=== PATIENT | female | born 1990 | race Caucasian/White ===

== ENCOUNTER 2020-07-17 09:42 | Emergency (ER) | payer OTHER, SELFPAY ==
[2020-07-17 09:54] VITALS: BP 124/71; PULSE 130; RESP 28; TEMP 37.8; O2SAT 97; BMI 30.7
--- NOTE | 2020-07-17 09:54 | ECG_ITS ---
Test Reason : FLU LIKE SYMPTOMS Blood Pressure : / mmHG Vent. Rate : 117 BPM Atrial Rate : 117 BPM P-R Int : 154 ms QRS Dur : 072 ms QT Int : 334 ms P-R-T Axes : 040 040 000 degrees QTc Int : 465 ms Sinus tachycardia Nonspecific T wave abnormality Abnormal ECG No previous ECGs available Referred By: Tiffany Akers Electronically Signed By:ALMAZ COFFEY MD
--- NOTE | 2020-07-17 09:54 | US_ITS ---
EXAMINATION: US VENOUS ULTRASOUND WITH DOPPLER LOWER EXTREMITY, BILATERAL CLINICAL INFORMATION: Pain and cramping. Covid positive. COMPARISON: None TECHNIQUE: Ultrasound of the deep veins is performed from the hip to the calf with compression sonography and color and pulse Doppler assessment. Spectral analysis with color-flow imaging is performed. FINDINGS: RIGHT: There is normal venous compression and respiratory variation and augmented flow. The visualized common femoral vein, superficial femoral vein, profunda femoral vein, popliteal vein, and the trifurcation region shows no evidence of deep venous thrombosis. There is no significant popliteal fossa cyst. No popliteal artery aneurysm. LEFT: There is normal venous compression and respiratory variation and augmented flow. The visualized common femoral vein, superficial femoral vein, profunda femoral vein, popliteal vein, and the trifurcation region shows no evidence of deep venous thrombosis. There is no significant popliteal fossa cyst. No popliteal artery aneurysm. If the patient's symptoms persist, followup ultrasound in 5 days 7 days might be of value to exclude proximal propagation from a non-visualized calf vein. US/US venous duplex LE BI IMPRESSION: No acute DVT demonstrated in the bilateral lower extremity.
--- NOTE | 2020-07-17 09:55 | XR_ITS ---
EXAMINATION: XR CHEST CLINICAL INFORMATION: Dyspnea. COMPARISON: Portable chest 03/29/2014 TECHNIQUE: Portable upright AP view of the chest was obtained. FINDINGS: There are low lung volumes. Subtle groundglass opacities present left suprahilar region which may represent early pneumonia or viral process. There is no effusion or pleural reaction. The heart is normal in size. The hilar and mediastinal contours and bony structures are unremarkable. XR/XR chest 1V IMPRESSION: Groundglass opacities left suprahilar region which may represent early pneumonia or viral process. No effusion.
--- NOTE | 2020-07-17 10:04 | ED_ITS ---
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 no OB complaints followed at [facility] [place] MD complaint: fevers, does not feel well, fatigue, shortness of breath Onset (ago): week(s) (2) Severity: moderate Quality: aching Pain Consistency: constant Relieving factors: none Exacerbating factors: none Associated symptoms: cough, fever/chills, headaches, loss of appetite, malaise and weakness Treatments prior to arrival: other (took tylenol overnight) Related Data Allergies Allergy/AdvReac Type Severity Reaction Status Date / Time No Known Allergies Allergy Unverified 05/01/20 16:42 Review of Systems Review of Systems: Constitutional : positive Fever, positive Chills, positive fatigue, positive Malaise ENT/Mouth : no sore throat, positive runny nose Eyes: No Discharge Cardiovascular : No Chest Pain, pos SOB Respiratory : No Cough, No Sputum Gastrointestinal : No Nausea, No Vomiting, No Diarrhea Genitourinary : No Dysuria, No Urinary Frequency Musculoskeletal : positive Myalgia Skin : No rash Neuro : No Headache All other systems reviewed and are negative [facility] Past Medical History Attestation statement: The following information was validated with the patient. Medical History No known health problems Social History Social History (Updated 07/17/20 @ 10:25 by Tiffany Akers DO) Alcohol intake: never Smoking Status: Never smoker Use of substances other than those prescribed or required for medical reasons: No Advance Directives: No Advance Directives Information Provided: No Physical Exam Vital Signs: Vital Signs: Last Vital Signs Temp 98.3 F 07/17/20 12:19 Pulse 105 H 07/17/20 12:19 Resp 28 H 07/17/20 09:54 BP 102/54 L 07/17/20 12:19 Pulse Ox 98 07/17/20 12:19 Body Mass Index 30.7 Appearance: Alert. Oriented X3. No acute distress. Anxious Eyes: Pupils equal, round and reactive to light. ENT: Pharynx normal. Neck: Normal inspection. Neck supple. CVS: tachycardic heart rate and rhythm. Pulses normal. Respiratory: No respiratory distress. Breath sounds slightly diminished Abdomen: Soft and non-tender. Gravid uterus Skin: Skin warm and dry. Normal skin color. Normal skin turgor. Extremities: No lower extremity edema. No calf ttp no swelling Neuro: Oriented X 3. No motor deficit. No sensory deficit. Course Course Course Narrative: FHT 165 call to her OB at [facility] [place] 1135am, 92% on RA placed on supplemental O2 discussed with Dr. Sebastian at OBGYN will accept patient , patient is on 1.5L NC 97% Dr. Sebastian and M attending - call transfer line and patient will be admitted Dr. 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 breath and fatigue and fevers at this time will need labs, venous duplex, CXR, tylenol, COVID labs - will need call to her OB as well, she is not hypoxic and has no chest pain at this time, heart tones ordered, dispo per results and findings Lab Data Result diagrams: 07/17/20 10:11 07/17/20 10:11 Labs: Lab Results 07/17/20 07/17/20 07/17/20 Range/Units 10:11 10:11 10:11 WBC 5.6 (4.8-10.8) X10*3/uL RBC 4.56 (4.20-5.50) X10*6/uL Hgb 11.2 L (12.0-16.0) g/dl Hct 34.9 L (37-47) % MCV 76.5 L (80-98) fL MCH 24.6 L (27.0-33.0) pg MCHC 32.1 (31.0-35.0) g/dl RDW 14.9 (11.0-16.0) % Plt Count 271 (160-400) X10*3/uL MPV 10.9 (9.4-12.3) fL Immature Gran % (Auto) 0.9 H (0.0-0.4) % Neut % (Auto) 81.3 H (45-73) % Lymph % (Auto) 12.3 L (20-40) % [place] % (Auto) 4.6 (2-11) % Eos % (Auto) 0.9 (0-4) % Baso % (Auto) 0.0 (0-2) % Lymph # (Auto) 0.7 L (1.2-4.9) X10*3/uL [place] # (Auto) 0.3 (0.1-1.2) X10*3/uL Eos # (Auto) 0.1 (0.0-0.4) X10*3/uL Baso # (Auto) 0.0 (0.0-0.2) X10*3/uL Abs Immat Gran (auto) 0.05 H (0.00-0.03) X10*3/uL Absolute Neuts (auto) 4.6 (2.0-8.3) X10*3/uL Absolute Nucleated RBC 0.000 (0.0-0.012) X10*3/uL Nucleated RBC % (auto) 0.0 (0.0-0.2) /100WBC Smear Tech's Comments VERIFIED PT 12.2 (10.8-13.0) SEC INR 1.0 (0.9-1.1) APTT 29.2 (24.1-38.0) SEC D-Dimer NG/ML Sodium 136 (135-145) mmol/L Potassium 3.6 (3.3-5.1) mmol/l Chloride 108 (96-108) mmol/L Carbon Dioxide 19 L (22-29) mmol/L Anion Gap 13 (12-20) BUN 5 L (9-16) mg/dL Creatinine 0.60 (0.5-1.4) mg/dL Estim Creat Clear Calc 128.0 Estimated GFR > 60 Random Glucose 88 (60-115) mg/dL Lactic Acid (0.5-2.0) mmol/L Calcium 8.3 L (8.4-10.2) mg/dL Magnesium 1.4 L* (1.6-2.6) mg/dL Ferritin 52 (10-122) ng/mL Total Bilirubin 0.4 (0.0-1.0) mg/dL Direct Bilirubin 0.2 (0.0-0.5) mg/dL AST 82 H (5-31) U/L ALT 51 H (0-31) U/L Alkaline Phosphatase 116 (39-117) U/L Lactate Dehydrogenase 233 H (122-220) U/L Troponin I High Sens (<3.5-17.0) ng/L B-Natriuretic Peptide (<100) pg/mL Total Protein 6.3 L (6.5-8.0) g/dL Albumin 3.4 L (3.5-5.0) g/dL Lipase 10 (8-78) U/L Procalcitonin ng/mL Coronavirus (PCR) (Negative) Influenza Type A (PCR) (Negative) Influenza Type B (PCR) (Negative) RSV RNA Qual (PCR) (Negative) 07/17/20 07/17/20 07/17/20 Range/Units 10:11 10:11 10:11 WBC (4.8-10.8) X10*3/uL RBC (4.20-5.50) X10*6/uL Hgb (12.0-16.0) g/dl Hct (37-47) % MCV (80-98) fL MCH (27.0-33.0) pg MCHC (31.0-35.0) g/dl RDW (11.0-16.0) % Plt Count (160-400) X10*3/uL MPV (9.4-12.3) fL Immature Gran % (Auto) (0.0-0.4) % Neut % (Auto) (45-73) % Lymph % (Auto) (20-40) % [place] % (Auto) (2-11) % Eos % (Auto) (0-4) % Baso % (Auto) (0-2) % Lymph # (Auto) (1.2-4.9) X10*3/uL [place] # (Auto) (0.1-1.2) X10*3/uL Eos # (Auto) (0.0-0.4) X10*3/uL Baso # (Auto) (0.0-0.2) X10*3/uL Abs Immat Gran (auto) (0.00-0.03) X10*3/uL Absolute Neuts (auto) (2.0-8.3) X10*3/uL Absolute Nucleated RBC (0.0-0.012) X10*3/uL Nucleated RBC % (auto) (0.0-0.2) /100WBC Smear Tech's Comments PT (10.8-13.0) SEC INR (0.9-1.1) APTT (24.1-38.0) SEC D-Dimer 387 NG/ML Sodium (135-145) mmol/L Potassium (3.3-5.1) mmol/l Chloride (96-108) mmol/L Carbon Dioxide (22-29) mmol/L Anion Gap (12-20) BUN (9-16) mg/dL Creatinine (0.5-1.4) mg/dL Estim Creat Clear Calc Estimated GFR Random Glucose (60-115) mg/dL Lactic Acid 1.0 (0.5-2.0) mmol/L Calcium (8.4-10.2) mg/dL Magnesium (1.6-2.6) mg/dL Ferritin (10-122) ng/mL Total Bilirubin (0.0-1.0) mg/dL Direct Bilirubin (0.0-0.5) mg/dL AST (5-31) U/L ALT (0-31) U/L Alkaline Phosphatase (39-117) U/L Lactate Dehydrogenase (122-220) U/L Troponin I High Sens (<3.5-17.0) ng/L B-Natriuretic Peptide < 10 (<100) pg/mL Total Protein (6.5-8.0) g/dL Albumin (3.5-5.0) g/dL Lipase (8-78) U/L Procalcitonin ng/mL Coronavirus (PCR) (Negative) Influenza Type A (PCR) (Negative) Influenza Type B (PCR) (Negative) RSV RNA Qual (PCR) (Negative) 07/17/20 07/17/20 07/17/20 Range/Units 10:11 10:11 10:21 WBC (4.8-10.8) X10*3/uL RBC (4.20-5.50) X10*6/uL Hgb (12.0-16.0) g/dl Hct (37-47) % MCV (80-98) fL MCH (27.0-33.0) pg MCHC (31.0-35.0) g/dl RDW (11.0-16.0) % Plt Count (160-400) X10*3/uL MPV (9.4-12.3) fL Immature Gran % (Auto) (0.0-0.4) % Neut % (Auto) (45-73) % Lymph % (Auto) (20-40) % [place] % (Auto) (2-11) % Eos % (Auto) (0-4) % Baso % (Auto) (0-2) % Lymph # (Auto) (1.2-4.9) X10*3/uL [place] # (Auto) (0.1-1.2) X10*3/uL Eos # (Auto) (0.0-0.4) X10*3/uL Baso # (Auto) (0.0-0.2) X10*3/uL Abs Immat Gran (auto) (0.00-0.03) X10*3/uL Absolute Neuts (auto) (2.0-8.3) X10*3/uL Absolute Nucleated RBC (0.0-0.012) X10*3/uL Nucleated RBC % (auto) (0.0-0.2) /100WBC Smear Tech's Comments PT (10.8-13.0) SEC INR (0.9-1.1) APTT (24.1-38.0) SEC D-Dimer NG/ML Sodium (135-145) mmol/L Potassium (3.3-5.1) mmol/l Chloride (96-108) mmol/L Carbon Dioxide (22-29) mmol/L Anion Gap (12-20) BUN (9-16) mg/dL Creatinine (0.5-1.4) mg/dL Estim Creat Clear Calc Estimated GFR Random Glucose (60-115) mg/dL Lactic Acid (0.5-2.0) mmol/L Calcium (8.4-10.2) mg/dL Magnesium (1.6-2.6) mg/dL Ferritin (10-122) ng/mL Total Bilirubin (0.0-1.0) mg/dL Direct Bilirubin (0.0-0.5) mg/dL AST (5-31) U/L ALT (0-31) U/L Alkaline Phosphatase (39-117) U/L Lactate Dehydrogenase (122-220) U/L Troponin I High Sens < 3.5 (<3.5-17.0) ng/L B-Natriuretic Peptide (<100) pg/mL Total Protein (6.5-8.0) g/dL Albumin (3.5-5.0) g/dL Lipase (8-78) U/L Procalcitonin 0.27 ng/mL Coronavirus (PCR) POSITIVE A (Negative) Influenza Type A (PCR) NEGATIVE (Negative) Influenza Type B (PCR) NEGATIVE (Negative) RSV RNA Qual (PCR) NEGATIVE (Negative) ECG Data Attestation: I personally reviewed and interpreted this ECG as follows: Interpretation: Rate: 117 Rhythm: sinus tachycardia [place]: normal Normal P waves. Normal JOSE MARIA. Normal QRS complex. ST T wave : no TIANNA, nonspecific qTC: normal prior studies: no acute ischemia The study has been interpreted contemporaneously by me. . Critical Care Time Critical Care Time Critical Care Time: Yes Total Critical Care Time: 35 Attestation: O2, medical consult, transfer to tertiary center I attest to this time spent taking care of the patient Discharge Plan Discharge Clinical Impression: COVID-19, Hypomagnesemia Patient Disposition: [facility]
[2020-07-17] MEDS: Acetaminophen 325 MG TABLET 650 MG PO (10:19)
[2020-07-17 10:20] LABS: Eosinophils Absolute Auto 0.1 X10*3/uL (0.0-0.4); Eosinophils Percent Auto 0.9 % (0-4); Hematocrit 34.9 % (37-47); Hemoglobin 11.2 g/dl (12.0-16.0); Imm Gran Abs Auto 0.05 X10*3/uL (0.00-0.03); Imm Gran Pct Auto 0.9 % (0.0-0.4); Lymphocytes Absolute Auto 0.7 X10*3/uL (1.2-4.9); Lymphocytes Percent Auto 12.3 % (20-40); MANUAL DIFF FLAG SCAN; Mean Corpuscular HGB Conc 32.1 g/dl (31.0-35.0); Mean Corpuscular Hemoglobin 24.6 pg (27.0-33.0); Mean Corpuscular Volume 76.5 fL (80-98); Mean Platelet Volume 10.9 fL (9.4-12.3); Monocytes Absolute Auto 0.3 X10*3/uL (0.1-1.2); Monocytes Percent Auto 4.6 % (2-11); Neutrophils Absolute Auto 4.6 X10*3/uL (2.0-8.3); Neutrophils Percent Auto 81.3 % (45-73); Platelet Count 271 X10*3/uL (160-400); Red Blood Count 4.56 X10*6/uL (4.20-5.50); Red Cell Distribution Width 14.9 % (11.0-16.0); SCAN SMEAR FLAG 1; White Blood Count 5.6 X10*3/uL (4.8-10.8)
[2020-07-17 10:29] LABS: Prothrombin Time 12.2 SEC (10.8-13.0)
[2020-07-17 10:32] LABS: Partial Thromboplastin Time 29.2 SEC (24.1-38.0)
[2020-07-17 10:33] LABS: D Dimer 387 NG/ML
[2020-07-17 10:44] LABS: SLIDE REVIEW VERIFIED
[2020-07-17] MEDS: ondansetron HCL 4 MG/2 ML VIAL IVPUSH (10:58)
[2020-07-17 11:04] LABS: Alanine Aminotransferase 51 U/L (0-31); Albumin Level 3.4 g/dL (3.5-5.0); Alkaline Phosphatase 116 U/L (39-117); Anion Gap 13 (12-20); Aspartate Amino Transferase 82 U/L (5-31); B Type Natriuretic Peptide < 10 pg/mL (<100); Bilirubin Direct 0.2 mg/dL (0.0-0.5); Bilirubin Total 0.4 mg/dL (0.0-1.0); Blood Urea Nitrogen 5 mg/dL (9-16); Calcium 8.3 mg/dL (8.4-10.2); Carbon Dioxide 19 mmol/L (22-29); Chloride 108 mmol/L (96-108); Estimated Glomerular Filt Rate > 60; Glucose Random 88 mg/dL (60-115); Lactate Dehydrogenase 233 U/L (122-220); Lipase 10 U/L (8-78); Magnesium 1.4 mg/dL (1.6-2.6); Potassium 3.6 mmol/l (3.3-5.1); Sodium 136 mmol/L (135-145); Total Protein 6.3 g/dL (6.5-8.0); Troponin-I High Sensitivity < 3.5 ng/L (<3.5-17.0)
[2020-07-17 11:13] LABS: Influenza A PCR NEGATIVE (Negative); Influenza B PCR NEGATIVE (Negative); Resp Syncy Virus RNA Qual PCR NEGATIVE (Negative); SARS COV2 PCR INHOUSE POSITIVE (Negative)
[2020-07-17 11:17] LABS: Ferritin 52 ng/mL (10-122)
[2020-07-17] MEDS: Magnesium Sulfate/H2O 2 GM/50 ML PIGGYBACK IV (11:17)
[2020-07-17 11:19] LABS: Procalcitonin 0.27 ng/mL
[2020-07-17 12:19] VITALS: BP 102/54; PULSE 105; TEMP 36.8; O2SAT 98
--- NOTE | 2020-07-17 15:27 | PC.NURSE ---
pt to be transferred to [facility] for ob care, pt updated on plan of care by provider.
[2020-07-17 16:03] VITALS: BP 126/78; PULSE 78; TEMP 37.2; O2SAT 98
== END 2020-07-17 16:45 | disposition short-term general hospital (02) ==
PROVIDERS: Emergency Provider Emergency Medicine
DX: O98.512 Other viral diseases complicating pregnancy, second trimester (principal); U07.1 COVID-19; O99.412 Diseases of the circulatory system complicating pregnancy, second trimester; R00.0 Tachycardia, unspecified; O26.892 Other specified pregnancy related conditions, second trimester; E83.42 Hypomagnesemia; Z3A.27 27 weeks gestation of pregnancy
CPT/HCPCS: 0241U; 36415; 71045; 80048; 80076; 82728; 83605; 83615; 83690; 83735; 83880; 84145; 84484; 85025; 85379; 85610; 85730; 87040; 93005; 93970; 96365; 96375; 99285; 99291; J2405; J3475

== ENCOUNTER 2021-01-26 15:58 | Inpatient (IN) | payer OTHER, SELFPAY ==
--- NOTE | ~2021-01-26 | CT_ITS ---
EXAMINATION: CT ABDOMEN AND PELVIS WITHOUT CONTRAST CLINICAL INFORMATION: Kidney stones. COMPARISON: None TECHNIQUE: Multidetector volumetric imaging was performed from the superior aspect of the liver through the pubic symphysis. Sagittal and coronal reformatted images were obtained on the technologist's workstation. This CT examination was performed using dose optimization techniques as appropriate, variously including the following: *Automated exposure control *Adjustment of mA and/or kV according to patient size (this includes techniques or standardized protocols for targeted exams where dose is matched to indication/reason for exam; i.e. extremities or head) *Use of iterative reconstruction technique DLP: 681 mGy-cm FINDINGS: LUNG BASES: There is minimal bibasilar atelectasis. The heart size is normal. LIVER, GALLBLADDER, AND BILIARY TREE: The liver is normal in size, shape, and attenuation. No focal hepatic lesion or biliary ductal dilatation is present. The gallbladder is unremarkable with no evidence of radiopaque gallstones, gallbladder wall thickening, or obvious pericholecystic inflammatory changes. PANCREAS: Unremarkable. SPLEEN: Unremarkable. ADRENAL GLANDS: Unremarkable. KIDNEYS AND URETERS: The kidneys are normal in size, shape, and attenuation. There are numerous small radiopaque calculi in upper, mid and lower pole left kidney without caliectasis or hydronephrosis. A 1.2 cm radiopaque calculi visualized in the right proximal ureter with moderate hydroureteronephrosis. There is no left hydronephrosis seen. BLADDER: Unremarkable. GASTROINTESTINAL TRACT: Scattered stool and gas seen throughout the colon without significant distention. The small bowel loops are normal caliber. Appendix is normal caliber. ABDOMINAL WALL: A small umbilical hernia containing fat is noted. LYMPH NODES: Normal. VASCULAR: Unremarkable. PELVIC VISCERA: Unremarkable. OSSEOUS STRUCTURES: Unremarkable. CT/CT abdomen pelvis wo con IMPRESSION: 1.2 cm obstructive radiopaque calculi right proximal ureter with mild hydronephrosis. There are small left renal calculi without caliectasis or hydronephrosis. Mild constipation.
--- NOTE | ~2021-01-26 | FL_ITS ---
EXAMINATION: FL XR WITH IMAGES CLINICAL INFORMATION: Obstructing calculus right proximal ureter. COMPARISON: CT scan 01/26/2021. TECHNIQUE: Fluoroscopy performed by Dr. Billy Navarro. Fluoroscopy Time: 14.37 seconds. Dose: 4.22 mGy. Images: 2. FINDINGS: 2 images demonstrate an internally dwelling double-J stent, presumably on the right although the film is not labeled. FL/FL guidance in OR IMPRESSION: Fluoroscopy and spot films provided during retrograde pyelography.
[2021-01-26 16:36] VITALS: BP 117/71; PULSE 122; RESP 18; O2SAT 96; BMI 32.1
[2021-01-26 17:32] LABS: Glucose Urine UA NEG (NEG); Leukocyte Esterase Urine 2+ (NEG); Nitrite Urine POS (NEG); Specific Gravity - Urine 1.025 (1.005-1.025); UACC Culture Trigger YES; UPreg QC Valid YES; Urine Blood 3+ (NEG); Urine Ketones 5 MG/DL (NEG); Urine Pregnancy NEGATIVE (NEGATIVE); Urine Protein 1+ MG/DL (NEG-TRACE)
[2021-01-26 18:04] LABS: Appearance Urine HAZY; Color Urine AMBER
[2021-01-26 18:06] LABS: Bacteria Urine 1+ /LPF; Mucus Urine 1+ /LPF; Squamous Epithelial Cell Urine 2+ /LPF
[2021-01-26 18:33] LABS: COVID-19 Test Negative (Negative)
[2021-01-26 18:46] LABS: Anion Gap 13 (12-20); Blood Urea Nitrogen 9 mg/dL (9-16); Calcium 9.1 mg/dL (8.4-10.2); Carbon Dioxide 23 mmol/L (22-29); Chloride 108 mmol/L (96-108); Creatinine Clr Calc Pharmacy 106.3; Estimated Glomerular Filt Rate > 60; Glucose Random 74 mg/dL (60-115); Potassium 3.8 mmol/L (3.3-5.1); Sodium 140 mmol/L (135-145)
--- NOTE | 2021-01-26 19:46 | ED_ITS ---
HPI - Abdominal Pain General Chief Complaint: Abdominal Pain Stated Complaint: upper abd pain Time Seen by Provider: 01/26/21 20:36 Source: patient Mode of arrival: ambulatory Limitations: no limitations History of Present Illness HPI narrative: Patient presents to ED for upper abdominal pain past 3 days with nausea and emesis. Patient states no flank pain. Patient states subjective fever and chills. Patient states mild dysuria MD elicited complaint: abdominal pain Related Data Allergies Allergy/AdvReac Type Severity Reaction Status Date / Time No Known Allergies Allergy Unverified 05/01/20 16:42 Review of Systems Review of Systems Yes all other systems are reviewed and are negative Constitutional: Reports as per HPI and Reports no additional constitutional co mplaints Eyes: Reports as per HPI and Reports no additional eye complaints Reports system reviewed and no additional complaints, except as documented and Reports as per HPI Cardiovascular: Reports as per HPI and Reports no additional cardiovascular complaints Respiratory: Reports as per HPI and Reports no additional respiratory complaints Gastrointestinal: Reports as per HPI, Reports no additional gastrointestinal complaints and Reports abdominal pain (Upper abdominal pain) Genitourinary: Reports no additional female genitourinary complaints and Reports as per HPI Musculoskeletal: Reports no additional musculoskeletal complaints and Reports as per HPI Reports system reviewed and no additional complaints, except as documented and Reports as per HPI Physical Exam Vital Signs: Vital Signs: Last Vital Signs Temp 100.4 F 01/26/21 21:42 Pulse 116 H 01/26/21 21:42 Resp 16 01/26/21 21:42 BP 126/72 01/26/21 21:42 Pulse Ox 97 01/26/21 21:42 Body Mass Index 32.1 Const: General: cooperative, healthy appearing, comfortable, no acute distress, well developed, alert and awake Orientation/consciousness: patient oriented x3 HENMT: Head: Yes normal to inspection, Yes No palpable skull fracture present, Yes normocephalic and Yes atraumatic Eyes: General: appearance normal, both eyes and all related structures Neck: Neck: Yes normal visual inspection, Yes full ROM, Yes no lymphadenopathy , Yes no meningeal signs, Yes trachea midline, Yes supple and No tender Chest: Chest palpation & inspection: normal inspection of the chest and normal palpation of entire chest wall Resp: Effort & Inspection: normal respiratory effort and able to speak in complete sentences Auscultation: clear to auscultation bilaterally Cardio: Jugular venous distension: no JVD Heart sounds: S1 normal heart sound present and S2 normal heart sound present GI: Inspection: Yes normal to inspection and No abdominal wall ecchymosis Palpation (GI): Tenderness to palpation present (GI) in the epigastrum, in the RLQ and in the RUQ, no guarding and not rigid : General: No CVA tenderness and Yes no CVA tenderness Back/Spine/Pelvis: Back: no CVA tenderness, No CVA tenderness and No back tenderness Skin: General skin exam: no rashes or lesions noted and elasticity normal Neuro: General: oriented to time, patient oriented x3, no meningeal signs and CN's II-XI intact bilaterally Extrem: General: Yes normal to inspection and Yes full ROM Psych: Appearance: grossly normal, well kempt and not disheveled Course Course Course Narrative: Patient rather medical screening which shows UTI. Patient has upper abdominal tenderness will do liver enzyme LFTs. Also added white blood cell count even fluid, Zofran, nausea medication. Reevaluation(s) Reevaluation #1: Patient has mild elevated white blood cell count. Abdomen re- evaluated after receiving Toradol is totally benign. Patient is now febrile tachycardic. Patient informed me then that she had 2nd dose of Phizer yesterday which could be contributing to fever, body aches, and tachycardia. But due to patient having UTI with lots of blood. Was sent for CT scan to check for any obstructive stone. Patient denies any plane in flanks. Patient not having any flank pain. Time: 21:18 Reevaluation #2: CT scan shows 1.2 cm ureteral stone obstructed. Patient has fever and infected UTI. Spoke with Dr. Navarro of Urology who recommend patient be admitted to hospitalist for IV antibiotics and he will see patient in the morning. Time: 00:19 MDM - Abdominal Pain MDM Narrative Medical decision making narrative: Ureteral stone Lab Data Result diagrams: 01/26/21 20:41 01/26/21 18:10 Labs: Lab Results 01/26/21 01/26/21 01/26/21 Range/Units 17:11 17:11 18:10 WBC (4.8-10.8) X10*3/uL RBC (4.20-5.50) X10*6/uL Hgb (12.0-16.0) g/dl Hct (37-47) % MCV (80-98) fL MCH (27.0-33.0) pg MCHC (31.0-35.0) g/dl RDW (11.0-16.0) % Plt Count (160-400) X10*3/uL MPV (9.4-12.3) fL Immature Gran % (Auto) (0.0-0.4) % Neut % (Auto) (45-73) % Lymph % (Auto) (20-40) % [place] % (Auto) (2-11) % Eos % (Auto) (0-4) % Baso % (Auto) (0-2) % Lymph # (Auto) (1.2-4.9) X10*3/uL [place] # (Auto) (0.1-1.2) X10*3/uL Eos # (Auto) (0.0-0.4) X10*3/uL Baso # (Auto) (0.0-0.2) X10*3/uL Abs Immat Gran (auto) (0.00-0.03) X10*3/uL Absolute Neuts (auto) (2.0-8.3) X10*3/uL Absolute Nucleated RBC (0.0-0.012) X10*3/uL Nucleated RBC % (auto) (0.0-0.2) /100WBC Sodium 140 (135-145) mmol/L Potassium 3.8 (3.3-5.1) mmol/L Chloride 108 (96-108) mmol/L Carbon Dioxide 23 (22-29) mmol/L Anion Gap 13 (12-20) BUN 9 D (9-16) mg/dL Creatinine 0.74 (0.5-1.4) mg/dL Estim Creat Clear Calc 106.3 Estimated GFR > 60 Random Glucose 74 (60-115) mg/dL Lactic Acid (0.5-2.0) mmol/L Calcium 9.1 D (8.4-10.2) mg/dL Total Bilirubin 0.4 (0.0-1.0) mg/dL Direct Bilirubin 0.2 (0.0-0.5) mg/dL AST 15 D (5-31) U/L ALT 14 (0-31) U/L Alkaline Phosphatase 123 H (39-117) U/L Total Protein 7.6 D (6.5-8.0) g/dL Albumin 4.2 D (3.5-5.0) g/dL Lipase 10 (8-78) U/L Urine Color CONNIE Urine Appearance HAZY Urine pH 6.0 (5.0-8.0) Ur Specific [place] 1.025 (1.005-1.025) Urine Protein 1+ H (NEG-TRACE) MG/DL Urine Glucose (UA) NEG (NEG) MG/DL Urine Ketones 5 (NEG) MG/DL Urine Blood 3+ H (NEG) Urine Nitrite POS H (NEG) Ur Leukocyte Esterase 2+ H (NEG) Urine RBC 76-150 H (0) /HPF Urine WBC 15-29 H (0-4) /HPF Ur Squamous Epith Cells 2+ /LPF Urine Bacteria 1+ /LPF Urine Mucus 1+ /LPF Urine Test NEGATIVE (NEGATIVE) COVID-19 (DARA) (Negative) COVID-19 Clin Com 01/26/21 01/26/21 01/26/21 Range/Units 18:10 20:41 21:38 WBC 11.3 H (4.8-10.8) X10*3/uL RBC 4.80 (4.20-5.50) X10*6/uL Hgb 10.4 L (12.0-16.0) g/dl Hct 34.1 L (37-47) % MCV 71.0 L (80-98) fL MCH 21.7 L (27.0-33.0) pg MCHC 30.5 L (31.0-35.0) g/dl RDW 17.3 H (11.0-16.0) % Plt Count 454 H D (160-400) X10*3/uL MPV 10.9 (9.4-12.3) fL Immature Gran % (Auto) 0.3 (0.0-0.4) % Neut % (Auto) 81.0 H (45-73) % Lymph % (Auto) 11.3 L (20-40) % [place] % (Auto) 6.8 (2-11) % Eos % (Auto) 0.3 (0-4) % Baso % (Auto) 0.3 (0-2) % Lymph # (Auto) 1.3 (1.2-4.9) X10*3/uL [place] # (Auto) 0.8 (0.1-1.2) X10*3/uL Eos # (Auto) 0.0 (0.0-0.4) X10*3/uL Baso # (Auto) 0.0 (0.0-0.2) X10*3/uL Abs Immat Gran (auto) 0.03 (0.00-0.03) X10*3/uL Absolute Neuts (auto) 9.2 H (2.0-8.3) X10*3/uL Absolute Nucleated RBC 0.000 (0.0-0.012) X10*3/uL Nucleated RBC % (auto) 0.0 (0.0-0.2) /100WBC Sodium (135-145) mmol/L Potassium (3.3-5.1) mmol/L Chloride (96-108) mmol/L Carbon Dioxide (22-29) mmol/L Anion Gap (12-20) BUN (9-16) mg/dL Creatinine (0.5-1.4) mg/dL Estim Creat Clear Calc Estimated GFR Random Glucose (60-115) mg/dL Lactic Acid 1.1 (0.5-2.0) mmol/L Calcium (8.4-10.2) mg/dL Total Bilirubin (0.0-1.0) mg/dL Direct Bilirubin (0.0-0.5) mg/dL AST (5-31) U/L ALT (0-31) U/L Alkaline Phosphatase (39-117) U/L Total Protein (6.5-8.0) g/dL Albumin (3.5-5.0) g/dL Lipase (8-78) U/L Urine Color Urine Appearance Urine pH (5.0-8.0) Ur Specific [place] (1.005-1.025) Urine Protein (NEG-TRACE) MG/DL Urine Glucose (UA) (NEG) MG/DL Urine Ketones (NEG) MG/DL Urine Blood (NEG) Urine Nitrite (NEG) Ur Leukocyte Esterase (NEG) Urine RBC (0) /HPF Urine WBC (0-4) /HPF Ur Squamous Epith Cells /LPF Urine Bacteria /LPF Urine Mucus /LPF Urine Test (NEGATIVE) COVID-19 (DARA) Negative (Negative) COVID-19 Clin Com See Note Discharge Plan Discharge Clinical Impression: Calculus, ureteral, Hydronephrosis with renal and ureteral calculous obstruction Patient Disposition: Admitted As Inpatient [facility] Past Medical History Medical History No known health problems Social History Social History (Updated 07/17/20 @ 10:25 by Tiffany Akers DO) Alcohol intake: never Advance Directives: No Advance Directives Information Provided: No Patient : No
[2021-01-26 20:05] LABS: Alanine Aminotransferase 14 U/L (0-31); Albumin Level 4.2 g/dL (3.5-5.0); Alkaline Phosphatase 123 U/L (39-117); Aspartate Amino Transferase 15 U/L (5-31); Bilirubin Direct 0.2 mg/dL (0.0-0.5); Bilirubin Total 0.4 mg/dL (0.0-1.0); Lipase 10 U/L (8-78); Total Protein 7.6 g/dL (6.5-8.0)
[2021-01-26 20:41] VITALS: BP 128/83; PULSE 115; RESP 16; TEMP 39.6; O2SAT 100
--- NOTE | 2021-01-26 20:42 | PC.NURSE ---
EPIFANIO TAI AWARE OF PATIENT TEMP OF 103.2 AND HEART RATE OF 115
[2021-01-26 20:46] LABS: MANUAL DIFF FLAG NO
[2021-01-26] MEDS: 0.9 % Sodium Chloride 1,000 ML 999 ML IV ×2 (20:49→21:44)
[2021-01-26] MEDS: ondansetron HCL 4 MG/2 ML VIAL IVPUSH (20:49)
[2021-01-26] MEDS: Ketorolac Tromethamine 30 MG/ML VIAL IVPUSH (20:49)
[2021-01-26 20:54] LABS: Basophils Percent Auto 0.3 % (0-2); Eosinophils Percent Auto 0.3 % (0-4); Hematocrit 34.1 % (37-47); Hemoglobin 10.4 g/dl (12.0-16.0); Imm Gran Abs Auto 0.03 X10*3/uL (0.00-0.03); Imm Gran Pct Auto 0.3 % (0.0-0.4); Lymphocytes Absolute Auto 1.3 X10*3/uL (1.2-4.9); Lymphocytes Percent Auto 11.3 % (20-40); Mean Corpuscular HGB Conc 30.5 g/dl (31.0-35.0); Mean Corpuscular Hemoglobin 21.7 pg (27.0-33.0); Mean Platelet Volume 10.9 fL (9.4-12.3); Monocytes Absolute Auto 0.8 X10*3/uL (0.1-1.2); Monocytes Percent Auto 6.8 % (2-11); Neutrophils Absolute Auto 9.2 X10*3/uL (2.0-8.3); Platelet Count 454 X10*3/uL (160-400); Red Cell Distribution Width 17.3 % (11.0-16.0); White Blood Count 11.3 X10*3/uL (4.8-10.8)
[2021-01-26] MEDS: Acetaminophen 325 MG TABLET 650 MG PO (21:26)
[2021-01-26 21:42] VITALS: BP 126/72; PULSE 116; RESP 16; TEMP 38; O2SAT 97
[2021-01-26] MEDS: cefTRIAXone sodium 2 GM in 0.9 % Sodium Chloride 50 ML IV (21:44)
[2021-01-26 22:05] LABS: Lactic Acid 1.1 mmol/L (0.5-2.0)
[2021-01-26 23:00] VITALS: BP 123/72
[2021-01-26 23:15] VITALS: BP 126/76
[2021-01-27] VITALS (14 sets, daily range): BP systolic 106–127; BP diastolic 57–84; PULSE 84–103; RESP 16–20; TEMP 36.1–37.1; O2SAT 92–100; BMI 32.1
[2021-01-27] MEDS: Enoxaparin Sodium 40 MG/0.4 ML SYRINGE SUBCUT (02:44)
[2021-01-27] MEDS: 0.9 % Sodium Chloride 1,000 ML 100 ML IVCONT ×2 (02:45→14:19)
[2021-01-27] MEDS: Acetaminophen 325 MG TABLET 650 MG PO (02:49)
[2021-01-27] MEDS: ondansetron HCL 4 MG/2 ML VIAL IVPUSH ×3 (02:49→21:39)
[2021-01-27] MEDS: oxyCODONE HCl Immed Release 5 MG TABLET PO ×2 (03:28→23:38)
--- NOTE | 2021-01-27 06:28 | P.HPHOSP_ITS ---
History of Present Illness Date of Service: 01/27/21 Chief Complaint: Abdominal pain This is a 30-year-old female with no significant past medical history who presents to the hospital with right upper abdominal pain described as 10/10, radiating to the lower right abdomen, associated with nausea with no vomiting, fevers, pain described as cramping, shooting. She is also having dysuria on urination, all started about 2 days ago, denies any chest pain, no headache or change in vision, no shortness of breath, no lower extremity edema, no numbness tingling. On arrival vital significant for temp of 103.2?, heart rate of 115, respiratory rate of 16, blood pressure 128/83, satting 100% on room air Lab significant for WBC count of 11.3, hemoglobin of 10.4, UA that is positive for nitrites, leukocyte Estrace and WBC. Abdominal CT shows 1.2 cm obstructive radiopaque calculi in the right proximal ureter with mild hydronephrosis with small left renal calculi without caliectasis or hydronephrosis Urology was consulted and patient will be admitted under medical service for further management Review of Systems Review of Systems: Yes all other systems are reviewed and are negative PMFSH Medical History No known health problems Social History Household Members: Family Housing: Apartment Do you presently have visiting nurse or other home services: No Alcohol intake: never Patient Tobacco Use Status: Never used Tobacco Smoked in Last 30 Days: No e-Cigarette/Vaping Use: Never Used Patient Interested in Nicotine Replacement: No Patient Given Instructions on How to Stop Smoking: No Second Hand Smoke Exposure: No Use of substances other than those prescribed or required for medical reasons: No Currently Displaying Signs/Symptoms of Drug Intoxication Withdrawal: No Any prior treatment program specific to substance use: No Have you been hit, kicked, punched, or otherwise hurt by someone within the past year? If so, by whom?: No Do you feel safe in your current relationship?: Yes Is there a partner from a previous relationship who is making you feel unsafe now?: No Advance Directives: No Advance Directives Information Provided: No Advance Directives on File: No Do you have thoughts of harming others: None Do you have a plan to hurt others: No Plan Recently lost weight without trying: No Eating poorly because of decreased appetite: No Nutrition Risks: No Nutritional Risk Patient : No : No Poor oral hygiene: No Meds Allergies Allergy/AdvReac Type Severity Reaction Status Date / Time No Known Allergies Allergy Unverified 05/01/20 16:42 Active Medications: Current Medications Generic Name Dose Route Start Last Admin Trade Name Freq PRN Reason Stop Dose Admin Acetaminophen 650 mg 01/27/21 01:05 01/27/21 02:49 Acetaminophen 325 Mg Tablet PO 650 mg Q6H PRN Administration Pain, Mild (Pain Scale 1-3) Docusate Sodium 100 mg 01/27/21 01:05 Docusate Sodium 100 Mg Capsule PO DAILY PRN Constipation Enoxaparin Sodium 40 mg 01/27/21 02:00 01/27/21 02:44 Enoxaparin Sodium 40 Mg/0.4 Ml Syringe SUBCUT 40 mg Q24H YUE Administration Ceftriaxone Sodium 1 gm/ 50 mls @ 100 mls/hr 01/27/21 21:00 Sodium Chloride IV Q24H YUE Sodium Chloride 1,000 mls @ 100 mls/hr 01/27/21 01:05 01/27/21 02:45 Ns IVCONT 100 mls/hr .Q10H YUE Administration Morphine Sulfate 4 mg 01/27/21 01:05 Morphine Sulfate 4 Mg/Ml Cartridge IVPUSH Q4H PRN Pain, Severe (Pain Scale 7-10) Ondansetron HCl 4 mg 01/27/21 01:05 01/27/21 02:49 Ondansetron Hcl 4 Mg/2 Ml Vial IVPUSH 4 mg Q8H PRN Administration Nausea and Vomiting Oxycodone HCl 5 mg 01/27/21 03:14 01/27/21 03:28 Oxycodone Hcl Immed Release 5 Mg Tablet PO 5 mg Q6H PRN Administration Pain, Severe (Pain Scale 7-10) Sodium Chloride 3 ml 01/27/21 08:00 0.9 % Sodium Chloride Flush 3 Ml Syringe IVFLUSH QSHIFT YUE Physical Exam Vital Signs and Narrative: Vital Signs: Last Vital Signs Temp 98.6 F 01/27/21 03:12 Pulse 98 01/27/21 03:12 Resp 20 01/27/21 03:12 BP 120/69 06/15/21 03:12 Pulse Ox 97 01/27/21 03:12 Body Mass Index 32.1 Const: Other: Appears to be in significant pain General: cooperative and no acute distress Orientation/consciousness: patient oriented x3 Eyes: General: appearance normal, both eyes and all related structures Resp: Effort & Inspection: normal respiratory effort and able to speak in complete sentences Cardio: Rate: regular rate Rhythm: regular rhythm GI: Other: Right abdominal quadrants abdominal tenderness Palpation (GI): Soft to palpation Auscultation: normal bowel sounds : Other: right cva tenderness Skin: General skin exam: no rashes or lesions noted Neuro: General: patient oriented x3 Cognition (Neuro): normal cognition Extrem: General: Yes normal to inspection and Yes no pedal edema Results Labs CBC and Chem 7: 01/26/21 20:41 01/26/21 18:10 Labs: Laboratory Results - last 24 hr 01/26/21 01/26/21 01/26/21 17:11 17:11 18:10 MCV MCH MCHC RDW Plt Count MPV Immature Gran % (Auto) Neut % (Auto) Lymph % (Auto) [place] % (Auto) Eos % (Auto) Baso % (Auto) Lymph # (Auto) [place] # (Auto) Eos # (Auto) Baso # (Auto) Abs Immat Gran (auto) Absolute Neuts (auto) Absolute Nucleated RBC Nucleated RBC % (auto) Anion Gap 13 Estim Creat Clear Calc 106.3 Estimated GFR > 60 Random Glucose 74 Lactic Acid Calcium 9.1 D Total Bilirubin 0.4 Direct Bilirubin 0.2 AST 15 D ALT 14 Alkaline Phosphatase 123 H Total Protein 7.6 D Albumin 4.2 D Lipase 10 Urine Color CONNIE Urine Appearance HAZY Urine pH 6.0 Ur Specific [place] 1.025 Urine Protein 1+ H Urine Glucose (UA) NEG Urine Ketones 5 Urine Blood 3+ H Urine Nitrite POS H Ur Leukocyte Esterase 2+ H Urine RBC 76-150 H Urine WBC 15-29 H Ur Squamous Epith Cells 2+ Urine Bacteria 1+ Urine Mucus 1+ Urine Test NEGATIVE COVID-19 (DARA) COVID-19 Clin Com 01/26/21 01/26/21 01/26/21 18:10 20:41 21:38 MCV 71.0 L MCH 21.7 L MCHC 30.5 L RDW 17.3 H Plt Count 454 H D MPV 10.9 Immature Gran % (Auto) 0.3 Neut % (Auto) 81.0 H Lymph % (Auto) 11.3 L [place] % (Auto) 6.8 Eos % (Auto) 0.3 Baso % (Auto) 0.3 Lymph # (Auto) 1.3 [place] # (Auto) 0.8 Eos # (Auto) 0.0 Baso # (Auto) 0.0 Abs Immat Gran (auto) 0.03 Absolute Neuts (auto) 9.2 H Absolute Nucleated RBC 0.000 Nucleated RBC % (auto) 0.0 Anion Gap Estim Creat Clear Calc Estimated GFR Random Glucose Lactic Acid 1.1 Calcium Total Bilirubin Direct Bilirubin AST ALT Alkaline Phosphatase Total Protein Albumin Lipase Urine Color Urine Appearance Urine pH Ur Specific [place] Urine Protein Urine Glucose (UA) Urine Ketones Urine Blood Urine Nitrite Ur Leukocyte Esterase Urine RBC Urine WBC Ur Squamous Epith Cells Urine Bacteria Urine Mucus Urine Test COVID-19 (DARA) Negative COVID-19 Clin Com See Note Imaging Radiologist's Impressions: Impressions Abdomen/Pelvis CT 01/26/21 21:16 IMPRESSION: 1.2 cm obstructive radiopaque calculi right proximal ureter with mild hydronephrosis. There are small left renal calculi without caliectasis or hydronephrosis. Mild constipation. Assessment and Plan (1) Calculus, ureteral: Status: Acute (2) Hydronephrosis with renal and ureteral calculous obstruction: Status: Acute (3) Pyelonephritis: Status: Acute (4) Hydronephrosis with obstructing calculus: Status: Acute (5) Sepsis: Status: Acute This is a 30-year-old female with no significant past medical history who presents to the hospital with abdominal pain found to have pyelonephritis as well as an obstructing calculi # sepsis - secondary to pyelonephritis - has fever, tachycardia, leukocytosis - will start on IV antibiotics - follow cultures - IV fluids # obstructing calculus - with mild hydronephrosis - right ureter - urology consulted, will see patient in a.m. for possible intervention # pyelonephritis - patient is CVA tenderness, obstructing calculi, UTI and sepsis - started on IV ceftriaxone - IV fluids - follow cultures DVT prophylaxis: Mechanical SCDs at this time given possible urological intervention
--- NOTE | 2021-01-27 07:30 | PHA.MEDREC ---
Pharmacy Consult ? Medication Reconciliation Pharmacy has completed the medication reconciliation.
[2021-01-27] MEDS: 0.9 % Sodium Chloride Flush 3 ML SYRINGE IVFLUSH (07:41)
[2021-01-27] MEDS: Prochlorperazine Edisylate 10 MG/2 ML VIAL 5 MG IVPUSH (07:49)
--- NOTE | 2021-01-27 08:50 | MHC.CM.PN ---
CM spoke with Patient over the phone at [phone]. Patient lives on the 3RD floor of a 3 family house with her and 5 children ranging in age from 3 months to 12 years of age. Patient is functionally independent and working and her goal is to return home/no services. CM has initiated and will follow for dc planning. PCP is from [facility].
--- NOTE | 2021-01-27 10:53 | HO.PM.IMPN ---
Subjective Subjective Date of Service: 01/27/21 Interval History: follow-up pyelonephritis and hydronephrosis still having severe pain, diarrhea, dry heaves Physical Exam Vital Signs: Vital Signs: Last Vital Signs Temp 97.8 F 01/27/21 07:24 Pulse 84 01/27/21 07:24 Resp 18 01/27/21 07:24 BP 122/73 01/27/21 07:24 Pulse Ox 96 01/27/21 07:24 Body Mass Index 32.1 Appearing in no acute distress lung sounds are clear to auscultation heart regular rate rhythm, clear S1, S2 positive bowel sounds, abdomen tender neuro patient is alert x3, no focal deficits Objective Data Current Medications Generic Name Dose Route Start Last Admin Trade Name Freq PRN Reason Stop Dose Admin Acetaminophen 650 mg 01/27/21 01:05 01/27/21 02:49 Acetaminophen 325 Mg Tablet PO 650 mg Q6H PRN Administration Pain, Mild (Pain Scale 1-3) Docusate Sodium 100 mg 01/27/21 01:05 Docusate Sodium 100 Mg Capsule PO DAILY PRN Constipation Ceftriaxone Sodium 1 gm/ 50 mls @ 100 mls/hr 01/27/21 21:00 Sodium Chloride IV Q24H YUE Sodium Chloride 1,000 mls @ 100 mls/hr 01/27/21 01:05 01/27/21 02:45 Ns IVCONT 100 mls/hr .Q10H YUE Administration Lorazepam 0.25 mg 01/27/21 10:52 Lorazepam 2 Mg/Ml Vial IVPUSH 01/27/21 10:53 ONCE ONE Morphine Sulfate 2 mg 01/27/21 10:52 Morphine Sulfate 4 Mg/Ml Cartridge IVPUSH Q4H PRN Pain, Severe (Pain Scale 7-10) Ondansetron HCl 4 mg 01/27/21 01:05 01/27/21 10:28 Ondansetron Hcl 4 Mg/2 Ml Vial IVPUSH 4 mg Q8H PRN Administration Nausea and Vomiting Oxycodone HCl 5 mg 01/27/21 03:14 01/27/21 03:28 Oxycodone Hcl Immed Release 5 Mg Tablet PO 5 mg Q6H PRN Administration Pain, Severe (Pain Scale 7-10) Sodium Chloride 3 ml 01/27/21 08:00 01/27/21 07:41 0.9 % Sodium Chloride Flush 3 Ml Syringe IVFLUSH 3 ml QSHIFT YUE Administration Labs CBC & Chem 7: 01/26/21 20:41 01/26/21 18:10 Labs: Laboratory Results - last 24 hr 01/26/21 01/26/21 01/26/21 17:11 17:11 18:10 WBC RBC Hgb Hct MCV MCH MCHC RDW Plt Count MPV Immature Gran % (Auto) Neut % (Auto) Lymph % (Auto) [place] % (Auto) Eos % (Auto) Baso % (Auto) Lymph # (Auto) [place] # (Auto) Eos # (Auto) Baso # (Auto) Abs Immat Gran (auto) Absolute Neuts (auto) Absolute Nucleated RBC Nucleated RBC % (auto) Sodium 140 Potassium 3.8 Chloride 108 Carbon Dioxide 23 Anion Gap 13 BUN 9 D Creatinine 0.74 Estim Creat Clear Calc 106.3 Estimated GFR > 60 Random Glucose 74 Lactic Acid Calcium 9.1 D Total Bilirubin 0.4 Direct Bilirubin 0.2 AST 15 D ALT 14 Alkaline Phosphatase 123 H Total Protein 7.6 D Albumin 4.2 D Lipase 10 Urine Color CONNIE Urine Appearance HAZY Urine pH 6.0 Ur Specific [place] 1.025 Urine Protein 1+ H Urine Glucose (UA) NEG Urine Ketones 5 Urine Blood 3+ H Urine Nitrite POS H Ur Leukocyte Esterase 2+ H Urine RBC 76-150 H Urine WBC 15-29 H Ur Squamous Epith Cells 2+ Urine Bacteria 1+ Urine Mucus 1+ Urine Test NEGATIVE COVID-19 (DARA) COVID-19 Clin [facility] 01/26/21 01/26/21 01/26/21 18:10 20:41 21:38 WBC 11.3 H RBC 4.80 Hgb 10.4 L Hct 34.1 L MCV 71.0 L MCH 21.7 L MCHC 30.5 L RDW 17.3 H Plt Count 454 H D MPV 10.9 Immature Gran % (Auto) 0.3 Neut % (Auto) 81.0 H Lymph % (Auto) 11.3 L [place] % (Auto) 6.8 Eos % (Auto) 0.3 Baso % (Auto) 0.3 Lymph # (Auto) 1.3 [place] # (Auto) 0.8 Eos # (Auto) 0.0 Baso # (Auto) 0.0 Abs Immat Gran (auto) 0.03 Absolute Neuts (auto) 9.2 H Absolute Nucleated RBC 0.000 Nucleated RBC % (auto) 0.0 Sodium Potassium Chloride Carbon Dioxide Anion Gap BUN Creatinine Estim Creat Clear Calc Estimated GFR Random Glucose Lactic Acid 1.1 Calcium Total Bilirubin Direct Bilirubin AST ALT Alkaline Phosphatase Total Protein Albumin Lipase Urine Color Urine Appearance Urine pH Ur Specific [place] Urine Protein Urine Glucose (UA) Urine Ketones Urine Blood Urine Nitrite Ur Leukocyte Esterase Urine RBC Urine WBC Ur Squamous Epith Cells Urine Bacteria Urine Mucus Urine Test COVID-19 (DARA) Negative COVID-19 Clin Com See Note Microbiology Microbiology Results: Microbiology 01/26/21 17:11 Urine Culture - Preliminary Urine clean catch - Clean Catch Midstream No growth to date. Assessment and Plan (1) Sepsis: Status: Acute Assessment and Plan: This is a 30-year-old female with no significant past medical history who presents to the hospital with abdominal pain found to have pyelonephritis as well as an obstructing calculi sepsis - secondary to pyelonephritis - has fever, tachycardia, leukocytosis - Rocephin - follow cultures - IV fluids obstructing calculus - with mild hydronephrosis - right ureter - urology intervention this afternoon - severe pain, morphine, oxycodone 1 dose of Ativan for anxiety - NPO pyelonephritis - patient is CVA tenderness, obstructing calculi, UTI and sepsis - started on IV ceftriaxone - IV fluids - follow cultures microcytic anemia. no signs of bleeding - follow CBC DVT prophylaxis: Mechanical SCDs at this time given possible urological intervention attending: Dr. Dumont full code
[2021-01-27] MEDS: Morphine Sulfate 4 MG/ML CARTRIDGE 2 MG IVPUSH ×2 (11:02→20:51)
[2021-01-27] MEDS: LORazepam 2 MG/ML VIAL 0.25 MG IVPUSH (11:03)
--- NOTE | 2021-01-27 12:21 | P.CNUR_ITS ---
History of Present Illness Consult details Consult date: 01/27/21 Narrative: [age] female Admitted through the emergency room with right-sided flank pain CT scanA 1.2 cm radiopaque calculi visualized in the right proximal ureter with moderate hydroureteronephrosis Pain started on Tuesday Associated nausea and vomiting Elevated white count Has been admitted and given antibiotics Given the size of stone location recommendation for ureteroscopy and laser lithotripsy PMFSH Past Medical History Medical History No known health problems Social History Social History Household Members: Family Housing: Apartment Do you presently have visiting nurse or other home services: No Alcohol intake: never Patient Tobacco Use Status: Never used Tobacco Smoked in Last 30 Days: No e-Cigarette/Vaping Use: Never Used Patient Interested in Nicotine Replacement: No Patient Given Instructions on How to Stop Smoking: No Second Hand Smoke Exposure: No Use of substances other than those prescribed or required for medical reasons: No Currently Displaying Signs/Symptoms of Drug Intoxication Withdrawal: No Any prior treatment program specific to substance use: No Have you been hit, kicked, punched, or otherwise hurt by someone within the past year? If so, by whom?: No Do you feel safe in your current relationship?: Yes Is there a partner from a previous relationship who is making you feel unsafe now?: No Advance Directives: No Advance Directives Information Provided: No Advance Directives on File: No Do you have thoughts of harming others: None Do you have a plan to hurt others: No Plan Recently lost weight without trying: No Eating poorly because of decreased appetite: No Nutrition Risks: No Nutritional Risk Patient : No : No Poor oral hygiene: No service: No Current occupational status: employed Meds Allergies Allergy/AdvReac Type Severity Reaction Status Date / Time No Known Allergies Allergy Unverified 05/01/20 16:42 Active Medications: Current Medications Generic Name Dose Route Start Last Admin Trade Name Freq PRN Reason Stop Dose Admin Acetaminophen 650 mg 01/27/21 01:05 01/27/21 02:49 Acetaminophen 325 Mg Tablet PO 650 mg Q6H PRN Administration Pain, Mild (Pain Scale 1-3) Docusate Sodium 100 mg 01/27/21 01:05 Docusate Sodium 100 Mg Capsule PO DAILY PRN Constipation Ceftriaxone Sodium 1 gm/ 50 mls @ 100 mls/hr 01/27/21 21:00 Sodium Chloride IV Q24H YUE Sodium Chloride 1,000 mls @ 100 mls/hr 01/27/21 01:05 01/27/21 02:45 Ns IVCONT 100 mls/hr .Q10H YUE Administration Morphine Sulfate 2 mg 01/27/21 10:52 01/27/21 11:02 Morphine Sulfate 4 Mg/Ml Cartridge IVPUSH 2 mg Q4H PRN Administration Pain, Severe (Pain Scale 7-10) Ondansetron HCl 4 mg 01/27/21 01:05 01/27/21 10:28 Ondansetron Hcl 4 Mg/2 Ml Vial IVPUSH 4 mg Q8H PRN Administration Nausea and Vomiting Oxycodone HCl 5 mg 01/27/21 03:14 01/27/21 03:28 Oxycodone Hcl Immed Release 5 Mg Tablet PO 5 mg Q6H PRN Administration Pain, Severe (Pain Scale 7-10) Sodium Chloride 3 ml 01/27/21 08:00 01/27/21 07:41 0.9 % Sodium Chloride Flush 3 Ml Syringe IVFLUSH 3 ml QSHIFT [facility] Administration Home Medications Medication Instructions Recorded Confirmed Last Taken Type albuterol sulfate 2 puff INHALATION Q4H PRN 01/27/21 01/27/21 Unknown History etonogestrel-ethinyl estradiol 1 vag ring VAGINAL Q4W 01/27/21 01/27/21 12/30/20 History norethindrone (contraceptive) 1 tab PO DAILY 01/27/21 01/27/21 Unknown History Physical Exam Vital Signs: Vital Signs: Last Vital Signs Temp 97.0 F 01/27/21 12:00 Pulse 88 01/27/21 12:00 Resp 18 01/27/21 12:00 BP 106/65 01/27/21 12:00 Pulse Ox 97 01/27/21 12:00 Body Mass Index 32.1 Const: General: cooperative, healthy appearing, comfortable and no acute distress Nutritional Appearance: average body habitus Orientation/consciousness: oriented to person, oriented to place and oriented to time Eyes: General: appearance normal, both eyes and all related structures Chest: Chest palpation & inspection: normal inspection of the chest Resp: Effort & Inspection: normal respiratory effort Cardio: Rate: regular rate GI: Inspection: Yes normal to inspection Skin: Hair: normal Neuro: General: oriented to person, oriented to place and oriented to time Extrem: General: Yes normal to inspection Results Labs Result diagrams: 01/26/21 20:41 01/26/21 18:10 Labs: Abnormal lab results 01/26/21 01/26/21 01/26/21 Range/Units 17:11 18:10 20:41 WBC 11.3 H (4.8-10.8) X10*3/uL Hgb 10.4 L (12.0-16.0) g/dl Hct 34.1 L (37-47) % MCV 71.0 L (80-98) fL MCH 21.7 L (27.0-33.0) pg MCHC 30.5 L (31.0-35.0) g/dl RDW 17.3 H (11.0-16.0) % Plt Count 454 H D (160-400) X10*3/uL Neut % (Auto) 81.0 H (45-73) % Lymph % (Auto) 11.3 L (20-40) % Absolute Neuts (auto) 9.2 H (2.0-8.3) X10*3/uL Alkaline Phosphatase 123 H (39-117) U/L Urine Protein 1+ H (NEG-TRACE) MG/DL Urine Blood 3+ H (NEG) Urine Nitrite POS H (NEG) Ur Leukocyte Esterase 2+ H (NEG) Urine RBC 76-150 H (0) /HPF Urine WBC 15-29 H (0-4) /HPF Short CBC 01/26/21 Range/Units 20:41 WBC 11.3 H (4.8-10.8) X10*3/uL Hgb 10.4 L (12.0-16.0) g/dl Hct 34.1 L (37-47) % Plt Count 454 H D (160-400) X10*3/uL BMP 01/26/21 18:10 Sodium 140 Potassium 3.8 Chloride 108 Carbon Dioxide 23 BUN 9 D Creatinine 0.74 Calcium 9.1 D Liver Function 01/26/21 Range/Units 18:10 Total Bilirubin 0.4 (0.0-1.0) mg/dL Direct Bilirubin 0.2 (0.0-0.5) mg/dL AST 15 D (5-31) U/L ALT 14 (0-31) U/L Alkaline Phosphatase 123 H (39-117) U/L Albumin 4.2 D (3.5-5.0) g/dL Urine 01/26/21 01/26/21 Range/Units 17:11 17:11 Urine Color CONNIE Urine Appearance HAZY Urine pH 6.0 (5.0-8.0) Ur Specific [place] 1.025 (1.005-1.025) Urine Protein 1+ H (NEG-TRACE) MG/DL Urine Glucose (UA) NEG (NEG) MG/DL Urine Test NEGATIVE (NEGATIVE) All other labs normal. Assessment and Plan (1) Hydronephrosis with obstructing calculus: Status: Acute (2) Pyelonephritis: Status: Acute Ureteroscopy We discussed the nature of the decision and reasonable alternatives for performing the above surgery. Interventions include chemical dissolution, ESWL, ureteroscopy with laser lithotripsy and stent placement, PCNL. Options such as medical therapy were discussed. The relative uncertainties and benefits related to each alternate procedure were adequately discussed. General surgical risks including, but not limited to, pain, bleeding, infection, myocardial infarction, pulmonary embolus, deep vein thrombosis and cerebrovascular accident which may result in further hospitalization were discussed. Full disclosure of the procedure as well as all major risks, benefits and complications were discussed including but not limited to damage to the urethra, bladder and kidney infection, damage to the ureter, stent migration or mal position, scarring to the renal pelvis, remnant stone fragments, subsequent stone passage with need for secondary procedures. The overall secondary procedure rate is approximately 10-15%. The success rate of the procedure was discussed. Success of the procedure in the short-term does not necessarily guarantee that long-term success will be maintained. Suitable follow up will need to be maintained. The patient showed understanding of discussion and wishes to proceed with - cystoscopy, retrograde, ureteroscopy, possible lithotripsy/stone basketing and stent on the right side Procedures Date of Service Date of Service: 01/27/21
--- NOTE | 2021-01-27 16:51 | HO.ANESPROP2 ---
[facility] Active Problems Active Problems: All Active Problems (Updated 01/27/21 @ 12:23 by Billy Navarro MD) Sepsis (Acute) Hydronephrosis with obstructing calculus (Acute) Pyelonephritis (Acute) COVID-19 (Acute) Calculus, ureteral (Acute) Hydronephrosis with renal and ureteral calculous obstruction (Acute) Past Medical History Medical History No known health problems Social History Social History Household Members: Family Housing: Apartment Do you presently have visiting nurse or other home services: No Alcohol intake: never Patient Tobacco Use Status: Never used Tobacco Smoked in Last 30 Days: No e-Cigarette/Vaping Use: Never Used Patient Interested in Nicotine Replacement: No Patient Given Instructions on How to Stop Smoking: No Second Hand Smoke Exposure: No Use of substances other than those prescribed or required for medical reasons: No Currently Displaying Signs/Symptoms of Drug Intoxication Withdrawal: No Any prior treatment program specific to substance use: No Have you been hit, kicked, punched, or otherwise hurt by someone within the past year? If so, by whom?: No Do you feel safe in your current relationship?: Yes Is there a partner from a previous relationship who is making you feel unsafe now?: No Are you DNR?: No Advance Directives: No Advance Directives Information Provided: No Advance Directives on File: No Do you have thoughts of harming others: None Do you have a plan to hurt others: No Plan Recently lost weight without trying: No Eating poorly because of decreased appetite: No Nutrition Risks: No Nutritional Risk Patient : No FDLMP: 01/25/2021 : No Poor oral hygiene: No service: No Current occupational status: employed Meds Allergies Allergy/AdvReac Type Severity Reaction Status Date / Time No Known Allergies Allergy Unverified 05/01/20 16:42 Active Medications: Current Medications Generic Name Dose Route Start Last Admin Trade Name Freq PRN Reason Stop Dose Admin Acetaminophen 650 mg 01/27/21 01:05 01/27/21 02:49 Acetaminophen 325 Mg Tablet PO 650 mg Q6H PRN Administration Pain, Mild (Pain Scale 1-3) Docusate Sodium 100 mg 01/27/21 01:05 Docusate Sodium 100 Mg Capsule PO DAILY PRN Constipation Ceftriaxone Sodium 1 gm/ 50 mls @ 100 mls/hr 01/27/21 21:00 Sodium Chloride IV Q24H YUE Sodium Chloride 1,000 mls @ 100 mls/hr 01/27/21 01:05 01/27/21 14:19 Ns IVCONT 100 mls/hr .Q10H YUE Administration Morphine Sulfate 2 mg 01/27/21 10:52 01/27/21 11:02 Morphine Sulfate 4 Mg/Ml Cartridge IVPUSH 2 mg Q4H PRN Administration Pain, Severe (Pain Scale 7-10) Ondansetron HCl 4 mg 01/27/21 01:05 01/27/21 10:28 Ondansetron Hcl 4 Mg/2 Ml Vial IVPUSH 4 mg Q8H PRN Administration Nausea and Vomiting Oxycodone HCl 5 mg 01/27/21 03:14 01/27/21 03:28 Oxycodone Hcl Immed Release 5 Mg Tablet PO 5 mg Q6H PRN Administration Pain, Severe (Pain Scale 7-10) Sodium Chloride 3 ml 01/27/21 08:00 01/27/21 16:00 0.9 % Sodium Chloride Flush 3 Ml Syringe IVFLUSH Not Given QSHIFT [facility] Home Medications Medication Instructions Recorded Confirmed Last Taken Type albuterol sulfate 2 puff INHALATION Q4H PRN 01/27/21 01/27/21 Unknown History etonogestrel-ethinyl estradiol 1 vag ring VAGINAL Q4W 01/27/21 01/27/21 12/30/20 History norethindrone (contraceptive) 1 tab PO DAILY 01/27/21 01/27/21 Unknown History Exam Exam Date and Time: January 27, 2021 165 Height,Weight and Vital Signs: Height 5 ft 1 in Weight 77 kg Last Vital Signs Temp 97.6 F 01/27/21 16:17 Pulse 98 01/27/21 16:17 Resp 18 01/27/21 16:17 BP 124/84 01/27/21 16:17 Pulse Ox 100 01/27/21 16:17 Pertinent Lab Results Pertinent Lab Results: Laboratory Tests 01/26/21 01/26/21 01/26/21 17:11 17:11 18:10 WBC RBC Hgb Hct MCV MCH MCHC RDW Plt Count MPV Immature Gran % (Auto) Neut % (Auto) Lymph % (Auto) [place] % (Auto) Eos % (Auto) Baso % (Auto) Lymph # (Auto) [place] # (Auto) Eos # (Auto) Baso # (Auto) Abs Immat Gran (auto) Absolute Neuts (auto) Absolute Nucleated RBC Nucleated RBC % (auto) Sodium 140 Potassium 3.8 Chloride 108 Carbon Dioxide 23 Anion Gap 13 BUN 9 D Creatinine 0.74 Estim Creat Clear Calc 106.3 Estimated GFR > 60 Random Glucose 74 Lactic Acid Calcium 9.1 D Total Bilirubin 0.4 Direct Bilirubin 0.2 AST 15 D ALT 14 Alkaline Phosphatase 123 H Total Protein 7.6 D Albumin 4.2 D Lipase 10 Urine Color CONNIE Urine Appearance HAZY Urine pH 6.0 Ur Specific [place] 1.025 Urine Protein 1+ H Urine Glucose (UA) NEG Urine Ketones 5 Urine Blood 3+ H Urine Nitrite POS H Ur Leukocyte Esterase 2+ H Urine RBC 76-150 H Urine WBC 15-29 H Ur Squamous Epith Cells 2+ Urine Bacteria 1+ Urine Mucus 1+ Urine Test NEGATIVE COVID-19 (DARA) COVID-19 Clin Com 01/26/21 01/26/21 01/26/21 18:10 20:41 21:38 WBC 11.3 H RBC 4.80 Hgb 10.4 L Hct 34.1 L MCV 71.0 L MCH 21.7 L MCHC 30.5 L RDW 17.3 H Plt Count 454 H D MPV 10.9 Immature Gran % (Auto) 0.3 Neut % (Auto) 81.0 H Lymph % (Auto) 11.3 L [place] % (Auto) 6.8 Eos % (Auto) 0.3 Baso % (Auto) 0.3 Lymph # (Auto) 1.3 [place] # (Auto) 0.8 Eos # (Auto) 0.0 Baso # (Auto) 0.0 Abs Immat Gran (auto) 0.03 Absolute Neuts (auto) 9.2 H Absolute Nucleated RBC 0.000 Nucleated RBC % (auto) 0.0 Sodium Potassium Chloride Carbon Dioxide Anion Gap BUN Creatinine Estim Creat Clear Calc Estimated GFR Random Glucose Lactic Acid 1.1 Calcium Total Bilirubin Direct Bilirubin AST ALT Alkaline Phosphatase Total Protein Albumin Lipase Urine Color Urine Appearance Urine pH Ur Specific [place] Urine Protein Urine Glucose (UA) Urine Ketones Urine Blood Urine Nitrite Ur Leukocyte Esterase Urine RBC Urine WBC Ur Squamous Epith Cells Urine Bacteria Urine Mucus Urine Test COVID-19 (DARA) Negative COVID-19 Clin Com See Note Airway Mallampati Class: II TM Dist: >3cm Neck ROM: Full Assessment and Plan Assessment Anesthesia Assessment: Anesthesia Plan Discussed and Chart Reviewed Final Anesthetic Review NPO: Yes ASA Class: II Final Preanesthetic Review: No Changes in Pt Med Stat, Meds/Allgs Chart Reviewed, Consent Obtained/Reviewed and Anes Risks/Benef Reviewed Patient Risk: Low Procedure Risk: Low Assessment/Block/Sedation in SS: Assess/Block/Sedation-SS Anesthetic Plan Anesthetic Plan: GA Disposition: Standard PACU
--- NOTE | 2021-01-27 17:49 | P.CONAN_ITS ---
[facility] Active Problems Active Problems: All Active Problems (Updated 01/27/21 @ 12:23 by Billy mcclelland MD) Sepsis (Acute) Hydronephrosis with obstructing calculus (Acute) Pyelonephritis (Acute) COVID-19 (Acute) Calculus, ureteral (Acute) Hydronephrosis with renal and ureteral calculous obstruction (Acute) Past Medical History Medical History No known health problems Social History Social History Household Members: Family Housing: Apartment Do you presently have visiting nurse or other home services: No Alcohol intake: never Patient Tobacco Use Status: Never used Tobacco Smoked in Last 30 Days: No e-Cigarette/Vaping Use: Never Used Patient Interested in Nicotine Replacement: No Patient Given Instructions on How to Stop Smoking: No Second Hand Smoke Exposure: No Use of substances other than those prescribed or required for medical reasons: No Currently Displaying Signs/Symptoms of Drug Intoxication Withdrawal: No Any prior treatment program specific to substance use: No Have you been hit, kicked, punched, or otherwise hurt by someone within the past year? If so, by whom?: No Do you feel safe in your current relationship?: Yes Is there a partner from a previous relationship who is making you feel unsafe now?: No Are you DNR?: No Advance Directives: No Advance Directives Information Provided: No Advance Directives on File: No Do you have thoughts of harming others: None Do you have a plan to hurt others: No Plan Recently lost weight without trying: No Eating poorly because of decreased appetite: No Nutrition Risks: No Nutritional Risk Patient : No FDLMP: 01/25/2021 : No Poor oral hygiene: No service: No Current occupational status: employed Meds Allergies Allergy/AdvReac Type Severity Reaction Status Date / Time No Known Allergies Allergy Unverified 05/01/20 16:42 Active Medications: Current Medications Generic Name Dose Route Start Last Admin Trade Name Freq PRN Reason Stop Dose Admin Acetaminophen 650 mg 01/27/21 01:05 01/27/21 02:49 Acetaminophen 325 Mg Tablet PO 650 mg Q6H PRN Administration Pain, Mild (Pain Scale 1-3) Acetaminophen 650 mg 01/27/21 17:00 Acetaminophen 325 Mg Tablet PO ONCE PRN Pain, Mild (Pain Scale 1-3) Docusate Sodium 100 mg 01/27/21 01:05 Docusate Sodium 100 Mg Capsule PO DAILY PRN Constipation Fentanyl 50 mcg 01/27/21 17:00 Fentanyl Citrate/Pf 100 Mcg/2 Ml Vial IVPUSH Q5M PRN Pain, Severe (Pain Scale 7-10) Ceftriaxone Sodium 1 gm/ 50 mls @ 100 mls/hr 01/27/21 21:00 Sodium Chloride IV Q24H YUE Sodium Chloride 1,000 mls @ 100 mls/hr 01/27/21 01:05 01/27/21 14:19 Ns IVCONT 100 mls/hr .Q10H YUE Administration Morphine Sulfate 2 mg 01/27/21 10:52 01/27/21 11:02 Morphine Sulfate 4 Mg/Ml Cartridge IVPUSH 2 mg Q4H PRN Administration Pain, Severe (Pain Scale 7-10) Ondansetron HCl 4 mg 01/27/21 01:05 01/27/21 10:28 Ondansetron Hcl 4 Mg/2 Ml Vial IVPUSH 4 mg Q8H PRN Administration Nausea and Vomiting Ondansetron HCl 4 mg 01/27/21 17:00 Ondansetron Hcl 4 Mg/2 Ml Vial IVPUSH ONCE PRN Nausea and Vomiting Oxycodone HCl 5 mg 01/27/21 03:14 01/27/21 03:28 Oxycodone Hcl Immed Release 5 Mg Tablet PO 5 mg Q6H PRN Administration Pain, Severe (Pain Scale 7-10) Oxycodone HCl 5 mg 01/27/21 17:00 Oxycodone Hcl Immed Release 5 Mg Tablet PO ONCE PRN Pain, Severe (Pain Scale 7-10) Sodium Chloride 3 ml 01/27/21 08:00 01/27/21 16:00 0.9 % Sodium Chloride Flush 3 Ml Syringe IVFLUSH Not Given QSHIFT [facility] Home Medications Medication Instructions Recorded Confirmed Last Taken Type albuterol sulfate 2 puff INHALATION Q4H PRN 01/27/21 01/27/21 Unknown History etonogestrel-ethinyl estradiol 1 vag ring VAGINAL Q4W 01/27/21 01/27/21 12/30/20 History norethindrone (contraceptive) 1 tab PO DAILY 01/27/21 01/27/21 Unknown History Exam Exam Date and Time: January 27, 2021 1749 Height,Weight and Vital Signs: Height 5 ft 1 in Weight 77 kg Last Vital Signs Temp 97.6 F 01/27/21 16:17 Pulse 98 01/27/21 16:17 Resp 18 01/27/21 16:17 BP 124/84 01/27/21 16:17 Pulse Ox 100 01/27/21 16:17 Pertinent Lab Results Pertinent Lab Results: Laboratory Tests 01/26/21 01/26/21 01/26/21 17:11 17:11 18:10 WBC RBC Hgb Hct MCV MCH MCHC RDW Plt Count MPV Immature Gran % (Auto) Neut % (Auto) Lymph % (Auto) [place] % (Auto) Eos % (Auto) Baso % (Auto) Lymph # (Auto) [place] # (Auto) Eos # (Auto) Baso # (Auto) Abs Immat Gran (auto) Absolute Neuts (auto) Absolute Nucleated RBC Nucleated RBC % (auto) Sodium 140 Potassium 3.8 Chloride 108 Carbon Dioxide 23 Anion Gap 13 BUN 9 D Creatinine 0.74 Estim Creat Clear Calc 106.3 Estimated GFR > 60 Random Glucose 74 Lactic Acid Calcium 9.1 D Total Bilirubin 0.4 Direct Bilirubin 0.2 AST 15 D ALT 14 Alkaline Phosphatase 123 H Total Protein 7.6 D Albumin 4.2 D Lipase 10 Urine Color CONNIE Urine Appearance HAZY Urine pH 6.0 Ur Specific [place] 1.025 Urine Protein 1+ H Urine Glucose (UA) NEG Urine Ketones 5 Urine Blood 3+ H Urine Nitrite POS H Ur Leukocyte Esterase 2+ H Urine RBC 76-150 H Urine WBC 15-29 H Ur Squamous Epith Cells 2+ Urine Bacteria 1+ Urine Mucus 1+ Urine Test NEGATIVE COVID-19 (DARA) COVID-19 Clin Com 01/26/21 01/26/21 01/26/21 18:10 20:41 21:38 WBC 11.3 H RBC 4.80 Hgb 10.4 L Hct 34.1 L MCV 71.0 L MCH 21.7 L MCHC 30.5 L RDW 17.3 H Plt Count 454 H D MPV 10.9 Immature Gran % (Auto) 0.3 Neut % (Auto) 81.0 H Lymph % (Auto) 11.3 L [place] % (Auto) 6.8 Eos % (Auto) 0.3 Baso % (Auto) 0.3 Lymph # (Auto) 1.3 [place] # (Auto) 0.8 Eos # (Auto) 0.0 Baso # (Auto) 0.0 Abs Immat Gran (auto) 0.03 Absolute Neuts (auto) 9.2 H Absolute Nucleated RBC 0.000 Nucleated RBC % (auto) 0.0 Sodium Potassium Chloride Carbon Dioxide Anion Gap BUN Creatinine Estim Creat Clear Calc Estimated GFR Random Glucose Lactic Acid 1.1 Calcium Total Bilirubin Direct Bilirubin AST ALT Alkaline Phosphatase Total Protein Albumin Lipase Urine Color Urine Appearance Urine pH Ur Specific [place] Urine Protein Urine Glucose (UA) Urine Ketones Urine Blood Urine Nitrite Ur Leukocyte Esterase Urine RBC Urine WBC Ur Squamous Epith Cells Urine Bacteria Urine Mucus Urine Test COVID-19 (DARA) Negative COVID-19 Clin Com See Note
--- NOTE | 2021-01-27 18:06 | W.PM.OPN ---
Operative Note Operative Note Date of Service: 01/27/21 Narrative: PreOperative Diagnosis: Mid right ureteric stone with hydronephrosis Post Operative Diagnosis: Same Procedure: - right cystoscopy, retrograde - dilatation of ureteric orifice under fluoroscopy - right ureteroscopy, laser lithotripsy, stone basketing - right stent placement Surgeon: Dr Billy Navarro Anesthesia: General Indications for procedure: 12 mm stone in right mid ureter with associated stranding. Admitted last night through emergency room. Antibiotics have been given. Count is falling. Suggest definitive management with ureteroscopy, laser lithotripsy and stent placement Procedure: After informed consent was verified patient was brought to the operating placed in supine position. Anesthesia was administered per protocol. Patient was placed in modified dorsal lithotomy position and prepped and draped in a sterile fashion. Safety pause time-out and side of surgery confirmed. Antibiotics confirmed. Twenty-two [place] cystoscope was introduced per urethra. No abnormality noted the bladder. Right ureteric orifice was seen in normal position. This was cannulated and a retrograde examination performed. Filling defects seen the junction between the mid and proximal right ureter. Hydronephrosis proximal to the stone. Sensor guidewire placed without difficulty [place] dilator used to dilate ureteric orifice under fluoroscopy. Rigid ureteroscopy performed alongside the wire. The stone was encountered. A holmium laser fiber was used to break the stone into small pieces. Flat wire basket was used for retrieval of stone specimen. Most of the stone had broken into small pieces. This stone was not particularly hard. Once the stone fragments have been cleared the rigid ureteral scope was removed. A 6 [place] by 24 cm stent was back loaded over the wire and placed into the renal pelvis in the bladder under fluoroscopy. Good coil was seen. The bladder was emptied. She tolerated the procedure well was extubated in the operating room transferred in stable condition to the recovery area. Pathology: Right mid ureteric stone Drains: 6 [place] by 24 cm stent
[2021-01-27] MEDS: Phenazopyridine HCL 100 MG TABLET PO (18:30)
[2021-01-27] MEDS: traMADoL HCL 50 MG TABLET PO (18:31)
[2021-01-27] MEDS: cefTRIAXone sodium 1 GM in 0.9 % Sodium Chloride 50 ML IV (20:44)
[2021-01-28] VITALS: BP 121/71; PULSE 102; RESP 18; TEMP 36.8; O2SAT 97
[2021-01-28] MEDS: Prochlorperazine Edisylate 10 MG/2 ML VIAL 5 MG IVPUSH (01:28)
[2021-01-28 05:47] VITALS: BP 134/66; PULSE 101; RESP 20; TEMP 37; O2SAT 98
[2021-01-28] MEDS: 0.9 % Sodium Chloride 1,000 ML 100 ML IVCONT (05:56)
[2021-01-28] MEDS: ondansetron HCL 4 MG/2 ML VIAL IVPUSH ×2 (06:00→12:53)
[2021-01-28 07:03] LABS: MANUAL DIFF FLAG NO
[2021-01-28 07:08] LABS: Basophils Percent Auto 0.3 % (0-2); Eosinophils Absolute Auto 0.1 X10*3/uL (0.0-0.4); Eosinophils Percent Auto 0.7 % (0-4); Hematocrit 30.2 % (37-47); Hemoglobin 9.1 g/dl (12.0-16.0); Imm Gran Abs Auto 0.03 X10*3/uL (0.00-0.03); Imm Gran Pct Auto 0.4 % (0.0-0.4); Lymphocytes Absolute Auto 2.4 X10*3/uL (1.2-4.9); Lymphocytes Percent Auto 31.8 % (20-40); Mean Corpuscular HGB Conc 30.1 g/dl (31.0-35.0); Mean Corpuscular Hemoglobin 21.5 pg (27.0-33.0); Mean Corpuscular Volume 71.2 fL (80-98); Mean Platelet Volume 10.7 fL (9.4-12.3); Monocytes Absolute Auto 0.7 X10*3/uL (0.1-1.2); Monocytes Percent Auto 8.9 % (2-11); Neutrophils Absolute Auto 4.3 X10*3/uL (2.0-8.3); Neutrophils Percent Auto 57.9 % (45-73); Platelet Count 455 X10*3/uL (160-400); Red Blood Count 4.24 X10*6/uL (4.20-5.50); Red Cell Distribution Width 17.4 % (11.0-16.0); White Blood Count 7.4 X10*3/uL (4.8-10.8)
[2021-01-28] MEDS: 0.9 % Sodium Chloride Flush 3 ML SYRINGE IVFLUSH (07:41)
[2021-01-28 07:42] LABS: Anion Gap 10 (12-20); Blood Urea Nitrogen 6 mg/dL (9-16); Carbon Dioxide 23 mmol/L (22-29); Chloride 111 mmol/L (96-108); Estimated Glomerular Filt Rate > 60; Glucose Random 108 mg/dL (60-115); Potassium 3.6 mmol/L (3.3-5.1); Sodium 140 mmol/L (135-145)
[2021-01-28 08:00] VITALS: BP 117/60; PULSE 90; RESP 18; TEMP 36.6; O2SAT 93
[2021-01-28 08:03] LABS: Calcium 8.1 mg/dL (8.4-10.2)
[2021-01-28] MEDS: Acetaminophen 325 MG TABLET 650 MG PO (09:15)
[2021-01-28] MEDS: oxyCODONE HCl Immed Release 5 MG TABLET PO (10:37)
--- NOTE | 2021-01-28 11:17 | HO.POSTANES ---
Post Anesthesia Evaluation Post Anesthesia Evaluation Vital Signs: Vital Signs Temp Pulse Resp BP Pulse Ox 01/28/21 08:00 97.9 F 90 18 117/60 93 01/28/21 05:47 98.6 F 101 H 20 134/66 98 01/28/21 00:00 98.2 F 102 H 18 121/71 97 Anesthesia: General Mental Status: Awake Pain Control: Satisfactory Nausea/Vomiting: None Hydration: Adequate Anesthesia-Related Issues: No Anes. Related Issues
[2021-01-28 11:41] VITALS: BP 118/62; PULSE 82; RESP 18; TEMP 36.6; O2SAT 95
--- NOTE | 2021-01-28 11:53 | MHC.CM.PN ---
Patient has been medically cleared for dc to home today, no services.
--- NOTE | 2021-01-28 14:45 | P.DS_ITS ---
DS: Providers Provider Date of Service: 01/28/21 Date of admission: 01/27/21 00:15 Primary care physician: Michael Denise MD Consults: 01/27/21 01:05 Consult to Urology Routine Consulting Provider: Billy Navarro Reason for consultation: renal calculus Has provider been notified: Yes DS: Diagnosis Discharge Diagnosis (1) Hydronephrosis with obstructing calculus: Status: Acute Problem details: Right mid ureteric (2) Pyelonephritis: Status: Acute (3) Sepsis: Status: Acute DS: Medications Discharge Medications Home Medications: Home Medications Medication Instructions Recorded Confirmed albuterol sulfate 2 puff INHALATION Q4H PRN 01/27/21 01/27/21 etonogestrel-ethinyl estradiol 1 vag ring VAGINAL Q4W 01/27/21 01/27/21 norethindrone (contraceptive) 1 tab PO DAILY 01/27/21 01/27/21 Previous Rx's Medication Instructions Recorded cefuroxime axetil 500 mg PO BID #20 tab 01/28/21 DS: Summary Hospital Course Hospital Course: Admission note HPI This is a 30-year-old female with no significant past medical history who presents to the hospital with right upper abdominal pain described as 10/10, radiating to the lower right abdomen, associated with nausea with no vomiting, fevers, pain described as cramping, shooting. She is also having dysuria on urination, all started about 2 days ago, denies any chest pain, no headache or change in vision, no shortness of breath, no lower extremity edema, no numbness tingling. On arrival vital significant for temp of 103.2?, heart rate of 115, respiratory rate of 16, blood pressure 128/83, satting 100% on room air Lab significant for WBC count of 11.3, hemoglobin of 10.4, UA that is positive for nitrites, leukocyte Estrace and WBC. Abdominal CT shows 1.2 cm obstructive radiopaque calculi in the right proximal ureter with mild hydronephrosis with small left renal calculi without caliectasis or hydronephrosis Urology was consulted and patient will be admitted under medical service for further management Hospital course The patient was admitted to the hospital with complaint of abdominal pain. Images of the abdomen including a CT scan was consistent with diagnosis of pyelonephritis and obstructive stone on the right ureter. The patient was treated with IV fluids, and started on IV meds antibiotics with good response over the course of hospital stay. Evaluated by Dr. Navarro from Urology who did a cystoscopy removing the obstructing stone. The patient fevers broke down and she felt much better after that. Antibiotic resumed in the patient was able to tolerate diet well. Blood cultures remain negative at the time of discharge. To continue total of 2 weeks of antibiotics Ceftin. Time Spent with Patient Time attestation: Total time spent providing and/or coordinating discharge services: Discharge coordination time: Greater than 30 minutes Quality: Stroke Does the patient have a stroke diagnosis?: No Physical Exam Vital Signs: Vital Signs: Last Vital Signs Temp 97.8 F 01/28/21 11:41 Pulse 82 01/28/21 11:41 Resp 18 01/28/21 11:41 BP 118/62 01/28/21 11:41 Pulse Ox 95 01/28/21 11:41 Body Mass Index 32.1 Const: Other: Constitutional : Alert, oriented, not in distress Neck : Normal inspection, Supple Cardiovascular : RRR, S1 S2, no lower extremity edema Respiratory : Good bilateral air entry, no crackles, wheezes or rhonchi Gastrointestinal: soft, lax, Normal bowel sounds, Non tender Skin : Warm/Dry, No rash Neurological : Alert & oriented x3, No focal deficit DS: Data Data Completed and Pending Pending studies at discharge: Pending at discharge 01/27/21 18:22 Surgical [PTH] Routine Labs on day of discharge: Laboratory Results - last 24 hr 01/28/21 01/28/21 06:18 06:18 WBC 7.4 RBC 4.24 Hgb 9.1 L Hct 30.2 L MCV 71.2 L MCH 21.5 L MCHC 30.1 L RDW 17.4 H Plt Count 455 H MPV 10.7 Immature Gran % (Auto) 0.4 Neut % (Auto) 57.9 Lymph % (Auto) 31.8 [place] % (Auto) 8.9 Eos % (Auto) 0.7 Baso % (Auto) 0.3 Lymph # (Auto) 2.4 [place] # (Auto) 0.7 Eos # (Auto) 0.1 Baso # (Auto) 0.0 Abs Immat Gran (auto) 0.03 Absolute Neuts (auto) 4.3 Absolute Nucleated RBC 0.000 Nucleated RBC % (auto) 0.0 Sodium 140 Potassium 3.6 Chloride 111 H Carbon Dioxide 23 Anion Gap 10 L BUN 6 L Creatinine 0.65 Estim Creat Clear Calc 121.0 Estimated GFR > 60 Random Glucose 108 D Calcium 8.1 L D Preliminary micro results at discharge 01/26/21 21:38 Blood Culture - Preliminary Blood - Venous No growth after 24 hours. 01/26/21 21:38 Blood Culture - Preliminary Blood - Venous No growth after 24 hours. Discharge Plan Discharge Patient Disposition: Home, Self-Care Discharge Diagnosis: Obstructive ureteral stone Pyelonephritis Referrals: Michael Denise MD [Primary Care Provider] - 1 Week Discharge Medications: New cefuroxime axetil 500 mg tablet 500 mg PO BID Qty: 20 RF: 0 Continued albuterol sulfate 90 mcg/actuation HFA aerosol inhaler 2 puff inhalation Q4H PRN (Reason: wheezing) RF: 0 norethindrone (contraceptive) 0.35 mg tablet 1 tab PO DAILY RF: 0 etonogestrel-ethinyl estradiol 0.12-0.015 mg/24 hr ring 1 vag ring vaginal Q4W RF: 0 Discharge Orders: Discharge Order (Routine); Ordered 01/28/21 Ordered By: Crystal Dorantes Diet: advance to usual diet Activity on Discharge: As tolerated Stand Alone Forms: Patient Portal Discharge page, Work/School Release Print Language: Indonesian Care Plan Goals: Read below Health Concerns: Read below Plan of Treatment: were admitted to the hospital for evaluation of abdominal pain. Found to be in sepsis as a result of an obstructing stone and infected kidney. You were treated with IV antibiotics and evaluated by urologist Dr. Navarro who removed the stone. Your symptoms improved significantly during the hospital stay. Assessment: Continue Ceftin for 10 more days To follow-up with Dr. Navarro as outpatient Discharge Date/Time: 01/28/21 13:34
[2021-02-02 03:27] LABS: Stone Source RIGHT KIDNEY STONE
== END 2021-01-28 13:34 | disposition home or self-care (01) | DRG 710 ==
LOC: HO.ED 01-27 00:21 → HO.EDOVER 01-27 00:36 → HO.IMC 01-27 00:52
PROVIDERS: Physician Assistant; Urology; Admitting Provider Internal Medicine; Emergency Provider Emergency Medicine Emergency Medical Services; PCP Family Medicine; Visit Provider Student in an Organized Health Care Education/Training Program
PROC: 0TC68ZZ Extirpation of Matter from Right Ureter, Via Natural or Artificial Opening Endoscopic (ICD-10-PCS; principal; 2021-01-27 16:30)
DX: A41.9 Sepsis, unspecified organism (principal); N13.6 Pyonephrosis; D50.9 Iron deficiency anemia, unspecified; Z79.3 Long term (current) use of hormonal contraceptives; Z79.899 Other long term (current) drug therapy
CPT/HCPCS: 36415; 74176; 80048; 80076; 81001; 81003; 81025; 82365; 83605; 83690; 85025; 87040; 87086; 87635; 88300; 99285; C1758; C1769; C2617; J0696; J1650; J1885; J2060; J2250; J2270; J2405; J3010; Q9967

== ENCOUNTER → 2021-02-12 13:06 | Outpatient (BNVA) | payer OTHER, SELFPAY | PROVIDERS: PCP Family Medicine; Visit Provider Urology | DX: N20.0 Calculus of kidney (principal) | CPT/HCPCS: 52310; 99212 ==

== ENCOUNTER 2021-02-20 12:24 | Outpatient (REF) | payer OTHER, SELFPAY ==
[2021-02-20 12:58] LABS: Imm Gran Abs Auto 0.01 X10*3/uL (0.00-0.03); Imm Gran Pct Auto 0.2 % (0.0-0.4); MANUAL DIFF FLAG SCAN; Mean Corpuscular Hemoglobin 21.7 pg (27.0-33.0); SCAN SMEAR FLAG 1
[2021-02-20 13:00] LABS: Basophils Absolute Auto 0.1 X10*3/uL (0.0-0.2); Basophils Percent Auto 0.9 % (0-2); Eosinophils Absolute Auto 0.2 X10*3/uL (0.0-0.4); Hematocrit 36.6 % (37-47); Hemoglobin 11.2 g/dl (12.0-16.0); Lymphocytes Absolute Auto 2.1 X10*3/uL (1.2-4.9); Lymphocytes Percent Auto 37.3 % (20-40); Mean Corpuscular HGB Conc 30.6 g/dl (31.0-35.0); Mean Corpuscular Volume 70.9 fL (80-98); Mean Platelet Volume 10.7 fL (9.4-12.3); Monocytes Absolute Auto 0.4 X10*3/uL (0.1-1.2); Monocytes Percent Auto 7.4 % (2-11); Neutrophils Absolute Auto 2.9 X10*3/uL (2.0-8.3); Neutrophils Percent Auto 50.2 % (45-73); Platelet Count 348 X10*3/uL (160-400); Red Blood Count 5.16 X10*6/uL (4.20-5.50); Red Cell Distribution Width 20.2 % (11.0-16.0); White Blood Count 5.7 X10*3/uL (4.8-10.8)
[2021-02-20 13:06] LABS: Estimated Average Glucose 105 mg/dL; Hemoglobin A1c % 5.3 %
[2021-02-20 13:07] LABS: PLT ABN DIST 1
[2021-02-20 13:23] LABS: Alanine Aminotransferase 17 U/L (0-31); Albumin Level 4.1 g/dL (3.5-5.0); Alkaline Phosphatase 93 U/L (39-117); Anion Gap 12 (12-20); Aspartate Amino Transferase 14 U/L (5-31); Bilirubin Total 0.5 mg/dL (0.0-1.0); Blood Urea Nitrogen 11 mg/dL (9-16); Calcium 9.6 mg/dL (8.4-10.2); Carbon Dioxide 23 mmol/L (22-29); Chloride 107 mmol/L (96-108); Estimated Glomerular Filt Rate > 60; Glucose Fasting 93 mg/dL (60-99); Potassium 4.2 mmol/L (3.3-5.1); Sodium 138 mmol/L (135-145); Total Protein 7.7 g/dL (6.5-8.0)
[2021-02-20 13:39] LABS: SLIDE REVIEW VERIFIED
[2021-02-20 13:44] LABS: TSH reflex Free T4 0.53 uIU/mL (0.32-4.0)
[2021-02-20 14:54] LABS: Glucose Urine UA NEG (NEG); Leukocyte Esterase Urine 1+ (NEG); Nitrite Urine NEG (NEG); Urine Blood NEG (NEG); Urine Ketones NEG (NEG); Urine Protein TRACE MG/DL (NEG-TRACE)
[2021-02-20 14:56] LABS: Appearance Urine CLOUDY; Color Urine YELLOW
[2021-02-20 15:06] LABS: Bacteria Urine 1+ /LPF; Mucus Urine TRACE /LPF; RBC Urine 0 /HPF (0); Squamous Epithelial Cell Urine 2+ /LPF
== END 2021-02-20 12:25 | disposition home or self-care (01) ==
LOC: HO.LAB 12:24
PROVIDERS: PCP Family Medicine; Visit Provider Family Medicine
DX: Z00.00 Encounter for general adult medical examination without abnormal findings (principal); R73.09 Other abnormal glucose; N12 Tubulo-interstitial nephritis, not specified as acute or chronic
CPT/HCPCS: 36415; 80053; 81001; 83036; 84443; 85025

== ENCOUNTER 2021-03-19 12:33 | Outpatient (REF) | payer OTHER, SELFPAY ==
--- NOTE | ~2021-03-19 | US_ITS ---
EXAMINATION: US RETROPERITONEAL LIMITED (RENAL ONLY) CLINICAL INFORMATION: Calculus of kidney. COMPARISON: CT abdomen and pelvis without contrast dated 01/26/2021. KUBs dated 10/11/2019 and 10/03/2019. TECHNIQUE: Real-time imaging of the kidneys. FINDINGS: RIGHT KIDNEY: 9.5 x 4.7 x 4.7 cm (SAG x AP x TRV). The kidney is normal in size, contour, and echogenicity. Renal cortical thickness is normal. No calculi or focal parenchymal lesions. No hydronephrosis. LEFT KIDNEY: 9.7 x 4.9 x 5.0 cm (SAG x AP x TRV). The kidney is normal in size, contour, and echogenicity. Renal cortical thickness is normal. No focal parenchymal lesions or hydronephrosis. There are nonobstructing echogenic stones in the lower pole measuring 0.44 x 0.35, 0.5 x 0.54 and 0.38 x 0.35 cm. US/US renal BI IMPRESSION: Nonobstructive echogenic stones in the lower pole left kidney.
== END 2021-03-19 12:34 | disposition home or self-care (01) ==
LOC: HO.US 12:33
PROVIDERS: Visit Provider Urology
DX: N20.0 Calculus of kidney (principal)
CPT/HCPCS: 76775

== ENCOUNTER → 2021-03-26 14:16 | Outpatient (BNVA) | payer OTHER, SELFPAY | PROVIDERS: PCP Family Medicine; Visit Provider Urology | DX: N20.0 Calculus of kidney (principal) | CPT/HCPCS: 99212 ==

== ENCOUNTER 2021-05-20 06:14 | Day surgery (SDC) | payer OTHER, SELFPAY ==
[2021-05-14 11:53] VITALS: BMI 31.9
--- NOTE | 2021-05-19 10:49 | HO.ANESPROP2 ---
Documented by User: Nini Calderon NP 05/19/21 10:50 HPI - Anesthesia Eval Consult details Narrative: 31yo F for Left ESWL s/p cysto etc with GA-LMA 4 PMFSH Active Problems Active Problems: All Active Problems (Updated 05/14/21 @ 11:46 by Shana Stein RN) COVID-19 (Acute) Vaginal candidiasis (Acute) Elevated hemoglobin A1c (Acute) Nephrolithiasis (Acute) Adult general medical exam (Acute) Screening for cervical cancer (Acute) Past Medical History Medical History History of COVID-19 Renal calculi Surgical History Surgical History Hx of cystoscopy Hx of lithotripsy Social History Social History Household Members: Family Housing: Apartment Are you a primary home health care social worker to a significant other at home: No Do you presently have visiting nurse or other home services: No Alcohol intake: never Patient Tobacco Use Status: Never used Tobacco e-Cigarette/Vaping Use: Never Used Second Hand Smoke Exposure: No Use of substances other than those prescribed or required for medical reasons: No Are you DNR?: No Advance Directives: No Advance Directives Information Provided: Yes (informational brochure mailed w/pre-op instructions) Advance Directives on File: No Recently lost weight without trying: No Eating poorly because of decreased appetite: No Nutrition Risks: No Nutritional Risk Patient : No FDLMP: 04/12/21 : No Poor oral hygiene: No service: No Current occupational status: employed Meds Allergies Allergy/AdvReac Type Severity Reaction Status Date / Time No Known Allergies Allergy Verified 05/19/21 16:35 Home Medications Medication Instructions Recorded Confirmed Last Taken Type albuterol sulfate 90 mcg/actuation 2 puff INHALATION Q4H PRN 01/27/21 05/14/21 Unknown History aerosol inhaler etonogestrel 0.12 mg-ethinyl 1 vag ring VAGINAL Q4W 01/27/21 05/14/21 12/30/20 History estradiol 0.015 mg/24 hr vaginal ring Exam Exam Date and Time: May 19, 2021 1049 Height,Weight and Vital Signs: Height 5 ft 1 in Weight 76.657 kg Pertinent Lab Results Pertinent Lab Results: Laboratory Tests 02/20/21 02/20/21 12:35 12:35 WBC 5.7 Hgb 11.2 L D Hct 36.6 L D Plt Count 348 Sodium 138 Potassium 4.2 Chloride 107 Carbon Dioxide 23 BUN 11 D Creatinine 0.76 Assessment and Plan Assessment Anesthesia Assessment: Chart Reviewed Documented by User: Laura Jean MD 05/20/21 07:51 PMFSH Past Medical History Medical History History of COVID-19 Renal calculi Family History Family history of problems with anesthesia: No Surgical History Surgical History Hx of cystoscopy Hx of lithotripsy History of Problems with Anesthesia: No Social History Social History Household Members: Family Housing: Apartment Are you a primary home health care social worker to a significant other at home: No Do you presently have visiting nurse or other home services: No Alcohol intake: never Patient Tobacco Use Status: Never used Tobacco e-Cigarette/Vaping Use: Never Used Second Hand Smoke Exposure: No Use of substances other than those prescribed or required for medical reasons: No Are you DNR?: No Advance Directives: No Advance Directives Information Provided: Yes (informational brochure mailed w/pre-op instructions) Advance Directives on File: No Recently lost weight without trying: No Eating poorly because of decreased appetite: No Nutrition Risks: No Nutritional Risk Patient : No FDLMP: 04/12/21 : No Poor oral hygiene: No service: No Current occupational status: employed Meds Allergies Allergy/AdvReac Type Severity Reaction Status Date / Time No Known Allergies Allergy Verified 05/19/21 16:35 Home Medications Medication Instructions Recorded Confirmed Last Taken Type albuterol sulfate 90 mcg/actuation 2 puff INHALATION Q4H PRN 01/27/21 05/14/21 Unknown History aerosol inhaler etonogestrel 0.12 mg-ethinyl 1 vag ring VAGINAL Q4W 01/27/21 05/14/21 12/30/20 History estradiol 0.015 mg/24 hr vaginal ring Exam Airway Mallampati Class: II TM Dist: >3cm Neck ROM: Full Assessment and Plan Assessment Anesthesia Assessment: Anesthesia Plan Discussed Final Anesthetic Review Family History of Problems with Anesthesia: No History of Problems with Anesthesia: No NPO: Yes ASA Class: II Final Preanesthetic Review: No Changes in Pt Med Stat, Meds/Allgs Chart Reviewed, Consent Obtained/Reviewed and Anes Risks/Benef Reviewed Patient Risk: Low Procedure Risk: Low Assessment/Block/Sedation in SS: Assess/Block/Sedation-SS Anesthetic Plan Anesthetic Plan: MAC:
[2021-05-20] VITALS (9 sets, daily range): BP systolic 103–130; BP diastolic 64–82; PULSE 70–98; RESP 16–18; TEMP 36.4; O2SAT 93–98
--- NOTE | ~2021-05-20 | XR_ITS ---
EXAMINATION: XR ABDOMEN KUB CLINICAL INDICATION: Follow-up renal calculi. COMPARISON: Abdominal ultrasound dated 03/19/2021; CT abdomen and pelvis dated 01/26/2021. TECHNIQUE: 2 frontal views of the abdomen and pelvis are submitted. FINDINGS: The bowel gas pattern is normal, with no evidence of ileus or obstruction. A previously noted proximal right ureteric calculus is redemonstrated, measuring 12 mm and projecting over the L2 left transverse process. There are 2 tiny 2 mm calculi seen at the interpolar aspect and lower pole of the right kidney. No further urinary calculus is seen. There are small pelvic phleboliths. The bones are unremarkable. XR/XR KUB IMPRESSION: A proximal right ureteric calculus and 2 tiny left renal calculi are noted, as above.
[2021-05-20 06:40] LABS: UPreg QC Valid YES; Urine Pregnancy NEGATIVE (NEGATIVE)
[2021-05-20] MEDS: Lactated Ringers 1,000 ML 100 ML IVCONT (06:48)
--- NOTE | 2021-05-20 07:36 | P.HPSUR_ITS ---
Pre-Procedural Eval Section A Date of Service: 05/20/21 Section B Chief Complaint: Calculus of Kidney Details of Present Illness: left renal stones Relevant Social History: None Present Medications: see Short Stay Collaborative assessment Medical History: No relevant PMH History of Previous Operations: Relevant previous surgery/procedure and date(s) Allergies: Allergies Allergy/AdvReac Type Severity Reaction Status Date / Time No Known Allergies Allergy Verified 05/19/21 16:35 Review of Systems Sugical H&P ROS: Negative: Constitution, Cardiovascular, Respiratory, Neurological, Psychiatric, Hem-Onc, Allergic/Immunologic, Gastrointestinal, Genitourinary, Musculoskeletal, Integumentary, Endocrine and Eyes/Ears/Nose/Throat Exam Surgical H&P Exam: Normal: HEENT, Normal: Heart, Normal: Lungs, Normal: Extre mities, Normal: Abdomen, Normal: Skin and Normal: Neurological Plan Diagnosis/Plan: Unchanged (left ESWL) I have reviewed the history and physical and performed a pertinent physical examination on my patient. No changes have occurred unless specified.
--- NOTE | 2021-05-20 07:43 | W.PM.OPN ---
Operative Note Operative Note Date of Service: 05/20/21 Narrative: PreOperative Diagnosis: Left Renal stones Post Operative Diagnosis: Left stones Procedure: left ESWL Surgeon: Dr Billy Navarro Anesthesia: mac/sedation Indications for procedure: The patient understands ESWL may be a staged procedure and subsequent intervention may be required based on imaging after ESWL. They also understand there is a risk of bleeding to the kidney, infection, damage to adjacent organs, and stone migration following the procedure. Procedure: After informed consent was verified the patient was brought to the operating room and placed in a supine position. Anesthesia was performed per protocol. Safety pause time-out was performed. Imaging was displayed in the room and laterality confirmed. ESWL was performed. The 1st 500 shocks were performed at 60 hertz. These were performed with increasing power. Once maximum power was reached the rate was increased to 180 hertz. A total of 2500 shocks were given. Targetted imaging with ultrasound/fluoroscopy showed stone smudging suggestive of disintegration. The patient tolerated the procedure well and was transferred to the recovery area upon completion. Post procedure imaging will be organized. There was no evidence for flank discoloration.
[2021-05-20] MEDS: Phenazopyridine HCL 100 MG TABLET PO (08:21)
[2021-05-20] MEDS: Acetaminophen 325 MG TABLET 650 MG PO (08:22)
[2021-05-20] MEDS: oxyCODONE HCl Immed Release 5 MG TABLET PO (08:22)
[2021-05-20] MEDS: fentaNYL citrate/PF 100 MCG/2 ML VIAL 50 MCG IVPUSH ×2 (08:25→08:30)
== END 2021-05-20 11:10 | disposition home or self-care (01) ==
PROVIDERS: Nurse Practitioner; PCP Family Medicine; Visit Provider Urology
PROC: (CPT 50590; principal; 2021-05-20 07:30)
DX: N20.0 Calculus of kidney (principal); Z87.442 Personal history of urinary calculi; Z86.16 Personal history of COVID-19
CPT/HCPCS: 50590; 74018; 81025; J1885; J2250; J2405; J3010

== ENCOUNTER 2021-05-27 11:22 | Emergency (ER) | payer OTHER, SELFPAY ==
--- NOTE | ~2021-05-27 | CT_ITS ---
EXAMINATION: CT ABDOMEN AND PELVIS WITHOUT CONTRAST CLINICAL INFORMATION: Right flank pain COMPARISON: Previous CT January 2021, renal ultrasound March 2021 and KUB May 2021 TECHNIQUE: Multidetector volumetric imaging was performed from the superior aspect of the liver through the pubic symphysis. Sagittal and coronal reformatted images were obtained on the technologist's workstation. This CT examination was performed using dose optimization techniques as appropriate, variously including the following: *Automated exposure control *Adjustment of mA and/or kV according to patient size (this includes techniques or standardized protocols for targeted exams where dose is matched to indication/reason for exam; i.e. extremities or head) *Use of iterative reconstruction technique DLP: 601 mGy-cm FINDINGS: LUNG BASES: The visualized lung bases are unremarkable. LIVER, GALLBLADDER, AND BILIARY TREE: The liver is normal in size, shape, and attenuation. No focal hepatic lesion or biliary ductal dilatation is present. The gallbladder is unremarkable with no evidence of radiopaque gallstones, gallbladder wall thickening, or obvious pericholecystic inflammatory changes. PANCREAS: Unremarkable. SPLEEN: Unremarkable. ADRENAL GLANDS: Unremarkable. KIDNEYS AND URETERS: There is moderate right hydronephrosis. There is a large 1 x 1.7 cm stone in the right UPJ region. The right ureter does not appear dilated. No right ureteral stone is seen. There is stranding of the right perinephric fat. There are smaller stones seen in the right renal pelvis measuring 1 to 3 mm. There are several tiny 1 to 2 mm stone in the upper and lower pole of the left kidney. BLADDER: Not optimally distended. GASTROINTESTINAL TRACT: The small and large bowel are unremarkable. The appendix is unremarkable. ABDOMINAL WALL: There is a small umbilical hernia containing fat. LYMPH NODES: Normal. VASCULAR: Unremarkable. PELVIC VISCERA: Unremarkable. OSSEOUS STRUCTURES: Unremarkable. CT/CT abdomen pelvis wo con IMPRESSION: Moderate right hydronephrosis from a 1 x 1.7 cm right UPJ stone. Stranding of the right perinephric fat. This may be related to backflow of urine secondary to obstruction. Differential would include infection. Small bilateral renal stones.
[2021-05-27 12:09] VITALS: BP 132/79; PULSE 95; RESP 18; TEMP 35.7; O2SAT 100; BMI 32.1
[2021-05-27] MEDS: Ondansetron ODT 4 MG TAB.RAPDIS TRANSLINGU (12:19)
[2021-05-27 13:24] LABS: MANUAL DIFF FLAG NO
[2021-05-27 13:25] LABS: Basophils Percent Auto 0.3 % (0-2); Eosinophils Percent Auto 0.2 % (0-4); Hematocrit 39.8 % (37-47); Hemoglobin 12.4 g/dl (12.0-16.0); Imm Gran Abs Auto 0.04 X10*3/uL (0.00-0.03); Imm Gran Pct Auto 0.3 % (0.0-0.4); Lymphocytes Absolute Auto 1.4 X10*3/uL (1.2-4.9); Lymphocytes Percent Auto 10.5 % (20-40); Mean Corpuscular HGB Conc 31.2 g/dl (31.0-35.0); Mean Corpuscular Hemoglobin 22.5 pg (27.0-33.0); Mean Corpuscular Volume 72.1 fL (80-98); Mean Platelet Volume 10.4 fL (9.4-12.3); Monocytes Absolute Auto 0.7 X10*3/uL (0.1-1.2); Monocytes Percent Auto 5.5 % (2-11); Neutrophils Absolute Auto 10.7 X10*3/uL (2.0-8.3); Neutrophils Percent Auto 83.2 % (45-73); Platelet Count 411 X10*3/uL (160-400); Red Blood Count 5.52 X10*6/uL (4.20-5.50); Red Cell Distribution Width 15.2 % (11.0-16.0); White Blood Count 12.8 X10*3/uL (4.8-10.8)
[2021-05-27 13:51] LABS: Alanine Aminotransferase 18 U/L (0-31); Albumin Level 4.3 g/dL (3.5-5.0); Alkaline Phosphatase 121 U/L (39-117); Anion Gap 13 (12-20); Aspartate Amino Transferase 16 U/L (5-31); Bilirubin Total 0.3 mg/dL (0.0-1.0); Blood Urea Nitrogen 10 mg/dL (9-16); Calcium 9.8 mg/dL (8.4-10.2); Carbon Dioxide 22 mmol/L (22-29); Chloride 109 mmol/L (96-108); Creatinine Clr Calc Pharmacy 93.9; Estimated Glomerular Filt Rate > 60; Glucose Random 91 mg/dL (60-115); Potassium 4.2 mmol/L (3.3-5.1); Sodium 140 mmol/L (135-145)
[2021-05-27 14:03] VITALS: BP 136/84; PULSE 78; RESP 14; TEMP 36.6; O2SAT 98
[2021-05-27 14:09] LABS: Appearance Urine HAZY; Color Urine YELLOW; Glucose Urine UA NEG (NEG); Leukocyte Esterase Urine 3+ (NEG); Nitrite Urine POS (NEG); UACC Culture Trigger YES; Urine Blood 2+ (NEG); Urine Ketones NEG (NEG); Urine Protein TRACE MG/DL (NEG-TRACE)
--- NOTE | 2021-05-27 14:15 | ED.GENADULT ---
HPI - General Adult General Chief complaint: General Medical Stated complaint: abd pain/vomiting Time Seen by Provider: 05/27/21 14:00 Source: patient Mode of arrival: ambulatory Limitations: no limitations History of Present Illness HPI narrative: 31-year-old female who with a history of renal colic here with complaints of right-sided abdominal and back pain since 04:00 with nausea and vomiting. No fevers, chills, urinary symptoms, diarrhea. Note patient had a L kidney stone w/ ESWL on 05/20/[address] Navarro. Related Data Home Medications Medication Instructions Recorded Confirmed albuterol sulfate 90 mcg/actuation 2 puff INHALATION Q4H PRN 01/27/21 05/14/21 aerosol inhaler etonogestrel 0.12 mg-ethinyl 1 vag ring VAGINAL Q4W 01/27/21 05/14/21 estradiol 0.015 mg/24 hr vaginal ring Previous Rx's Medication Instructions Recorded cefuroxime axetil 500 mg tablet 500 mg PO BID #20 tab 01/28/21 allopurinol 100 mg tablet 100 mg PO DAILY 90 Days #90 tab 02/12/21 pyridoxine (vitamin B6) 100 mg 100 mg PO DAILY 90 Days #90 tab 02/12/21 tablet levonorgestrel 1.5 mg tablet (Plan 1.5 mg PO ONCE 1 Days #1 tab 02/20/21 B One-Step) tramadol 50 mg tablet 50 mg PO Q6H PRN #14 tab 05/20/21 ciprofloxacin HCl 500 mg tablet 500 mg PO BID #14 tab 05/27/21 (Cipro) hydrocodone 5 mg-acetaminophen 300 1 tab PO QID PRN #8 tab 05/27/21 mg tablet ondansetron 4 mg disintegrating 4 mg PO Q6H PRN #10 tab 05/27/21 tablet prednisone 20 mg tablet 20 mg PO DAILY 5 Days #5 tab 05/27/21 tamsulosin 0.4 mg capsule 0.4 mg PO BEDTIME 14 Days #14 cap 05/27/21 Allergies Allergy/AdvReac Type Severity Reaction Status Date / Time No Known Allergies Allergy Verified 05/27/21 12:09 Review of Systems Review of Systems: Yes all other systems are reviewed and are negative Constitutional: Constitutional: Reports no additional constitutional complaints, Denies body ache(s), Denies chills, Denies fever(s), Denies headache(s) and Denies weakness Eyes: Eyes: Reports no additional eye complaints and Denies change in vision ENT: Reports system reviewed and no additional complaints, except as documented, Denies dizziness, Denies headache(s), Denies nasal congestion, Denies nasal discharge and Denies neck pain Cardiovascular: Cardiovascular: Reports no additional cardiovascular complaints, Denies chest pain, Denies leg edema and Denies dyspnea Respiratory: Respiratory: Reports no additional respiratory complaints, Denies cough and Denies dyspnea Gastrointestinal: Gastrointestinal: Reports no additional gastrointestinal complaints, Reports abdominal pain, Denies diarrhea, Reports nausea and Reports vomiting Genitourinary: Genitourinary: Reports no additional female genitourinary complaints and Denies urinary incontinence Musculoskeletal: Musculoskeletal: Reports no additional musculoskeletal complaints, Reports back pain, Denies arthralgias, Denies joint swelling, Denies neck pain, Denies numbness and Denies tingling Integumentary/Breasts: Skin/Breast: Reports system reviewed and no additional complaints, except as docu and Denies rash Neurologic: Reports system reviewed and no additional complaints, except as documented, Denies Abnormal speech present, Denies dizziness, Denies headache(s), Denies numbness, Denies tingling and Denies weakness PMFSH Past Medical History Attestation statement: The following information was validated with the patient. Source: old records reviewed and nursing notes reviewed Medical History History of COVID-19 Renal calculi Surgical History Hx of cystoscopy Hx of lithotripsy Social History Social History Household Members: Family Housing: Apartment Are you a primary grounds caretaker to a significant other at home: No Do you presently have visiting nurse or other home services: No Alcohol intake: never Patient Tobacco Use Status: Never used Tobacco e-Cigarette/Vaping Use: Never Used Second Hand Smoke Exposure: No Advance Directives: No Advance Directives Information Provided: Yes Patient : No service: No Current occupational status: employed Physical Exam Vital Signs: Vital Signs: Last Vital Signs Temp 97.8 F 05/27/21 14:03 Pulse 78 05/27/21 14:03 Resp 14 05/27/21 14:03 BP 136/84 05/27/21 14:03 Pulse Ox 98 05/27/21 14:03 Body Mass Index 32.1 Const: General: cooperative, healthy appearing, comfortable and no acute distress Orientation/consciousness: patient oriented x3 Limitations: no limitations HENMT: Head: Yes normal to inspection Ears: hearing grossly normal bilaterally General nose exam: Normal external nose present Face and sinus: Yes normal facial exam Mouth: Normal oral and palatal mucosa present Throat: Yes posterior oropharynx normal Eyes: General: appearance normal, both eyes and all related structures Pupils: Equal, round and reactive pupils present Neck: Neck: Yes normal visual inspection Chest: Chest palpation & inspection: normal inspection of the chest Resp: Effort & Inspection: normal respiratory effort Auscultation: clear to auscultation bilaterally Cardio: Rate: regular rate Rhythm: regular rhythm Peripheral pulses: Peripheral pulses 2+ throughout GI: Inspection: Yes normal to inspection Palpation (GI): Soft to palpation and nontender Auscultation: normal bowel sounds : General: Yes no CVA tenderness Back/Spine/Pelvis: Other: Right sided abdominal pain. No rebound or guarding Back: no CVA tenderness Thoracic/Lumbar Spine: thoracic and lumbar spine normal to inspection Skin: General skin exam: no rashes or lesions noted Neuro: General: patient oriented x3, no focal motor deficits and normal sensation to monofilament Cranial nerves: Yes Equal, round and reactive pupils present Cognition (Neuro): normal cognition Speech: No Abnormal speech present Gait exam (Neuro): Normal gait present Motor exam (neuro): 5/5 motor strength present throughout Extrem: General: Yes normal to inspection Course Course Course Narrative: 31-year-old female here with right-sided abdominal pain with nausea and vomiting since 04:00. Will check labs, UA, CT 1530-Moderate right hydronephrosis from a 1 x 1.7 cm right UPJ stone. Stranding of the right perinephric fat. This may be related to backflow of urine secondary to obstruction. Differential would include infection.? Small bilateral renal stones. UA is consistent with UTI. Patient has a leukocytosis. With need admission for pyelonephritis and large renal colic including IV antibiotics and urology consult.. 1550-I spoke to the patient. She does not want to stay in the hospital. I told her that this kidney stone will not pass on its own. She also likely has pyelonephritis on the same side. I think that she should be admitted for IV antibiotics and I am worried that if she goes home she may become much sicker and experience worsened pain. She may also end up with sepsis. Patient will sign out against medical advice. She is welcome to return at any time. Medical Decision Making MDM Narrative Medical decision making narrative: Pyelonephritis, renal colic Medical Records Medical records reviewed: Yes I reviewed the patient's medical records. Lab Data Lab results reviewed: Yes I reviewed the patient's lab results. Result diagrams: 05/27/21 13:05/27/21 13:21 Labs: Lab Results 05/27/21 05/27/21 05/27/21 Range/Units 13: 13:21 13:59 WBC 12.8 H (4.8-10.8) X10*3/uL RBC 5.52 H (4.20-5.50) X10*6/uL Hgb 12.4 (12.0-16.0) g/dl Hct 39.8 (37-47) % MCV 72.1 L (80-98) fL MCH 22.5 L (27.0-33.0) pg MCHC 31.2 (31.0-35.0) g/dl RDW 15.2 (11.0-16.0) % Plt Count 411 H (160-400) X10*3/uL MPV 10.4 (9.4-12.3) fL Immature Gran % (Auto) 0.3 (0.0-0.4) % Neut % (Auto) 83.2 H (45-73) % Lymph % (Auto) 10.5 L (20-40) % [place] % (Auto) 5.5 (2-11) % Eos % (Auto) 0.2 (0-4) % Baso % (Auto) 0.3 (0-2) % Lymph # (Auto) 1.4 (1.2-4.9) X10*3/uL [place] # (Auto) 0.7 (0.1-1.2) X10*3/uL Eos # (Auto) 0.0 (0.0-0.4) X10*3/uL Baso # (Auto) 0.0 (0.0-0.2) X10*3/uL Abs Immat Gran (auto) 0.04 H (0.00-0.03) X10*3/uL Absolute Neuts (auto) 10.7 H (2.0-8.3) X10*3/uL Absolute Nucleated RBC 0.000 (0.0-0.012) X10*3/uL Nucleated RBC % (auto) 0.0 (0.0-0.2) /100WBC Sodium 140 (135-145) mmol/L Potassium 4.2 (3.3-5.1) mmol/L Chloride 109 H (96-108) mmol/L Carbon Dioxide 22 (22-29) mmol/L Anion Gap 13 (12-20) BUN 10 (9-16) mg/dL Creatinine 0.83 (0.5-1.4) mg/dL Estim Creat Clear Calc 93.9 Estimated GFR > 60 Random Glucose 91 (60-115) mg/dL Calcium 9.8 (8.4-10.2) mg/dL Total Bilirubin 0.3 (0.0-1.0) mg/dL AST 16 (5-31) U/L ALT 18 (0-31) U/L Alkaline Phosphatase 121 H D (39-117) U/L Total Protein 8.0 (6.5-8.0) g/dL Albumin 4.3 (3.5-5.0) g/dL Urine Color YELLOW Urine Appearance HAZY Urine pH 6.0 (5.0-8.0) Ur Specific [place] 1.020 (1.005-1.025) Urine Protein TRACE (NEG-TRACE) MG/DL Urine Glucose (UA) NEG (NEG) MG/DL Urine Ketones NEG (NEG) MG/DL Urine Blood 2+ H (NEG) Urine Nitrite POS H (NEG) Ur Leukocyte Esterase 3+ H (NEG) Urine RBC 1-4 (0) /HPF Urine WBC 50-75 H (0-4) /HPF Ur Squamous Epith Cells 2+ /LPF Urine Bacteria 2+ /LPF Urine Mucus TRACE /LPF Urine Test (NEGATIVE) 05/27/21 Range/Units 13:59 WBC (4.8-10.8) X10*3/uL RBC (4.20-5.50) X10*6/uL Hgb (12.0-16.0) g/dl Hct (37-47) % MCV (80-98) fL MCH (27.0-33.0) pg MCHC (31.0-35.0) g/dl RDW (11.0-16.0) % Plt Count (160-400) X10*3/uL MPV (9.4-12.3) fL Immature Gran % (Auto) (0.0-0.4) % Neut % (Auto) (45-73) % Lymph % (Auto) (20-40) % [place] % (Auto) (2-11) % Eos % (Auto) (0-4) % Baso % (Auto) (0-2) % Lymph # (Auto) (1.2-4.9) X10*3/uL [place] # (Auto) (0.1-1.2) X10*3/uL Eos # (Auto) (0.0-0.4) X10*3/uL Baso # (Auto) (0.0-0.2) X10*3/uL Abs Immat Gran (auto) (0.00-0.03) X10*3/uL Absolute Neuts (auto) (2.0-8.3) X10*3/uL Absolute Nucleated RBC (0.0-0.012) X10*3/uL Nucleated RBC % (auto) (0.0-0.2) /100WBC Sodium (135-145) mmol/L Potassium (3.3-5.1) mmol/L Chloride (96-108) mmol/L Carbon Dioxide (22-29) mmol/L Anion Gap (12-20) BUN (9-16) mg/dL Creatinine (0.5-1.4) mg/dL Estim Creat Clear Calc Estimated GFR Random Glucose (60-115) mg/dL Calcium (8.4-10.2) mg/dL Total Bilirubin (0.0-1.0) mg/dL AST (5-31) U/L ALT (0-31) U/L Alkaline Phosphatase (39-117) U/L Total Protein (6.5-8.0) g/dL Albumin (3.5-5.0) g/dL Urine Color Urine Appearance Urine pH (5.0-8.0) Ur Specific [place] (1.005-1.025) Urine Protein (NEG-TRACE) MG/DL Urine Glucose (UA) (NEG) MG/DL Urine Ketones (NEG) MG/DL Urine Blood (NEG) Urine Nitrite (NEG) Ur Leukocyte Esterase (NEG) Urine RBC (0) /HPF Urine WBC (0-4) /HPF Ur Squamous Epith Cells /LPF Urine Bacteria /LPF Urine Mucus /LPF Urine Test NEGATIVE (NEGATIVE) Imaging Data CT scan - abdomen: Attestation: I personally reviewed and interpreted this imaging study as follows: Radiologist's impression: [address] [address] [address] Scan Report Signed Patient: Irais Velasco MR#: [id number] : 1990 Acct:[id number] Age/Sex: 31 / F ADM Date: 05/27/21 Loc: HO.ED Attending Dr: Ordering Physician: Lizz Lau NP Date of Service: 05/27/21 Procedure(s): CT abdomen pelvis wo con Accession Number(s): [id number] cc: Lizz Lau NP~ EXAMINATION: CT ABDOMEN AND PELVIS WITHOUT CONTRAST? CLINICAL INFORMATION: Right flank pain? COMPARISON: Previous CT January 2021, renal ultrasound March 2021 and KUB May 2021? TECHNIQUE: Multidetector volumetric imaging was performed from the superior aspect of the liver through the pubic symphysis. Sagittal and coronal reformatted images were obtained on the technologist's workstation.? This CT examination was performed using dose optimization techniques as appropriate, variously including the following: *Automated exposure control *Adjustment of mA and/or kV according to patient size (this includes techniques or standardized protocols for targeted exams where dose is matched to indication/reason for exam; i.e. extremities or head) *Use of iterative reconstruction technique DLP: 601 mGy-cm FINDINGS: LUNG BASES: The visualized lung bases are unremarkable.? LIVER, GALLBLADDER, AND BILIARY TREE: The liver is normal in size, shape, and attenuation. No focal hepatic lesion or biliary ductal dilatation is present. The gallbladder is unremarkable with no evidence of radiopaque gallstones, gallbladder wall thickening, or obvious pericholecystic inflammatory changes.? PANCREAS: Unremarkable.? SPLEEN: Unremarkable.? ADRENAL GLANDS: Unremarkable.? KIDNEYS AND URETERS: There is moderate right hydronephrosis. There is a large 1 x 1.7 cm stone in the right UPJ region. The right ureter does not appear dilated. No right ureteral stone is seen. There is stranding of the right perinephric fat. There are smaller stones seen in the right renal pelvis measuring 1 to 3 mm. There are several tiny 1 to 2 mm stone in the upper and lower pole of the left kidney. BLADDER: Not optimally distended.? GASTROINTESTINAL TRACT: The small and large bowel are unremarkable. The appendix is unremarkable.? ABDOMINAL WALL: There is a small umbilical hernia containing fat.? LYMPH NODES: Normal. VASCULAR: Unremarkable. PELVIC VISCERA: Unremarkable.? OSSEOUS STRUCTURES: Unremarkable.? CT/CT abdomen pelvis wo con IMPRESSION: Moderate right hydronephrosis from a 1 x 1.7 cm right UPJ stone. Stranding of the right perinephric fat. This may be related to backflow of urine secondary to obstruction. Differential would include infection.? Small bilateral renal stones. Discharge Plan Discharge Clinical Impression: Nephrolithiasis, Pyelonephritis Patient Disposition: Left Against Medical Advice Instructions: Kidney Stones (ED), Kidney Infection (ED), Hydronephrosis (ED), Against Medical Advice (ED) Additional Instructions: You have a 1.7 centimetres stone on the right side. This will not pass on its own. You also have a kidney infection on the right side. It was recommended to stay in the hospital but you decided to go home Call urology for follow-up. Increase fluids, rest Prescriptions: New ciprofloxacin HCl [Cipro] 500 mg tablet 500 mg PO BID Qty: 14 RF: 0 hydrocodone-acetaminophen 5-300 mg tablet 1 tab PO QID PRN (Reason: pain) Qty: 8 RF: 0 ondansetron 4 mg tablet,disintegrating 4 mg PO Q6H PRN (Reason: nausea and vomiting) Qty: 10 RF: 0 No Action levonorgestrel [Plan B One-Step] 1.5 mg tablet 1.5 mg PO ONCE 1 Days Qty: 1 RF: 0 tamsulosin 0.4 mg capsule 0.4 mg PO BEDTIME 14 Days Qty: 14 RF: 0 prednisone 20 mg tablet 20 mg PO DAILY 5 Days Qty: 5 RF: 0 albuterol sulfate 90 mcg/actuation HFA aerosol inhaler 2 puff inhalation Q4H PRN (Reason: wheezing) RF: 0 etonogestrel-ethinyl estradiol 0.12-0.015 mg/24 hr ring 1 vag ring vaginal Q4W RF: 0 cefuroxime axetil 500 mg tablet 500 mg PO BID Qty: 20 RF: 0 tramadol 50 mg tablet 50 mg PO Q6H PRN (Reason: pain (scale score 4-6)) Qty: 14 RF: 0 allopurinol 100 mg tablet 100 mg PO DAILY 90 Days Qty: 90 RF: 1 pyridoxine (vitamin B6) 100 mg tablet 100 mg PO DAILY 90 Days Qty: 90 RF: 1 Referrals: Billy Navarro MD [Physician] - 2 days Stand Alone Forms: Against Medical Advice Interventions: ED Discharge Assessment Last Done: 05/27/21 15:54 Discharge Date/Time: 05/27/21 15:55
[2021-05-27] MEDS: Ketorolac Tromethamine 15 MG/ML VIAL 30 MG IVPUSH (14:17)
[2021-05-27] MEDS: ondansetron HCL 4 MG/2 ML VIAL IVPUSH (14:17)
[2021-05-27 14:24] LABS: Bacteria Urine 2+ /LPF; Mucus Urine TRACE /LPF; Squamous Epithelial Cell Urine 2+ /LPF; WBC Urine 50-75 /HPF (0-4)
[2021-05-27 14:26] LABS: UPreg QC Valid YES; Urine Pregnancy NEGATIVE (NEGATIVE)
== END 2021-05-27 15:55 | disposition left against medical advice (07) ==
PROVIDERS: Nurse Practitioner Family; Emergency Provider Emergency Medicine
DX: N13.6 Pyonephrosis (principal); Z87.442 Personal history of urinary calculi; Z98.890 Other specified postprocedural states
CPT/HCPCS: 36415; 74176; 80053; 81001; 81025; 85025; 87086; 96374; 96375; 99284; J1885; J2405

== ENCOUNTER 2021-05-28 02:48 | Inpatient (IN) | payer OTHER, SELFPAY ==
[2021-05-28] VITALS (20 sets, daily range): BP systolic 100–127; BP diastolic 50–84; PULSE 98–129; RESP 14–20; TEMP 36.4–39.6; O2SAT 94–99; BMI 26.6
--- NOTE | ~2021-05-28 | FL_ITS ---
EXAMINATION: XR FLUOROSCOPY WITH IMAGES CLINICAL INFORMATION: Right ureteral stone COMPARISON: CT abdomen pelvis May 27, 2021 TECHNIQUE: Fluoroscopy performed by Dr. Navarro. Fluoroscopy time: 1.3 minutes DAP: 7.63 mGycm2 Images: 1 FINDINGS: Single spot view image over the right kidney. Stent over the right renal region. FL/FL guidance in OR IMPRESSION: Placement of right ureteral stent. See intraoperative report for further detail.
--- NOTE | ~2021-05-28 | CT_ITS ---
EXAMINATION: CT ABDOMEN AND PELVIS WITHOUT CONTRAST CLINICAL INFORMATION: Flank pain. COMPARISON: CT of the abdomen and pelvis done on 05/27/2021. TECHNIQUE: Multidetector volumetric imaging was performed from the superior aspect of the liver through the pubic symphysis. Sagittal and coronal reformatted images were obtained on the technologist's workstation. This CT examination was performed using dose optimization techniques as appropriate, variously including the following: *Automated exposure control *Adjustment of mA and/or kV according to patient size (this includes techniques or standardized protocols for targeted exams where dose is matched to indication/reason for exam; i.e. extremities or head) *Use of iterative reconstruction technique DLP: 731 mGy-cm FINDINGS: LUNG BASES: Interval development of airspace opacity is noted within the right lung base, most consistent with right lower lobar atelectasis, consolidation or combination thereof. Trace amount of bilateral pleural effusions is also noted, new since prior study. LIVER, GALLBLADDER, AND BILIARY TREE: The liver is normal in size, shape, and attenuation. No focal hepatic lesion or biliary ductal dilatation is present. The gallbladder is unremarkable with no evidence of radiopaque gallstones, gallbladder wall thickening, or obvious pericholecystic inflammatory changes. PANCREAS: Unremarkable. SPLEEN: Unremarkable. ADRENAL GLANDS: Unremarkable. KIDNEYS AND URETERS: The left kidney is normal in size, shape, and attenuation. No hydronephrosis, or hydroureter seen. No perinephric stranding. 2 punctate 1 to 2 mm nonobstructing left renal calculi are noted one in the superior the second at the inferior calyx. Previously documented large radiopaque calculus seen within the right renal pelvis is no longer visualized. There is a 4 mm radiopaque calculus identified within the right mid to inferior calyx (301: 3). Previously documented right-sided hydronephrosis shows improvement without resolution. Interval development of curvilinear subcapsular fluid collection is noted along the anterior superior to mid part of the right kidney with Hounsfield value of 0.5, may represent resolving hematoma. Currently there is no hyperdense fluid present to suspect acute hematoma. The right ureter appears mildly dilated with a linear radiopaque density measuring approximately 0.6 cm (54:5), likely represent fragmented residual right ureteric calculi. Specific note is made of significant periureteric stranding along the course of the intra-abdominal without any definite fluid collection. Possibility of ureter injury is not excluded. There is no stent present. BLADDER: Unremarkable. GASTROINTESTINAL TRACT: The small and large bowel are unremarkable. The appendix is unremarkable. ABDOMINAL WALL: No significant hernia is appreciated. LYMPH NODES: Normal. , Unchanged. VASCULAR: Unremarkable. PELVIC VISCERA: Small volume simple appearing free fluid is noted within the dependent part of the pelvis. Postsurgical changes are noted around the cervix OSSEOUS STRUCTURES: Unremarkable. CT/CT abdomen pelvis wo con IMPRESSION: 1. Interval development of right lower lobar airspace disease is present, may represent hypoventilatory, atelectatic changes with without infiltrate. Trace amount of bilateral pleural effusions are also noted since the prior study dated 05/27/2021. 2. Previously documented large obstructing radiopaque calculus seen within the right adrenal pelvis is no longer visualized. The degree of dilatation of the right renal collecting system has decreased since the prior study. Note is made of presence of 4 mm radiopaque calculus within the right mid to inferior calyx, new since prior study. In addition, there is a linear 0.6 cm radiopaque calculus identified within the distal part of the right ureter with mild dilatation of the right ureter, new since prior study, likely represent residual fragmented calculus. 3. Specific note is made of a new subcapsular fluid collection along the anterior superior, mid part of the right kidney, may represent resolving/involuting subcapsular hematoma. No evidence of any hyperdense fluid collection at this time. Note is also made of significant periureteric stranding without any fluid collection around the upper ureter. Possibility of ureteric injury is not excluded 4. Small volume simple appearing free fluid within the dependent part of the pelvis, new since prior study.
--- NOTE | ~2021-05-28 | XR_ITS ---
EXAMINATION: XR CHEST CLINICAL INFORMATION: Hypoxia COMPARISON: Chest x-ray on 07/17/2020 TECHNIQUE: Frontal view of the chest was obtained. FINDINGS: Low lung volumes are diminished. No areas of consolidation. No pleural effusions. The cardiomediastinal silhouette is stable. XR/XR chest 1V IMPRESSION: Diminished lung volumes.
--- NOTE | ~2021-05-28 | FL_ITS ---
EXAMINATION: XR FLUOROSCOPY WITH IMAGES CLINICAL INFORMATION: Right ureteral calculus, right ureteral stent placement. COMPARISON: CT scan of the abdomen and pelvis dated 03/31/2021. TECHNIQUE: Fluoroscopy performed by Dr. Navarro. Fluoroscopy time: 38.5 seconds DAP: 15.28 mGy Images: 3 FL/FL guidance in OR FINDINGS/IMPRESSION: A right ureteral stent was placed under fluoroscopic guidance. Please refer to the procedure report for more detailed findings.
--- NOTE | ~2021-05-28 | XR_ITS ---
EXAMINATION: XR CHEST CLINICAL INFORMATION: Hypoxia COMPARISON: Chest radiograph 4:00 PM today TECHNIQUE: Frontal view of the chest was obtained. FINDINGS: Since the prior study, the ET tube has been repositioned and withdrawn from its original position in the proximal right mainstem bronchus. It is now 3.5 cm above the fely in good position. There is significant improvement in the left lower lobe atelectasis with some mild abnormality remaining. The lungs remain hypoinflated. XR/XR chest 1V IMPRESSION: Removal of ET tube from right mainstem bronchus with its tip now in good position 3.5 cm above the fely.
--- NOTE | ~2021-05-28 | XR_ITS ---
EXAMINATION: XR CHEST CLINICAL INFORMATION: Low O2. COMPARISON: 05/30/2021 chest radiograph. TECHNIQUE: Frontal view of the chest was obtained. FINDINGS: Support devices: Endotracheal tube is seen extending into the right mainstem bronchus approximately 1 cm distal to the fely. A linear radiopaque density overlies the right lateral chest soft tissues. Low lung volumes limit evaluation. There is mild prominence of the pulmonary vasculature and cardiac silhouette. Mild air bronchograms are seen at the left lung base in the retrocardiac region. The mediastinal structures are unremarkable. XR/XR chest 1V IMPRESSION: 1. Endotracheal tube tip extends into the proximal right mainstem bronchus approximately 1 cm distal to the fely and needs to be repositioned. 2. Mild prominence of the pulmonary vasculature is likely secondary to vascular crowding from low lung volumes. Air bronchograms at the left lung base in the retrocardiac region could represent atelectasis or an infiltrate. This critical result was discussed with Dr. Navarro at 5:00 PM on 06/01/2021 and it was ascertained that the content and urgency of the report was understood at the time of direct communication.
[2021-05-28] MEDS: 0.9 % Sodium Chloride 2,000 ML 999 ML IV (03:50)
[2021-05-28 03:53] LABS: Basophils Percent Auto 0.3 % (0-2); Eosinophils Percent Auto 0.1 % (0-4); Hematocrit 38.1 % (37-47); Imm Gran Abs Auto 0.05 X10*3/uL (0.00-0.03); Imm Gran Pct Auto 0.4 % (0.0-0.4); Lymphocytes Absolute Auto 0.8 X10*3/uL (1.2-4.9); Lymphocytes Percent Auto 5.9 % (20-40); MANUAL DIFF FLAG NO; Mean Corpuscular HGB Conc 31.5 g/dl (31.0-35.0); Mean Corpuscular Hemoglobin 22.4 pg (27.0-33.0); Mean Corpuscular Volume 71.2 fL (80-98); Mean Platelet Volume 11.1 fL (9.4-12.3); Monocytes Absolute Auto 0.9 X10*3/uL (0.1-1.2); Neutrophils Absolute Auto 12.4 X10*3/uL (2.0-8.3); Neutrophils Percent Auto 87.3 % (45-73); Platelet Count 396 X10*3/uL (160-400); Red Blood Count 5.35 X10*6/uL (4.20-5.50); Red Cell Distribution Width 15.2 % (11.0-16.0); White Blood Count 14.2 X10*3/uL (4.8-10.8)
--- NOTE | 2021-05-28 03:53 | PC.NURSE ---
at bed side for primary eval. IV established in right AC. Fluids running. Labs, urine, and cultures collected.
[2021-05-28 03:55] LABS: Appearance Urine HAZY; Color Urine YELLOW; Glucose Urine UA NEG (NEG); Leukocyte Esterase Urine 2+ (NEG); Nitrite Urine NEG (NEG); Specific Gravity - Urine 1.015 (1.005-1.025); UACC Culture Trigger YES; Urine Blood 1+ (NEG); Urine Ketones 5 MG/DL (NEG); Urine Protein TRACE MG/DL (NEG-TRACE)
[2021-05-28 03:56] LABS: UPreg QC Valid YES; Urine Pregnancy NEGATIVE (NEGATIVE)
[2021-05-28 04:01] LABS: Bacteria Urine TRACE /LPF; Mucus Urine 2+ /LPF; RBC Urine 0-2 /HPF (0); WBC Urine 50-75 /HPF (0-4)
[2021-05-28 04:04] LABS: Lactic Acid 1.4 mmol/L (0.5-2.0)
[2021-05-28 04:08] LABS: Alanine Aminotransferase 18 U/L (0-31); Albumin Level 4.2 g/dL (3.5-5.0); Alkaline Phosphatase 117 U/L (39-117); Anion Gap 15 (12-20); Aspartate Amino Transferase 16 U/L (5-31); Bilirubin Direct 0.3 mg/dL (0.0-0.5); Bilirubin Total 0.5 mg/dL (0.0-1.0); Blood Urea Nitrogen 13 mg/dL (9-16); Calcium 9.2 mg/dL (8.4-10.2); Carbon Dioxide 19 mmol/L (22-29); Chloride 108 mmol/L (96-108); Creatinine Clr Calc Pharmacy 75.2; Estimated Glomerular Filt Rate 54; Glucose Random 143 mg/dL (60-115); Lipase 14 U/L (8-78); Potassium 3.6 mmol/L (3.3-5.1); Sodium 138 mmol/L (135-145); Total Protein 7.9 g/dL (6.5-8.0)
--- NOTE | 2021-05-28 04:23 | ED.ABDPAIN ---
HPI - Abdominal Pain General Chief Complaint: Abdominal Pain Stated Complaint: kidney pain Time Seen by Provider: 05/28/21 03:35 Source: patient Mode of arrival: ambulatory History of Present Illness HPI narrative: 31-year-old female who was seen on 05/27 and diagnosed with kidney stone infection but states that she left AMA and now presents with worsening pain/weakness with nausea and vomiting and subjective fevers at home. Patient states that she feels ?far worse? with chills and body aches. Related Data Home Medications Medication Instructions Recorded Confirmed No Known Home Meds 05/28/21 05/28/21 Allergies Allergy/AdvReac Type Severity Reaction Status Date / Time No Known Allergies Allergy Verified 05/28/21 03:26 Review of Systems Review of Systems Pertinent positives and negatives as stated in HPI 10 point review of systems is otherwise negative. Physical Exam Vital Signs: Vital Signs: Last Vital Signs Temp 99.2 F 05/28/21 03:23 Pulse 125 H 05/28/21 03:23 Resp 20 05/28/21 03:23 BP 127/75 05/28/21 03:23 Pulse Ox 97 05/28/21 03:23 Body Mass Index 26.6 VITAL SIGNS: Reviewed. GENERAL: Well developed, well nourished, in no acute distress. HEAD: Normocephalic/atraumatic EYES: PERRLA, EOMI OROPHARYNX: no oral lesions noted, posterior pharynx clear, dry mucosa NECK: Supple, no adenopathy LUNGS: Normal breath sounds. No adventitious sounds or accessory muscle use. SpO2<97> CARDIOVASCULAR: Regular rate and rhythm without noted murmurs ABDOMEN: Soft, right-sided tenderness without rebound, non-distended with bowel sounds, CVA tenderness present SKIN: Inspection of the skin reveals no rashes NEUROLOGIC: Alert and oriented x 4. Strength and sensation to light touch were grossly intact x 4. Course Course Course Narrative: 31-year-old female with history and clinical presentation consistent with significant renal obstruction as well as infection. Patient has not taken antibiotics since she signed out AMA. Gave abx, IVF, and pain medication. All investigations reviewed and worsening leukocytosis as well as increasing Cr levels but otherwise evidence to for support pyelonephritis and ureterolithiasis. Patient will not undergo CT scan again, and on re-evaluation patient's pain has somewhat improved and I discussed the case with Dr. Navarro who recommends admission and antibiotics. I discussed the case with inpatient hospitalist who accepts admission. MDM - Abdominal Pain Lab Data Result diagrams: 05/28/21 03:45 05/28/21 03:45 Labs: Lab Results 05/28/21 05/28/21 05/28/21 Range/Units 03:45 03:45 03:45 WBC 14.2 H (4.8-10.8) X10*3/uL RBC 5.35 (4.20-5.50) X10*6/uL Hgb 12.0 (12.0-16.0) g/dl Hct 38.1 (37-47) % MCV 71.2 L (80-98) fL MCH 22.4 L (27.0-33.0) pg MCHC 31.5 (31.0-35.0) g/dl RDW 15.2 (11.0-16.0) % Plt Count 396 (160-400) X10*3/uL MPV 11.1 (9.4-12.3) fL Immature Gran % (Auto) 0.4 (0.0-0.4) % Neut % (Auto) 87.3 H (45-73) % Lymph % (Auto) 5.9 L (20-40) % [place] % (Auto) 6.0 (2-11) % Eos % (Auto) 0.1 (0-4) % Baso % (Auto) 0.3 (0-2) % Lymph # (Auto) 0.8 L (1.2-4.9) X10*3/uL [place] # (Auto) 0.9 (0.1-1.2) X10*3/uL Eos # (Auto) 0.0 (0.0-0.4) X10*3/uL Baso # (Auto) 0.0 (0.0-0.2) X10*3/uL Abs Immat Gran (auto) 0.05 H (0.00-0.03) X10*3/uL Absolute Neuts (auto) 12.4 H (2.0-8.3) X10*3/uL Absolute Nucleated RBC 0.000 (0.0-0.012) X10*3/uL Nucleated RBC % (auto) 0.0 (0.0-0.2) /100WBC Sodium 138 (135-145) mmol/L Potassium 3.6 (3.3-5.1) mmol/L Chloride 108 (96-108) mmol/L Carbon Dioxide 19 L (22-29) mmol/L Anion Gap 15 (12-20) BUN 13 (9-16) mg/dL Creatinine 1.18 (0.5-1.4) mg/dL Estim Creat Clear Calc 75.2 Estimated GFR 54 Random Glucose 143 H (60-115) mg/dL Lactic Acid 1.4 (0.5-2.0) mmol/L Calcium 9.2 D (8.4-10.2) mg/dL Total Bilirubin 0.5 (0.0-1.0) mg/dL Direct Bilirubin 0.3 (0.0-0.5) mg/dL AST 16 (5-31) U/L ALT 18 (0-31) U/L Alkaline Phosphatase 117 (39-117) U/L Total Protein 7.9 (6.5-8.0) g/dL Albumin 4.2 (3.5-5.0) g/dL Lipase 14 (8-78) U/L Urine Color Urine Appearance Urine pH (5.0-8.0) Ur Specific [place] (1.005-1.025) Urine Protein (NEG-TRACE) MG/DL Urine Glucose (UA) (NEG) MG/DL Urine Ketones (NEG) MG/DL Urine Blood (NEG) Urine Nitrite (NEG) Ur Leukocyte Esterase (NEG) Urine RBC (0) /HPF Urine WBC (0-4) /HPF Ur Squamous Epith Cells /LPF Urine Bacteria /LPF Urine Mucus /LPF Urine Test (NEGATIVE) 05/28/21 05/28/21 Range/Units 03:47 03:47 WBC (4.8-10.8) X10*3/uL RBC (4.20-5.50) X10*6/uL Hgb (12.0-16.0) g/dl Hct (37-47) % MCV (80-98) fL MCH (27.0-33.0) pg MCHC (31.0-35.0) g/dl RDW (11.0-16.0) % Plt Count (160-400) X10*3/uL MPV (9.4-12.3) fL Immature Gran % (Auto) (0.0-0.4) % Neut % (Auto) (45-73) % Lymph % (Auto) (20-40) % [place] % (Auto) (2-11) % Eos % (Auto) (0-4) % Baso % (Auto) (0-2) % Lymph # (Auto) (1.2-4.9) X10*3/uL [place] # (Auto) (0.1-1.2) X10*3/uL Eos # (Auto) (0.0-0.4) X10*3/uL Baso # (Auto) (0.0-0.2) X10*3/uL Abs Immat Gran (auto) (0.00-0.03) X10*3/uL Absolute Neuts (auto) (2.0-8.3) X10*3/uL Absolute Nucleated RBC (0.0-0.012) X10*3/uL Nucleated RBC % (auto) (0.0-0.2) /100WBC Sodium (135-145) mmol/L Potassium (3.3-5.1) mmol/L Chloride (96-108) mmol/L Carbon Dioxide (22-29) mmol/L Anion Gap (12-20) BUN (9-16) mg/dL Creatinine (0.5-1.4) mg/dL Estim Creat Clear Calc Estimated GFR Random Glucose (60-115) mg/dL Lactic Acid (0.5-2.0) mmol/L Calcium (8.4-10.2) mg/dL Total Bilirubin (0.0-1.0) mg/dL Direct Bilirubin (0.0-0.5) mg/dL AST (5-31) U/L ALT (0-31) U/L Alkaline Phosphatase (39-117) U/L Total Protein (6.5-8.0) g/dL Albumin (3.5-5.0) g/dL Lipase (8-78) U/L Urine Color YELLOW Urine Appearance HAZY Urine pH 6.0 (5.0-8.0) Ur Specific [employer] 1.015 (1.005-1.025) Urine Protein TRACE (NEG-TRACE) MG/DL Urine Glucose (UA) NEG (NEG) MG/DL Urine Ketones 5 (NEG) MG/DL Urine Blood 1+ H (NEG) Urine Nitrite NEG (NEG) Ur Leukocyte Esterase 2+ H (NEG) Urine RBC 0-2 (0) /HPF Urine WBC 50-75 H (0-4) /HPF Ur Squamous Epith Cells NONE /LPF Urine Bacteria TRACE /LPF Urine Mucus 2+ /LPF Urine Test NEGATIVE (NEGATIVE) Discharge Plan Discharge Clinical Impression: Pyelonephritis, Sepsis, Renal colic, Ureterolithiasis Patient Disposition: Admitted As Inpatient Prescriptions: No Action levonorgestrel [Plan B One-Step] 1.5 mg tablet 1.5 mg PO ONCE 1 Days Qty: 1 RF: 0 tamsulosin 0.4 mg capsule 0.4 mg PO BEDTIME 14 Days Qty: 14 RF: 0 prednisone 20 mg tablet 20 mg PO DAILY 5 Days Qty: 5 RF: 0 albuterol sulfate 90 mcg/actuation HFA aerosol inhaler 2 puff inhalation Q4H PRN (Reason: wheezing) RF: 0 etonogestrel-ethinyl estradiol 0.12-0.015 mg/24 hr ring 1 vag ring vaginal Q4W RF: 0 cefuroxime axetil 500 mg tablet 500 mg PO BID Qty: 20 RF: 0 tramadol 50 mg tablet 50 mg PO Q6H PRN (Reason: pain (scale score 4-6)) Qty: 14 RF: 0 ciprofloxacin HCl [Cipro] 500 mg tablet 500 mg PO BID Qty: 14 RF: 0 hydrocodone-acetaminophen 5-300 mg tablet 1 tab PO QID PRN (Reason: pain) Qty: 8 RF: 0 ondansetron 4 mg tablet,disintegrating 4 mg PO Q6H PRN (Reason: nausea and vomiting) Qty: 10 RF: 0 allopurinol 100 mg tablet 100 mg PO DAILY 90 Days Qty: 90 RF: 1 pyridoxine (vitamin B6) 100 mg tablet 100 mg PO DAILY 90 Days Qty: 90 RF: 1 PMFSH Past Medical History Source: nursing notes reviewed Medical History History of COVID-19 Renal calculi Surgical History Hx of cystoscopy Hx of lithotripsy Social History Social History Household Members: Family Housing: Apartment Are you a primary day care worker to a significant other at home: No Do you presently have visiting nurse or other home services: No Alcohol intake: never Patient Tobacco Use Status: Never used Tobacco e-Cigarette/Vaping Use: Never Used Second Hand Smoke Exposure: No Advance Directives: No Advance Directives Information Provided: Yes Patient : No service: No Current occupational status: employed
[2021-05-28] MEDS: cefTRIAXone sodium 1 GM in 0.9 % Sodium Chloride 50 ML IV (04:40)
[2021-05-28] MEDS: Ketorolac Tromethamine 15 MG/ML VIAL IVPUSH ×2 (04:40→07:30)
[2021-05-28 05:13] LABS: COVID-19 Test Negative (Negative)
[2021-05-28] MEDS: ondansetron HCL 4 MG/2 ML VIAL IVPUSH ×2 (07:30→15:25)
--- NOTE | 2021-05-28 07:38 | PC.NURSE ---
Pt reporting persistent right side pain and nausea, skin pale. Medicated as charted. Pt vomited small amount while in room but sx improving shortly after med administration. Assisted to bathroom to void. Reports chills but afebrile oral temp 99.2
[2021-05-28] MEDS: Prochlorperazine Edisylate 10 MG/2 ML VIAL IVPUSH (08:33)
--- NOTE | 2021-05-28 08:34 | P.CNUR_ITS ---
History of Present Illness Consult details Consult date: 05/28/21 Narrative: Jane is a pleasant female. Comes to the emergency room with right-sided flank pain. Prior admission a day ago with similar pain CT scan shows new formed stone right UPJ approximately 10 mm She underwent left ESWL few weeks ago and is no stones on the left side Prior procedure on the right side with ureteroscopy Prior stone mixed calcium oxalate Current laboratory so WBC 14.2, creatinine 1.2, calcium 9.2 CT scan with 1.4 cm stone in right UPJ Discussed plan for operative intervention Keep NPO this will happen this afternoon Review of Systems Constitutional: Constitutional: Denies chills and Denies fever(s) Cardiovascular: Cardiovascular: Reports no additional cardiovascular complaints and Denies syncope Respiratory: Respiratory: Denies cough Gastrointestinal: Gastrointestinal: Denies abdominal pain and Denies heartburn Genitourinary: Genitourinary: Reports as per HPI and Denies change in libido Neurologic: Denies syncope Psychiatric: Psychiatric: Denies change in libido Endocrine: Endocrine: Denies change in libido [facility] Past Medical History Medical History History of COVID-19 Renal calculi Surgical History Surgical History Hx of cystoscopy Hx of lithotripsy Social History Social History Household Members: Family Housing: Apartment Are you a primary director medicare sales to a significant other at home: No Do you presently have visiting nurse or other home services: No Alcohol intake: never Patient Tobacco Use Status: Never used Tobacco e-Cigarette/Vaping Use: Never Used Second Hand Smoke Exposure: No Use of substances other than those prescribed or required for medical reasons: No Advance Directives: No Advance Directives Information Provided: Yes Patient : No service: No Current occupational status: employed Meds Allergies Allergy/AdvReac Type Severity Reaction Status Date / Time No Known Allergies Allergy Verified 05/28/21 03:26 Home Medications Medication Instructions Recorded Confirmed Last Taken Type No Known Home Meds 05/28/21 05/28/21 Unknown History Physical Exam Vital Signs: Vital Signs: Last Vital Signs Temp 99.2 F 05/28/21 07:36 Pulse 120 H 05/28/21 07:36 Resp 20 05/28/21 07:36 BP 114/84 05/28/21 07:36 Pulse Ox 99 05/28/21 07:36 Body Mass Index 26.6 Const: General: cooperative, healthy appearing, comfortable and no acute distress Orientation/consciousness: patient oriented x3 HENMT: Face and sinus: Yes normal facial exam Mouth: moist mucous membranes Neck: Neck: Yes normal visual inspection, Yes full ROM and Yes trachea midline Chest: Chest palpation & inspection: normal inspection of the chest Resp: Effort & Inspection: normal respiratory effort, able to speak in complete sentences and no respiratory distress GI: Inspection: Yes normal to inspection Back/Spine/Pelvis: Cervical Spine: normal cervical lordosis Thoracic/Lumbar Spine: thoracic and lumbar spine normal to inspection Skin: General skin exam: no rashes or lesions noted Neuro: General: patient oriented x3, gait normal, tone normal and moves all extremities Extrem: General: Yes normal to inspection and Yes capillary refill normal Results Labs Result diagrams: 05/28/21 03:45 05/28/21 03:45 Labs: Abnormal lab results 05/28/21 05/28/21 05/28/21 Range/Units 03:45 03:45 03:47 WBC 14.2 H (4.8-10.8) X10*3/uL MCV 71.2 L (80-98) fL MCH 22.4 L (27.0-33.0) pg Neut % (Auto) 87.3 H (45-73) % Lymph % (Auto) 5.9 L (20-40) % Lymph # (Auto) 0.8 L (1.2-4.9) X10*3/uL Abs Immat Gran (auto) 0.05 H (0.00-0.03) X10*3/uL Absolute Neuts (auto) 12.4 H (2.0-8.3) X10*3/uL Carbon Dioxide 19 L (22-29) mmol/L Random Glucose 143 H (60-115) mg/dL Urine Blood 1+ H (NEG) Ur Leukocyte Esterase 2+ H (NEG) Urine WBC 50-75 H (0-4) /HPF Short CBC 05/28/21 Range/Units 03:45 WBC 14.2 H (4.8-10.8) X10*3/uL Hgb 12.0 (12.0-16.0) g/dl Hct 38.1 (37-47) % Plt Count 396 (160-400) X10*3/uL BMP 05/28/21 03:45 Sodium 138 Potassium 3.6 Chloride 108 Carbon Dioxide 19 L BUN 13 Creatinine 1.18 Calcium 9.2 D Liver Function 05/28/21 Range/Units 03:45 Total Bilirubin 0.5 (0.0-1.0) mg/dL Direct Bilirubin 0.3 (0.0-0.5) mg/dL AST 16 (5-31) U/L ALT 18 (0-31) U/L Alkaline Phosphatase 117 (39-117) U/L Albumin 4.2 (3.5-5.0) g/dL Urine 05/28/21 05/28/21 Range/Units 03:47 03:47 Urine Color YELLOW Urine Appearance HAZY Urine pH 6.0 (5.0-8.0) Ur Specific [place] 1.015 (1.005-1.025) Urine Protein TRACE (NEG-TRACE) MG/DL Urine Glucose (UA) NEG (NEG) MG/DL Urine Test NEGATIVE (NEGATIVE) All other labs normal. Assessment and Plan (1) Renal colic: Status: Acute (2) Ureterolithiasis: Status: Acute Ureteroscopy We discussed the nature of the decision and reasonable alternatives for performing the above surgery. Interventions include chemical dissolution, ESWL, ureteroscopy with laser lithotripsy and stent placement, PCNL. Options such as medical therapy were discussed. The relative uncertainties and benefits related to each alternate procedure were adequately discussed. General surgical risks including, but not limited to, pain, bleeding, infection, myocardial infarction, pulmonary embolus, deep vein thrombosis and cerebrovascular accident which may result in further h ospitalization were discussed. Full disclosure of the procedure as well as all major risks, benefits and complications were discussed including but not limited to damage to the urethra, bladder and kidney infection, damage to the ureter, stent migration or malposition, scarring to the renal pelvis, remnant stone fragments, subsequent stone passage with need for secondary procedures. The overall secondary procedure rate is approximately 10-15%. The success rate of the procedure was discussed. Success of the procedure in the short-term does not necessarily guarantee that long-term success will be maintained. Suitable follow up will need to be maintained. The patient showed understanding of discussion and wishes to proceed with - cystoscopy, retrograde, ureteroscopy, possible lithotripsy/stone basketing and stent on the right side Procedures Date of Service Date of Service: 05/28/21
--- NOTE | 2021-05-28 08:38 | PC.NURSE ---
The pt c/o persistent nausea at this time, requesting additional anti-emetic. MD aware, Compazine ordered and administered. Pt given mouth swabs to moisten mouth.
[2021-05-28] MEDS: Acetaminophen 325 MG TABLET 975 MG PO (10:33)
--- NOTE | 2021-05-28 11:20 | P.HPHOSP_ITS ---
History of Present Illness Date of Service: 05/28/21 Chief Complaint: R flank pain This is a 31-year-old female with a past medical history of recurrent nephrolithiasis who presents to the hospital with complaints of right flank pain of sudden onset on the day prior to admission. Patient reports that she went to bed in her normal state of health but woke up suddenly around 04:00 with severe flank plain and associated fevers and chills. To the hospital on 05/27/2021 and was diagnosed with a 1 point 7 cm stone at the right UPJ causing moderate right hydronephrosis. She was recommended for admission but unfortunately signed out against medical advice. She returned back on 05/28/2021 with the same complain ts. In regards to her history of kidney stones, she has undergone a left ESWL on 05/20/2021. In the emergency room, patient was given IV a analgesics and IV ceftriaxone. She has been evaluated by Urology will be taken to the OR this afternoon for intervetion. SHe will be admitted under the hospitalist service. Review of Systems Review of Systems: General - +fevers and chills HEENT -denies blurred vision, denies headache, denies sore throat Cardiovascular - denies chest pain or palpitations, denies edema Respiratory - denies shortness of breath, coughing, wheezing Gastrointestinal - denies abdominal pain, +nausea, no vomiting - R flank pain Musculoskeletal - denies back pain, denies hip pain, denies knee pain, denies shoulder pain Neurological - denies any focal weakness or numbness Skin, denies any bruising or redness Psychiatric - denies any suicidal ideation, hallucinations, homicidal ideation Endocrinology - denies intolerance to hot / cold temperatures [facility] Medical History History of COVID-19 Renal calculi Pertinent family history: nephrolithiasis in mother Surgical History Hx of cystoscopy Hx of lithotripsy Social History Household Members: Family Housing: Apartment Are you a primary hearing care practitioner to a significant other at home: No Do you presently have visiting nurse or other home services: No Alcohol intake: never Patient Tobacco Use Status: Never used Tobacco e-Cigarette/Vaping Use: Never Used Second Hand Smoke Exposure: No Use of substances other than those prescribed or required for medical reasons: No Advance Directives: No Advance Directives Information Provided: Yes Patient : No service: No Current occupational status: employed Meds Allergies Allergy/AdvReac Type Severity Reaction Status Date / Time No Known Allergies Allergy Verified 05/28/21 03:26 Active Medications: Current Medications Acetaminophen (Acetaminophen 325 Mg Tablet) 650 mg PO Q6H PRN PRN Reason: Pain, Mild (Pain Scale 1-3) Ceftriaxone Sodium 1 gm/ (Sodium Chloride) 50 mls @ 100 mls/hr IV Q24H YUE Morphine Sulfate (Morphine Sulfate 4 Mg/Ml Cartridge) 4 mg IVPUSH Q4H PRN; Protocol PRN Reason: Pain, Severe (Pain Scale 7-10) Ondansetron HCl (Ondansetron Hcl 4 Mg/2 Ml Vial) 4 mg IVPUSH Q8H PRN PRN Reason: Nausea and Vomiting Sodium Chloride (0.9 % Sodium Chloride Flush 3 Ml Syringe) 3 ml IVFLUSH QSHIFT [facility] Home Medications Medication Instructions Recorded Confirmed Last Taken Type No Known Home Meds 05/28/21 05/28/21 Unknown History Physical Exam Vital Signs and Narrative: Vital Signs: Last Vital Signs Temp 103.2 F H 05/28/21 10:05 Pulse 123 H 05/28/21 10:05 Resp 14 05/28/21 10:05 BP 115/64 05/28/21 10:05 Pulse Ox 96 05/28/21 10:05 Body Mass Index 26.6 Const: Other: Constitutional - Awake and Alert, ill appearing Eyes - PERRLA, EOMI Cardiovascular - S1S2, RRR, No edema Respiratory - Normal lung expansion, Normal respiratory effort, No respiratory distress, CTA bilaterally Gastrointestinal - NT / ND; +BS; No rebound or guarding - R CVA tenderness Extremities - no calf tenderness bilaterally, no swelling Musculoskeletal - Normal inspection, normal ROM Skin - Warm/Dry Neurological - Alert & oriented x3, No focal deficit Psychological - Appropriate affect Results Labs CBC and Chem 7: 05/28/21 03:45 05/28/21 03:45 Labs: Laboratory Results - last 24 hr 05/28/21 05/28/21 05/28/21 03:45 03:45 03:45 MCV 71.2 L MCH 22.4 L MCHC 31.5 RDW 15.2 Plt Count 396 MPV 11.1 Immature Gran % (Auto) 0.4 Neut % (Auto) 87.3 H Lymph % (Auto) 5.9 L [place] % (Auto) 6.0 Eos % (Auto) 0.1 Baso % (Auto) 0.3 Lymph # (Auto) 0.8 L [place] # (Auto) 0.9 Eos # (Auto) 0.0 Baso # (Auto) 0.0 Abs Immat Gran (auto) 0.05 H Absolute Neuts (auto) 12.4 H Absolute Nucleated RBC 0.000 Nucleated RBC % (auto) 0.0 Anion Gap 15 Estim Creat Clear Calc 75.2 Estimated GFR 54 Random Glucose 143 H Lactic Acid 1.4 Calcium 9.2 D Total Bilirubin 0.5 Direct Bilirubin 0.3 AST 16 ALT 18 Alkaline Phosphatase 117 Total Protein 7.9 Albumin 4.2 Lipase 14 Urine Color Urine Appearance Urine pH Ur Specific [place] Urine Protein Urine Glucose (UA) Urine Ketones Urine Blood Urine Nitrite Ur Leukocyte Esterase Urine RBC Urine WBC Ur Squamous Epith Cells Urine Bacteria Urine Mucus Urine Test COVID-19 (DARA) COVID-[place] 05/28/21 05/28/21 05/28/21 03:47 03:47 04:55 MCV MCH MCHC RDW Plt Count MPV Immature Gran % (Auto) Neut % (Auto) Lymph % (Auto) [place] % (Auto) Eos % (Auto) Baso % (Auto) Lymph # (Auto) [place] # (Auto) Eos # (Auto) Baso # (Auto) Abs Immat Gran (auto) Absolute Neuts (auto) Absolute Nucleated RBC Nucleated RBC % (auto) Anion Gap Estim Creat Clear Calc Estimated GFR Random Glucose Lactic Acid Calcium Total Bilirubin Direct Bilirubin AST ALT Alkaline Phosphatase Total Protein Albumin Lipase Urine Color YELLOW Urine Appearance HAZY Urine pH 6.0 Ur Specific [place] 1.015 Urine Protein TRACE Urine Glucose (UA) NEG Urine Ketones 5 Urine Blood 1+ H Urine Nitrite NEG Ur Leukocyte Esterase 2+ H Urine RBC 0-2 Urine WBC 50-75 H Ur Squamous Epith Cells NONE Urine Bacteria TRACE Urine Mucus 2+ Urine Test NEGATIVE COVID-19 (DARA) Negative COVID-19 [employer] See Note Assessment and Plan (1) Ureterolithiasis: Status: Acute (2) Sepsis: Status: Acute This is a 31 yo F with a PMH of recurrent nephrolithiasis who presents to the hospital 24 hours after leaving AMA from the ED. She now presents to the hospital with complaints of R flank pain. Her work up in the ED shows a 1.7cm stone at the R UPJ. She will be admitted with plans for operative intervention by urology. 1. Sepsis due to obstructing stone and pyelonephritis Meets sepsis criteria with Tachycardia, fevers and leukocytosis continue rocephin f/u cultures-- urine and blood 2. KENDRICK due to obstructing stone baseline SCr is around 0.6 range; SCr now bumped to 1.18. Trend 3. 1.7 R UPJ stone plan for operative intervention by urology today Full Code DVT pptx -- low risk, early ambulation Quality Stroke Does the patient have a stroke diagnosis?: No VTE Prior VTE?: No VTE Risk Level:: Medical - low VTE Device Contraindication: Treatment Not Indicated VTE Drug Contraindication: Treatment Not Indicated
[2021-05-28] MEDS: LORazepam 0.5 MG TABLET PO (11:54)
[2021-05-28] MEDS: Lactated Ringers 1,000 ML 100 ML IVCONT ×2 (12:08→22:28)
--- NOTE | 2021-05-28 13:34 | PC.NURSE ---
Pt asleep at this time
[2021-05-28] MEDS: Morphine Sulfate 4 MG/ML CARTRIDGE IVPUSH ×2 (15:25→22:16)
--- NOTE | 2021-05-28 15:30 | PC.NURSE ---
Pt c/o 6-7/10 R flank pain. Morphine 4mg IVP and Zofran 4mgIVP given at this ethel. IVLR continues to infuse at 100ml/hr. Will continue to monitor/await cystoscopy
--- NOTE | 2021-05-28 16:12 | PC.NURSE ---
Pt states that her pain improved after receiving IVP Morphine. however, she continues to rate her pain at 7/10. She appears less uncomfortable, resting, as cimpared to prior to morphine administration.
[2021-05-28] MEDS: 0.9 % Sodium Chloride Flush 3 ML SYRINGE IVFLUSH ×2 (16:15→22:41)
--- NOTE | 2021-05-28 17:24 | HO.ANESPROP2 ---
FORMERLY [facility], [facility] Active Problems Active Problems: All Active Problems (Updated 05/28/21 @ 05:49 by Rachelle Vallejo MD) Pyelonephritis (Acute) Sepsis (Acute) Renal colic (Acute) Ureterolithiasis (Acute) Skin tag (Acute) COVID-19 (Acute) Vaginal candidiasis (Acute) Elevated hemoglobin A1c (Acute) Nephrolithiasis (Acute) Adult general medical exam (Acute) Screening for cervical cancer (Acute) Past Medical History Medical History History of COVID-19 Renal calculi Family History Family history of problems with anesthesia: No Surgical History Surgical History Hx of cystoscopy Hx of lithotripsy History of Problems with Anesthesia: No Social History Social History Household Members: Family Housing: Apartment Are you a primary career placement specialist to a significant other at home: No Do you presently have visiting nurse or other home services: No Alcohol intake: never Patient Tobacco Use Status: Never used Tobacco e-Cigarette/Vaping Use: Never Used Second Hand Smoke Exposure: No Use of substances other than those prescribed or required for medical reasons: No Advance Directives: No Advance Directives Information Provided: Yes Patient : No service: No Current occupational status: employed Meds Allergies Allergy/AdvReac Type Severity Reaction Status Date / Time No Known Allergies Allergy Verified 05/28/21 03:26 Active Medications: Current Medications Acetaminophen (Acetaminophen 325 Mg Tablet) 650 mg PO Q6H PRN PRN Reason: Pain, Mild (Pain Scale 1-3) Ceftriaxone Sodium 1 gm/ (Sodium Chloride) 50 mls @ 100 mls/hr IV Q24H [facility] Lactated Ringer's (Lr) 1,000 mls @ 100 mls/hr IVCONT .Q10H [facility] Last Admin: 05/28/21 12:08 Dose: 100 mls/hr Documented by: Morphine Sulfate (Morphine Sulfate 4 Mg/Ml Cartridge) 4 mg IVPUSH Q4H PRN; Protocol PRN Reason: Pain, Severe (Pain Scale 7-10) Last Admin: 05/28/21 15:25 Dose: 4 mg Documented by: Ondansetron HCl (Ondansetron Hcl 4 Mg/2 Ml Vial) 4 mg IVPUSH Q8H PRN PRN Reason: Nausea and Vomiting Last Admin: 05/28/21 15:25 Dose: 4 mg Documented by: Sodium Chloride (0.9 % Sodium Chloride Flush 3 Ml Syringe) 3 ml IVFLUSH QSHIFT [facility] Last Admin: 05/28/21 16:15 Dose: 3 ml Documented by: Home Medications Medication Instructions Recorded Confirmed Last Taken Type No Known Home Meds 05/28/21 05/28/21 Unknown History Exam Exam Date and Time: May 28, 2021 172 Height,Weight and Vital Signs: Height 5 ft 7 in Weight 77.111 kg Last Vital Signs Temp 99.0 F 05/28/21 15:31 Pulse 117 H 05/28/21 12:08 Resp 16 05/28/21 12:08 BP 100/58 L 05/28/21 12:08 Pulse Ox 95 05/28/21 12:08 Pertinent Lab Results Pertinent Lab Results: Laboratory Tests 05/28/21 05/28/21 05/28/21 03:45 03:45 03:45 WBC 14.2 H RBC 5.35 Hgb 12.0 Hct 38.1 MCV 71.2 L MCH 22.4 L MCHC 31.5 RDW 15.2 Plt Count 396 MPV 11.1 Immature Gran % (Auto) 0.4 Neut % (Auto) 87.3 H Lymph % (Auto) 5.9 L [place] % (Auto) 6.0 Eos % (Auto) 0.1 Baso % (Auto) 0.3 Lymph # (Auto) 0.8 L [place] # (Auto) 0.9 Eos # (Auto) 0.0 Baso # (Auto) 0.0 Abs Immat Gran (auto) 0.05 H Absolute Neuts (auto) 12.4 H Absolute Nucleated RBC 0.000 Nucleated RBC % (auto) 0.0 Sodium 138 Potassium 3.6 Chloride 108 Carbon Dioxide 19 L Anion Gap 15 BUN 13 Creatinine 1.18 Estim Creat Clear Calc 75.2 Estimated GFR 54 Random Glucose 143 H Lactic Acid 1.4 Calcium 9.2 D Total Bilirubin 0.5 Direct Bilirubin 0.3 AST 16 ALT 18 Alkaline Phosphatase 117 Total Protein 7.9 Albumin 4.2 Lipase 14 Urine Color Urine Appearance Urine pH Ur Specific [place] Urine Protein Urine Glucose (UA) Urine Ketones Urine Blood Urine Nitrite Ur Leukocyte Esterase Urine RBC Urine WBC Ur Squamous Epith Cells Urine Bacteria Urine Mucus Urine Test COVID-19 (DARA) COVID-19 [employer] Com 05/28/21 05/28/21 05/28/21 03:47 03:47 04:55 WBC RBC Hgb Hct MCV MCH MCHC RDW Plt Count MPV Immature Gran % (Auto) Neut % (Auto) Lymph % (Auto) [place] % (Auto) Eos % (Auto) Baso % (Auto) Lymph # (Auto) [place] # (Auto) Eos # (Auto) Baso # (Auto) Abs Immat Gran (auto) Absolute Neuts (auto) Absolute Nucleated RBC Nucleated RBC % (auto) Sodium Potassium Chloride Carbon Dioxide Anion Gap BUN Creatinine Estim Creat Clear Calc Estimated GFR Random Glucose Lactic Acid Calcium Total Bilirubin Direct Bilirubin AST ALT Alkaline Phosphatase Total Protein Albumin Lipase Urine Color YELLOW Urine Appearance HAZY Urine pH 6.0 Ur Specific [place] 1.015 Urine Protein TRACE Urine Glucose (UA) NEG Urine Ketones 5 Urine Blood 1+ H Urine Nitrite NEG Ur Leukocyte Esterase 2+ H Urine RBC 0-2 Urine WBC 50-75 H Ur Squamous Epith Cells NONE Urine Bacteria TRACE Urine Mucus 2+ Urine Test NEGATIVE COVID-19 (DARA) Negative COVID-19 Clin Com See Note Airway Mallampati Class: II TM Dist: >3cm Neck ROM: Full Assessment and Plan Final Anesthetic Review Family History of Problems with Anesthesia: No History of Problems with Anesthesia: No
--- NOTE | 2021-05-28 17:49 | MHC.SHP ---
Pre-Procedural Eval Section A Date of Service: 05/28/21 The patient is an INPATIENT: No Changes since office visit: Yes Cold of Flu in the past 2 weeks The History & Physical has been completed within 30 days and I have reviewed it.: Yes Section B Chief Complaint: flank pain Allergies: Allergies Allergy/AdvReac Type Severity Reaction Status Date / Time No Known Allergies Allergy Verified 05/28/21 03:26 Plan Diagnosis/Plan: Unchanged (Cystoscopy, retrograde, ureteroscopy with laser lithotripsy right side) I have reviewed the history and physical and performed a pertinent physical examination on my patient. No changes have occurred unless specified.
--- NOTE | 2021-05-28 18:29 | PC.NURSE ---
To cystoscopy/OR via stretcher with 2 RN's
--- NOTE | 2021-05-28 18:57 | P.OP_ITS ---
Operative Note Operative Note Date of Service: 05/28/21 Narrative: PreOperative Diagnosis: Right renal stone Post Operative Diagnosis: Right fungal renal stone Procedure: - cystoscopy, rightretrograde - rightdilatation of ureteric orifice under fluoroscopy - right ureteroscopy, laser lithotripsy, stone basketing Surgeon: Dr Billy Navarro Anesthesia: General Indications for procedure: 31-year-old female. Prior stone former. Presents with elevated white count 14.2 to emergency room. Appears to formed a stone rapidly on the right side. R ick ureteroscopy laser lithotripsy stent placement. Procedure: After informed consent was verified patient was brought to the operating placed in supine position. Anesthesia was administered per protocol. Patient was placed in modified dorsal lithotomy position and prepped and draped in a sterile fashion. Safety pause time-out and side of surgery confirmed. Antibiotics confirmed. Twenty-two Nigerian cystoscope inserted per urethra. Bladder emptied. Retrograde examination performed. Filling defects seen within the renal pelvis. Sensor guidewire placed. Ureteric access sheath placed after dilatation of ureteric orifice under fluoroscopy. Flexible ureteroscopy performed for approximately 25 minutes. Laser settings on dusting. The stone was a amorphous mass similar to mashed potato in consistency. Attempts were made for basketing in many fragments were removed as well as washings to remove much of the debris. This appearance was consistent with a fungal type infection. During the procedure RR increased significantly from anesthetic point review in a temperature of 102.5 degrees. This may be consistent with a fungal type infection and there is a high risk of fungemia following this procedure. Decision made not to leave this stent For bladder was emptied on the operating table. She tolerated procedure well was extubated in operating room transferred in stable condition to the recovery area. Pathology: Stone debris Drains: None left
[2021-05-28] MEDS: 0.9 % Sodium Chloride 1,000 ML 999 ML IVCONT ×2 (19:21→20:36)
[2021-05-28] MEDS: Fluconazole in NaCl,Iso-Osm 400 MG/200 ML PIGGYBACK 100 MG IV ×2 (19:35→22:18)
[2021-05-28 19:36] LABS: Lactate Dehydrogenase 154 U/L (122-220)
[2021-05-28] MEDS: fentaNYL citrate/PF 100 MCG/2 ML VIAL 50 MCG IVPUSH (20:05)
[2021-05-28] MEDS: oxyCODONE HCl Immed Release 5 MG TABLET PO (20:05)
[2021-05-29] VITALS (7 sets, daily range): BP systolic 106–119; BP diastolic 57–70; PULSE 78–119; RESP 18; TEMP 36.4–38.8; O2SAT 94–98
[2021-05-29] MEDS: Ketorolac Tromethamine 15 MG/ML VIAL IVPUSH ×2 (00:39→10:33)
[2021-05-29] MEDS: cefTRIAXone sodium 1 GM in 0.9 % Sodium Chloride 50 ML IV (05:14)
[2021-05-29 07:53] LABS: Anion Gap 12 (12-20); Blood Urea Nitrogen 10 mg/dL (9-16); Calcium 8.4 mg/dL (8.4-10.2); Carbon Dioxide 19 mmol/L (22-29); Chloride 113 mmol/L (96-108); Creatinine Clr Calc Pharmacy 74.6; Estimated Glomerular Filt Rate 54; Glucose Random 177 mg/dL (60-115); Potassium 3.9 mmol/L (3.3-5.1); Sodium 140 mmol/L (135-145)
[2021-05-29 08:03] LABS: Hematocrit 32.9 % (37-47); Hemoglobin 10.3 g/dl (12.0-16.0); Mean Corpuscular HGB Conc 31.3 g/dl (31.0-35.0); Mean Corpuscular Hemoglobin 22.4 pg (27.0-33.0); Mean Corpuscular Volume 71.5 fL (80-98); Mean Platelet Volume 12.3 fL (9.4-12.3); Platelet Count 335 X10*3/uL (160-400); Red Cell Distribution Width 15.8 % (11.0-16.0); White Blood Count 20.6 X10*3/uL (4.8-10.8)
[2021-05-29 08:41] LABS: Band Neutrophils Percent 5 % (3-5); Large Platelet PRESENT; Lymphocytes Percent Manual 5 % (20-40); Monocytes Absolute Manual 0.4 X10*3/uL (0.0-1.2); Monocytes Percent Manual 2 % (2-11); Neutrophils Absolute Manual 19.2 X10*3/uL (2.2-7.9); Neutrophils Percent Manual 88 % (45-73); Platelet Estimate NORMAL (NORMAL)
[2021-05-29 08:42] LABS: Hypochromasia 1+ (5-14) /OIF; Microcytosis 1+ (5-14) /OIF
[2021-05-29 08:43] LABS: Platelet Morphology Comment NOTE
[2021-05-29] MEDS: Lactated Ringers 1,000 ML 100 ML IVCONT ×2 (09:14→17:28)
--- NOTE | 2021-05-29 09:15 | MHC.CM.PN ---
CM met with Patient at bedside. Patient lives on the 3rd floor of a 3 family house, with her and 4 children (ages 12,8,5 years of age and 7 months) and she is functionally independent and working. Home/no services is the goal for dc and CM has initiated and will follow for dc planning.PCP is Dr. Michael Denise.
[2021-05-29 14:01] LABS: RBC Morphology NOTED
[2021-05-29] MEDS: Acetaminophen 325 MG TABLET 650 MG PO (14:51)
--- NOTE | 2021-05-29 14:52 | HO.PM.IMPN ---
Subjective Subjective Date of Service: 05/29/21 Interval History: seen and examined follow up for hydronephrosis/UPJ stone/pyelo s/p cystoscopy ureteroscopy, laser lithotripsy, stone basketing. No stent placed no fever this morning, mild right-sided abdominal pain No nausea, no vomiting. Review of Systems Review of Systems: Yes all other systems are reviewed and are negative Constitutional Constitutional: Denies chills and Denies fever(s) Cardiovascular Cardiovascular: Denies chest pain Respiratory Respiratory: Denies cough Physical Exam Vital Signs: Vital Signs: Last Vital Signs Temp 97.7 F 05/29/21 11:32 Pulse 110 H 05/29/21 11:32 Resp 18 05/29/21 11:32 BP 111/70 05/29/21 11:32 Pulse Ox 98 05/29/21 11:32 Body Mass Index 26.6 Const: Nutritional Appearance: well nourished Orientation/consciousness: patient oriented x3 HENMT: Head: Yes normocephalic and Yes atraumatic Eyes: Sclerae: sclerae normal Chest: Chest palpation & inspection: normal inspection of the chest Resp: Effort & Inspection: normal respiratory effort and no respiratory distress Auscultation: clear to auscultation bilaterally Cardio: Rate: regular rate Rhythm: regular rhythm GI: Palpation (GI): Soft to palpation and nontender Neuro: General: patient oriented x3 Cranial nerves: Yes CN's II-XII intact bilaterally and Yes Bilaterally intact EOM present Objective Data Active Medications Acetaminophen (Acetaminophen 325 Mg Tablet) 650 mg PO Q6H PRN PRN Reason: Pain, Mild (Pain Scale 1-3) Ceftriaxone Sodium 1 gm/ (Sodium Chloride) 50 mls @ 100 mls/hr IV Q24H [facility] Last Infusion: 05/29/21 05:51 Dose: 0 mls/hr Documented by: JACOBO Lactated Ringer's (Lr) 1,000 mls @ 100 mls/hr IVCONT .Q10H [facility] Last Admin: 05/29/21 09:14 Dose: 100 mls/hr Documented by: CARLOS Morphine Sulfate (Morphine Sulfate 4 Mg/Ml Cartridge) 4 mg IVPUSH Q4H PRN; Protocol PRN Reason: Pain, Severe (Pain Scale 7-10) Last Admin: 05/28/21 22:16 Dose: 4 mg Documented by: JACOBO Ondansetron HCl (Ondansetron Hcl 4 Mg/2 Ml Vial) 4 mg IVPUSH Q8H PRN PRN Reason: Nausea and Vomiting Last Admin: 05/28/21 15:25 Dose: 4 mg Documented by: ZULMA Oxycodone HCl (Oxycodone Hcl Immed Release 5 Mg Tablet) 5 mg PO Q6H PRN PRN Reason: Pain, Moderate (Pain Scale 4-6 Sodium Chloride (0.9 % Sodium Chloride Flush 3 Ml Syringe) 3 ml IVFLUSH QSHIFT [facility] Last Admin: 05/29/21 09:15 Dose: Not Given Documented by: CARLOS Non-Admin Reason: running iv Labs CBC & Chem 7: 05/29/21 06:47 05/29/21 06:47 Labs: Laboratory Results - last 24 hr 05/28/21 05/29/21 05/29/21 19:11 06:47 06:47 MCV 71.5 L MCH 22.4 L MCHC 31.3 RDW 15.8 Plt Count 335 MPV 12.3 Immature Gran % (Auto) Cancelled Neut % (Auto) Cancelled Lymph % (Auto) Cancelled [place] % (Auto) Cancelled Eos % (Auto) Cancelled Baso % (Auto) Cancelled Lymph # (Auto) Cancelled [place] # (Auto) Cancelled Eos # (Auto) Cancelled Baso # (Auto) Cancelled Abs Immat Gran (auto) Cancelled Absolute Neuts (auto) Cancelled Absolute Nucleated RBC 0.000 Nucleated RBC % (auto) 0.0 Neutrophils % (Manual) 88 H Band Neutrophils % 5 Lymphocytes % (Manual) 5 L Monocytes % (Manual) 2 Abs Neuts (Manual) 19.2 H Lymphocytes # (Manual) 1.0 Monocytes # (Manual) 0.4 Platelet Estimate NORMAL Large Platelets PRESENT Plt Morphology Comment NOTE RBC Morphology NOTED Hypochromasia 1+ (5-14) Microcytosis 1+ (5-14) Anion Gap 12 Estim Creat Clear Calc 74.6 Estimated GFR 54 Random Glucose 177 H Calcium 8.4 D Lactate Dehydrogenase 154 Microbiology Microbiology Results: Microbiology 05/28/21 03:47 Urine Culture - Final Urine clean catch - Urine alva top 05/28/21 03:58 Blood Culture - Preliminary Blood - Venous No growth after 24 hours. 05/28/21 03:45 Blood Culture - Preliminary Blood - Venous No growth after 24 hours. Assessment and Plan (1) Pyelonephritis: Status: Acute (2) Renal colic: Status: Acute (3) Ureterolithiasis: Status: Acute Assessment and Plan: This is a 31 yo F with a PMH of recurrent nephrolithiasis who presents to the hospital 24 hours after leaving AMA from the ED. She now presents to the hospital with complaints of R flank pain. Her work up in the ED shows a 1.7cm stone at the R UPJ. She will be admitted with plans for operative intervention by urology. Sepsis due to obstructing stone and pyelonephritis Met sepsis criteria with Tachycardia, fever and leukocytosis continue IV rocephin Urine culture >100,000cfu mixed lars BCx no growth x 24 hours KENDRICK due to obstructing stone baseline SCr is around 0.6 range; SCr now bumped to 1.19 Continue IVF Follow BMP 1.7 R UPJ stone s/p cystoscopy ureteroscopy, laser lithotripsy, stone basketing 05/28. No stent placed specimen path pending urology following Full Code DVT pptx -- low risk, early ambulation Attending: Dr. reilly Quality Stroke Does the patient have a stroke diagnosis?: No VTE Prior VTE?: No VTE Risk Level:: Medical - low VTE Device Contraindication: Treatment Not Indicated VTE Drug Contraindication: Treatment Not Indicated
--- NOTE | 2021-05-29 16:55 | HO.POSTANES ---
Post Anesthesia Evaluation Post Anesthesia Evaluation Vital Signs: Vital Signs Temp Pulse Resp BP Pulse Ox 05/29/21 15:51 98.6 F 119 H 18 116/62 96 05/29/21 11:32 97.7 F 110 H 18 111/70 98 05/29/21 07:45 98.2 F 80 18 113/57 L 98 Anesthesia: General Mental Status: Awake Pain Control: Satisfactory Nausea/Vomiting: None Hydration: Adequate Anesthesia-Related Issues: No Anes. Related Issues
[2021-05-29] MEDS: oxyCODONE HCl Immed Release 5 MG TABLET PO (16:57)
[2021-05-29] MEDS: Morphine Sulfate 4 MG/ML CARTRIDGE IVPUSH (21:59)
[2021-05-29] MEDS: 0.9 % Sodium Chloride Flush 3 ML SYRINGE IVFLUSH (21:59)
[2021-05-30] VITALS (9 sets, daily range): BP systolic 119–133; BP diastolic 67–85; PULSE 104–145; RESP 16–20; TEMP 36.7–39.5; O2SAT 88–100
[2021-05-30] MEDS: Acetaminophen 325 MG TABLET 650 MG PO ×3 (00:15→21:50)
[2021-05-30] MEDS: diphenhydrAMINE HCL 25 MG TABLET PO ×2 (00:48→22:57)
[2021-05-30] MEDS: Lactated Ringers 1,000 ML 100 ML IVCONT ×2 (03:59→21:48)
[2021-05-30] MEDS: cefTRIAXone sodium 1 GM in 0.9 % Sodium Chloride 50 ML IV (04:25)
[2021-05-30] MEDS: Morphine Sulfate 4 MG/ML CARTRIDGE IVPUSH ×3 (05:05→21:13)
[2021-05-30 05:49] LABS: Hematocrit 28.7 % (37-47); Hemoglobin 9.2 g/dl (12.0-16.0); Mean Corpuscular HGB Conc 32.1 g/dl (31.0-35.0); Mean Corpuscular Hemoglobin 22.2 pg (27.0-33.0); Mean Corpuscular Volume 69.3 fL (80-98); Mean Platelet Volume 11.2 fL (9.4-12.3); Platelet Count 308 X10*3/uL (160-400); Red Blood Count 4.14 X10*6/uL (4.20-5.50); Red Cell Distribution Width 15.8 % (11.0-16.0); White Blood Count 18.9 X10*3/uL (4.8-10.8)
[2021-05-30 06:25] LABS: Anion Gap 12 (12-20); Blood Urea Nitrogen 12 mg/dL (9-16); Calcium 8.1 mg/dL (8.4-10.2); Carbon Dioxide 20 mmol/L (22-29); Chloride 109 mmol/L (96-108); Creatinine Clr Calc Pharmacy 64.3; Estimated Glomerular Filt Rate 45; Glucose Random 116 mg/dL (60-115); Potassium 3.4 mmol/L (3.3-5.1); Sodium 138 mmol/L (135-145)
[2021-05-30] MEDS: LORazepam 0.5 MG TABLET 0.25 MG PO (12:19)
[2021-05-30] MEDS: ondansetron HCL 4 MG/2 ML VIAL IVPUSH ×2 (12:20→21:13)
[2021-05-30] MEDS: Piperacillin Sodium/Tazobactam 3.375 GM in 0.9 % Sodium Chloride 50 ML IV ×2 (14:01→21:13)
--- NOTE | 2021-05-30 14:11 | PM.IMPN ---
Progress Note: A&P (1) Sepsis: Status: Acute (2) KENDRICK (acute kidney injury): Status: Acute (3) Hypoxia: Status: Acute (4) Nephrolithiasis: Status: Acute Assessment and Plan: This is a 31 yo F with a PMH of recurrent nephrolithiasis who presents to the hospital 24 hours after leaving AMA from the ED. She now presents to the hospital with complaints of R flank pain. Her work up in the ED shows a 1.7cm stone at the R UPJ. She will be admitted with plans for operative intervention by urology. Sepsis due to obstructing stone and pyelonephritis Met sepsis criteria with Tachycardia, fever and leukocytosis s/p ? cystoscopy, rightretrograde, rightdilatation of ureteric orifice under fluoroscopy, right ureteroscopy, laser lithotripsy, stone basketing Running fevers over 103, change rocephin to zosyn, blood cx pending Urine culture? >100,000cfu mixed lars Hypoxia. ? asthma Add albuterol nebs Cxr to r/o consolidation KENDRICK due to obstructing stone. improving baseline SCr is around 0.6 range; SCr now bumped to 1.19 Continue IVF Follow BMP Full Code DVT pptx -- low risk, early ambulation Attending: Dr. reilly Subjective Subjective Date of Service: 05/30/21 Review of Systems follow-up lithotripsy Still having flank pain Having fevers, very anxious today Physical Exam Vital Signs: Vital Signs: Last Vital Signs Temp 103.1 F H 05/30/21 12:00 Pulse 112 H 05/30/21 08:00 Resp 18 05/30/21 12:00 BP 133/85 05/30/21 12:00 Pulse Ox 88 L 05/30/21 12:00 Body Mass Index 26.6 Appearing in no acute distress lung sounds are clear to auscultation heart regular rate rhythm, clear S1, S2 positive bowel sounds, abdomen is soft, nontender neuro patient is alert x3, no focal deficits Objective Data Current Medications Acetaminophen (Acetaminophen 325 Mg Tablet) 650 mg PO Q6H PRN PRN Reason: Pain, Mild (Pain Scale 1-3) Last Admin: 05/30/21 00:15 Dose: 650 mg Documented by: Albuterol Sulfate (Albuterol Sulfate (0.083%) 2.5 Mg/3 Ml Vial.Neb) 2.5 mg INHALE RQ4H WHILE AWAKE YUE Lactated Ringer's (Lr) 1,000 mls @ 100 mls/hr IVCONT .Q10H YUE Last Admin: 05/30/21 03:59 Dose: 100 mls/hr Documented by: Piperacillin Sod/Tazobactam (Sod 3.375 gm/ Sodium Chloride) 50 mls @ 100 mls/hr IV Q6H YUE Morphine Sulfate (Morphine Sulfate 4 Mg/Ml Cartridge) 4 mg IVPUSH Q4H PRN; Protocol PRN Reason: Pain, Severe (Pain Scale 7-10) Last Admin: 05/30/21 09:15 Dose: 4 mg Documented by: Ondansetron HCl (Ondansetron Hcl 4 Mg/2 Ml Vial) 4 mg IVPUSH Q8H PRN PRN Reason: Nausea and Vomiting Last Admin: 05/30/21 12:20 Dose: 4 mg Documented by: Oxycodone HCl (Oxycodone Hcl Immed Release 5 Mg Tablet) 5 mg PO Q6H PRN PRN Reason: Pain, Moderate (Pain Scale 4-6 Last Admin: 05/29/21 16:57 Dose: 5 mg Documented by: Sodium Chloride (0.9 % Sodium Chloride Flush 3 Ml Syringe) 3 ml IVFLUSH QSHIFT [facility] Last Admin: 05/30/21 07:32 Dose: Not Given Documented by: Labs CBC & Chem 7: 05/30/21 05:24 05/30/21 05:24 Labs: Laboratory Results - last 24 hr 05/30/21 05/30/21 05:24 05:24 MCV 69.3 L MCH 22.2 L MCHC 32.1 RDW 15.8 Plt Count 308 MPV 11.2 Absolute Nucleated RBC 0.000 Nucleated RBC % (auto) 0.0 Anion Gap 12 Estim Creat Clear Calc 64.3 Estimated GFR 45 Random Glucose 116 H Calcium 8.1 L Microbiology Microbiology Results: Microbiology 05/28/21 03:58 Blood - Venous Blood Culture - Preliminary No growth after 48 hours. 05/28/21 03:45 Blood - Venous Blood Culture - Preliminary No growth after 48 hours. 05/28/21 19:11 Blood - Venous Blood Culture - Preliminary No growth after 24 hours. 05/28/21 19:11 Blood - Venous Blood Culture - Preliminary No growth after 24 hours. 05/28/21 03:47 Urine clean catch - Urine alva top Urine Culture - Final Quality Stroke Does the patient have a stroke diagnosis?: No VTE Prior VTE?: No VTE Risk Level:: Medical - low VTE Device Contraindication: Treatment Not Indicated VTE Drug Contraindication: Treatment Not Indicated
[2021-05-30] MEDS: Albuterol Sulfate (0.083%) 2.5 MG/3 ML VIAL.NEB INHALE ×2 (15:33→19:18)
[2021-05-30] MEDS: Fluconazole in NaCl,Iso-Osm 200 MG/100 ML PIGGYBACK 100 MG IV (18:22)
[2021-05-30] MEDS: 0.9 % Sodium Chloride Flush 3 ML SYRINGE IVFLUSH (21:14)
[2021-05-31] VITALS (8 sets, daily range): BP systolic 118–146; BP diastolic 74–85; PULSE 120–145; RESP 16–20; TEMP 36.6–38.9; O2SAT 92–100
[2021-05-31] MEDS: Piperacillin Sodium/Tazobactam 3.375 GM in 0.9 % Sodium Chloride 50 ML IV ×4 (01:09→18:23)
[2021-05-31] MEDS: LORazepam 0.5 MG TABLET 0.25 MG PO ×4 (03:40→23:56)
[2021-05-31] MEDS: ondansetron HCL 4 MG/2 ML VIAL IVPUSH ×2 (05:54→16:40)
[2021-05-31] MEDS: Lactated Ringers 1,000 ML 100 ML IVCONT ×3 (06:32→18:23)
[2021-05-31 07:21] LABS: Hematocrit 28.5 % (37-47); Hemoglobin 9.5 g/dl (12.0-16.0); Mean Corpuscular HGB Conc 33.3 g/dl (31.0-35.0); Mean Corpuscular Hemoglobin 22.8 pg (27.0-33.0); Mean Corpuscular Volume 68.5 fL (80-98); Mean Platelet Volume 11.5 fL (9.4-12.3); Platelet Count 379 X10*3/uL (160-400); Red Blood Count 4.16 X10*6/uL (4.20-5.50); Red Cell Distribution Width 15.7 % (11.0-16.0); White Blood Count 16.5 X10*3/uL (4.8-10.8)
[2021-05-31 07:46] LABS: Anion Gap 14 (12-20); Blood Urea Nitrogen 10 mg/dL (9-16); Calcium 8.2 mg/dL (8.4-10.2); Carbon Dioxide 21 mmol/L (22-29); Chloride 108 mmol/L (96-108); Creatinine Clr Calc Pharmacy 72.2; Estimated Glomerular Filt Rate 52; Glucose Random 128 mg/dL (60-115); Potassium 3.3 mmol/L (3.3-5.1); Sodium 140 mmol/L (135-145)
[2021-05-31] MEDS: 0.9 % Sodium Chloride 1,000 ML 999 ML IVCONT (07:50)
[2021-05-31] MEDS: Morphine Sulfate 4 MG/ML CARTRIDGE IVPUSH ×3 (07:57→23:53)
[2021-05-31] MEDS: Albuterol Sulfate (0.083%) 2.5 MG/3 ML VIAL.NEB INHALE ×2 (08:40→15:30)
--- NOTE | 2021-05-31 08:49 | PM.IMPN ---
Progress Note: A&P (1) KENDRICK (acute kidney injury): Status: Resolved <Chiquis Kennedy NP - Last Filed: 05/31/21 11:56> (2) Pyelonephritis: Status: Resolved <Chiquis Kennedy NP - Last Filed: 05/31/21 11:56> (3) Sepsis: Status: Resolved <Chiquis Kennedy NP - Last Filed: 05/31/21 11:56> Assessment and Plan: This is a 31 yo F with a PMH of recurrent nephrolithiasis who presents to the hospital 24 hours after leaving AMA from the ED. She now presents to the hospital with complaints of R flank pain. Her work up in the ED shows a 1.7cm stone at the R UPJ. She will be admitted with plans for operative intervention by urology. Sepsis due to obstructing stone and pyelonephritis Met sepsis criteria with Tachycardia, fever and leukocytosis s/p cystoscopy, rightretrograde, right dilatation of ureteric orifice under fluoroscopy, right ureteroscopy, laser lithotripsy, stone basketing Running fevers over 103, change rocephin to zosyn, blood cx pending added Fluconazole for possible fungal stone 1 liter fluid bolus for tachycardia GPC 1/2 pos (05/28/21) follow Hypoxia. ? asthma. Resolved Add albuterol nebs Cxr to r/o consolidation-negative KENDRICK due to obstructing stone. Trending down baseline SCr is around 0.6 Continue IVF Follow BMP Full Code DVT pptx heparin sc Attending: Dr. Espinoza <Chiquis Kennedy NP - Last Filed: 05/31/21 11:56> This is a 31 yo F with a PMH of recurrent nephrolithiasis who presents to the hospital 24 hours after leaving AMA from the ED. She now presents to the hospital with complaints of R flank pain. Her work up in the ED shows a 1.7cm stone at the R UPJ. She will be admitted with plans for operative intervention by urology. Sepsis due to obstructing stone and pyelonephritis Met sepsis criteria with Tachycardia, fever and leukocytosis s/p cystoscopy, rightretrograde, right dilatation of ureteric orifice under fluoroscopy, right ureteroscopy, laser lithotripsy, stone basketing Running fevers over 103, change rocephin to zosyn, blood cx pending added Fluconazole for possible fungal stone 1 liter fluid bolus for tachycardia GPC 1/2 pos (05/28/21) follow Hypoxia. ? asthma. Resolved Add albuterol nebs Cxr to r/o consolidation-negative KENDRICK due to obstructing stone. Trending down baseline SCr is around 0.6 Continue IVF Follow BMP Full Code DVT pptx heparin sc Attending: Dr. Espinoza I saw and examine patient and discussed physical finding, labs, medication and studies with MERCHANDISE MANAGER and I agree with plan and disposition as above. --Pk Espinoza MD <Joshua Espinoza MD - Last Filed: 06/08/21 16:21> Subjective Subjective Date of Service: 05/31/21 <Chiquis Kennedy NP - Last Filed: 05/31/21 11:56> 06/08/21 <Joshua Espinoza MD - Last Filed: 06/08/21 16:21> Review of Systems follow-up lithotripsy Still having flank pain Having fevers, very anxious <Chiquis Kennedy NP - Last Filed: 05/31/21 11:56> Physical Exam Vital Signs: Vital Signs: Last Vital Signs Temp 98.8 F 05/31/21 07:41 Pulse 124 H 05/31/21 08:43 Resp 16 05/31/21 07:57 BP 123/80 05/31/21 07:41 Pulse Ox 95 05/31/21 07:41 Body Mass Index 26.6 <Chiquis Kennedy NP - Last Filed: 05/31/21 11:56> Appearing in no acute distress head is normocephalic atraumatic eyes pupils are PERRLA sclera is anicteric mouth throat mucous membranes are intact and moist neck is supple no lymphadenopathy, no JVD noted lung sounds are clear to auscultation heart regular rate rhythm, clear S1, S2 positive bowel sounds, abdomen is soft, nontender neuro patient is alert x3, no focal deficits <Chiquis Kennedy NP - Last Filed: 05/31/21 11:56> Objective Data Current Medications Acetaminophen (Acetaminophen 325 Mg Tablet) 650 mg PO Q6H PRN PRN Reason: Pain, Mild (Pain Scale 1-3) Last Admin: 05/30/21 21:50 Dose: 650 mg Documented by: Albuterol Sulfate (Albuterol Sulfate (0.083%) 2.5 Mg/3 Ml Vial.Neb) 2.5 mg INHALE RQ4H WHILE AWAKE [facility] Last Admin: 05/31/21 08:40 Dose: 2.5 mg Documented by: Lactated Ringer's (Lr) 1,000 mls @ 100 mls/hr IVCONT .Q10H [facility] Last Admin: 05/31/21 06:32 Dose: 100 mls/hr Documented by: Piperacillin Sod/Tazobactam (Sod 3.375 gm/ Sodium Chloride) 50 mls @ 100 mls/hr IV Q6H [facility] Last Infusion: 05/31/21 06:34 Dose: Infused Documented by: Fluconazole 100 mg/ IV (Miscellaneous Supplies) 50 mls @ 50 mls/hr IV Q24H YUE Lorazepam (Lorazepam 0.5 Mg Tablet) 0.25 mg PO Q6H PRN PRN Reason: anxiety Last Admin: 05/31/21 03:40 Dose: 0.25 mg Documented by: Morphine Sulfate (Morphine Sulfate 4 Mg/Ml Cartridge) 4 mg IVPUSH Q4H PRN; Protocol PRN Reason: Pain, Severe (Pain Scale 7-10) Last Admin: 05/31/21 07:57 Dose: 4 mg Documented by: Ondansetron HCl (Ondansetron Hcl 4 Mg/2 Ml Vial) 4 mg IVPUSH Q8H PRN PRN Reason: Nausea and Vomiting Last Admin: 05/31/21 05:54 Dose: 4 mg Documented by: Oxycodone HCl (Oxycodone Hcl Immed Release 5 Mg Tablet) 5 mg PO Q6H PRN PRN Reason: Pain, Moderate (Pain Scale 4-6 Last Admin: 05/29/21 16:57 Dose: 5 mg Documented by: Sodium Chloride (0.9 % Sodium Chloride Flush 3 Ml Syringe) 3 ml IVFLUSH QSHIFT [facility] Last Admin: 05/31/21 07:50 Dose: Not Given Documented by: <Chiquis Kennedy NP - Last Filed: 05/31/21 11:56> Labs CBC & Chem 7: : 06/03/21 05:52 06/03/21 05:52 <Chiquis Kennedy NP - Last Filed: 05/31/21 11:56> Labs: Laboratory Results - last 24 hr 05/31/21 05/31/21 06:27 06:27 MCV 68.5 L MCH 22.8 L MCHC 33.3 RDW 15.7 Plt Count 379 MPV 11.5 Absolute Nucleated RBC 0.000 Nucleated RBC % (auto) 0.0 Anion Gap 14 Estim Creat Clear Calc 72.2 Estimated GFR 52 Random Glucose 128 H Calcium 8.2 L <Chiquis Kennedy NP - Last Filed: 05/31/21 11:56> Microbiology Microbiology Results: Microbiology 05/30/21 00:43 Blood - Venous Blood Culture - Preliminary No growth after 24 hours. 05/30/21 00:38 Blood - Venous Blood Culture - Preliminary No growth after 24 hours. 05/28/21 19:11 Blood - Venous Blood Culture - Preliminary 05/28/21 19:11 Blood - Venous Blood Culture - Preliminary Prelim: GPC Gram Stain only 05/28/21 03:58 Blood - Venous Blood Culture - Preliminary No growth after 48 hours. 05/28/21 03:45 Blood - Venous Blood Culture - Preliminary No growth after 48 hours. 05/28/21 03:47 Urine clean catch - Urine alva top Urine Culture - Final <Chiquis Kennedy NP - Last Filed: 05/31/21 11:56> Quality Stroke Does the patient have a stroke diagnosis?: No <Chiquis Kennedy NP - Last Filed: 05/31/21 11:56> VTE Prior VTE?: No <Chiquis Kennedy NP - Last Filed: 05/31/21 11:56> VTE Risk Level:: Medical - low <Chiquis Kennedy NP - Last Filed: 05/31/21 11:56> VTE Device Contraindication: Treatment Not Indicated <Chiquis Kennedy NP - Last Filed: 05/31/21 11:56> VTE Drug Contraindication: Treatment Not Indicated <Chiquis Kennedy NP - Last Filed: 05/31/21 11:56>
[2021-05-31] MEDS: Heparin Sodium,Porcine 5,000 UNIT/ML VIAL 5000 UNIT SUBCUT ×2 (09:39→20:36)
[2021-05-31] MEDS: Acetaminophen 325 MG TABLET 650 MG PO ×2 (11:54→20:35)
--- NOTE | 2021-05-31 12:09 | PHA.PROG ---
Admission Date/Time: May 28, 2021 11:14 Indication: Bactermia Weight in k.111 kg Adjusted body weight in K.8 kg [place] body weight in K.6 kg Obesity Dosing Indication % IBW: N/A Serum Creatinine - Last 168 Hours 05/28/21 05/29/21 05/30/21 03:45 06:47 05:24 Creatinine 1.18 1.19 1.38 05/31/21 06:27 Creatinine 1.23 Estimated CrCl and GFR - Last 168 Hours 05/28/21 05/29/21 05/30/21 03:45 06:47 05:24 Estim Creat Clear Calc 75.2 74.6 64.3 Estimated GFR 54 54 45 05/31/21 06:27 Estim Creat Clear Calc 72.2 Estimated GFR 52 Vancomycin Loading Dose: 1500 mg Current Vancomycin Dosing Regimen: 750 mg Q12H Date and Time for next Vancomycin Level to be drawn: 06/01 @ 2200 Pharmacist Comments on Vancomycin Plan: Give LD of 1500 mg now then start 750 mg Q12H at 2300. Expected AUC to b3 443 with a trough on 14.5 Trough to be drawn prior to 4th dose Patient SCr varies daily. Pharmacy to monitor renal function daily, and adjust when necessary Brea Dalal PharmD Vancomycin dosing will take advantage of [employer] as a clinical decision support tool that uses Bayesian modeling to calculate individual patient's pharmacokinetic parameters and forecast the patient's drug concentration time course with the target goal AUC 24 range of 400 - 600 mg/L/hr.
[2021-05-31] MEDS: vancomycin HCL 1,500 MG in 0.9 % Sodium Chloride 500 ML 333.33 MG IV (13:14)
[2021-05-31] MEDS: Fluconazole in NaCl,Iso-Osm 100 MG in Container,Empty 0 ML 50 MG IV (16:41)
[2021-05-31] MEDS: 0.9 % Sodium Chloride Flush 3 ML SYRINGE IVFLUSH ×2 (16:48→20:36)
[2021-05-31] MEDS: vancomycin HCL 750 MG in 0.9 % Sodium Chloride 250 ML 265 MG IV (23:54)
[2021-06-01] VITALS (9 sets, daily range): BP systolic 110–141; BP diastolic 73–88; PULSE 78–130; RESP 17–20; TEMP 36.3–38.4; O2SAT 77–99
[2021-06-01] MEDS: Piperacillin Sodium/Tazobactam 3.375 GM in 0.9 % Sodium Chloride 50 ML IV ×3 (01:36→18:40)
[2021-06-01] MEDS: Lactated Ringers 1,000 ML 100 ML IVCONT (03:28)
[2021-06-01] MEDS: Morphine Sulfate 4 MG/ML CARTRIDGE IVPUSH ×4 (03:31→21:07)
[2021-06-01 07:17] LABS: Creatinine Clr Calc Pharmacy 116.9; Estimated Glomerular Filt Rate > 60
[2021-06-01] MEDS: Heparin Sodium,Porcine 5,000 UNIT/ML VIAL 5000 UNIT SUBCUT ×2 (08:08→20:31)
[2021-06-01] MEDS: Acetaminophen 325 MG TABLET 650 MG PO (08:08)
[2021-06-01] MEDS: LORazepam 0.5 MG TABLET 0.25 MG PO ×2 (08:08→20:30)
[2021-06-01] MEDS: Albuterol Sulfate (0.083%) 2.5 MG/3 ML VIAL.NEB INHALE (08:45)
--- NOTE | 2021-06-01 11:41 | PM.UROPN ---
Subjective Subjective Date of Service: 06/01/21 Interval history: Persistent right-sided flank pain with fever Imaging shows stone fragment in distal right ureter and hydrate nephrosis Recommendation is removal of distal stone with stent placement She will remain NPO Physical Exam Vital Signs: Vital Signs: Last Vital Signs Temp 99.1 F 06/01/21 11:10 Pulse 110 H 06/01/21 11:10 Resp 18 06/01/21 11:10 BP 135/73 06/01/21 11:10 Pulse Ox 94 06/01/21 11:10 Body Mass Index 26.6 Const: General: cooperative, healthy appearing, comfortable and no acute distress Orientation/consciousness: patient oriented x3 HENMT: Face and sinus: Yes normal facial exam Mouth: moist mucous membranes Neck: Neck: Yes normal visual inspection, Yes full ROM and Yes trachea midline Chest: Chest palpation & inspection: normal inspection of the chest Resp: Effort & Inspection: normal respiratory effort, able to speak in complete sentences and no respiratory distress GI: Inspection: Yes normal to inspection Back/Spine/Pelvis: Cervical Spine: normal cervical lordosis Thoracic/Lumbar Spine: thoracic and lumbar spine normal to inspection Skin: General skin exam: no rashes or lesions noted Neuro: General: patient oriented x3, gait normal, tone normal and moves all extremities Extrem: General: Yes normal to inspection and Yes capillary refill normal Urology Results Labs CBC & Chem 7: 05/31/21 06:27 06/01/21 06:41 Labs: Laboratory Results - last 24 hr 06/01/21 06:41 Creatinine 0.76 Estim Creat Clear Calc 116.9 Estimated GFR > 60 Progress Note: A&P Assessment and plan (1) Ureterolithiasis: Status: Acute Assessment and Plan: Ureteroscopy, laser lithotripsy, stone basketing, stent placement right side Fall Risk Details Current Medications: Current Medications Acetaminophen (Acetaminophen 325 Mg Tablet) 650 mg PO Q6H PRN PRN Reason: Pain, Mild (Pain Scale 1-3) Last Admin: 06/01/21 08:08 Dose: 650 mg Documented by: Albuterol Sulfate (Albuterol Sulfate (0.083%) 2.5 Mg/3 Ml Vial.Neb) 2.5 mg INHALE RQ4H WHILE AWAKE YUE Last Admin: 06/01/21 11:07 Dose: Not Given Documented by: Heparin Sodium (Porcine) (Heparin Sodium,Porcine 5,000 Unit/Ml Vial) 5,000 unit SUBCUT Q12H [facility] Last Admin: 06/01/21 08:08 Dose: 5,000 unit Documented by: Piperacillin Sod/Tazobactam (Sod 3.375 gm/ Sodium Chloride) 50 mls @ 100 mls/hr IV Q6H [facility] Last Infusion: 06/01/21 07:10 Dose: Infused Documented by: Fluconazole 100 mg/ IV (Miscellaneous Supplies) 50 mls @ 50 mls/hr IV Q24H [facility] Last Infusion: 05/31/21 17:52 Dose: Infused Documented by: Lactated Ringer's (Lr) 1,000 mls @ 100 mls/hr IVCONT .Q10H [facility] Last Admin: 06/01/21 03:28 Dose: 100 mls/hr Documented by: Vancomycin HCl 1,000 mg/ (Sodium Chloride) 270 mls @ 270 mls/hr IV Q12H [facility] Lorazepam (Lorazepam 0.5 Mg Tablet) 0.25 mg PO Q6H PRN PRN Reason: anxiety Last Admin: 06/01/21 08:08 Dose: 0.25 mg Documented by: Morphine Sulfate (Morphine Sulfate 4 Mg/Ml Cartridge) 4 mg IVPUSH Q4H PRN; Protocol PRN Reason: Pain, Severe (Pain Scale 7-10) Last Admin: 06/01/21 08:06 Dose: 4 mg Documented by: Ondansetron HCl (Ondansetron Hcl 4 Mg/2 Ml Vial) 4 mg IVPUSH Q8H PRN PRN Reason: Nausea and Vomiting Last Admin: 05/31/21 16:40 Dose: 4 mg Documented by: Oxycodone HCl (Oxycodone Hcl Immed Release 5 Mg Tablet) 5 mg PO Q6H PRN PRN Reason: Pain, Moderate (Pain Scale 4-6 Last Admin: 05/29/21 16:57 Dose: 5 mg Documented by: Pharmacy Consult (Consult Rx Vancomycin Dosing) 1 each MISCELLANE DAILY PRN PRN Reason: Consult order Sodium Chloride (0.9 % Sodium Chloride Flush 3 Ml Syringe) 3 ml IVFLUSH QSHIFT [facility] Last Admin: 06/01/21 08:17 Dose: Not Given Documented by: Time Spent With Patient Time: Total time spent is greater than 50% in coordination of care (as documented) at patient's floor/unit and/or counseling patient: Time with patient: less than 15 minutes Progress Note: Quality Stroke Does the patient have a stroke diagnosis?: No
--- NOTE | 2021-06-01 11:53 | PM.IMPN ---
Progress Note: A&P (1) Sepsis: Status: Acute (2) Pyelonephritis: Status: Acute (3) Nephrolithiasis: Status: Acute (4) KENDRICK (acute kidney injury): Status: Acute Assessment and Plan: This is a 31 yo F with a PMH of recurrent nephrolithiasis who presents to the hospital 24 hours after leaving AMA from the ED. She now presents to the hospital with complaints of R flank pain. Her work up in the ED shows a 1.7cm stone at the R UPJ. She will be admitted with plans for operative intervention by urology. Sepsis due to obstructing stone and pyelonephritis Met sepsis criteria with Tachycardia, fever and leukocytosis s/p cystoscopy, rightretrograde, right dilatation of ureteric orifice under fluoroscopy, right ureteroscopy, laser lithotripsy, stone basketing Blood cx gram positive cocci in clusters 2/2 Still with fevers and right flank pain continue Vancomycin as well as fluconazole for concern of fungal infection/stone Likely related to stone fragment and hydronephrosis Has been NPO, likely to OR today Hypoxia. ? asthma. Resolved Add albuterol nebs Cxr to r/o consolidation-negative KENDRICK due to obstructing stone. Trending down baseline SCr is around 0.6 Continue IVF Follow BMP Full Code DVT pptx heparin sc Attending: Dr. Dumont Subjective Subjective Date of Service: 06/01/21 Review of Systems Follow-up lithotripsy Still having flank pain Having fevers and some wheezing from asthma Physical Exam Vital Signs: Vital Signs: Last Vital Signs Temp 99.1 F 06/01/21 11:10 Pulse 110 H 06/01/21 11:10 Resp 18 06/01/21 11:10 BP 135/73 06/01/21 11:10 Pulse Ox 94 06/01/21 11:10 Body Mass Index 26.6 Appearing in no acute distress lung sounds are clear to auscultation heart regular rate rhythm, clear S1, S2 positive bowel sounds, abdomen is soft, tender to right upper quad neuro patient is alert x3, no focal deficits Objective Data Current Medications Acetaminophen (Acetaminophen 325 Mg Tablet) 650 mg PO Q6H PRN PRN Reason: Pain, Mild (Pain Scale 1-3) Last Admin: 06/01/21 08:08 Dose: 650 mg Documented by: Albuterol Sulfate (Albuterol Sulfate (0.083%) 2.5 Mg/3 Ml Vial.Neb) 2.5 mg INHALE RQ4H WHILE AWAKE [facility] Last Admin: 06/01/21 11:07 Dose: Not Given Documented by: Heparin Sodium (Porcine) (Heparin Sodium,Porcine 5,000 Unit/Ml Vial) 5,000 unit SUBCUT Q12H [facility] Last Admin: 06/01/21 08:08 Dose: 5,000 unit Documented by: Piperacillin Sod/Tazobactam (Sod 3.375 gm/ Sodium Chloride) 50 mls @ 100 mls/hr IV Q6H [facility] Last Infusion: 06/01/21 07:10 Dose: Infused Documented by: Fluconazole 100 mg/ IV (Miscellaneous Supplies) 50 mls @ 50 mls/hr IV Q24H [facility] [place] Last Infusion: 05/31/21 17:52 Dose: Infused Documented by: Lactated Ringer's (Lr) 1,000 mls @ 100 mls/hr IVCONT .Q10H [facility] Last Admin: 06/01/21 03:28 Dose: 100 mls/hr Documented by: Vancomycin HCl 1,000 mg/ (Sodium Chloride) 270 mls @ 270 mls/hr IV Q12H [facility] Lorazepam (Lorazepam 0.5 Mg Tablet) 0.25 mg PO Q6H PRN PRN Reason: anxiety Last Admin: 06/01/21 08:08 Dose: 0.25 mg Documented by: Morphine Sulfate (Morphine Sulfate 4 Mg/Ml Cartridge) 4 mg IVPUSH Q4H PRN; Protocol PRN Reason: Pain, Severe (Pain Scale 7-10) Last Admin: 06/01/21 08:06 Dose: 4 mg Documented by: Ondansetron HCl (Ondansetron Hcl 4 Mg/2 Ml Vial) 4 mg IVPUSH Q8H PRN PRN Reason: Nausea and Vomiting Last Admin: 05/31/21 16:40 Dose: 4 mg Documented by: Oxycodone HCl (Oxycodone Hcl Immed Release 5 Mg Tablet) 5 mg PO Q6H PRN PRN Reason: Pain, Moderate (Pain Scale 4-6 Last Admin: 05/29/21 16:57 Dose: 5 mg Documented by: Pharmacy Consult (Consult Rx Vancomycin Dosing) 1 each MISCELLANE DAILY PRN PRN Reason: Consult order Sodium Chloride (0.9 % Sodium Chloride Flush 3 Ml Syringe) 3 ml IVFLUSH QSHIFT [facility] Last Admin: 06/01/21 08:17 Dose: Not Given Documented by: Labs CBC & Chem 7: 05/31/21 06:27 06/01/21 06:41 Labs: Laboratory Results - last 24 hr 06/01/21 06:41 Estim Creat Clear Calc 116.9 Estimated GFR > 60 Microbiology Microbiology Results: Microbiology 05/28/21 19:11 Blood - Venous Blood Culture - Preliminary Gram positive cocci 05/28/21 19:11 Blood - Venous Blood Culture - Preliminary Gram positive cocci 05/30/21 00:43 Blood - Venous Blood Culture - Preliminary No growth after 48 hours. 05/30/21 00:38 Blood - Venous Blood Culture - Preliminary No growth after 48 hours. 05/28/21 03:58 Blood - Venous Blood Culture - Preliminary No growth after 48 hours. 05/28/21 03:45 Blood - Venous Blood Culture - Preliminary No growth after 48 hours. 05/28/21 03:47 Urine clean catch - Urine alva top Urine Culture - Final Quality Stroke Does the patient have a stroke diagnosis?: No VTE Prior VTE?: No VTE Risk Level:: Medical - low VTE Device Contraindication: Treatment Not Indicated VTE Drug Contraindication: Treatment Not Indicated
[2021-06-01] MEDS: vancomycin HCL 1,000 MG in 0.9 % Sodium Chloride 250 ML 270 MG IV (12:36)
--- NOTE | 2021-06-01 13:15 | MHC.CM.PN ---
Per ROUNDS discussion, Patient is having a stone surgically removed today and she is not yet medically cleared for dc. Home is the goal for dc and CM will follow for possible need to adjust the dc plan.
--- NOTE | 2021-06-01 14:34 | P.CONAN_ITS ---
HPI - Anesthesia Eval Consult details Narrative: 31yo female patient for cysto, retro,ureteroscopy, stent Right u reter. Seen in ED 05/27/21 with diagnosis of Right pyelonephritis and admission recommended but patient signed out ama. Returned 05/28/21 with worsening symptoms. 05/29/21- Cysto, retro, laser lithotripsy, stone basketing. [place] LMA#4. [facility] Active Problems Active Problems: All Active Problems (Updated 05/30/21 @ 14:16 by Chiquis Kennedy NP) Hypoxia (Acute) KENDRICK (acute kidney injury) (Acute) Pyelonephritis (Acute) Sepsis (Acute)05/28/21 Renal colic (Acute) Ureterolithiasis (Acute) Skin tag (Acute) COVID-19 (Acute) 07/2020 Vaginal candidiasis (Acute) Elevated hemoglobin A1c (Acute) Nephrolithiasis (Acute) Adult general medical exam (Acute) Screening for cervical cancer (Acute) Past Medical History Medical History (Updated 06/01/21 @ 18:01 by Carmen Eddy MD) History of COVID-19 Renal calculi Family History Family history of problems with anesthesia: No Surgical History Surgical History (Updated 06/01/21 @ 18:01 by Carmen Eddy MD) Hx of cystoscopy Hx of lithotripsy History of Problems with Anesthesia: No Social History Social History Household Members: Spouse and Children Housing: House Are you a primary care professional to a significant other at home: No Do you presently have visiting nurse or other home services: No Alcohol intake: never Patient Tobacco Use Status: Never used Tobacco e-Cigarette/Vaping Use: Never Used Second Hand Smoke Exposure: No service: No Current occupational status: employed Meds Allergies Allergy/AdvReac Type Severity Reaction Status Date / Time No Known Allergies Allergy Verified 06/01/21 14:26 Active Medications: Current Medications Acetaminophen (Acetaminophen 325 Mg Tablet) 650 mg PO Q6H PRN PRN Reason: Pain, Mild (Pain Scale 1-3) Last Admin: 06/01/21 08:08 Dose: 650 mg Documented by: Albuterol Sulfate (Albuterol Sulfate (0.083%) 2.5 Mg/3 Ml Vial.Neb) 2.5 mg INHALE RQ4H WHILE AWAKE YUE Last Admin: 06/01/21 11:07 Dose: Not Given Documented by: Heparin Sodium (Porcine) (Heparin Sodium,Porcine 5,000 Unit/Ml Vial) 5,000 unit SUBCUT Q12H [facility] Last Admin: 06/01/21 08:08 Dose: 5,000 unit Documented by: Piperacillin Sod/Tazobactam (Sod 3.375 gm/ Sodium Chloride) 50 mls @ 100 mls/hr IV Q6H [facility] Last Infusion: 06/01/21 07:10 Dose: Infused Documented by: Fluconazole 100 mg/ IV (Miscellaneous Supplies) 50 mls @ 50 mls/hr IV Q24H [facility] Last Infusion: 05/31/21 17:52 Dose: Infused Documented by: Lactated Ringer's (Lr) 1,000 mls @ 100 mls/hr IVCONT .Q10H [facility] Last Infusion: 06/01/21 13:24 Dose: Infused Documented by: Vancomycin HCl 1,000 mg/ (Sodium Chloride) 270 mls @ 270 mls/hr IV Q12H [facility] Last Admin: 06/01/21 12:36 Dose: 270 mls/hr Documented by: Lorazepam (Lorazepam 0.5 Mg Tablet) 0.25 mg PO Q6H PRN PRN Reason: anxiety Last Admin: 06/01/21 08:08 Dose: 0.25 mg Documented by: Morphine Sulfate (Morphine Sulfate 4 Mg/Ml Cartridge) 4 mg IVPUSH Q4H PRN; Protocol PRN Reason: Pain, Severe (Pain Scale 7-10) Last Admin: 06/01/21 13:22 Dose: 4 mg Documented by: Ondansetron HCl (Ondansetron Hcl 4 Mg/2 Ml Vial) 4 mg IVPUSH Q8H PRN PRN Reason: Nausea and Vomiting Last Admin: 05/31/21 16:40 Dose: 4 mg Documented by: Oxycodone HCl (Oxycodone Hcl Immed Release 5 Mg Tablet) 5 mg PO Q6H PRN PRN Reason: Pain, Moderate (Pain Scale 4-6 Last Admin: 05/29/21 16:57 Dose: 5 mg Documented by: Pharmacy Consult (Consult Rx Vancomycin Dosing) 1 each MISCELLANE DAILY PRN PRN Reason: Consult order Sodium Chloride (0.9 % Sodium Chloride Flush 3 Ml Syringe) 3 ml IVFLUSH QSHIFT [facility] Last Admin: 06/01/21 08:17 Dose: Not Given Documented by: Home Medications Medication Instructions Recorded Confirmed Last Taken Type No Known Home Meds 05/28/21 05/28/21 Unknown History Exam Exam Date and Time: June 01, 2021 1434 Height,Weight and Vital Signs: Height 5 ft 1 in Weight 77.111 kg Last Vital Signs Temp 99.1 F 06/01/21 11:10 Pulse 110 H 06/01/21 11:10 Resp 18 06/01/21 11:10 BP 135/73 06/01/21 11:10 Pulse Ox 94 06/01/21 11:10 Vital Signs Temp Pulse Resp BP Pulse Ox 06/01/21 14:37 98.4 F 114 H 20 133/88 95 06/01/21 11:10 99.1 F 110 H 18 135/73 94 06/01/21 08:45 120 H 06/01/21 07:19 101.1 F H 130 H 19 141/85 H 95 06/01/21 04:30 17 06/01/21 04:00 78 77 L 06/01/21 00:00 98.3 F 122 H 18 110/75 95 05/31/21 20:00 98.5 F 145 H 18 146/85 H 96 Pertinent Lab Results Pertinent Lab Results: Laboratory Tests 05/28/21 05/28/21 05/28/21 03:45 03:45 03:45 WBC 14.2 H RBC 5.35 Hgb 12.0 Hct 38.1 MCV 71.2 L MCH 22.4 L MCHC 31.5 RDW 15.2 Plt Count 396 MPV 11.1 Immature Gran % (Auto) 0.4 Neut % (Auto) 87.3 H Lymph % (Auto) 5.9 L [place] % (Auto) 6.0 Eos % (Auto) 0.1 Baso % (Auto) 0.3 Lymph # (Auto) 0.8 L [place] # (Auto) 0.9 Eos # (Auto) 0.0 Baso # (Auto) 0.0 Abs Immat Gran (auto) 0.05 H Absolute Neuts (auto) 12.4 H Absolute Nucleated RBC 0.000 Nucleated RBC % (auto) 0.0 Neutrophils % (Manual) Band Neutrophils % Lymphocytes % (Manual) Monocytes % (Manual) Abs Neuts (Manual) Lymphocytes # (Manual) Monocytes # (Manual) Platelet Estimate Large Platelets Plt Morphology Comment RBC Morphology Hypochromasia Microcytosis Sodium 138 Potassium 3.6 Chloride 108 Carbon Dioxide 19 L Anion Gap 15 BUN 13 Creatinine 1.18 Estim Creat Clear Calc 75.2 Estimated GFR 54 Random Glucose 143 H Lactic Acid 1.4 Calcium 9.2 D Total Bilirubin 0.5 Direct Bilirubin 0.3 AST 16 ALT 18 Alkaline Phosphatase 117 Lactate Dehydrogenase Total Protein 7.9 Albumin 4.2 Lipase 14 Urine Color Urine Appearance Urine pH Ur Specific [place] Urine Protein Urine Glucose (UA) Urine Ketones Urine Blood Urine Nitrite Ur Leukocyte Esterase Urine RBC Urine WBC Ur Squamous Epith Cells Urine Bacteria Urine Mucus Urine Test COVID-19 (DARA) COVID-19 [employer] 05/28/21 05/28/21 05/28/21 03:47 03:47 04:55 WBC RBC Hgb Hct MCV MCH MCHC RDW Plt Count MPV Immature Gran % (Auto) Neut % (Auto) Lymph % (Auto) [place] % (Auto) Eos % (Auto) Baso % (Auto) Lymph # (Auto) [place] # (Auto) Eos # (Auto) Baso # (Auto) Abs Immat Gran (auto) Absolute Neuts (auto) Absolute Nucleated RBC Nucleated RBC % (auto) Neutrophils % (Manual) Band Neutrophils % Lymphocytes % (Manual) Monocytes % (Manual) Abs Neuts (Manual) Lymphocytes # (Manual) Monocytes # (Manual) Platelet Estimate Large Platelets Plt Morphology Comment RBC Morphology Hypochromasia Microcytosis Sodium Potassium Chloride Carbon Dioxide Anion Gap BUN Creatinine Estim Creat Clear Calc Estimated GFR Random Glucose Lactic Acid Calcium Total Bilirubin Direct Bilirubin AST ALT Alkaline Phosphatase Lactate Dehydrogenase Total Protein Albumin Lipase Urine Color YELLOW Urine Appearance HAZY Urine pH 6.0 Ur Specific [place] 1.015 Urine Protein TRACE Urine Glucose (UA) NEG Urine Ketones 5 Urine Blood 1+ H Urine Nitrite NEG Ur Leukocyte Esterase 2+ H Urine RBC 0-2 Urine WBC 50-75 H Ur Squamous Epith Cells NONE Urine Bacteria TRACE Urine Mucus 2+ Urine Test NEGATIVE COVID-19 (DARA) Negative COVID-19 [employer] See Note 05/28/21 05/29/21 05/29/21 19:11 06:47 06:47 WBC 20.6 H RBC 4.60 Hgb 10.3 L Hct 32.9 L MCV 71.5 L MCH 22.4 L MCHC 31.3 RDW 15.8 Plt Count 335 MPV 12.3 Immature Gran % (Auto) Cancelled Neut % (Auto) Cancelled Lymph % (Auto) Cancelled [place] % (Auto) Cancelled Eos % (Auto) Cancelled Baso % (Auto) Cancelled Lymph # (Auto) Cancelled [place] # (Auto) Cancelled Eos # (Auto) Cancelled Baso # (Auto) Cancelled Abs Immat Gran (auto) Cancelled Absolute Neuts (auto) Cancelled Absolute Nucleated RBC 0.000 Nucleated RBC % (auto) 0.0 Neutrophils % (Manual) 88 H Band Neutrophils % 5 Lymphocytes % (Manual) 5 L Monocytes % (Manual) 2 Abs Neuts (Manual) 19.2 H Lymphocytes # (Manual) 1.0 Monocytes # (Manual) 0.4 Platelet Estimate NORMAL Large Platelets PRESENT Plt Morphology Comment NOTE RBC Morphology NOTED Hypochromasia 1+ (5-14) Microcytosis 1+ (5-14) Sodium 140 Potassium 3.9 Chloride 113 H Carbon Dioxide 19 L Anion Gap 12 BUN 10 Creatinine 1.19 Estim Creat Clear Calc 74.6 Estimated GFR 54 Random Glucose 177 H Lactic Acid Calcium 8.4 D Total Bilirubin Direct Bilirubin AST ALT Alkaline Phosphatase Lactate Dehydrogenase 154 Total Protein Albumin Lipase Urine Color Urine Appearance Urine pH Ur Specific [place] Urine Protein Urine Glucose (UA) Urine Ketones Urine Blood Urine Nitrite Ur Leukocyte Esterase Urine RBC Urine WBC Ur Squamous Epith Cells Urine Bacteria Urine Mucus Urine Test COVID-19 (DARA) COVID-19 Clin Com 05/30/21 05/30/21 05/31/21 05:24 05:24 06:27 WBC 18.9 H 16.5 H RBC 4.14 L 4.16 L Hgb 9.2 L 9.5 L Hct 28.7 L 28.5 L MCV 69.3 L 68.5 L MCH 22.2 L 22.8 L MCHC 32.1 33.3 RDW 15.8 15.7 Plt Count 308 379 MPV 11.2 11.5 Immature Gran % (Auto) Neut % (Auto) Lymph % (Auto) [place] % (Auto) Eos % (Auto) Baso % (Auto) Lymph # (Auto) [place] # (Auto) Eos # (Auto) Baso # (Auto) Abs Immat Gran (auto) Absolute Neuts (auto) Absolute Nucleated RBC 0.000 0.000 Nucleated RBC % (auto) 0.0 0.0 Neutrophils % (Manual) Band Neutrophils % Lymphocytes % (Manual) Monocytes % (Manual) Abs Neuts (Manual) Lymphocytes # (Manual) Monocytes # (Manual) Platelet Estimate Large Platelets Plt Morphology Comment RBC Morphology Hypochromasia Microcytosis Sodium 138 Potassium 3.4 Chloride 109 H Carbon Dioxide 20 L Anion Gap 12 BUN 12 Creatinine 1.38 Estim Creat Clear Calc 64.3 Estimated GFR 45 Random Glucose 116 H Lactic Acid Calcium 8.1 L Total Bilirubin Direct Bilirubin AST ALT Alkaline Phosphatase Lactate Dehydrogenase Total Protein Albumin Lipase Urine Color Urine Appearance Urine pH Ur Specific [place] Urine Protein Urine Glucose (UA) Urine Ketones Urine Blood Urine Nitrite Ur Leukocyte Esterase Urine RBC Urine WBC Ur Squamous Epith Cells Urine Bacteria Urine Mucus Urine Test COVID-19 (DARA) COVID-19 [employer] 05/31/21 06/01/21 06:27 06:41 WBC RBC Hgb Hct MCV MCH MCHC RDW Plt Count MPV Immature Gran % (Auto) Neut % (Auto) Lymph % (Auto) [place] % (Auto) Eos % (Auto) Baso % (Auto) Lymph # (Auto) [place] # (Auto) Eos # (Auto) Baso # (Auto) Abs Immat Gran (auto) Absolute Neuts (auto) Absolute Nucleated RBC Nucleated RBC % (auto) Neutrophils % (Manual) Band Neutrophils % Lymphocytes % (Manual) Monocytes % (Manual) Abs Neuts (Manual) Lymphocytes # (Manual) Monocytes # (Manual) Platelet Estimate Large Platelets Plt Morphology Comment RBC Morphology Hypochromasia Microcytosis Sodium 140 Potassium 3.3 Chloride 108 Carbon Dioxide 21 L Anion Gap 14 BUN 10 Creatinine 1.23 0.76 Estim Creat Clear Calc 72.2 116.9 Estimated GFR 52 > 60 Random Glucose 128 H Lactic Acid Calcium 8.2 L Total Bilirubin Direct Bilirubin AST ALT Alkaline Phosphatase Lactate Dehydrogenase Total Protein Albumin Lipase Urine Color Urine Appearance Urine pH Ur Specific [place] Urine Protein Urine Glucose (UA) Urine Ketones Urine Blood Urine Nitrite Ur Leukocyte Esterase Urine RBC Urine WBC Ur Squamous Epith Cells Urine Bacteria Urine Mucus Urine Test COVID-19 (DARA) COVID-19 [employer] Narrative Narrative: Patient appears tachypneic and pale, weak. States feels sick and taking rapid shallow breaths because of pain Airway Mallampati Class: II TM Dist: >3cm Neck ROM: Full Heart: RRR Lungs: Diminished but clear Assessment and Plan Assessment Anesthesia Assessment: Anesthesia Plan Discussed and Chart Reviewed Final Anesthetic Review Family History of Problems with Anesthesia: No History of Problems with Anesthesia: No NPO: Yes ASA Class: IV and Emergency Final Preanesthetic Review: No Changes in Pt Med Stat, Meds/Allgs Chart Reviewed, Consent Obtained/Reviewed and Anes Risks/Benef Reviewed Patient Risk: High Procedure Risk: Low Assessment/Block/Sedation in SS: Assess/Block/Sedation-SS Anesthetic Plan Anesthetic Plan: GA Disposition: Standard PACU and Inp. Admit - IMC
--- NOTE | 2021-06-01 14:38 | W.PM.IDCN ---
History of Present Illness Data of Consult Service Date: 06/01/21 Requesting physician: Chiquis Kennedy Primary Care Provider: Michael Denise MD [facility] Reason for consult: bacteremia She presents to hospital after feeling worse after leaving AMA due to abdominal pain She has fever and chills at home. She has right neprolithiasis and is seeing Urology Review of Systems Review of Systems: Yes all other systems are reviewed and are negative PMFSH Past Medical History Medical History History of COVID-19 Renal calculi Family History Family history: reviewed and not pertinent Surgical History Surgical History Hx of cystoscopy Hx of lithotripsy Social History Social History Household Members: Spouse and Children Housing: House Are you a primary reservoir caretaker to a significant other at home: No Do you presently have visiting nurse or other home services: No Alcohol intake: never Patient Tobacco Use Status: Never used Tobacco e-Cigarette/Vaping Use: Never Used Second Hand Smoke Exposure: No service: No Current occupational status: employed Meds Allergies Allergy/AdvReac Type Severity Reaction Status Date / Time No Known Allergies Allergy Verified 07/03/21 09:06 Active Medications: Current Medications Acetaminophen (Acetaminophen 325 Mg Tablet) 650 mg PO Q6H PRN PRN Reason: Pain, Mild (Pain Scale 1-3) Last Admin: 06/01/21 08:08 Dose: 650 mg Documented by: Albuterol Sulfate (Albuterol Sulfate (0.083%) 2.5 Mg/3 Ml Vial.Neb) 2.5 mg INHALE RQ4H WHILE AWAKE YUE Last Admin: 06/01/21 11:07 Dose: Not Given Documented by: Heparin Sodium (Porcine) (Heparin Sodium,Porcine 5,000 Unit/Ml Vial) 5,000 unit SUBCUT Q12H [facility] Last Admin: 06/01/21 08:08 Dose: 5,000 unit Documented by: Piperacillin Sod/Tazobactam (Sod 3.375 gm/ Sodium Chloride) 50 mls @ 100 mls/hr IV Q6H [facility] Last Infusion: 06/01/21 07:10 Dose: Infused Documented by: Fluconazole 100 mg/ IV (Miscellaneous Supplies) 50 mls @ 50 mls/hr IV Q24H [facility] Last Infusion: 05/31/21 17:52 Dose: Infused Documented by: Lactated Ringer's (Lr) 1,000 mls @ 100 mls/hr IVCONT .Q10H [facility] Last Infusion: 06/01/21 13:24 Dose: Infused Documented by: Vancomycin HCl 1,000 mg/ (Sodium Chloride) 270 mls @ 270 mls/hr IV Q12H [facility] Last Admin: 06/01/21 12:36 Dose: 270 mls/hr Documented by: Lorazepam (Lorazepam 0.5 Mg Tablet) 0.25 mg PO Q6H PRN PRN Reason: anxiety Last Admin: 06/01/21 08:08 Dose: 0.25 mg Documented by: Morphine Sulfate (Morphine Sulfate 4 Mg/Ml Cartridge) 4 mg IVPUSH Q4H PRN; Protocol PRN Reason: Pain, Severe (Pain Scale 7-10) Last Admin: 06/01/21 13:22 Dose: 4 mg Documented by: Ondansetron HCl (Ondansetron Hcl 4 Mg/2 Ml Vial) 4 mg IVPUSH Q8H PRN PRN Reason: Nausea and Vomiting Last Admin: 05/31/21 16:40 Dose: 4 mg Documented by: Oxycodone HCl (Oxycodone Hcl Immed Release 5 Mg Tablet) 5 mg PO Q6H PRN PRN Reason: Pain, Moderate (Pain Scale 4-6 Last Admin: 05/29/21 16:57 Dose: 5 mg Documented by: Pharmacy Consult (Consult Rx Vancomycin Dosing) 1 each MISCELLANE DAILY PRN PRN Reason: Consult order Sodium Chloride (0.9 % Sodium Chloride Flush 3 Ml Syringe) 3 ml IVFLUSH QSHIFT [facility] Last Admin: 06/01/21 08:17 Dose: Not Given Documented by: Home Medications Medication Instructions Recorded Confirmed Last Taken Type etonogestrel 0.12 mg-ethinyl 0 vag ring VAGINAL 07/03/21 Unknown History estradiol 0.015 mg/24 hr vaginal ring norethindrone (contraceptive) 0.35 0.35 mg PO DAILY 07/03/21 Unknown History mg tablet tamsulosin 0.4 mg capsule 0.4 mg PO DAILY 07/03/21 Unknown History Physical Exam Vital Signs: Vital Signs: Last Vital Signs Temp 99.1 F 06/01/21 11:10 Pulse 110 H 06/01/21 11:10 Resp 18 06/01/21 11:10 BP 135/73 06/01/21 11:10 Pulse Ox 94 06/01/21 11:10 Body Mass Index 26.6 Const: General: cooperative Eyes: General: appearance normal, both eyes and all related structures Resp: Effort & Inspection: normal respiratory effort Cardio: Rate: regular rate Rhythm: regular rhythm GI: Other: right lower quadrant pain Skin: General skin exam: no rashes or lesions noted Results Labs CBC & Chem 7: 06/03/21 05:52 06/03/21 05:52 Labs: BMP 06/01/21 06:41 Creatinine 0.76 Microbiology Microbiology Results: Microbiology 05/28/21 19:11 Blood - Venous Blood Culture - Preliminary Gram positive cocci 05/28/21 19:11 Blood - Venous Blood Culture - Preliminary Gram positive cocci 05/30/21 00:43 Blood - Venous Blood Culture - Preliminary No growth after 48 hours. 05/30/21 00:38 Blood - Venous Blood Culture - Preliminary No growth after 48 hours. 05/28/21 03:58 Blood - Venous Blood Culture - Preliminary No growth after 48 hours. 05/28/21 03:45 Blood - Venous Blood Culture - Preliminary No growth after 48 hours. 05/28/21 03:47 Urine clean catch - Urine alva top Urine Culture - Final Assessment and Plan (1) Pyelonephritis: Status: Resolved She has bacteremia This is probably enterococcus There will be definitive cultures tomorrow likely (2) Sepsis: Status: Resolved (3) Renal colic: Status: Resolved Would give Vancomycin and Zosyn for now Stop Diflucan as no evidence of fungal sepsis here Duration of antibiotics is to be determined Urology evaluation
--- NOTE | 2021-06-01 14:50 | MHC.SHP ---
Pre-Procedural Eval Section A Date of Service: 06/01/21 The patient is an INPATIENT: Yes Changes since office visit: No Cold of Flu in the past 2 weeks, No New Medical Problems, No Changes in Medication and No Patient answered all questions The History & Physical has been completed within 30 days and I have reviewed it.: Yes Section B Chief Complaint: flank pain Allergies: Allergies Allergy/AdvReac Type Severity Reaction Status Date / Time No Known Allergies Allergy Verified 06/01/21 14:26 Plan Diagnosis/Plan: Unchanged (Cystoscopy, right retrograde, right ureteroscopy with stone basketing stent placement) I have reviewed the history and physical and performed a pertinent physical examination on my patient. No changes have occurred unless specified.
--- NOTE | 2021-06-01 16:55 | P.OP_ITS ---
Operative Note Operative Note Date of Service: 06/01/21 Narrative: PreOperative Diagnosis: Distal right ureteric stones with hydronephrosis Post Operative Diagnosis: Distal right ureteric stones with hydronephrosis Procedure: - cystoscopy, right retrograde - right ureteroscopy,stone basketing - right stent placement Surgeon: Dr Billy Navarro Anesthesia: General Indications for procedure: Prior procedure last week for large stone burden. 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 Recommendation for procedure to remove distal right stones and stent placement. Procedure: After informed consent was verified patient was brought to the operating placed in supine position. Anesthesia was administered per protocol. Patient was placed in modified dorsal lithotomy position and prepped and draped in a sterile fashion. Safety pause time-out and side of surgery confirmed. Antibiotics confirmed. Twenty-two [place] cystoscope inserted per urethra. Ureteric orifices normal position. Right retrograde performed which showed filling defect in distal portion of right ureter. Sensor guidewire placed up to the level renal pelvis. Rigid ureteroscopy performed. Stone fragments encountered in distal portion of ureter. Using a sure catch basket stone fragments were removed without difficulty. The ureter was reviewed in were no other stones were seen within the accessible length. Decision was made to place a 6 [place] by 22 cm double-J pigtail stent. This was done without difficulty. At the time of extubation anesthesia were aware that there appeared to be difficulty with breathing and decreased lung sounds on the left side. She was transferred to the ICU for planned extubation. Chest x-ray showed malpositioning of the tube with exclusion of left bronchus. Was going to be positioned with ICU guidance. Pathology: Stones Drains: 6 [place] by 22 cm stent
--- NOTE | 2021-06-01 17:37 | P.HPCC_ITS ---
History of Present Illness Date of Service: 06/01/21 Attending physician on admission: Billy Navarro Chief Complaint: Hypoxia 31-year-old asthmatic on no medication moderately obese presents with urosepsis based on hydronephrosis from an obstructing stone underwent urological procedure 2 days before with recurrent fever and hydronephrosis and underwent a 2nd cystoscopy this time with stent placement in the right ureter after cleaning out stone debris and blood cultures of so far 2/2 growing Gram-positive cocci in clusters on vancomycin and Zosyn Today she received a total of 4.5 L of fluid including the OR but no congestion on chest x-ray but when they noticed hypoxia in the OR we have a chest x-ray that showed the tube was the in the right mainstem bronchus with new extensive left lower lobe atelectasis to was then brought back atelectasis was relieved except for small amount of tenting of the left hemidiaphragm and on FiO2 of 30% oxygen saturations micki to 98% and she already had Rachel Gamma dex and we simply stopped her propofol and when she awoke we quickly checked her on pressure support with good tidal volumes of 450 cc and promptly extubated and there was no stridor both sides of the chest expanded no diaphragmatic or accessory muscle effort PMFSH Past Medical History Medical History History of COVID-19 Renal calculi Family History Family history: reviewed and not pertinent Surgical History Surgical History Hx of cystoscopy Hx of lithotripsy Social History Social History Household Members: Spouse and Children Housing: House Are you a primary career services manager to a significant other at home: No Do you presently have visiting nurse or other home services: No Alcohol intake: never Patient Tobacco Use Status: Never used Tobacco e-Cigarette/Vaping Use: Never Used Second Hand Smoke Exposure: No service: No Current occupational status: employed Meds Allergies Allergy/AdvReac Type Severity Reaction Status Date / Time No Known Allergies Allergy Verified 06/01/21 14:26 Active Medications: Current Medications Acetaminophen (Acetaminophen 325 Mg Tablet) 650 mg PO Q6H PRN PRN Reason: Pain, Mild (Pain Scale 1-3) Last Admin: 10/18/21 08:08 Dose: 650 mg Documented by: Albuterol Sulfate (Albuterol Sulfate (0.083%) 2.5 Mg/3 Ml Vial.Neb) 2.5 mg INHALE RQ4H WHILE AWAKE [facility] Last Admin: 06/01/21 15:11 Dose: Not Given Documented by: Heparin Sodium (Porcine) (Heparin Sodium,Porcine 5,000 Unit/Ml Vial) 5,000 unit SUBCUT Q12H [facility] Last Admin: 06/01/21 08:08 Dose: 5,000 unit Documented by: Piperacillin Sod/Tazobactam (Sod 3.375 gm/ Sodium Chloride) 50 mls @ 100 mls/hr IV Q6H [facility] Last Admin: 06/01/21 14:52 Dose: Not Given Documented by: Lactated Ringer's (Lr) 1,000 mls @ 100 mls/hr IVCONT .Q10H [facility] Last Admin: 06/01/21 14:52 Dose: Not Given Documented by: Vancomycin HCl 1,000 mg/ (Sodium Chloride) 270 mls @ 270 mls/hr IV Q12H [facility] Last Infusion: 06/01/21 13:40 Dose: Infused Documented by: Lactated Ringer's (Lr) 1,000 mls @ 100 mls/hr IVCONT .Q10H [facility] Lorazepam (Lorazepam 0.5 Mg Tablet) 0.25 mg PO Q6H PRN PRN Reason: anxiety Last Admin: 06/01/21 08:08 Dose: 0.25 mg Documented by: Morphine Sulfate (Morphine Sulfate 4 Mg/Ml Cartridge) 4 mg IVPUSH Q4H PRN; Protocol PRN Reason: Pain, Severe (Pain Scale 7-10) Last Admin: 06/01/21 13:22 Dose: 4 mg Documented by: Ondansetron HCl (Ondansetron Hcl 4 Mg/2 Ml Vial) 4 mg IVPUSH Q8H PRN PRN Reason: Nausea and Vomiting Last Admin: 05/31/21 16:40 Dose: 4 mg Documented by: Oxycodone HCl (Oxycodone Hcl Immed Release 5 Mg Tablet) 5 mg PO Q6H PRN PRN Reason: Pain, Moderate (Pain Scale 4-6 Last Admin: 05/29/21 16:57 Dose: 5 mg Documented by: Pharmacy Consult (Consult Rx Vancomycin Dosing) 1 each MISCELLANE DAILY PRN PRN Reason: Consult order Sodium Chloride (0.9 % Sodium Chloride Flush 3 Ml Syringe) 3 ml IVFLUSH QSHIFT [facility] Last Admin: 06/01/21 08:17 Dose: Not Given Documented by: Home Medications Medication Instructions Recorded Confirmed Last Taken Type No Known Home Meds 05/28/21 05/28/21 Unknown History Physical Exam Vital Signs: Vital Signs: Last Vital Signs Temp 98.4 F 06/01/21 14:37 Pulse 114 H 06/01/21 14:37 Resp 20 06/01/21 14:37 BP 133/88 06/01/21 14:37 Pulse Ox 95 06/01/21 14:37 Body Mass Index 26.6 Results Labs CBC and Chem 7: 05/31/21 06:27 06/01/21 06:41 Labs: Laboratory Results - last 24 hr 06/01/21 06:41 Estim Creat Clear Calc 116.9 Estimated GFR > 60 Imaging Radiologist's Impressions: Impressions Guidance Fluoroscopy 06/01/21 14:51 FINDINGS/IMPRESSION: A right ureteral stent was placed under fluoroscopic guidance. Please refer to the procedure report for more detailed findings. Chest X-Ray 06/01/21 16:08 IMPRESSION: 1. Endotracheal tube tip extends into the proximal right mainstem bronchus approximately 1 cm distal to the fely and needs to be repositioned. 2. Mild prominence of the pulmonary vasculature is likely secondary to vascular crowding from low lung volumes. Air bronchograms at the left lung base in the retrocardiac region could represent atelectasis or an infiltrate. This critical result was discussed with Dr. Navarro at 5:00 PM on 06/01/2021 and it was ascertained that the content and urgency of the report was understood at the time of direct communication.
[2021-06-01] MEDS: oxyCODONE HCl Immed Release 5 MG TABLET PO (17:48)
--- NOTE | 2021-06-01 18:23 | PC.NURSE ---
pt to icu from PACU at 1650, still intuabted from surgery. Pt was placed on AC settings Rate 16, TV 400, Peep 5, fio2 30%. Pt was able to be changed to pressure support starting at 20/5 and eventually down to 10/5, holding volumes. Pt reaching for tube attempting to pull out, following commands, to bedside, OK to extubate, extubated at 1728 and placed on 4 L NC. Shortly after extubating, pt talking A& oriented. requesting to go back to her room. Per MD keep an eye on pt for a little longer and then ok to transfer back to room on IMC, supervisor felling bucking aware of plan.
[2021-06-01] MEDS: ondansetron HCL 4 MG/2 ML VIAL IVPUSH (18:39)
--- NOTE | 2021-06-01 22:43 | HE.PHANOTE ---
increase dose of vanco to 1250 mg q12, predicted AUC 419, trough 10.9
[2021-06-01] MEDS: vancomycin HCL 1,250 MG in 0.9 % Sodium Chloride 250 ML 166.67 MG IV (22:58)
[2021-06-02] VITALS (8 sets, daily range): BP systolic 118–141; BP diastolic 58–79; PULSE 92–122; RESP 16–18; TEMP 35.5–37.8; O2SAT 92–98
[2021-06-02] MEDS: Piperacillin Sodium/Tazobactam 3.375 GM in 0.9 % Sodium Chloride 50 ML IV ×4 (01:47→18:41)
[2021-06-02] MEDS: Morphine Sulfate 4 MG/ML CARTRIDGE IVPUSH ×2 (02:36→08:45)
[2021-06-02] MEDS: Acetaminophen 325 MG TABLET 650 MG PO ×2 (06:25→17:36)
[2021-06-02 07:12] LABS: Hematocrit 28.8 % (37-47); Hemoglobin 9.2 g/dl (12.0-16.0); Mean Corpuscular HGB Conc 31.9 g/dl (31.0-35.0); Mean Corpuscular Hemoglobin 22.1 pg (27.0-33.0); Mean Corpuscular Volume 69.1 fL (80-98); Mean Platelet Volume 10.6 fL (9.4-12.3); Platelet Count 460 X10*3/uL (160-400); Red Blood Count 4.17 X10*6/uL (4.20-5.50); Red Cell Distribution Width 15.7 % (11.0-16.0); White Blood Count 13.8 X10*3/uL (4.8-10.8)
[2021-06-02 07:37] LABS: Anion Gap 13 (12-20); Blood Urea Nitrogen 4 mg/dL (9-16); Calcium 8.2 mg/dL (8.4-10.2); Carbon Dioxide 24 mmol/L (22-29); Chloride 105 mmol/L (96-108); Creatinine Clr Calc Pharmacy 126.9; Estimated Glomerular Filt Rate > 60; Glucose Random 86 mg/dL (60-115); Potassium 3.4 mmol/L (3.3-5.1); Sodium 139 mmol/L (135-145)
[2021-06-02 07:54] LABS: Estimated Average Glucose 117 mg/dL; Hemoglobin A1c % 5.7 %
[2021-06-02] MEDS: 0.9 % Sodium Chloride Flush 3 ML SYRINGE IVFLUSH ×3 (08:26→22:44)
[2021-06-02] MEDS: Heparin Sodium,Porcine 5,000 UNIT/ML VIAL 5000 UNIT SUBCUT ×2 (08:26→21:05)
[2021-06-02] MEDS: LORazepam 0.5 MG TABLET 0.25 MG PO ×3 (08:44→21:18)
--- NOTE | 2021-06-02 09:47 | HO.POSTANES ---
Post Anesthesia Evaluation Post Anesthesia Evaluation Vital Signs: Vital Signs Temp Pulse Resp BP Pulse Ox 06/02/21 08:35 93 06/02/21 07:08 98 F 110 H 18 121/72 98 06/02/21 03:39 100.1 F 115 H 18 126/79 98 06/01/21 23:26 98.5 F 95 18 135/74 99 Anesthesia: General Endotracheal-GETA Mental Status: Awake Pain Control: Satisfactory Nausea/Vomiting: None Hydration: Adequate Anesthesia-Related Issues: No Anes. Related Issues (Patient was extubated last night after going to ICU intubated. )
[2021-06-02] MEDS: vancomycin HCL 1,500 MG in 0.9 % Sodium Chloride 500 ML 333.33 MG IV ×2 (11:39→22:39)
--- NOTE | 2021-06-02 11:49 | P.PNIM_ITS ---
Progress Note: A&P (1) KENDRICK (acute kidney injury): Status: Acute (2) Sepsis: Status: Acute (3) Nephrolithiasis: Status: Acute Assessment and Plan: This is a 31 yo F with a PMH of recurrent nephrolithiasis who presents to the hospital 24 hours after leaving AMA from the ED. She now presents to the hospital with complaints of R flank pain. Her work up in the ED shows a 1.7cm stone at the R UPJ. She will be admitted with plans for operative intervention by urology. Sepsis due to obstructing stone and pyelonephritis Met sepsis criteria with Tachycardia, fever and leukocytosis s/p cystoscopy, rightretrograde, right dilatation of ureteric orifice under fluoroscopy, right ureteroscopy, laser lithotripsy, stone basketing Back to OR on 06/01/21 for same procedure d/t migrated fragments into the distal right ureter but had stent placement No further fevers today and actually pain to flank is better Blood cx gram positive cocci in clusters 2/2 staphylococci epidermidis fevers and flank pain have resolved continue Vancomycin, Zosyn secondary to to stone fragment and hydronephrosis, resolved Hypoxia. likely from asthma. Resolved Add albuterol nebs Cxr to r/o consolidation-negative KENDRICK due to obstructing stone. Trending down baseline SCr is around 0.6 Continue IVF Follow BMP DISPO Dc when medically stable Full Code DVT pptx heparin sc Attending: Dr. Dumont Subjective Subjective Date of Service: 06/02/21 Review of Systems Follow-up lithotripsy Flank pain in better, no fever Physical Exam Vital Signs: Vital Signs: Last Vital Signs Temp 96 F L 06/02/21 10:58 Pulse 108 H 06/02/21 10:58 Resp 18 06/02/21 10:58 BP 118/58 L 06/02/21 10:58 Pulse Ox 96 06/02/21 10:58 Body Mass Index 26.6 Appearing in no acute distress lung sounds are clear to auscultation heart regular rate rhythm, clear S1, S2 positive bowel sounds, abdomen is soft, nontender neuro patient is alert x3, no focal deficits Objective Data Current Medications Acetaminophen (Acetaminophen 325 Mg Tablet) 650 mg PO Q6H PRN PRN Reason: Pain, Mild (Pain Scale 1-3) Last Admin: 06/02/21 06:25 Dose: 650 mg Documented by: Albuterol Sulfate (Albuterol Sulfate (0.083%) 2.5 Mg/3 Ml Vial.Neb) 2.5 mg INHALE RQ4H WHILE AWAKE [facility] Last Admin: 06/02/21 11:07 Dose: Not Given Documented by: Benzocaine (Throat Lozenge, Medicated Lozenge) 1 lozenge MUCOUS MEM Q2H PRN PRN Reason: Sore Throat Heparin Sodium (Porcine) (Heparin Sodium,Porcine 5,000 Unit/Ml Vial) 5,000 unit SUBCUT Q12H [facility] Last Admin: 06/02/21 08:26 Dose: 5,000 unit Documented by: Piperacillin Sod/Tazobactam (Sod 3.375 gm/ Sodium Chloride) 50 mls @ 100 mls/hr IV Q6H [facility] Last Infusion: 06/02/21 07:00 Dose: Infused Documented by: Vancomycin HCl 1,500 mg/ (Sodium Chloride) 500 mls @ 333.333 mls/hr IV Q12H [facility] Last Admin: 06/02/21 11:39 Dose: 333.33 mls/hr Documented by: Lorazepam (Lorazepam 0.5 Mg Tablet) 0.25 mg PO Q6H PRN PRN Reason: anxiety Last Admin: 06/02/21 08:44 Dose: 0.25 mg Documented by: Ondansetron HCl (Ondansetron Hcl 4 Mg/2 Ml Vial) 4 mg IVPUSH Q8H PRN PRN Reason: Nausea and Vomiting Last Admin: 06/01/21 18:39 Dose: 4 mg Documented by: Oxycodone HCl (Oxycodone Hcl Immed Release 5 Mg Tablet) 5 mg PO Q6H PRN PRN Reason: Pain, Moderate (Pain Scale 4-6 Last Admin: 06/01/21 17:48 Dose: 5 mg Documented by: Pharmacy Consult (Consult Rx Vancomycin Dosing) 1 each MISCELLANE DAILY PRN PRN Reason: Consult order Sodium Chloride (0.9 % Sodium Chloride Flush 3 Ml Syringe) 3 ml IVFLUSH QSHIFT [facility] Last Admin: 06/02/21 08:26 Dose: 3 ml Documented by: Labs CBC & Chem 7: 06/02/21 06:23 06/02/21 06:23 Labs: Laboratory Results - last 24 hr 06/01/21 06/02/21 06/02/21 21:49 06:23 06:23 MCV 69.1 L MCH 22.1 L MCHC 31.9 RDW 15.7 Plt Count 460 H MPV 10.6 Absolute Nucleated RBC 0.000 Nucleated RBC % (auto) 0.0 Anion Gap 13 Estim Creat Clear Calc 126.9 Estimated GFR > 60 Random Glucose 86 Estimat Average Glucose Hemoglobin A1c % Calcium 8.2 L Vancomycin Trough 8.0 L 06/02/21 06:23 MCV MCH MCHC RDW Plt Count MPV Absolute Nucleated RBC Nucleated RBC % (auto) Anion Gap Estim Creat Clear Calc Estimated GFR Random Glucose Estimat Average Glucose 117 Hemoglobin A1c % 5.7 Calcium Vancomycin Trough Microbiology Microbiology Results: Microbiology 05/28/21 19:11 Blood - Venous Blood Culture - Final Staphylococcus epidermidis 05/28/21 19:11 Blood - Venous Blood Culture - Final Staphylococcus epidermidis 05/28/21 03:58 Blood - Venous Blood Culture - Final No growth after 5 days. 05/28/21 03:45 Blood - Venous Blood Culture - Final No growth after 5 days. 05/30/21 00:43 Blood - Venous Blood Culture - Preliminary No growth after 48 hours. 05/30/21 00:38 Blood - Venous Blood Culture - Preliminary No growth after 48 hours. 05/28/21 03:47 Urine clean catch - Urine alva top Urine Culture - Final Quality Stroke Does the patient have a stroke diagnosis?: No VTE Prior VTE?: No VTE Risk Level:: Medical - low VTE Device Contraindication: Treatment Not Indicated VTE Drug Contraindication: Treatment Not Indicated
[2021-06-02] MEDS: oxyCODONE HCl Immed Release 5 MG TABLET PO ×2 (13:29→21:19)
[2021-06-02] MEDS: Throat Lozenge, Medicated LOZENGE 1 LOZENGE MUCOUS MEM ×3 (14:23→22:41)
--- NOTE | 2021-06-02 16:38 | PM.DS ---
DS: Providers Provider Date of admission: 05/28/21 11:14 Primary care physician: Michael Denise MD Consults: 05/28/21 11:18 Consult to Urology Routine Consulting Provider: Billy Navarro Reason for consultation: Stone -- Dr. Navarro already aware of patient Has provider been notified: Yes 05/28/21 18:47 Consult to Hospitalist Stat Consulting Provider: Hospitalist Reason For Exam: Sepsis 05/31/21 11:59 Consult to Infectious Diseases Routine Consulting Provider: Mariela Valles Reason for consultation: GPC, fevers Has provider been notified: No DS: Diagnosis Discharge Diagnosis (1) KENDIRCK (acute kidney injury): Status: Acute (2) Sepsis: Status: Acute (3) Nephrolithiasis: Status: Acute DS: Summary Hospital Course Hospital Course: HP as per admitting provider This is a 31-year-old female with a past medical history of recurrent nephrolithiasis who presents to the hospital with complaints of right flank pain of sudden onset on the day prior to admission.? Patient reports that she went to bed in her normal state of health but woke up suddenly around 04:00 with severe flank plain and associated fevers and chills.? To the hospital on 05/27/2021 and was diagnosed with a 1 point 7 cm stone at the right UPJ causing moderate right hydronephrosis.? She was recommended for admission but unfortunately signed out against medical advice.? She returned back on 05/28/2021 with the same complaints. In regards to her history of kidney stones, she has undergone a left ESWL on 05/20/2021. In the emergency room, patient was given IV a analgesics and IV ceftriaxone.? She has been evaluated by Urology will be taken to the OR this afternoon for intervetion. SHe will be admitted under the hospitalist service . Sepsis due to obstructing stone and pyelonephritis. Met sepsis criteria with Tachycardia, fever and leukocytosis. S/p cystoscopy, rightretrograde, right dilatation of ureteric orifice under fluoroscopy, right ureteroscopy, laser lithotripsy, stone basketing. She was continuing to have fevers, leukocytosis, tachycardia and blood cultures GPC. Her antibiotics were elscaled to vancomycin, zosyn and fluconazole. She went back to OR on 06/01/21 for same procedure d/t migrated fragments into the distal right ureter but had stent placement. Unfortunately there was issues with her extubation and she was transferred to the ICU however was that the to within the mainstem bronchus. Once this was removed and propofol. Patient woke up and was oxygenating well she was then downgraded to IMC. Her symptoms improved significantly. +++ Blood cx gram positive cocci in clusters 2/2, staphylococci epidermidis. Initially treated with vancomycin and zosyn. As well as fluconazole for initial concern of fungal stone but that was stopped after cultures came back. +++ KENDRICK due to obstructing stone/hydronephrosis. Trended down nicely with IV fluids and stone removal. Time Spent with Patient Time attestation: Total time spent providing and/or coordinating discharge services: Physical Exam Vital Signs: Vital Signs: Last Vital Signs Temp 99.4 F 06/02/21 15:41 Pulse 110 H 06/02/21 15:41 Resp 16 06/02/21 15:41 BP 141/79 H 06/02/21 15:41 Pulse Ox 92 06/02/21 15:41 Body Mass Index 26.6 DS: Data Data Completed and Pending Completed studies during hospitalization [Text1]: Pending at discharge 05/28/21 18:28 Surgical [PTH] Routine Procedures Dilation of Right Ureter with Intraluminal Device, Via Natural or Artificial Opening Endoscopic (01/27/21) Extirpation of Matter from Right Ureter, Via Natural or Artificial Opening Endoscopic (01/27/21) Fluoroscopy of Right Kidney, Ureter and Bladder (01/27/21) Pending studies at discharge: Pending at discharge 06/01/21 16:15 Surgical [PTH] Routine Labs on day of discharge: Laboratory Results - last 24 hr 06/01/21 06/01/21 06/02/21 16:15 21:49 06:23 WBC 13.8 H RBC 4.17 L Hgb 9.2 L Hct 28.8 L MCV 69.1 L MCH 22.1 L MCHC 31.9 RDW 15.7 Plt Count 460 H MPV 10.6 Absolute Nucleated RBC 0.000 Nucleated RBC % (auto) 0.0 Sodium Potassium Chloride Carbon Dioxide Anion Gap BUN Creatinine Estim Creat Clear Calc Estimated GFR Random Glucose Estimat Average Glucose Hemoglobin A1c % Calcium Stone Source Cancelled Stone Weight Cancelled Stone Constituent 1 Cancelled Vancomycin Trough 8.0 L 06/02/21 06/02/21 06:23 06:23 WBC RBC Hgb Hct MCV MCH MCHC RDW Plt Count MPV Absolute Nucleated RBC Nucleated RBC % (auto) Sodium 139 Potassium 3.4 Chloride 105 Carbon Dioxide 24 Anion Gap 13 BUN 4 L D Creatinine 0.70 Estim Creat Clear Calc 126.9 Estimated GFR > 60 Random Glucose 86 Estimat Average Glucose 117 Hemoglobin A1c % 5.7 Calcium 8.2 L Stone Source Stone Weight Stone Constituent 1 Vancomycin Trough Preliminary micro results at discharge 05/30/21 00:43 Blood Culture - Preliminary Blood - Venous No growth after 48 hours. 05/30/21 00:38 Blood Culture - Preliminary Blood - Venous No growth after 48 hours. Discharge Plan Discharge Patient Disposition: Home, Self-Care Discharge Diagnosis: Sepsis due to obstructing stone and pyelonephritis Bacteremia due to staphylococci epidermidis KENDRICK Referrals: Michael Denise MD [Primary Care Provider] - 1 Week (Your doctor's office should call you to schedule a follow up appointment. ) Marsha Hicks FNP [Nurse Practitioner] - 06/10/21 10:30 am (You have an appointment with Marsha Hicks on Tuesday, June 10 at 10:30 am.) Discharge Medications: No Action No Known Home Meds RF: 0 Diet: advance to usual diet Activity on Discharge: As tolerated Stand Alone Forms: Patient Portal Discharge page Care Plan Goals: Complete resolution of symptoms Health Concerns: Sepsis due to obstructing stone and pyelonephritis Bacteremia due to staphylococci epidermidis KENDRICK Assessment: See discharge summary
[2021-06-02] MEDS: Albuterol Sulfate (0.083%) 2.5 MG/3 ML VIAL.NEB INHALE (18:39)
[2021-06-02] MEDS: diphenhydrAMINE HCL 25 MG TABLET PO (21:19)
[2021-06-03] VITALS (7 sets, daily range): BP systolic 125–138; BP diastolic 69–88; PULSE 115–126; RESP 18–22; TEMP 37.2–38.3; O2SAT 90–96
[2021-06-03] MEDS: Piperacillin Sodium/Tazobactam 3.375 GM in 0.9 % Sodium Chloride 50 ML IV ×2 (00:55→08:42)
[2021-06-03] MEDS: oxyCODONE HCl Immed Release 5 MG TABLET PO ×2 (04:00→10:08)
[2021-06-03] MEDS: LORazepam 0.5 MG TABLET 0.25 MG PO ×2 (04:11→10:08)
[2021-06-03 04:31] LABS: Stone Source KIDNEY
[2021-06-03 06:32] LABS: Hematocrit 27.7 % (37-47); Hemoglobin 8.9 g/dl (12.0-16.0); Mean Corpuscular HGB Conc 32.1 g/dl (31.0-35.0); Mean Corpuscular Hemoglobin 22.1 pg (27.0-33.0); Mean Corpuscular Volume 68.9 fL (80-98); Mean Platelet Volume 10.2 fL (9.4-12.3); Platelet Count 502 X10*3/uL (160-400); Red Blood Count 4.02 X10*6/uL (4.20-5.50); Red Cell Distribution Width 15.7 % (11.0-16.0); White Blood Count 14.8 X10*3/uL (4.8-10.8)
[2021-06-03 06:41] LABS: Anion Gap 14 (12-20); Blood Urea Nitrogen 4 mg/dL (9-16); Carbon Dioxide 22 mmol/L (22-29); Chloride 106 mmol/L (96-108); Creatinine Clr Calc Pharmacy 121.6; Estimated Glomerular Filt Rate > 60; Glucose Random 102 mg/dL (60-115); Potassium 3.2 mmol/L (3.3-5.1); Sodium 139 mmol/L (135-145)
[2021-06-03] MEDS: Albuterol Sulfate (0.083%) 2.5 MG/3 ML VIAL.NEB INHALE ×3 (08:04→15:12)
[2021-06-03] MEDS: Heparin Sodium,Porcine 5,000 UNIT/ML VIAL 5000 UNIT SUBCUT (08:42)
[2021-06-03] MEDS: Potassium Chloride ER 20 MEQ TAB.ER.PRT 40 MEQ PO (08:42)
[2021-06-03] MEDS: 0.9 % Sodium Chloride Flush 3 ML SYRINGE IVFLUSH (08:42)
--- NOTE | 2021-06-03 10:03 | P.PNUR_ITS ---
Subjective Subjective Date of Service: 06/03/21 Interval history: Slow improvement White count slowly improving Would switch to oral medications and ensure stability Follow-up with Urology in a week for stent removal Physical Exam Vital Signs: Vital Signs: Last Vital Signs Temp 99.3 F 06/03/21 08:00 Pulse 122 H 06/03/21 08:06 Resp 22 H 06/03/21 08:00 BP 138/88 06/03/21 08:00 Pulse Ox 96 06/03/21 08:00 Body Mass Index 26.6 Const: General: cooperative, healthy appearing, comfortable and no acute distress Orientation/consciousness: patient oriented x3 HENMT: Face and sinus: Yes normal facial exam Mouth: moist mucous membranes Neck: Neck: Yes normal visual inspection, Yes full ROM and Yes trachea midline Chest: Chest palpation & inspection: normal inspection of the chest Resp: Effort & Inspection: normal respiratory effort, able to speak in complete sentences and no respiratory distress GI: Inspection: Yes normal to inspection Back/Spine/Pelvis: Cervical Spine: normal cervical lordosis Thoracic/Lumbar Spine: thoracic and lumbar spine normal to inspection Skin: General skin exam: no rashes or lesions noted Neuro: General: patient oriented x3, gait normal, tone normal and moves all extremities Extrem: General: Yes normal to inspection and Yes capillary refill normal Urology Results Labs CBC & Chem 7: 06/03/21 05:52 06/03/21 05:52 Labs: Laboratory Results - last 24 hr 05/28/21 06/01/21 06/03/21 18:28 16:15 05:52 WBC RBC Hgb Hct MCV MCH MCHC RDW Plt Count MPV Absolute Nucleated RBC Nucleated RBC % (auto) Sodium 139 Potassium 3.2 L Chloride 106 Carbon Dioxide 22 Anion Gap 14 BUN 4 L Creatinine 0.73 Estim Creat Clear Calc 121.6 Estimated GFR > 60 Random Glucose 102 Calcium 8.0 L Stone Source KIDNEY Cancelled Stone Weight 0.127 Cancelled Stone Constituent 1 SEE NOTE Cancelled 06/03/21 05:52 WBC 14.8 H RBC 4.02 L Hgb 8.9 L Hct 27.7 L MCV 68.9 L MCH 22.1 L MCHC 32.1 RDW 15.7 Plt Count 502 H MPV 10.2 Absolute Nucleated RBC 0.000 Nucleated RBC % (auto) 0.0 Sodium Potassium Chloride Carbon Dioxide Anion Gap BUN Creatinine Estim Creat Clear Calc Estimated GFR Random Glucose Calcium Stone Source Stone Weight Stone Constituent 1 Progress Note: A&P Assessment and plan (1) Pyelonephritis: Status: Acute (2) Sepsis: Status: Acute Assessment and Plan: Follow in a week for stent removal Fall Risk Details Current Medications: Current Medications Acetaminophen (Acetaminophen 325 Mg Tablet) 650 mg PO Q6H PRN PRN Reason: Pain, Mild (Pain Scale 1-3) Last Admin: 06/02/21 17:36 Dose: 650 mg Documented by: Albuterol Sulfate (Albuterol Sulfate (0.083%) 2.5 Mg/3 Ml Vial.Neb) 2.5 mg INHALE RQ4H WHILE AWAKE [facility] Last Admin: 06/03/21 08:04 Dose: 2.5 mg Documented by: Benzocaine (Throat Lozenge, Medicated Lozenge) 1 lozenge MUCOUS MEM Q2H PRN PRN Reason: Sore Throat Last Admin: 06/02/21 22:41 Dose: 1 lozenge Documented by: Heparin Sodium (Porcine) (Heparin Sodium,Porcine 5,000 Unit/Ml Vial) 5,000 unit SUBCUT Q12H [facility] Last Admin: 06/03/21 08:42 Dose: 5,000 unit Documented by: Piperacillin Sod/Tazobactam (Sod 3.375 gm/ Sodium Chloride) 50 mls @ 100 mls/hr IV Q6H [facility] Last Infusion: 06/03/21 09:16 Dose: Infused Documented by: Vancomycin HCl 1,500 mg/ (Sodium Chloride) 500 mls @ 333.333 mls/hr IV Q12H [facility] Last Infusion: 06/03/21 00:38 Dose: Infused Documented by: Lorazepam (Lorazepam 0.5 Mg Tablet) 0.25 mg PO Q6H PRN PRN Reason: anxiety Last Admin: 06/03/21 04:11 Dose: 0.25 mg Documented by: Ondansetron HCl (Ondansetron Hcl 4 Mg/2 Ml Vial) 4 mg IVPUSH Q8H PRN PRN Reason: Nausea and Vomiting Last Admin: 06/01/21 18:39 Dose: 4 mg Documented by: Oxycodone HCl (Oxycodone Hcl Immed Release 5 Mg Tablet) 5 mg PO Q6H PRN PRN Reason: Pain, Moderate (Pain Scale 4-6 Last Admin: 06/03/21 04:00 Dose: 5 mg Documented by: Pharmacy Consult (Consult Rx Vancomycin Dosing) 1 each MISCELLANE DAILY PRN PRN Reason: Consult order Sodium Chloride (0.9 % Sodium Chloride Flush 3 Ml Syringe) 3 ml IVFLUSH QSHIFT [facility] Last Admin: 06/03/21 08:42 Dose: 3 ml Documented by: Time Spent With Patient Time: Total time spent is greater than 50% in coordination of care (as documented) at patient's floor/unit and/or counseling patient: Time with patient: less than 15 minutes Progress Note: Quality Stroke Does the patient have a stroke diagnosis?: No
[2021-06-03] MEDS: vancomycin HCL 1,500 MG in 0.9 % Sodium Chloride 500 ML 333.33 MG IV (10:08)
[2021-06-03] MEDS: Throat Lozenge, Medicated LOZENGE 1 LOZENGE MUCOUS MEM (10:12)
[2021-06-03 10:47] LABS: Vancomycin Trough 11.1 mcg/mL (10.0-20.0)
--- NOTE | 2021-06-03 12:58 | P.PNIM_ITS ---
Subjective Subjective Date of Service: 06/03/21 Interval History: seen and examined feels good has some flank soreness but otherwise okay no fevers or chills Review of Systems General - no fevers or chills Cardiovascular - no chest pain Respiratory - no shortness of breath or cough Abdominal- no abdominal pain, nausea, vomiting, diarrhea Physical Exam Vital Signs: Vital Signs: Last Vital Signs Temp 98.9 F 06/03/21 12:00 Pulse 123 H 06/03/21 12:00 Resp 20 06/03/21 12:00 BP 125/69 06/03/21 12:00 Pulse Ox 92 06/03/21 12:00 Body Mass Index 26.6 Const: Other: General - no acute distress, appears comfortable Cardiovascular - regular rate and rhythm, S1-S2 Lungs - normal respiratory effort, clear to auscultation bilaterally, no wheezing Abdomen - soft, nontender, no rebound or guarding Extremities - no edema bilaterally Neuro - awake and alert, no focal deficits Objective Data Active Medications Acetaminophen (Acetaminophen 325 Mg Tablet) 650 mg PO Q6H PRN PRN Reason: Pain, Mild (Pain Scale 1-3) Last Admin: 06/02/21 17:36 Dose: 650 mg Documented by: JANIE Albuterol Sulfate (Albuterol Sulfate (0.083%) 2.5 Mg/3 Ml Vial.Neb) 2.5 mg INHALE RQ4H WHILE AWAKE [facility] Last Admin: 06/03/21 11:06 Dose: 2.5 mg Documented by: MIKE Benzocaine (Throat Lozenge, Medicated Lozenge) 1 lozenge MUCOUS MEM Q2H PRN PRN Reason: Sore Throat Last Admin: 06/03/21 10:12 Dose: 1 lozenge Documented by: KALPESH Doxycycline Hyclate (Doxycycline Hyclate 100 Mg Tablet) 100 mg PO Q12H [facility] Last Admin: 06/03/21 12:30 Dose: 100 mg Documented by: KALPESH Ferrous Sulfate (Ferrous Sulfate 300 Mg/5 Ml Liquid) 300 mg PO BIDWM [facility] Heparin Sodium (Porcine) (Heparin Sodium,Porcine 5,000 Unit/Ml Vial) 5,000 unit SUBCUT Q12H [facility] Last Admin: 06/03/21 08:42 Dose: 5,000 unit Documented by: KALPESH Lorazepam (Lorazepam 0.5 Mg Tablet) 0.25 mg PO Q6H PRN PRN Reason: anxiety Last Admin: 06/03/21 10:08 Dose: 0.25 mg Documented by: KALPESH Ondansetron HCl (Ondansetron Hcl 4 Mg/2 Ml Vial) 4 mg IVPUSH Q8H PRN PRN Reason: Nausea and Vomiting Last Admin: 06/01/21 18:39 Dose: 4 mg Documented by: PAWAN Oxycodone HCl (Oxycodone Hcl Immed Release 5 Mg Tablet) 5 mg PO Q6H PRN PRN Reason: Pain, Moderate (Pain Scale 4-6 Last Admin: 06/03/21 10:08 Dose: 5 mg Documented by: KALPESH Pharmacy Consult (Consult Rx Vancomycin Dosing) 1 each MISCELLANE DAILY PRN PRN Reason: Consult order Sodium Chloride (0.9 % Sodium Chloride Flush 3 Ml Syringe) 3 ml IVFLUSH QSHIFT YUE Last Admin: 06/03/21 08:42 Dose: 3 ml Documented by: KALPESH Labs CBC & Chem 7: 06/03/21 05:52 06/03/21 05:52 Labs: Laboratory Results - last 24 hr 05/28/21 06/03/21 06/03/21 18:28 05:52 05:52 MCV 68.9 L MCH 22.1 L MCHC 32.1 RDW 15.7 Plt Count 502 H MPV 10.2 Absolute Nucleated RBC 0.000 Nucleated RBC % (auto) 0.0 Anion Gap 14 Estim Creat Clear Calc 121.6 Estimated GFR > 60 Random Glucose 102 Calcium 8.0 L Stone Source KIDNEY Stone Weight 0.127 Stone Constituent 1 SEE NOTE Vancomycin Trough 06/03/21 10:07 MCV MCH MCHC RDW Plt Count MPV Absolute Nucleated RBC Nucleated RBC % (auto) Anion Gap Estim Creat Clear Calc Estimated GFR Random Glucose Calcium Stone Source Stone Weight Stone Constituent 1 Vancomycin Trough 11.1 Assessment and Plan (1) Sepsis: Status: Acute Assessment and Plan: This is a 31 yo F with a PMH of recurrent nephrolithiasis who presents to the hospital 24 hours after leaving AMA from the ED. She now presents to the hospital with complaints of R flank pain. Her work up in the ED shows a 1.7cm stone at the R UPJ. She will be admitted with plans for operative intervention by urology. Sepsis due to obstructing stone and pyelonephritis Met sepsis criteria with Tachycardia, fever and leukocytosis s/p cystoscopy, rightretrograde, right dilatation of ureteric orifice under fluoroscopy, right ureteroscopy, laser lithotripsy, stone basketing Back to OR on 06/01/21 for same procedure d/t migrated fragments into the distal right ureter but had stent placement low grade temp this AM -- 100.8/100.9 but clinically remains stable. However, given her bacteremia / pyelo, will watch until tomorrow and d/c d/w ID -- Doxy + Levaquin for 14d upon d/c Blood cx gram positive cocci in clusters 2/2? staphylococci epidermidis doxy+levaquin as above KENDRICK due to obstructing stone resolved Dispo: home likely tomorrow Quality Stroke Does the patient have a stroke diagnosis?: No VTE Prior VTE?: No VTE Risk Level:: Medical - low VTE Device Contraindication: Treatment Not Indicated VTE Drug Contraindication: Treatment Not Indicated
[2021-06-03] MEDS: levoFLOXacin 500 MG TABLET PO (13:35)
--- NOTE | 2021-06-03 14:26 | MHC.CM.NN ---
per rounds pt has a low grade temp ..id will see pt ? iv antibiotics
--- NOTE | 2021-06-03 15:29 | PM.DS ---
DS: Providers Provider Date of Service: 06/03/21 Date of admission: 05/28/21 11:14 Primary care physician: Michael Denise MD Consults: 05/28/21 11:18 Consult to Urology Routine Consulting Provider: Billy Navarro Reason for consultation: Stone -- Dr. Navarro already aware of patient Has provider been notified: Yes 05/28/21 18:47 Consult to Hospitalist Stat Consulting Provider: Hospitalist Reason For Exam: Sepsis 05/31/21 11:59 Consult to Infectious Diseases Routine Consulting Provider: Mariela Valles Reason for consultation: GPC, fevers Has provider been notified: No DS: Diagnosis Discharge Diagnosis (1) Sepsis: Status: Acute (2) Pyelonephritis: Status: Acute (3) Nephrolithiasis: Status: Acute (4) KENDRICK (acute kidney injury): Status: Acute DS: Summary Hospital Course Hospital Course: HPI from H&P: This is a 31-year-old female with a past medical history of recurrent nephrolithiasis who presents to the hospital with complaints of right flank pain of sudden onset on the day prior to admission.? Patient reports that she went to bed in her normal state of health but woke up suddenly around 04:00 with severe flank plain and associated fevers and chills.? To the hospital on 05/27/2021 and was diagnosed with a 1 point 7 cm stone at the right UPJ causing moderate right hydronephrosis.? She was recommended for admission but unfortunately signed out against medical advice.? She returned back on 05/28/2021 with the same complaints. In regards to her history of kidney stones, she has undergone a left ESWL on 05/20/2021. In the emergency room, patient was given IV a analgesics and IV ceftriaxone.? She has been evaluated by Urology will be taken to the OR this afternoon for intervetion. SHe will be admitted under the hospitalist service. Hospital Course: Patient was started on IVF and IV ceftriaxone for her sepsis / pyelo / KENDRICK. She was evaluated by urology and underwent stone removal procedure. She continued to have spike fevers post procedure and so blood cultures were sent off. These returned positive for GPC (eventually came back positive for Staph Epi). Her antibiotics were escalated to IV vancomcyin and zosyn. She continued to remain symptomatic with flank pain and fevers despite several days of broadened IV antibiotics. A repeat CT scan was completed which showed resolution of her initial stone, but new stones were seen. She was again taken to the OR and this time a stent was placed. Post-op from the second OR trip, she had a short ICU (several hours) stay due to difficult with extubation. However, she was successfully extubated and was transferred out on RA. Overall, she was making progress and the plan was to monitor her for 24-48 hours without fevers. In regards to the Staph Epi bactermia / pyelonephritis -- discussion was held with ID with plans to d/c her on oral doxycycline and levaquin for 14 total days. However, the patient on 06/03/21 afternoon decided that she no longer wanted to stay in the hospital for treatment and decided to sign out against medical advice. She was explained the risks (see separate AMA note) of dong so. In order to minimize harm -- the previously mentioned 14 day course of doxy/levaquin has been sent to her pharmacy. She has been informed to follow up with urology in 1 week for stent removal. She has also been encouraged to return to the ED should she change her AMA decision. Time Spent with Patient Time attestation: Total time spent providing and/or coordinating discharge services: Discharge coordination time: Greater than 30 minutes Quality: Stroke Does the patient have a stroke diagnosis?: No Physical Exam Vital Signs: Vital Signs: Last Vital Signs Temp 98.9 F 06/03/21 12:00 Pulse 123 H 06/03/21 15:16 Resp 20 06/03/21 12:00 BP 125/69 06/03/21 12:00 Pulse Ox 92 06/03/21 12:00 Body Mass Index 26.6 Const: Other: awake and alert; oriented x 3 appropriate insight and able to understand the risks of leaving AMA DS: Data Data Completed and Pending Completed studies during hospitalization [Text1]: Pending at discharge 05/28/21 18:28 Surgical [PTH] Routine 06/01/21 16:15 Surgical [PTH] Routine Procedures Dilation of Right Ureter with Intraluminal Device, Via Natural or Artificial Opening Endoscopic (01/27/21) Extirpation of Matter from Right Ureter, Via Natural or Artificial Opening Endoscopic (01/27/21) Fluoroscopy of Right Kidney, Ureter and Bladder (01/27/21) Labs on day of discharge: Laboratory Results - last 24 hr 05/28/21 06/03/21 06/03/21 18:28 05:52 05:52 WBC 14.8 H RBC 4.02 L Hgb 8.9 L Hct 27.7 L MCV 68.9 L MCH 22.1 L MCHC 32.1 RDW 15.7 Plt Count 502 H MPV 10.2 Absolute Nucleated RBC 0.000 Nucleated RBC % (auto) 0.0 Sodium 139 Potassium 3.2 L Chloride 106 Carbon Dioxide 22 Anion Gap 14 BUN 4 L Creatinine 0.73 Estim Creat Clear Calc 121.6 Estimated GFR > 60 Random Glucose 102 Calcium 8.0 L Stone Source KIDNEY Stone Weight 0.127 Stone Constituent 1 SEE NOTE Vancomycin Trough 06/03/21 10:07 WBC RBC Hgb Hct MCV MCH MCHC RDW Plt Count MPV Absolute Nucleated RBC Nucleated RBC % (auto) Sodium Potassium Chloride Carbon Dioxide Anion Gap BUN Creatinine Estim Creat Clear Calc Estimated GFR Random Glucose Calcium Stone Source Stone Weight Stone Constituent 1 Vancomycin Trough 11.1 Preliminary micro results at discharge 05/30/21 00:43 Blood Culture - Preliminary Blood - Venous No growth after 48 hours. 05/30/21 00:38 Blood Culture - Preliminary Blood - Venous No growth after 48 hours. Discharge Plan Discharge Patient Disposition: Left Against Medical Advice Discharge Diagnosis: Sepsis due to obstructing stone and pyelonephritis Bacteremia due to staphylococci epidermidis KENDRICK Referrals: Michael Denise MD [Primary Care Provider] - 1 Week (Your doctor's office should call you to schedule a follow up appointment. ) Marsha Hicks FNP [Nurse Practitioner] - 06/10/21 10:30 am (You have an appointment with Marsha Hicks on Tuesday, June 10 at 10:30 am.) Discharge Medications: New doxycycline hyclate 100 mg tablet 100 mg PO BID Qty: 28 RF: 0 levofloxacin 750 mg tablet 750 mg PO Q24H Qty: 14 RF: 0 oxycodone 5 mg capsule 5 mg PO Q6H PRN (Reason: pain) Qty: 10 RF: 0 Discharge Orders: Discharge Order (Routine); Ordered 06/03/21 Ordered By: Cristobal Dumont Stand Alone Forms: Patient Portal Discharge page Care Plan Goals: You are leaving against medical advice. By doing you risk your health. Your infection could worsen and spread to other parts of the body. It could even lead to . If you change your mind, please return to the hospital. I have send 2 weeks of antibiotics by mouth. This is not the ideal treatement for your type of infection, but it has been done so to minimize harm. Again, if you change your mind, please return to the hospital. You need to follow up with Dr. Navarro in 1 week for stent removal. Health Concerns: You are leaving against medical advice. By doing you risk your health. Your infection could worsen and spread to other parts of the body. It could even lead to . If you change your mind, please return to the hospital. I have send 2 weeks of antibiotics by mouth. This is not the ideal treatement for your type of infection, but it has been done so to minimize harm. Again, if you change your mind, please return to the hospital. You need to follow up with Dr. Navarro in 1 week for stent removal. Plan of Treatment: You are leaving against medical advice. By doing you risk your health. Your infection could worsen and spread to other parts of the body. It could even lead to . If you change your mind, please return to the hospital. I have send 2 weeks of antibiotics by mouth. This is not the ideal treatement for your type of infection, but it has been done so to minimize harm. Again, if you change your mind, please return to the hospital. You need to follow up with Dr. Navarro in 1 week for stent removal. Assessment: You are leaving against medical advice. By doing you risk your health. Your infection could worsen and spread to other parts of the body. It could even lead to . If you change your mind, please return to the hospital. I have send 2 weeks of antibiotics by mouth. This is not the ideal treatement for your type of infection, but it has been done so to minimize harm. Again, if you change your mind, please return to the hospital. You need to follow up with Dr. Navarro in 1 week for stent removal. You were in the hospital from 05/28 to 06/03.
--- NOTE | 2021-06-03 15:46 | MHC.CM.PN ---
pt left ama
--- NOTE | 2021-06-03 15:53 | PM.EVENT ---
Event Note Date of Service: 06/03/21 Event Note: JOSEE Note Called by RN to report that the patient wanted to leave against medical advice. I had spoken with the patient about why she needed to stay in the hospital during morning rounds. I saw her again this afternoon to explain to her the risks of leaving. I explained to her that we were treating her for a kidney/blood stream infection and that she would need to be afebrile for at least 24 hours before she could be safely discharge. I explained to her that by leaving prior to being medically cleared, she would risk spreading of this infection to other parts of her body and potentially even . She expressed understanding of this and was able explain back to me in her own words the risks of doing so. Nonetheless, she still decided to sign out against medical advice. To minimize harm, I have sent in a prescription for oral doxycycline and levaquin for 14 days. I have explained to her that this is not the standard of treatment for her infection. I have encouraged her to return to the ED should she change her mind. I have told her that she needs to follow up with Urology in 1 week for stent removal.
[2021-06-04 03:02] LABS: Stone Source URINE
[2021-06-05 00:32] LABS: Stone Source RT URETER
== END 2021-06-03 16:24 | disposition left against medical advice (07) | DRG 710 ==
LOC: HO.ED 08:52 → HO.EDOVER 11:22 → HO.IMC 19:08 → HO.S3 05-31 17:09 → HO.IMC 05-31 18:39 → HO.ICU 06-01 16:51 → HO.IMC 06-01 19:33
PROVIDERS: Hospitalist; Nurse Practitioner Acute Care; Physician Assistant Medical; Urology; Admitting Provider Family Medicine; Emergency Provider Student in an Organized Health Care Education/Training Program; PCP Family Medicine; Visit Provider Family Medicine
PROC: 0TC68ZZ Extirpation of Matter from Right Ureter, Via Natural or Artificial Opening Endoscopic (ICD-10-PCS; principal; 2021-05-28 16:30)
PROC: BT1DZZZ Fluoroscopy of Right Kidney, Ureter and Bladder (ICD-10-PCS; principal; 2021-06-01 14:50)
DX: A41.1 Sepsis due to other specified staphylococcus (principal); N17.9 Acute kidney failure, unspecified; J45.909 Unspecified asthma, uncomplicated; E66.8 Other obesity; Z68.26 Body mass index [BMI] 26.0-26.9, adult; R09.02 Hypoxemia; N13.6 Pyonephrosis; Z20.822 Contact with and (suspected) exposure to COVID-19; Z23 Encounter for immunization; Z86.16 Personal history of COVID-19; Z79.899 Other long term (current) drug therapy
CPT/HCPCS: 36415; 71045; 74176; 80048; 80076; 80202; 81001; 81025; 82365; 82565; 83036; 83605; 83615; 83690; 85007; 85025; 85027; 87040; 87077; 87086; 87186; 87205; 87635; 88300; 90686; 96361; 96374; 96375; 96376; 99285; C1769; C2617; J0131; J0330; J0696; J1100; J1450; J1885; J1956; J2250; J2270; J2405; J2543; J3010; J3370; Q0163; Q9967

== ENCOUNTER 2021-06-11 18:24 | Emergency (ER) | payer OTHER, SELFPAY ==
--- NOTE | ~2021-06-11 | XR_ITS ---
EXAMINATION: XR ABDOMEN KUB CLINICAL INDICATION: Right ureteral stent COMPARISON: CT abdomen pelvis 05/31/2021 and fluoroscopic guidance 06/01/2021 TECHNIQUE: AP view of the abdomen. FINDINGS: A right-sided double-J stent is present. The distal end is probably immediately behind the ureterovesical junction. The proximal end has its tip coiled in the right renal pelvis. No stones are seen overlying the course of the ureter or stent. The stones seen on the CT scan in the right kidney and right ureter are not visualized on the current exam. Tiny punctate left calculi seen on the CAT scan cannot be appreciated on the plain film. XR/XR KUB IMPRESSION: Right ureteral stent is in place. Calculi are not identified with certainty.
[2021-06-11 18:35] VITALS: BP 120/88; PULSE 114; RESP 18; TEMP 36.9; O2SAT 98; BMI 30.9
[2021-06-11 18:54] LABS: Appearance Urine CLEAR; Color Urine YELLOW; Glucose Urine UA NEG (NEG); Leukocyte Esterase Urine NEG (NEG); Nitrite Urine NEG (NEG); Specific Gravity - Urine >= 1.030 (1.005-1.025); UACC Culture Trigger NO; UPreg QC Valid YES; Urine Blood 3+ (NEG); Urine Ketones NEG (NEG); Urine Pregnancy NEGATIVE (NEGATIVE); Urine Protein 2+ MG/DL (NEG-TRACE)
[2021-06-11 19:01] LABS: Bacteria Urine 1+ /LPF; Squamous Epithelial Cell Urine 2+ /LPF
[2021-06-11 19:02] LABS: WBC Urine 0-2 /HPF (0-4)
--- NOTE | 2021-06-11 19:14 | ED.ABDPAIN ---
HPI - Abdominal Pain General Chief Complaint: Abdominal Pain Stated Complaint: abd pain, vomiting Time Seen by Provider: 06/11/21 19:14 Source: patient Mode of arrival: ambulatory Limitations: no limitations History of Present Illness HPI narrative: Patient is status post right ureteric stent placement on 06/01 had a Staph epidermidis bacteremia on 05/28 with negative blood cultures on 05/30 on Levaquin and doxycycline comes here for nausea vomiting all day today with upper abdominal pain no flank pain no urinary symptoms no fever no chills no diarrhea Related Data Previous Rx's Medication Instructions Recorded doxycycline hyclate 100 mg tablet 100 mg PO BID #28 tab 06/03/21 levofloxacin 750 mg tablet 750 mg PO Q24H #14 tab 06/03/21 oxycodone 5 mg capsule 5 mg PO Q6H PRN #10 cap 06/03/21 ondansetron 4 mg disintegrating 4 mg PO Q6-8H PRN #7 tab 06/11/21 tablet Allergies Allergy/AdvReac Type Severity Reaction Status Date / Time No Known Allergies Allergy Verified 06/11/21 18:35 Review of Systems Review of Systems Yes all other systems are reviewed and are negative Physical Exam Vital Signs: Vital Signs: Last Vital Signs Temp 98.5 F 06/11/21 18:35 Pulse 89 06/11/21 21:35 Resp 16 06/11/21 21:35 BP 123/77 06/11/21 21:35 Pulse Ox 100 06/11/21 21:35 Body Mass Index 30.9 Appearance: Alert. Oriented X3. No acute distress. Eyes: No pallor/ icterus ENT: Pharynx normal. Oral Mucosa moist Neck: Normal inspection. Neck supple. CVS: Normal heart rate and rhythm. Pulses normal. Respiratory: No respiratory distress. Equal air entry bilateral, no wheezing/rales/rhonchi Abdomen: Soft and mild epigastric tenderness, Bowel sounds are present, no mass palpable, no CVA tenderness Skin: Skin warm and dry. Normal skin color. Normal skin turgor. Extremities: No lower extremity edema. No calf tenderness Neuro: Oriented X 3. MDM - Abdominal Pain MDM Narrative Medical decision making narrative: Patient has stable labs with thrombocytosis likely acute inflammatory response responded to IV fluids KUB x-ray showed right great extent in normal location taking p.o. fluids will discharge patient home Medical Records Attestation: I reviewed the patient's medical records. Lab Data Attestation: I reviewed the patient's lab results. Result diagrams: 06/11/21 19:29 06/11/21 19:29 Labs: Lab Results 06/11/21 06/11/21 06/11/21 Range/Units 18:47 18:47 19:29 WBC 10.5 (4.8-10.8) X10*3/uL RBC 4.85 D (4.20-5.50) X10*6/uL Hgb 10.9 L D (12.0-16.0) g/dl Hct 34.3 L D (37-47) % MCV 70.7 L (80-98) fL MCH 22.5 L (27.0-33.0) pg MCHC 31.8 (31.0-35.0) g/dl RDW 15.5 (11.0-16.0) % Plt Count 878 H D (160-400) X10*3/uL MPV 9.6 (9.4-12.3) fL Immature Gran % (Auto) 1.1 H (0.0-0.4) % Neut % (Auto) 75.1 H (45-73) % Lymph % (Auto) 17.8 L (20-40) % [place] % (Auto) 5.3 (2-11) % Eos % (Auto) 0.2 (0-4) % Baso % (Auto) 0.5 (0-2) % Lymph # (Auto) 1.9 (1.2-4.9) X10*3/uL [place] # (Auto) 0.6 (0.1-1.2) X10*3/uL Eos # (Auto) 0.0 (0.0-0.4) X10*3/uL Baso # (Auto) 0.1 (0.0-0.2) X10*3/uL Abs Immat Gran (auto) 0.11 H (0.00-0.03) X10*3/uL Absolute Neuts (auto) 7.9 (2.0-8.3) X10*3/uL Absolute Nucleated RBC 0.000 (0.0-0.012) X10*3/uL Nucleated RBC % (auto) 0.0 (0.0-0.2) /100WBC Sodium (135-145) mmol/L Potassium (3.3-5.1) mmol/L Chloride (96-108) mmol/L Carbon Dioxide (22-29) mmol/L Anion Gap (12-20) BUN (9-16) mg/dL Creatinine (0.5-1.4) mg/dL Estim Creat Clear Calc Estimated GFR Random Glucose (60-115) mg/dL Calcium (8.4-10.2) mg/dL Total Bilirubin (0.0-1.0) mg/dL AST (5-31) U/L ALT (0-31) U/L Alkaline Phosphatase (39-117) U/L Total Protein (6.5-8.0) g/dL Albumin (3.5-5.0) g/dL Urine Color YELLOW Urine Appearance CLEAR Urine pH 6.0 (5.0-8.0) Ur Specific [place] >= 1.030 H (1.005-1.025) Urine Protein 2+ H (NEG-TRACE) MG/DL Urine Glucose (UA) NEG (NEG) MG/DL Urine Ketones NEG (NEG) MG/DL Urine Blood 3+ H (NEG) Urine Nitrite NEG (NEG) Ur Leukocyte Esterase NEG (NEG) Urine RBC 15-29 H (0) /HPF Urine WBC 0-2 (0-4) /HPF Ur Squamous Epith Cells 2+ /LPF Urine Bacteria 1+ /LPF Urine Test NEGATIVE (NEGATIVE) 06/11/21 Range/Units 19:29 WBC (4.8-10.8) X10*3/uL RBC (4.20-5.50) X10*6/uL Hgb (12.0-16.0) g/dl Hct (37-47) % MCV (80-98) fL MCH (27.0-33.0) pg MCHC (31.0-35.0) g/dl RDW (11.0-16.0) % Plt Count (160-400) X10*3/uL MPV (9.4-12.3) fL Immature Gran % (Auto) (0.0-0.4) % Neut % (Auto) (45-73) % Lymph % (Auto) (20-40) % [place] % (Auto) (2-11) % Eos % (Auto) (0-4) % Baso % (Auto) (0-2) % Lymph # (Auto) (1.2-4.9) X10*3/uL [place] # (Auto) (0.1-1.2) X10*3/uL Eos # (Auto) (0.0-0.4) X10*3/uL Baso # (Auto) (0.0-0.2) X10*3/uL Abs Immat Gran (auto) (0.00-0.03) X10*3/uL Absolute Neuts (auto) (2.0-8.3) X10*3/uL Absolute Nucleated RBC (0.0-0.012) X10*3/uL Nucleated RBC % (auto) (0.0-0.2) /100WBC Sodium 139 (135-145) mmol/L Potassium 4.4 D (3.3-5.1) mmol/L Chloride 106 (96-108) mmol/L Carbon Dioxide 22 (22-29) mmol/L Anion Gap 15 (12-20) BUN 13 D (9-16) mg/dL Creatinine 1.14 (0.5-1.4) mg/dL Estim Creat Clear Calc 67.2 Estimated GFR 56 Random Glucose 100 (60-115) mg/dL Calcium 9.8 D (8.4-10.2) mg/dL Total Bilirubin 0.3 (0.0-1.0) mg/dL AST 30 D (5-31) U/L ALT 52 H (0-31) U/L Alkaline Phosphatase 124 H (39-117) U/L Total Protein 8.8 H (6.5-8.0) g/dL Albumin 4.0 (3.5-5.0) g/dL Urine Color Urine Appearance Urine pH (5.0-8.0) Ur Specific [place] (1.005-1.025) Urine Protein (NEG-TRACE) MG/DL Urine Glucose (UA) (NEG) MG/DL Urine Ketones (NEG) MG/DL Urine Blood (NEG) Urine Nitrite (NEG) Ur Leukocyte Esterase (NEG) Urine RBC (0) /HPF Urine WBC (0-4) /HPF Ur Squamous Epith Cells /LPF Urine Bacteria /LPF Urine Test (NEGATIVE) Discharge Plan Discharge Clinical Impression: Vomiting Qualifiers: Vomiting type: unspecified Vomiting Intractability: non-intractable Nausea presence: with nausea Qualified Code(s): R11.2 - Nausea with vomiting, unspecified Patient Disposition: Home, Self-Care Instructions: Acute Nausea and Vomiting (ED) Additional Instructions: Drink plenty of fluids Nausea medicine as advised Report to the ER if vomiting continues/high fever/abdominal pain Prescriptions: New ondansetron 4 mg tablet,disintegrating 4 mg PO Q6-8H PRN (Reason: nausea and vomiting) Qty: 7 RF: 0 No Action doxycycline hyclate 100 mg tablet 100 mg PO BID Qty: 28 RF: 0 levofloxacin 750 mg tablet 750 mg PO Q24H Qty: 14 RF: 0 oxycodone 5 mg capsule 5 mg PO Q6H PRN (Reason: pain) Qty: 10 RF: 0 Interventions: ED Discharge Assessment Last Done: 06/11/21 22:06 Discharge Date/Time: 06/11/21 22:07 [facility] Past Medical History Medical History History of COVID-19 Renal calculi Surgical History Hx of cystoscopy Hx of lithotripsy Social History Social History Household Members: Spouse and Children Housing: House Are you a primary medical care manager to a significant other at home: No Do you presently have visiting nurse or other home services: No Alcohol intake: never Patient Tobacco Use Status: Never used Tobacco e-Cigarette/Vaping Use: Never Used Second Hand Smoke Exposure: No Advance Directives: No Advance Directives Information Provided: Yes Patient : No service: No Current occupational status: employed
[2021-06-11 19:33] LABS: MANUAL DIFF FLAG NO
[2021-06-11 19:35] LABS: Basophils Absolute Auto 0.1 X10*3/uL (0.0-0.2); Basophils Percent Auto 0.5 % (0-2); Eosinophils Percent Auto 0.2 % (0-4); Hematocrit 34.3 % (37-47); Hemoglobin 10.9 g/dl (12.0-16.0); Imm Gran Abs Auto 0.11 X10*3/uL (0.00-0.03); Imm Gran Pct Auto 1.1 % (0.0-0.4); Lymphocytes Absolute Auto 1.9 X10*3/uL (1.2-4.9); Lymphocytes Percent Auto 17.8 % (20-40); Mean Corpuscular HGB Conc 31.8 g/dl (31.0-35.0); Mean Corpuscular Hemoglobin 22.5 pg (27.0-33.0); Mean Corpuscular Volume 70.7 fL (80-98); Mean Platelet Volume 9.6 fL (9.4-12.3); Monocytes Absolute Auto 0.6 X10*3/uL (0.1-1.2); Monocytes Percent Auto 5.3 % (2-11); Neutrophils Absolute Auto 7.9 X10*3/uL (2.0-8.3); Neutrophils Percent Auto 75.1 % (45-73); Platelet Count 878 X10*3/uL (160-400); Red Blood Count 4.85 X10*6/uL (4.20-5.50); Red Cell Distribution Width 15.5 % (11.0-16.0); White Blood Count 10.5 X10*3/uL (4.8-10.8)
[2021-06-11 19:57] LABS: Alanine Aminotransferase 52 U/L (0-31); Alkaline Phosphatase 124 U/L (39-117); Anion Gap 15 (12-20); Aspartate Amino Transferase 30 U/L (5-31); Bilirubin Total 0.3 mg/dL (0.0-1.0); Blood Urea Nitrogen 13 mg/dL (9-16); Calcium 9.8 mg/dL (8.4-10.2); Carbon Dioxide 22 mmol/L (22-29); Chloride 106 mmol/L (96-108); Creatinine Clr Calc Pharmacy 67.2; Estimated Glomerular Filt Rate 56; Glucose Random 100 mg/dL (60-115); Potassium 4.4 mmol/L (3.3-5.1); Sodium 139 mmol/L (135-145); Total Protein 8.8 g/dL (6.5-8.0)
[2021-06-11] MEDS: ondansetron HCL 4 MG/2 ML VIAL IVPUSH (20:07)
[2021-06-11] MEDS: 0.9 % Sodium Chloride 1,000 ML 999 ML IVCONT ×2 (20:09→20:10)
[2021-06-11 21:35] VITALS: BP 123/77; PULSE 89; RESP 16; O2SAT 100
== END 2021-06-11 22:07 | disposition home or self-care (01) ==
PROVIDERS: Emergency Provider Internal Medicine; PCP Family Medicine
DX: R11.2 Nausea with vomiting, unspecified (principal); R10.10 Upper abdominal pain, unspecified
CPT/HCPCS: 36415; 74018; 80053; 81001; 81025; 85025; 96361; 96374; 99284; J2405

== ENCOUNTER → 2021-06-12 10:08 | Outpatient (BNVA) | payer OTHER, SELFPAY | PROVIDERS: PCP Family Medicine; Visit Provider Urology | DX: N12 Tubulo-interstitial nephritis, not specified as acute or chronic (principal); N20.0 Calculus of kidney | CPT/HCPCS: 52310; 51710; 99212 ==

== ENCOUNTER 2021-06-22 14:10 | Outpatient (REF) | payer OTHER, SELFPAY | END 2021-06-22 14:11 | disposition home or self-care (01) | LOC: HO.LNP 14:10 | PROVIDERS: Visit Provider Hospitalist | DX: N12 Tubulo-interstitial nephritis, not specified as acute or chronic (principal); N20.0 Calculus of kidney | CPT/HCPCS: 87086 ==

== ENCOUNTER 2021-07-01 10:23 | Outpatient (REF) | payer OTHER, SELFPAY ==
--- NOTE | ~2021-07-01 | US_ITS ---
EXAMINATION: US RETROPERITONEAL LIMITED (RENAL ONLY) CLINICAL INFORMATION: Calculus of kidney. Status post lithotripsy and cystoscopy with right-sided stent. COMPARISON: X-ray abdomen KUB 06/11/2021. CT abdomen and pelvis 05/31/2021. Renal ultrasound 03/19/2021. TECHNIQUE: Real-time imaging of the kidneys. FINDINGS: RIGHT KIDNEY: 10.2 x 5.2 x 6.3 cm (SAG x AP x TRV). The kidney is normal in size, contour, and echogenicity. Renal cortical thickness is normal. No focal parenchymal lesions or hydronephrosis. There are multiple echogenic punctate calculi. Upper pole calculus measures 0.5 x 0.4 x 0.3 cm. Midpole echogenic calculus measures 0.5 x 0.4 x 0.3 cm. There is no caliectasis. There is a subcapsular residual hematoma measuring 6.4 x 2.9 x 3.4 cm. LEFT KIDNEY: 11.0 x 5.1 x 5.1 cm (SAG x AP x TRV). The kidney is normal in size, contour, and echogenicity. Renal cortical thickness is normal. No focal parenchymal lesions or hydronephrosis. There are multiple punctate echogenic calculi. Upper pole stone measures 0.3 x 0.3 x 0.3 cm. Lower pole stone measuring 0.3 x 0.3 x 0.3 cm. No caliectasis seen. US/US renal BI IMPRESSION: Bilateral nonobstructive punctate echogenic calculi without caliectasis or hydronephrosis. There is a right perinephric subcapsular residual hematoma/seroma measuring 6.4 cm in maximum length. A small hematoma/seroma was seen on the previous CT abdomen exam 05/31/2021.
== END 2021-07-01 10:24 | disposition home or self-care (01) ==
LOC: HO.US 10:23
PROVIDERS: PCP Family Medicine; Visit Provider Urology
DX: N20.0 Calculus of kidney (principal)
CPT/HCPCS: 76775

== ENCOUNTER → 2021-07-03 09:04 | Outpatient (BNVA) | payer OTHER, SELFPAY | PROVIDERS: PCP Family Medicine; Visit Provider Urology ==

== ENCOUNTER 2021-08-12 12:10 | Outpatient (REF) | payer OTHER, SELFPAY ==
--- NOTE | ~2021-08-12 | XR_ITS ---
EXAMINATION: XR KUB CLINICAL INDICATION: Reason for Exam R10.9 - Unspecified abdominal pain COMPARISON: KUB 06/03/2021 TECHNIQUE: AP view of the abdomen. XR/XR KUB FINDINGS/IMPRESSION: Nonobstructive bowel gas pattern. Mild colonic stool burden. Calcified phleboliths in the pelvis similar to prior. No definite renal or ureteral calculi. Interval removal of the right ureteral stent.
== END 2021-08-12 12:11 | disposition home or self-care (01) ==
LOC: HO.XRAY 12:10
PROVIDERS: PCP Family Medicine; Visit Provider Family Medicine
DX: N20.0 Calculus of kidney (principal); N39.0 Urinary tract infection, site not specified; R10.9 Unspecified abdominal pain; K59.00 Constipation, unspecified
CPT/HCPCS: 74018

== ENCOUNTER 2021-08-13 12:43 | Outpatient (REF) | payer OTHER, SELFPAY ==
[2021-08-13 13:49] LABS: Leukocytes Stool Qualitative MANY: >10/OIF (NEGATIVE)
== END 2021-08-13 12:44 | disposition home or self-care (01) ==
LOC: HO.LNP 12:43
PROVIDERS: Visit Provider Family Medicine
DX: R19.7 Diarrhea, unspecified (principal); K92.1 Melena; R10.9 Unspecified abdominal pain
CPT/HCPCS: 87045; 87046; 87177; 87209; 89055

== ENCOUNTER 2021-08-17 14:03 | Emergency (ER) | payer OTHER, SELFPAY ==
--- NOTE | ~2021-08-17 | CT_ITS ---
EXAMINATION: CT ABDOMEN AND PELVIS WITH CONTRAST CLINICAL INFORMATION: Question of appendicitis, right flank pain, fever, vomiting COMPARISON: CT abdomen pelvis 05/31/2021 TECHNIQUE: Multidetector volumetric images were obtained from the superior aspect of the liver through the pubic symphysis following administration 85 mL of Omnipaque 350 intravenous contrast. Sagittal and coronal reformatted images were obtained on the technologist's workstation. Oral contrast: No This CT examination was performed using dose optimization techniques as appropriate, variously including the following: *Automated exposure control *Adjustment of mA and/or kV according to patient size (this includes techniques or standardized protocols for targeted exams where dose is matched to indication/reason for exam; i.e. extremities or head) *Use of iterative reconstruction technique DLP: 623 mGy-cm FINDINGS: LUNG BASES: The visualized lung bases are now unremarkable. Previously present small right and trace left pleural effusions have resolved. Right lower lobe atelectasis has resolved. LIVER, GALLBLADDER, AND BILIARY TREE: The liver is normal in size, shape, and attenuation. No focal hepatic lesion or biliary ductal dilatation is present. The gallbladder is unremarkable with no evidence of radiopaque gallstones, gallbladder wall thickening, or obvious pericholecystic inflammatory changes. PANCREAS: Unremarkable. SPLEEN: Unremarkable. ADRENAL GLANDS: Unremarkable. KIDNEYS AND URETERS: The kidneys are normal in size, shape, and attenuation. A right perinephric fluid collection has markedly decreased from a prior thickness of 2.5 cm to now 0.5 cm. The remaining tiny rim of fluid demonstrates some calcifications present previously. Previously seen right intrarenal calculus and right-sided hydronephrosis has resolved. At this time there is no hydronephrosis, hydroureter, or calculi seen. BLADDER: Unremarkable. GASTROINTESTINAL TRACT: Since the prior study, there has been a marked interval change in the appearance of the left colon which demonstrates mucosal thickening and some pericolonic inflammatory change, most marked in the sigmoid. Some minimal changes may be present in the transverse colon. The small and large bowel are otherwise unremarkable. The appendix is unremarkable, filled with air. ABDOMINAL WALL: No significant hernia is appreciated. Tiny periumbilical hernia seen containing only fat. LYMPH NODES: Normal. VASCULAR: Unremarkable. PELVIC VISCERA: An anteverted uterus is present. An abnormal adnexal mass or free intraperitoneal fluid is not seen. OSSEOUS STRUCTURES: Unremarkable. CT/CT abdomen pelvis w con IMPRESSION: 1. Abnormal left colon which demonstrates mucosal edema and mild pericolonic inflammatory change consistent with colitis. 2. Near complete resolution of right perinephric collection with previously noted right-sided hydronephrosis. Previously seen calculi are also no longer present. 3. The appendix is entirely normal. Fleischner guidelines were followed.
[2021-08-17 15:18] VITALS: BP 132/78; PULSE 137; RESP 20; TEMP 36.2; O2SAT 100; BMI 30.9
--- NOTE | 2021-08-17 17:43 | ED_ITS ---
HPI - Abdominal Pain General Chief Complaint: Abdominal Pain Stated Complaint: abd pain Time Seen by Provider: 08/17/21 17:25 Source: patient Mode of arrival: ambulatory Limitations: no limitations History of Present Illness HPI narrative: 31-year-old female here with multiple complaints. Patient tells me that the last 1 month she has had intermittent abdominal cramping, constipation with blood in her stools. Patient tells me she has had primary care doctor and was referred to follow-up with a asbestos abatement worker. She tells me that she did have some outpatient labs does not know the results of these. She is waiting to be contacted by the asbestos abatement worker. She has not had a colonoscopy before. Last night she started developed right back pain which started to radiate to the abdomen with associated nausea, vomiting and fever up to 100 degrees F. she has a history of renal colic and pyelonephritis and states this feels similar. She is having some urinary frequency and dysuria but no vaginal discharge, rashes, lesions. Last menses on 1 week ago No weight loss. No family history of IBD Related Data Home Medications Medication Instructions Recorded Confirmed etonogestrel 0.12 mg-ethinyl 0 vag ring VAGINAL 07/03/21 estradiol 0.015 mg/24 hr vaginal ring tamsulosin 0.4 mg capsule 0.4 mg PO DAILY 07/03/21 Previous Rx's Medication Instructions Recorded ondansetron 4 mg disintegrating 4 mg PO Q6-8H PRN 30 Days #30 tab 06/17/21 tablet polyethylene glycol 3350 17 gram 17 g PO DAILY 7 Days #7 ea 07/24/21 oral powder packet (Miralax) dicyclomine 10 mg capsule 10 mg PO TID PRN #20 cap 08/17/21 levofloxacin 750 mg tablet 750 mg PO DAILY 7 Days #7 tab 08/17/21 metronidazole 500 mg tablet 500 mg PO BID 7 Days #14 tab 08/17/21 Allergies Allergy/AdvReac Type Severity Reaction Status Date / Time No Known Allergies Allergy Verified 08/13/21 09:42 Review of Systems Review of Systems Yes all other systems are reviewed and are negative Constitutional: Reports no additional constitutional complaints, Denies body ache(s), Denies chills, Reports fever(s), Denies headache(s) and Denies weakness Eyes: Reports no additional eye complaints and Denies change in vision Reports system reviewed and no additional complaints, except as documented, Denies dizziness, Denies headache(s), Denies nasal congestion, Denies nasal discharge and Denies neck pain Cardiovascular: Reports no additional cardiovascular complaints, Denies chest pain, Denies leg edema and Denies dyspnea Respiratory: Reports no additional respiratory complaints, Denies cough and Denies dyspnea Gastrointestinal: Reports no additional gastrointestinal complaints, Reports abdominal pain, Reports hematochezia, Denies diarrhea, Reports nausea and Reports vomiting Genitourinary: Reports no additional female genitourinary complaints, Reports flank pain, Denies urinary incontinence and Reports urinary urgency Comments: +frequency Musculoskeletal: Reports no additional musculoskeletal complaints, Reports back pain, Denies arthralgias, Denies joint swelling, Denies neck pain, Denies numbness and Denies tingling Skin/Breast: Reports system reviewed and no additional complaints, except as docu and Denies rash Reports system reviewed and no additional complaints, except as documented, Denies Abnormal speech present, Denies dizziness, Denies headache(s), Denies numbness, Denies tingling and Denies weakness Physical Exam Vital Signs: Vital Signs: Last Vital Signs Temp 98.1 F 08/17/21 19:49 Pulse 22 L 08/17/21 20:28 Resp 14 08/17/21 19:49 BP 120/71 08/17/21 19:49 Pulse Ox 99 08/17/21 19:49 BMI result Body Mass Index 30.9 Const: General: cooperative, healthy appearing, comfortable and no acute distress Orientation/consciousness: patient oriented x3 Limitations: no limitations HENMT: Head: Yes normal to inspection Ears: hearing grossly normal bilaterally General nose exam: Normal external nose present Face and sinus: Yes normal facial exam Mouth: Normal oral and palatal mucosa present Throat: Yes posterior oropharynx normal, Yes tonsils normal and Yes uvula midline Eyes: General: appearance normal, both eyes and all related structures Pupils: Equal, round and reactive pupils present Neck: Neck: Yes normal visual inspection, Yes full ROM and Yes no lymphadenopathy Chest: Chest palpation & inspection: normal inspection of the chest Resp: Effort & Inspection: normal respiratory effort Auscultation: clear to auscultation bilaterally Cardio: Rate: tachycardic (124) Rhythm: regular rhythm Peripheral pulses: Peripheral pulses 2+ throughout GI: Other: 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 (rectal exam brown stool) Inspection: Yes normal to inspection Palpation (GI): Soft to palpation and Tenderness to palpation present (GI) (mild diffuse tenderness ) Auscultation: normal bowel sounds : General: Yes CVA tenderness (mild right ) Back/Spine/Pelvis: Back: CVA tenderness (mild right ) Thoracic/Lumbar Spine: thoracic and lumbar spine normal to inspection Skin: General skin exam: no rashes or lesions noted Neuro: General: patient oriented x3, no focal motor deficits and normal sensation to monofilament Cranial nerves: Yes Equal, round and reactive pupils present Cognition (Neuro): normal cognition Speech: No Abnormal speech present Gait exam (Neuro): Normal gait present Motor exam (neuro): 5/5 motor strength present throughout Extrem: General: Yes normal to inspection Course Course Course Narrative: 31-year-old female here with reports of intermittent abdominal pain with associated constipation and rectal bleeding over the last 1 month. Pain is described as cramping and occurs with bowel movements. Patient was seen by her primary care doctor and is pending an appointment to see a asbestos abatement worker. She tells me that she is also here with complaints of right flank pain with radiation to the right side of the abdomen with urinary frequency, urinary urgency, nausea, vomiting and fever up to 100 degrees F at home since last evening. She does have a history of renal colic pyelonephritis and states this feels similar. On exam the patient has mild diffuse abdominal tenderness. No rebound or guarding. She also has some right flank pain which is mild with mild CVAT. Will check labs, UA, CT, occult stool, Analgesia/antiemetic/NSB 2000-labs show mild leukocytosis with no shift. Stable hemoglobin. Chemistries are unremarkable. UA is negative for infection. CT shows no renal colic or pyelonephritis. There is evidence of some colitis. Due to reports of low-grade fever with mild leukocytosis will treat with course of antibiotics. Consider underlying IBD and the patient will be referred to Gastroenterology outpatient. She is tolerating p.o. here. Her pain is well controlled. She has no fever here. She had some mild tachycardia which improved with gentle hydration. Reviewed worrisome signs and symptoms of when to return to the emergency department. Comfortable discharge home. MDM - Abdominal Pain MDM Narrative Medical decision making narrative: IBD, divert, renal colic/pyelo Medical Records Attestation: I reviewed the patient's medical records. Lab Data Attestation: I reviewed the patient's lab results. Result diagrams: 08/17/21 18:07 08/17/21 18:07 Labs: Lab Results 08/17/21 08/17/21 08/17/21 Range/Units 18:07 18:07 18:07 WBC 15.3 H (4.8-10.8) X10*3/uL RBC 5.41 (4.20-5.50) X10*6/uL Hgb 11.8 L (12.0-16.0) g/dl Hct 38.6 (37.0-47.0) % MCV 71.3 L (80.0-98.0) fL MCH 21.8 L (27.0-33.0) pg MCHC 30.6 L (31.0-35.0) g/dl RDW 18.7 H (11.0-16.0) % Plt Count 426 H (160-400) X10*3/uL MPV 11.1 (9.4-12.3) fL Immature Gran % (Auto) 0.3 (0.0-0.4) % Neut % (Auto) 75.3 H (45-73) % Lymph % (Auto) 15.3 L (20-40) % [place] % (Auto) 5.7 (2-11) % Eos % (Auto) 3.1 (0-4) % Baso % (Auto) 0.3 (0-2) % Lymph # (Auto) 2.4 (1.2-4.9) X10*3/uL [place] # (Auto) 0.9 (0.1-1.2) X10*3/uL Eos # (Auto) 0.5 H (0.0-0.4) X10*3/uL Baso # (Auto) 0.0 (0.0-0.2) X10*3/uL Abs Immat Gran (auto) 0.05 H (0.00-0.03) X10*3/uL Absolute Neuts (auto) 11.5 H (2.0-8.3) x10*3/uL Absolute Nucleated RBC 0.000 (0.0-0.012) X10*3/uL Nucleated RBC % (auto) 0.0 (0.0-0.2) /100WBC Smear Tech's Comments VERIFIED PT 13.3 H (9.9-13.0) SEC INR 1.2 H (0.9-1.1) Sodium 138 (135-145) mmol/L Potassium 3.7 (3.3-5.1) mmol/L Chloride 106 (96-108) mmol/L Carbon Dioxide 22 (22-29) mmol/L Anion Gap 14 (12-20) BUN 5 L (9-16) mg/dL Creatinine 0.79 (0.5-1.4) mg/dL Estim Creat Clear Calc 96.9 Estimated GFR > 60 Random Glucose 85 (60-115) mg/dL Lactic Acid (0.5-2.0) mmol/L Calcium 10.0 (8.4-10.2) mg/dL Total Bilirubin 0.4 (0.0-1.0) mg/dL Direct Bilirubin 0.2 (0.0-0.5) mg/dL AST 17 D (5-31) U/L ALT 22 (0-31) U/L Alkaline Phosphatase 108 (39-117) U/L C-Reactive Protein 9.38 H (< or = 0.50) mg/dL Total Protein 8.0 (6.5-8.0) g/dL Albumin 4.1 (3.5-5.0) g/dL Urine Color Urine Appearance Urine pH (5.0-8.0) Ur Specific [place] (1.005-1.025) Urine Protein (NEG-TRACE) MG/DL Urine Glucose (UA) (NEG) MG/DL Urine Ketones (NEG) MG/DL Urine Blood (NEG) Urine Nitrite (NEG) Ur Leukocyte Esterase (NEG) Urine Test (NEGATIVE) Stool Occult Blood (NEGATIVE) 08/17/21 08/17/21 08/17/21 Range/Units 18:07 18:07 18:07 WBC (4.8-10.8) X10*3/uL RBC (4.20-5.50) X10*6/uL Hgb (12.0-16.0) g/dl Hct (37.0-47.0) % MCV (80.0-98.0) fL MCH (27.0-33.0) pg MCHC (31.0-35.0) g/dl RDW (11.0-16.0) % Plt Count (160-400) X10*3/uL MPV (9.4-12.3) fL Immature Gran % (Auto) (0.0-0.4) % Neut % (Auto) (45-73) % Lymph % (Auto) (20-40) % [place] % (Auto) (2-11) % Eos % (Auto) (0-4) % Baso % (Auto) (0-2) % Lymph # (Auto) (1.2-4.9) X10*3/uL [place] # (Auto) (0.1-1.2) X10*3/uL Eos # (Auto) (0.0-0.4) X10*3/uL Baso # (Auto) (0.0-0.2) X10*3/uL Abs Immat Gran (auto) (0.00-0.03) X10*3/uL Absolute Neuts (auto) (2.0-8.3) x10*3/uL Absolute Nucleated RBC (0.0-0.012) X10*3/uL Nucleated RBC % (auto) (0.0-0.2) /100WBC Smear Tech's Comments PT (9.9-13.0) SEC INR (0.9-1.1) Sodium (135-145) mmol/L Potassium (3.3-5.1) mmol/L Chloride (96-108) mmol/L Carbon Dioxide (22-29) mmol/L Anion Gap (12-20) BUN (9-16) mg/dL Creatinine (0.5-1.4) mg/dL Estim Creat Clear Calc Estimated GFR Random Glucose (60-115) mg/dL Lactic Acid 1.2 (0.5-2.0) mmol/L Calcium (8.4-10.2) mg/dL Total Bilirubin (0.0-1.0) mg/dL Direct Bilirubin (0.0-0.5) mg/dL AST (5-31) U/L ALT (0-31) U/L Alkaline Phosphatase (39-117) U/L C-Reactive Protein (< or = 0.50) mg/dL Total Protein (6.5-8.0) g/dL Albumin (3.5-5.0) g/dL Urine Color YELLOW Urine Appearance CLEAR Urine pH 6.0 (5.0-8.0) Ur Specific [place] 1.025 (1.005-1.025) Urine Protein NEG (NEG-TRACE) MG/DL Urine Glucose (UA) NEG (NEG) MG/DL Urine Ketones 40 (NEG) MG/DL Urine Blood NEG (NEG) Urine Nitrite NEG (NEG) Ur Leukocyte Esterase NEG (NEG) Urine Test NEGATIVE (NEGATIVE) Stool Occult Blood (NEGATIVE) 08/17/21 Range/Units 18:07 WBC (4.8-10.8) X10*3/uL RBC (4.20-5.50) X10*6/uL Hgb (12.0-16.0) g/dl Hct (37.0-47.0) % MCV (80.0-98.0) fL MCH (27.0-33.0) pg MCHC (31.0-35.0) g/dl RDW (11.0-16.0) % Plt Count (160-400) X10*3/uL MPV (9.4-12.3) fL Immature Gran % (Auto) (0.0-0.4) % Neut % (Auto) (45-73) % Lymph % (Auto) (20-40) % [place] % (Auto) (2-11) % Eos % (Auto) (0-4) % Baso % (Auto) (0-2) % Lymph # (Auto) (1.2-4.9) X10*3/uL [place] # (Auto) (0.1-1.2) X10*3/uL Eos # (Auto) (0.0-0.4) X10*3/uL Baso # (Auto) (0.0-0.2) X10*3/uL Abs Immat Gran (auto) (0.00-0.03) X10*3/uL Absolute Neuts (auto) (2.0-8.3) x10*3/uL Absolute Nucleated RBC (0.0-0.012) X10*3/uL Nucleated RBC % (auto) (0.0-0.2) /100WBC Smear Tech's Comments PT (9.9-13.0) SEC INR (0.9-1.1) Sodium (135-145) mmol/L Potassium (3.3-5.1) mmol/L Chloride (96-108) mmol/L Carbon Dioxide (22-29) mmol/L Anion Gap (12-20) BUN (9-16) mg/dL Creatinine (0.5-1.4) mg/dL Estim Creat Clear Calc Estimated GFR Random Glucose (60-115) mg/dL Lactic Acid (0.5-2.0) mmol/L Calcium (8.4-10.2) mg/dL Total Bilirubin (0.0-1.0) mg/dL Direct Bilirubin (0.0-0.5) mg/dL AST (5-31) U/L ALT (0-31) U/L Alkaline Phosphatase (39-117) U/L C-Reactive Protein (< or = 0.50) mg/dL Total Protein (6.5-8.0) g/dL Albumin (3.5-5.0) g/dL Urine Color Urine Appearance Urine pH (5.0-8.0) Ur Specific [place] (1.005-1.025) Urine Protein (NEG-TRACE) MG/DL Urine Glucose (UA) (NEG) MG/DL Urine Ketones (NEG) MG/DL Urine Blood (NEG) Urine Nitrite (NEG) Ur Leukocyte Esterase (NEG) Urine Test (NEGATIVE) Stool Occult Blood NEGATIVE (NEGATIVE) Imaging Data CT scan - abdomen: Attestation: I personally reviewed and interpreted this imaging study as follows: Radiologist's impression: CT/CT abdomen pelvis w con IMPRESSION: 1.? Abnormal left colon which demonstrates mucosal edema and mild pericolonic inflammatory change consistent with colitis.? 2.? Near complete resolution of right perinephric collection with previously noted right-sided hydronephrosis. Previously seen calculi are also no longer present. 3.? The appendix is entirely normal. ? Fleischner guidelines were followed. Discharge Plan Discharge Clinical Impression: Colitis Patient Disposition: Home, Self-Care Instructions: Colitis (ED) Additional Instructions: Take antibiotics as prescribed and with food. Call GI to schedule outpatient appointment. As we discussed we are treating you for colitis with antibiotics. However you need to have a colonoscopy to make sure that you do not have underlying inflammatory bowel disease. Return for high fever, two or vomiting episodes, severe abdominal pain Prescriptions: New metronidazole 500 mg tablet 500 mg PO BID 7 Days Qty: 14 RF: 0 levofloxacin 750 mg tablet 750 mg PO DAILY 7 Days Qty: 7 RF: 0 dicyclomine 10 mg capsule 10 mg PO TID PRN (Reason: abdominal pain) Qty: 20 RF: 0 No Action ondansetron 4 mg tablet,disintegrating 4 mg PO Q6-8H PRN (Reason: nausea and vomiting) 30 Days Qty: 30 RF: 1 polyethylene glycol 3350 [Miralax] 17 gram powder in packet 17 g PO DAILY 7 Days Qty: 7 RF: 0 etonogestrel-ethinyl estradiol 0.12-0.015 mg/24 hr ring 0 vag ring vaginal RF: 0 tamsulosin 0.4 mg capsule 0.4 mg PO DAILY RF: 0 Referrals: Jasno Calvillo [Physician] - 2 days Interventions: ED Discharge Assessment Last Done: 08/17/21 20:26 Discharge Date/Time: 08/17/21 20:29 [facility] Past Medical History Attestation statement: The following information was validated with the patient. Source: old records reviewed and nursing notes reviewed Medical History History of COVID-19 Renal calculi Surgical History Hx of cystoscopy Hx of lithotripsy Social History Social History Household Members: Spouse and Children Housing: House Are you a primary healthcare educator to a significant other at home: No Do you presently have visiting nurse or other home services: No Alcohol intake: never Patient Tobacco Use Status: Never used Tobacco e-Cigarette/Vaping Use: Never Used Second Hand Smoke Exposure: No Use of substances other than those prescribed or required for medical reasons: No Advance Directives: No Advance Directives Information Provided: No Patient : No service: No Current occupational status: employed
[2021-08-17 17:45] VITALS: BP 126/80; PULSE 124; RESP 18; TEMP 36.9; O2SAT 99
[2021-08-17] MEDS: Ketorolac Tromethamine 30 MG/ML VIAL IVPUSH (18:24)
[2021-08-17] MEDS: ondansetron HCL 4 MG/2 ML VIAL IVPUSH (18:24)
[2021-08-17] MEDS: 0.9 % Sodium Chloride 1,000 ML 999 ML IV (18:25)
[2021-08-17 18:30] LABS: OBS1 NEGATIVE (NEGATIVE)
[2021-08-17 18:31] LABS: INTERNATIONAL NORM RATIO 1.2 (0.9-1.1); OBS Int Ctl Valid YES; Prothrombin Time 13.3 SEC (9.9-13.0)
[2021-08-17 18:32] LABS: UPreg QC Valid YES; Urine Pregnancy NEGATIVE (NEGATIVE)
[2021-08-17 18:33] LABS: Appearance Urine CLEAR; Color Urine YELLOW; Glucose Urine UA NEG (NEG); Leukocyte Esterase Urine NEG (NEG); Nitrite Urine NEG (NEG); Specific Gravity - Urine 1.025 (1.005-1.025); Urine Blood NEG (NEG); Urine Ketones 40 MG/DL (NEG); Urine Protein NEG (NEG-TRACE)
[2021-08-17 18:36] LABS: Lactic Acid 1.2 mmol/L (0.5-2.0)
[2021-08-17 18:37] LABS: Basophils Percent Auto 0.3 % (0-2); Eosinophils Absolute Auto 0.5 X10*3/uL (0.0-0.4); Hemoglobin 11.8 g/dl (12.0-16.0); Imm Gran Abs Auto 0.05 X10*3/uL (0.00-0.03); Imm Gran Pct Auto 0.3 % (0.0-0.4); MANUAL DIFF FLAG SCAN; Mean Platelet Volume 11.1 fL (9.4-12.3); SCAN SMEAR FLAG 1
[2021-08-17 18:39] LABS: Eosinophils Percent Auto 3.1 % (0-4); Hematocrit 38.6 % (37.0-47.0); Lymphocytes Absolute Auto 2.4 X10*3/uL (1.2-4.9); Lymphocytes Percent Auto 15.3 % (20-40); Mean Corpuscular HGB Conc 30.6 g/dl (31.0-35.0); Mean Corpuscular Hemoglobin 21.8 pg (27.0-33.0); Mean Corpuscular Volume 71.3 fL (80.0-98.0); Monocytes Absolute Auto 0.9 X10*3/uL (0.1-1.2); Monocytes Percent Auto 5.7 % (2-11); Neutrophils Absolute Auto 11.5 x10*3/uL (2.0-8.3); Neutrophils Percent Auto 75.3 % (45-73); Platelet Count 426 X10*3/uL (160-400); Red Blood Count 5.41 X10*6/uL (4.20-5.50); Red Cell Distribution Width 18.7 % (11.0-16.0); White Blood Count 15.3 X10*3/uL (4.8-10.8)
[2021-08-17 18:40] LABS: Alanine Aminotransferase 22 U/L (0-31); Albumin Level 4.1 g/dL (3.5-5.0); Alkaline Phosphatase 108 U/L (39-117); Anion Gap 14 (12-20); Aspartate Amino Transferase 17 U/L (5-31); Bilirubin Direct 0.2 mg/dL (0.0-0.5); Bilirubin Total 0.4 mg/dL (0.0-1.0); Blood Urea Nitrogen 5 mg/dL (9-16); C Reactive Protein 9.38 mg/dL (< or = 0.50); Carbon Dioxide 22 mmol/L (22-29); Chloride 106 mmol/L (96-108); Creatinine Clr Calc Pharmacy 96.9; Estimated Glomerular Filt Rate > 60; Glucose Random 85 mg/dL (60-115); Potassium 3.7 mmol/L (3.3-5.1); Sodium 138 mmol/L (135-145)
[2021-08-17] MEDS: iohexoL 350 MG/ML 100 ML INFUS..BTL IV (18:54)
[2021-08-17 18:57] LABS: PLT ABN DIST 1
[2021-08-17 19:22] LABS: SLIDE REVIEW VERIFIED
[2021-08-17 19:49] VITALS: BP 120/71; PULSE 102; RESP 14; TEMP 36.7; O2SAT 99
[2021-08-17] MEDS: metroNIDAZOLE 500 MG TABLET PO (20:13)
[2021-08-17] MEDS: levoFLOXacin 750 MG TABLET PO (20:13)
[2021-08-17 20:28] VITALS: PULSE 22
== END 2021-08-17 20:29 | disposition home or self-care (01) ==
PROVIDERS: Nurse Practitioner Family; Emergency Provider Emergency Medicine; PCP Family Medicine
DX: K52.9 Noninfective gastroenteritis and colitis, unspecified (principal); R10.9 Unspecified abdominal pain; R00.0 Tachycardia, unspecified
CPT/HCPCS: 36415; 74177; 80048; 80076; 81003; 81025; 82272; 83605; 85025; 85610; 86140; 87040; 96361; 96374; 96375; 99284; J1885; J2405; Q9967

== ENCOUNTER → 2021-09-10 07:19 | Outpatient (BNVA) | payer OTHER, SELFPAY | PROVIDERS: PCP Family Medicine; Referring Provider Family Medicine; Visit Provider Nurse Practitioner | DX: K92.1 Melena (principal); R19.7 Diarrhea, unspecified | CPT/HCPCS: 99202 ==

== ENCOUNTER 2021-10-18 02:33 | Emergency (ER) | payer OTHER, SELFPAY ==
--- NOTE | ~2021-10-18 | CT_ITS ---
EXAMINATION: CT ABDOMEN AND PELVIS WITHOUT CONTRAST CLINICAL INFORMATION: Right flank pain, history of renal colic COMPARISON: 08/17/2021 TECHNIQUE: Multidetector volumetric imaging was performed from the superior aspect of the liver through the pubic symphysis. Sagittal and coronal reformatted images were obtained on the technologist's workstation. This CT examination was performed using dose optimization techniques as appropriate, variously including the following: *Automated exposure control *Adjustment of mA and/or kV according to patient size (this includes techniques or standardized protocols for targeted exams where dose is matched to indication/reason for exam; i.e. extremities or head) *Use of iterative reconstruction technique DLP: 554 mGy-cm FINDINGS: LUNG BASES: The visualized lung bases are unremarkable. LIVER, GALLBLADDER, AND BILIARY TREE: The liver is normal in size, shape, and attenuation. No focal hepatic lesion or biliary ductal dilatation is present. The gallbladder is unremarkable with no evidence of radiopaque gallstones, gallbladder wall thickening, or obvious pericholecystic inflammatory changes. PANCREAS: Unremarkable. SPLEEN: Unremarkable. ADRENAL GLANDS: Unremarkable. KIDNEYS AND URETERS: Suboptimal assessment due to lack of intravenous contrast. No hydronephrosis or obstructing calculus bilaterally. There are multiple scattered tiny calculi throughout both kidneys. Trace residual right perinephric collection is suspected with some peripheral calcifications and adjacent stranding. BLADDER: Nearly empty and not well evaluated. GASTROINTESTINAL TRACT: No evidence of bowel obstruction or significant wall thickening. The appendix is unremarkable. No free fluid or free air is seen. ABDOMINAL WALL: No significant hernia is appreciated. LYMPH NODES: Normal. VASCULAR: Unremarkable. PELVIC VISCERA: Unremarkable. OSSEOUS STRUCTURES: Unremarkable. CT/CT abdomen pelvis wo con IMPRESSION: 1. No hydronephrosis or obstructing calculus. Numerous scattered punctate bilateral renal calculi. 2. Suspect trace residual right perinephric collection with mild adjacent stranding and peripheral calcifications. Fleischner guidelines were followed.
[2021-10-18 02:36] VITALS: BP 137/82; RESP 16; TEMP 36.7; O2SAT 99; BMI 30.9
--- NOTE | 2021-10-18 03:05 | ED_ITS ---
HPI - Abdominal Pain General Chief Complaint: Abdominal Pain Stated Complaint: Flank pain/Vomiting Time Seen by Provider: 10/18/21 02:47 Source: patient Mode of arrival: ambulatory History of Present Illness HPI narrative: 31-year-old female with history of renal colic presents with onset of right flank pain yesterday that she states she thought was her menstrual cramps (she removed her NuvaRing). However, patient states she then began developing nausea and vomiting and dysuria. Otherwise, she denies any fever, chills, diarrhea. Related Data Home Medications Medication Instructions Recorded Confirmed etonogestrel 0.12 mg-ethinyl 0 vag ring VAGINAL 07/03/21 estradiol 0.015 mg/24 hr vaginal ring tamsulosin 0.4 mg capsule 0.4 mg PO DAILY 07/03/21 Previous Rx's Medication Instructions Recorded ondansetron 4 mg disintegrating 4 mg PO Q6-8H PRN 30 Days #30 tab 06/17/21 tablet polyethylene glycol 3350 17 gram 17 g PO DAILY 7 Days #7 ea 07/24/21 oral powder packet (Miralax) dicyclomine 10 mg capsule 10 mg PO TID PRN #20 cap 08/17/21 levofloxacin 750 mg tablet 750 mg PO DAILY 7 Days #7 tab 08/17/21 metronidazole 500 mg tablet 500 mg PO BID 7 Days #14 tab 08/17/21 ondansetron 4 mg disintegrating 4 mg PO Q8H PRN #7 tab 10/18/21 tablet Allergies Allergy/AdvReac Type Severity Reaction Status Date / Time No Known Allergies Allergy Verified 09/10/21 07:22 Review of Systems Review of Systems Pertinent positives and negatives as stated in HPI 10 point review of systems is otherwise negative. FOR[facility]LY [facility] Past Medical History Source: nursing notes reviewed Medical History History of COVID-19 Renal calculi Surgical History Hx of cystoscopy Hx of lithotripsy Social History Social History Household Members: Spouse and Children Housing: House Are you a primary child caregiver private home to a significant other at home: No Do you presently have visiting nurse or other home services: No Alcohol intake: never Patient Tobacco Use Status: Never used Tobacco e-Cigarette/Vaping Use: Never Used Second Hand Smoke Exposure: No Advance Directives: No Patient : No service: No Current occupational status: employed Physical Exam ED Vital Signs: Vital Signs - 24 hr 10/18/21 02:36 Temperature 98.0 F Respiratory Rate 16 Blood Pressure 137/82 Pulse Oximetry 99 BMI result Body Mass Index 30.9 VITAL SIGNS: Reviewed. GENERAL: Well developed, well nourished, in no acute distress. HEAD: Normocephalic/atraumatic EYES: PERRLA, EOMI OROPHARYNX: no oral lesions noted, posterior pharynx clear LUNGS: Normal breath sounds. No adventitious sounds or accessory muscle use. SpO2<99> CARDIOVASCULAR: Regular rate and rhythm without noted murmurs ABDOMEN: Soft, non-tender, non-distended with bowel sounds, no CVA tenderness NEUROLOGIC: Alert and oriented x 4. Strength and sensation to light touch were grossly intact x 4. Course Course Course Narrative: 31-year-old female with history and clinical presentation suggestive of possible menstrual cramps, renal colic but doubt cholecystitis or appendicitis. Review of all investigations is without acute findings other trace residual right perinephric collection with mild adjacent stranding and peripheral calcifications. On review of prior CT scan reading this is similar. On re-evaluation after patient received IV fluid resuscitation as well as antiemetics, she is noted to tolerate oral intake and is discharged home in stable condition. MDM - Abdominal Pain Lab Data Result diagrams: 10/18/21 03:01 10/18/21 03:01 Labs: Lab Results 10/18/21 10/18/21 10/18/21 Range/Units 03:01 03:01 03:01 WBC 10.0 (4.8-10.8) X10*3/uL RBC 5.23 (4.20-5.50) X10*6/uL Hgb 11.4 L (12.0-16.0) g/dl Hct 37.0 (37.0-47.0) % MCV 70.7 L (80.0-98.0) fL MCH 21.8 L (27.0-33.0) pg MCHC 30.8 L (31.0-35.0) g/dl RDW 17.1 H (11.0-16.0) % Plt Count 333 (160-400) X10*3/uL MPV TNP Immature Gran % (Auto) 0.2 (0.0-0.4) % Neut % (Auto) 62.7 (45-73) % Lymph % (Auto) 28.8 (20-40) % Charles % (Auto) 7.3 (2-11) % Eos % (Auto) 0.5 (0-4) % Baso % (Auto) 0.5 (0-2) % Lymph # (Auto) 2.9 (1.2-4.9) X10*3/uL Charles # (Auto) 0.7 (0.1-1.2) X10*3/uL Eos # (Auto) 0.1 (0.0-0.4) X10*3/uL Baso # (Auto) 0.1 (0.0-0.2) X10*3/uL Abs Immat Gran (auto) 0.02 (0.00-0.03) X10*3/uL Absolute Neuts (auto) 6.3 (2.0-8.3) x10*3/uL Absolute Nucleated RBC 0.000 (0.0-0.012) X10*3/uL Nucleated RBC % (auto) 0.0 (0.0-0.2) /100WBC Sodium 138 (135-145) mmol/L Potassium 3.8 (3.3-5.1) mmol/L Chloride 108 (96-108) mmol/L Carbon Dioxide 20 L (22-29) mmol/L Anion Gap 14 (12-20) BUN 10 D (9-16) mg/dL Creatinine 0.80 (0.5-1.4) mg/dL Estim Creat Clear Calc 95.7 Estimated GFR > 60 Random Glucose 113 (60-115) mg/dL Calcium 9.7 (8.4-10.2) mg/dL Beta HCG, Quant < 2 mIU/mL Urine Color YELLOW Urine Appearance HAZY Urine pH 6.0 (5.0-8.0) Ur Specific [place] >= 1.030 H (1.005-1.025) Urine Protein TRACE (NEG-TRACE) MG/DL Urine Glucose (UA) NEG (NEG) MG/DL Urine Ketones NEG (NEG) MG/DL Urine Blood NEG (NEG) Urine Nitrite NEG (NEG) Ur Leukocyte Esterase NEG (NEG) Urine Test (NEGATIVE) Urine Opiates Screen (Not Detect) Urine Fentanyl Screen (Not Detect) Ur Barbiturates Screen (Not Detect) Ur Phencyclidine Scrn (Not Detect) Ur Amphetamines Screen (Not Detect) U Benzodiazepines Scrn (Not Detect) Urine Cocaine Screen (Not Detect) U Marijuana (THC) Screen (Not Detect) 10/18/21 10/18/21 Range/Units 03:01 03:01 WBC (4.8-10.8) X10*3/uL RBC (4.20-5.50) X10*6/uL Hgb (12.0-16.0) g/dl Hct (37.0-47.0) % MCV (80.0-98.0) fL MCH (27.0-33.0) pg MCHC (31.0-35.0) g/dl RDW (11.0-16.0) % Plt Count (160-400) X10*3/uL MPV Immature Gran % (Auto) (0.0-0.4) % Neut % (Auto) (45-73) % Lymph % (Auto) (20-40) % [place] % (Auto) (2-11) % Eos % (Auto) (0-4) % Baso % (Auto) (0-2) % Lymph # (Auto) (1.2-4.9) X10*3/uL [place] # (Auto) (0.1-1.2) X10*3/uL Eos # (Auto) (0.0-0.4) X10*3/uL Baso # (Auto) (0.0-0.2) X10*3/uL Abs Immat Gran (auto) (0.00-0.03) X10*3/uL Absolute Neuts (auto) (2.0-8.3) x10*3/uL Absolute Nucleated RBC (0.0-0.012) X10*3/uL Nucleated RBC % (auto) (0.0-0.2) /100WBC Sodium (135-145) mmol/L Potassium (3.3-5.1) mmol/L Chloride (96-108) mmol/L Carbon Dioxide (22-29) mmol/L Anion Gap (12-20) BUN (9-16) mg/dL Creatinine (0.5-1.4) mg/dL Estim Creat Clear Calc Estimated GFR Random Glucose (60-115) mg/dL Calcium (8.4-10.2) mg/dL Beta HCG, Quant mIU/mL Urine Color Urine Appearance Urine pH (5.0-8.0) Ur Specific [place] (1.005-1.025) Urine Protein (NEG-TRACE) MG/DL Urine Glucose (UA) (NEG) MG/DL Urine Ketones (NEG) MG/DL Urine Blood (NEG) Urine Nitrite (NEG) Ur Leukocyte Esterase (NEG) Urine Test NEGATIVE (NEGATIVE) Urine Opiates Screen Not Detected (Not Detect) Urine Fentanyl Screen Not Detected (Not Detect) Ur Barbiturates Screen Not Detected (Not Detect) Ur Phencyclidine Scrn Not Detected (Not Detect) Ur Amphetamines Screen Not Detected (Not Detect) U Benzodiazepines Scrn Not Detected (Not Detect) Urine Cocaine Screen Not Detected (Not Detect) U Marijuana (THC) Screen Not Detected (Not Detect) Discharge Plan Discharge Clinical Impression: Abdominal discomfort, Nausea and vomiting Patient Disposition: Home, Self-Care Instructions: Abdominal Pain (ED), Flank Pain (ED) Additional Instructions: 1. Resume all home medications as prescribed. 2. You have been given medication to control your nausea and to continue to hydrate especially with water. 3. Recommend each follow-up with your primary care provider and in the meantime utilize [id number] Tylenol/ibuprofen as well as heating pads for any menstrual symptoms. Return to the ER for worsening symptoms. Prescriptions: New ondansetron 4 mg tablet,disintegrating 4 mg PO Q8H PRN (Reason: nausea and vomiting) Qty: 7 0RF No Action ondansetron 4 mg tablet,disintegrating 4 mg PO Q6-8H PRN (Reason: nausea and vomiting) 30 Days Qty: 30 1RF metronidazole 500 mg tablet 500 mg PO BID 7 Days Qty: 14 0RF levofloxacin 750 mg tablet 750 mg PO DAILY 7 Days Qty: 7 0RF dicyclomine 10 mg capsule 10 mg PO TID PRN (Reason: abdominal pain) Qty: 20 0RF polyethylene glycol 3350 [Miralax] 17 gram powder in packet 17 g PO DAILY 7 Days Qty: 7 0RF etonogestrel-ethinyl estradiol 0.12-0.015 mg/24 hr ring 0 vag ring vaginal 0RF tamsulosin 0.4 mg capsule 0.4 mg PO DAILY 0RF Referrals: Michael Denise MD [Primary Care Provider] - 2 days
[2021-10-18 03:10] LABS: Eosinophils Absolute Auto 0.1 X10*3/uL (0.0-0.4); Eosinophils Percent Auto 0.5 % (0-4); Imm Gran Abs Auto 0.02 X10*3/uL (0.00-0.03); Imm Gran Pct Auto 0.2 % (0.0-0.4); PLT ABN DIST 1; SCAN SMEAR FLAG 1
[2021-10-18 03:12] LABS: Basophils Absolute Auto 0.1 X10*3/uL (0.0-0.2); Basophils Percent Auto 0.5 % (0-2); Hemoglobin 11.4 g/dl (12.0-16.0); Lymphocytes Absolute Auto 2.9 X10*3/uL (1.2-4.9); Lymphocytes Percent Auto 28.8 % (20-40); Mean Corpuscular HGB Conc 30.8 g/dl (31.0-35.0); Mean Corpuscular Hemoglobin 21.8 pg (27.0-33.0); Mean Corpuscular Volume 70.7 fL (80.0-98.0); Monocytes Absolute Auto 0.7 X10*3/uL (0.1-1.2); Monocytes Percent Auto 7.3 % (2-11); Neutrophils Absolute Auto 6.3 x10*3/uL (2.0-8.3); Neutrophils Percent Auto 62.7 % (45-73); Platelet Count 333 X10*3/uL (160-400); Red Blood Count 5.23 X10*6/uL (4.20-5.50); Red Cell Distribution Width 17.1 % (11.0-16.0)
[2021-10-18 03:13] LABS: MANUAL DIFF FLAG NO
[2021-10-18 03:20] LABS: Appearance Urine HAZY; Color Urine YELLOW; Glucose Urine UA NEG (NEG); Leukocyte Esterase Urine NEG (NEG); Nitrite Urine NEG (NEG); Specific Gravity - Urine >= 1.030 (1.005-1.025); Urine Blood NEG (NEG); Urine Ketones NEG (NEG); Urine Protein TRACE MG/DL (NEG-TRACE)
[2021-10-18 03:21] LABS: UPreg QC Valid YES; Urine Pregnancy NEGATIVE (NEGATIVE)
[2021-10-18] MEDS: ondansetron HCL 4 MG/2 ML VIAL IVPUSH (03:22)
[2021-10-18] MEDS: 0.9 % Sodium Chloride 1,000 ML 999 ML IV (03:22)
[2021-10-18 03:25] LABS: Anion Gap 14 (12-20); Blood Urea Nitrogen 10 mg/dL (9-16); Calcium 9.7 mg/dL (8.4-10.2); Carbon Dioxide 20 mmol/L (22-29); Chloride 108 mmol/L (96-108); Creatinine Clr Calc Pharmacy 95.7; Estimated Glomerular Filt Rate > 60; Glucose Random 113 mg/dL (60-115); Potassium 3.8 mmol/L (3.3-5.1); Sodium 138 mmol/L (135-145)
[2021-10-18 03:32] LABS: HCG Quantitative < 2 mIU/mL
[2021-10-18] MEDS: Ketorolac Tromethamine 30 MG/ML VIAL 15 MG IVPUSH (03:55)
[2021-10-18 04:58] LABS: Amphetamine Screen Urine Not Detected (Not Detect); Barbiturates, Urine Not Detected (Not Detect); Benzodiazepines Screen Urine Not Detected (Not Detect); Cannabinoid Screen Urine Not Detected (Not Detect); Cocaine Screen Urine Not Detected (Not Detect); Fentanyl, urine Not Detected (Not Detect); Opiate Screen Urine Not Detected (Not Detect); Phencyclidine Screen Urine Not Detected (Not Detect)
[2021-10-18] MEDS: Prochlorperazine Edisylate 10 MG/2 ML VIAL IVPUSH (05:09)
== END 2021-10-18 06:18 | disposition home or self-care (01) ==
PROVIDERS: Emergency Provider Student in an Organized Health Care Education/Training Program; PCP Family Medicine
DX: R10.9 Unspecified abdominal pain (principal); R11.2 Nausea with vomiting, unspecified; R30.0 Dysuria; Z79.899 Other long term (current) drug therapy
CPT/HCPCS: 36415; 74176; 80048; 80307; 81003; 81025; 84702; 85025; 96360; 96361; 99283; 99284; J1885; J2405

== ENCOUNTER → 2021-12-04 12:35 | Outpatient (BNVA) | payer OTHER, SELFPAY | PROVIDERS: PCP Family Medicine; Referring Provider Family Medicine; Visit Provider Nurse Practitioner | DX: K92.1 Melena (principal); R19.7 Diarrhea, unspecified | CPT/HCPCS: 99212 ==

== ENCOUNTER 2022-02-16 13:24 | Emergency (ER) | payer OTHER, SELFPAY ==
--- NOTE | ~2022-02-16 | CT_ITS ---
EXAMINATION: CT ABDOMEN AND PELVIS WITHOUT CONTRAST CLINICAL INFORMATION: Abdominal pain. COMPARISON: The scan of the abdomen and pelvis dated 10/18/2021. TECHNIQUE: Multidetector volumetric imaging was performed from the superior aspect of the liver through the pubic symphysis. Sagittal and coronal reformatted images were obtained on the technologist's workstation. This CT examination was performed using dose optimization techniques as appropriate, variously including the following: *Automated exposure control *Adjustment of mA and/or kV according to patient size (this includes techniques or standardized protocols for targeted exams where dose is matched to indication/reason for exam; i.e. extremities or head) *Use of iterative reconstruction technique DLP: 625.49 mGy-cm FINDINGS: LUNG BASES: The visualized lung bases are unremarkable. LIVER, GALLBLADDER, AND BILIARY TREE: The liver is normal in size, shape, and attenuation. No focal hepatic lesion on noncontrast study. No biliary ductal dilatation is present. The gallbladder is unremarkable with no evidence of radiopaque gallstones, gallbladder wall thickening, or obvious pericholecystic inflammatory changes. PANCREAS: Unremarkable. SPLEEN: Spleen normal size with small accessory splenule seen along the inferior margin.. ADRENAL GLANDS: Unremarkable. KIDNEYS AND URETERS: The kidneys are normal in size and shape. Thin capsular calcifications along the right mid kidney noted. There are a few tiny bilateral nonobstructing 2 mm calculi seen in the kidneys bilaterally, similar to the previous exam. No hydronephrosis, hydroureter, or ureteral calculi seen. No perinephric stranding. BLADDER: Unremarkable. GASTROINTESTINAL TRACT: The small and large bowel are unremarkable. The appendix is unremarkable. ABDOMINAL WALL: There is a small fat-containing umbilical hernia. LYMPH NODES: Normal. VASCULAR: Unremarkable. PELVIC VISCERA: Uterus anteverted and grossly unremarkable. Small amount of gas seen in the vagina, likely due to exogenous introduction. There is chronic mild asymmetric enlargement of the right ovary compared to the left side without suspicious ovarian mass seen. OSSEOUS STRUCTURES: Unremarkable. CT/CT abdomen pelvis wo con IMPRESSION: 1. Bilateral nephrolithiasis with no evidence of obstructive uropathy. 2. Small fat-containing umbilical hernia.
[2022-02-16 14:00] LABS: Basophils Percent Auto 0.3 % (0-2); Eosinophils Absolute Auto 0.2 X10*3/uL (0.0-0.4); Eosinophils Percent Auto 1.5 % (0-4); Hematocrit 41.9 % (37.0-47.0); Hemoglobin 12.6 g/dl (12.0-16.0); Imm Gran Abs Auto 0.03 X10*3/uL (0.00-0.03); Imm Gran Pct Auto 0.3 % (0.0-0.4); Lymphocytes Absolute Auto 1.4 X10*3/uL (1.2-4.9); Lymphocytes Percent Auto 11.8 % (20-40); Mean Corpuscular HGB Conc 30.1 g/dl (31.0-35.0); Mean Corpuscular Hemoglobin 21.9 pg (27.0-33.0); Mean Corpuscular Volume 72.9 fL (80.0-98.0); Mean Platelet Volume 11.4 fL (9.4-12.3); Monocytes Absolute Auto 0.7 X10*3/uL (0.1-1.2); Neutrophils Absolute Auto 9.2 x10*3/uL (2.0-8.3); Neutrophils Percent Auto 80.1 % (45-73); Platelet Count 443 X10*3/uL (160-400); Red Blood Count 5.75 X10*6/uL (4.20-5.50); White Blood Count 11.5 X10*3/uL (4.8-10.8)
[2022-02-16 14:01] LABS: MANUAL DIFF FLAG NO
[2022-02-16 14:23] LABS: Alanine Aminotransferase 14 U/L (0-31); Albumin Level 4.5 g/dL (3.5-5.0); Alkaline Phosphatase 140 U/L (39-117); Anion Gap 9 (12-20); Aspartate Amino Transferase 19 U/L (5-31); Bilirubin Direct 0.2 mg/dL (0.0-0.5); Bilirubin Total 0.4 mg/dL (0.0-1.0); Blood Urea Nitrogen 9 mg/dL (9-16); Calcium 9.5 mg/dL (8.4-10.2); Carbon Dioxide 26 mmol/L (22-29); Chloride 107 mmol/L (96-108); Estimated Glomerular Filt Rate > 60; Glucose Random 99 mg/dL (60-115); Lipase 10 U/L (8-78); Magnesium 1.8 mg/dL (1.6-2.6); Potassium 4.4 mmol/L (3.3-5.1); Sodium 138 mmol/L (135-145); Total Protein 8.2 g/dL (6.5-8.0)
[2022-02-16 15:07] VITALS: BP 121/71; PULSE 100; RESP 18; TEMP 36.4; O2SAT 98; BMI 31.1
[2022-02-16 15:28] LABS: Appearance Urine HAZY; Color Urine YELLOW; Glucose Urine UA NEG (NEG); Leukocyte Esterase Urine 1+ (NEG); Nitrite Urine NEG (NEG); UACC Culture Trigger YES; Urine Blood TRACE (NEG); Urine Ketones NEG (NEG); Urine Protein NEG (NEG-TRACE)
[2022-02-16 15:30] LABS: UPreg QC Valid YES; Urine Pregnancy NEGATIVE (NEGATIVE)
[2022-02-16 15:56] LABS: Mucus Urine TRACE /LPF; RBC Urine 0-2 /HPF (0); Squamous Epithelial Cell Urine 3+ /LPF
--- NOTE | 2022-02-16 20:25 | ED.NAVMDI ---
HPI - Nausea/Vomiting/Diarrhea General Chief complaint: Nausea/Vomiting/Diarrhea Stated complaint: stomach pain, vomiting Time Seen by Provider: 02/16/22 13:33 Source: patient Mode of arrival: ambulatory Limitations: no limitations History of Present Illness HPI Narrative: 31-year-old female presents with epigastric pain, nausea and vomiting that started at 09:00. States that she felt well last night, does not report eating anything abnormal or spoiled, sick contacts, fevers, and abdominal distention. MD elicited complaint: nausea, vomiting and abdominal pain Onset (ago): hour(s) (12 hours) Description of vomiting: watery Associated nausea: Yes Associated abdominal pain: Yes Location of pain: epigastric and L flank Radiation: diffuse Pain consistency: constant Severity: moderate Pain scale (0-10): 6 Quality: stabbing and aching Exacerbating factors: vomiting and movement Relieving factors: none Associated symptoms: headaches and nausea/vomiting Related Data Home Medications Medication Instructions Recorded Confirmed etonogestrel 0.12 mg-ethinyl 0 vag ring vaginal 07/03/21 estradiol 0.015 mg/24 hr vaginal ring Previous Rx's Medication Instructions Recorded polyethylene glycol 3350 17 gram 17 g PO DAILY 7 days #7 ea 07/24/21 oral powder packet (Miralax) cefuroxime axetil 500 mg tablet 500 mg PO Q12H 7 days #14 tabs 02/16/22 ondansetron 4 mg disintegrating 4 mg PO Q8H PRN nausea and 02/16/22 tablet vomiting #10 tabs tamsulosin 0.4 mg capsule (Flomax) 0.4 mg PO DAILY 14 days #14 caps 02/16/22 Allergies Allergy/AdvReac Type Severity Reaction Status Date / Time No Known Allergies Allergy Verified 12/04/21 12:58 Review of Systems Review of Systems: Constitutional: No Fever, No Chills ENT/Mouth: No Ear Pain, No Hoarseness, No sore throat Eyes: No Eye Pain, No Swelling, No Redness, No Foreign Body Cardiovascular: No Chest Pain, No SOB Respiratory: No Cough, No Dyspnea Gastrointestinal: Positive Nausea, positive Vomiting, No Diarrhea, positive abdominal Pain Genitourinary: No Dysuria, No Hematuria Musculoskeletal: No joint pain, No Myalgias, No Joint Swelling Skin: No Skin lacerations, No rash Neuro: No Weakness, No Numbness, No Paresthesias, No Loss of Consciousness, No Dizziness, No Headache Psych: No Anxiety/Panic, No Depression Heme/Lymph: no easy bruising, no Lymphadenopathy Endocrine: No Polyuria, No Polydipsia Yes all other systems are reviewed and are negative Gastrointestinal: Gastrointestinal: Denies nausea PMFSH Past Medical History Attestation statement: The following information was validated with the patient. Source: old records reviewed Medical History History of COVID-19 Renal calculi Surgical History Hx of cystoscopy Hx of lithotripsy Social History Social History Household Members: Spouse and Children Housing: House Are you a primary physician locums urgent care to a significant other at home: No Do you presently have visiting nurse or other home services: No Alcohol intake: never Patient Tobacco Use Status: Never used Tobacco e-Cigarette/Vaping Use: Never Used Second Hand Smoke Exposure: No Use of substances other than those prescribed or required for medical reasons: No Advance Directives: No Advance Directives Information Provided: No Patient : No service: No Current occupational status: employed Physical Exam Vital Signs: Vital Signs: Last Vital Signs Temp 100.7 F H 02/16/22 20:56 Pulse 102 H 02/16/22 20:56 Resp 14 02/16/22 20:56 BP 112/70 02/16/22 20:56 Pulse Ox 95 02/16/22 20:56 O2 Del Method 02/16/22 20:56 BMI result Body Mass Index 31.1 Appearance: Alert. Oriented X3. No acute distress. Eyes: Pupils equal, round and reactive to light. ENT: Pharynx normal. Neck: Normal inspection. Neck supple. CVS: Normal heart rate and rhythm. Pulses normal. Respiratory: No respiratory distress. Breath sounds normal. Abdomen: Soft and tenderness noted to epigastric. Left-sided CVA tenderness. Skin: Skin warm and dry. Normal skin color. Normal skin turgor. Extremities: No lower extremity edema. Gait well-balanced well coordinated. Neuro: No motor deficit. No sensory deficit. Cranial nerves 2-12 intact. Course Course Course Narrative: 31-year-old female presents for epigastric pain nausea and vomiting that started at 09:00. She does not report any fevers or chills, does not report any urinary symptoms. Physical exam is otherwise unremarkable with the exception of tenderness to palpation to the epigastric area and left-sided CVA tenderness. Patient is afebrile, appears nontoxic, tachycardic at 100. Will resuscitate with L of fluid. Labs drawn while patient was in the emergency department waiting room. Patient does not meet SIRS criteria. Urinalysis positive for leukocyte esterase. CT of abdomen pending. 23:15 CT indicates bilateral nephrolithiasis without obstruction, small fat containing umbilical hernia . Will treat with Flomax, have patient follow-up with primary care for umbilical hernia. Patient is requesting Zofran, will give prescription. Patient verbalized understanding of and agrees plan of care discharge home. Verbalized understanding of signs and symptoms indicating need for emergent intervention. MDM - Nausea/Vomiting/Diarrhea MDM Narrative Medical decision making narrative: Appendicitis, cholecystitis, kidney stone Differential Diagnosis Differential diagnosis: Likely gastroenteritis and dehydration Medical Records Attestation: I reviewed the patient's medical records. Lab Data Attestation: I reviewed the patient's lab results. Result diagrams: 02/16/22 13:53 02/16/22 13:53 Labs: Lab Results 02/16/22 02/16/22 02/16/22 Range/Units 13:53 13:53 15:19 WBC 11.5 H (4.8-10.8) X10*3/uL RBC 5.75 H (4.20-5.50) X10*6/uL Hgb 12.6 (12.0-16.0) g/dl Hct 41.9 (37.0-47.0) % MCV 72.9 L (80.0-98.0) fL MCH 21.9 L (27.0-33.0) pg MCHC 30.1 L (31.0-35.0) g/dl RDW 17.0 H (11.0-16.0) % Plt Count 443 H D (160-400) X10*3/uL MPV 11.4 (9.4-12.3) fL Immature Gran % (Auto) 0.3 (0.0-0.4) % Neut % (Auto) 80.1 H (45-73) % Lymph % (Auto) 11.8 L (20-40) % [place] % (Auto) 6.0 (2-11) % Eos % (Auto) 1.5 (0-4) % Baso % (Auto) 0.3 (0-2) % Lymph # (Auto) 1.4 (1.2-4.9) X10*3/uL [place] # (Auto) 0.7 (0.1-1.2) X10*3/uL Eos # (Auto) 0.2 (0.0-0.4) X10*3/uL Baso # (Auto) 0.0 (0.0-0.2) X10*3/uL Abs Immat Gran (auto) 0.03 (0.00-0.03) X10*3/uL Absolute Neuts (auto) 9.2 H (2.0-8.3) x10*3/uL Absolute Nucleated RBC 0.000 (0.0-0.012) X10*3/uL Nucleated RBC % (auto) 0.0 (0.0-0.2) /100WBC Sodium 138 (135-145) mmol/L Potassium 4.4 (3.3-5.1) mmol/L Chloride 107 (96-108) mmol/L Carbon Dioxide 26 (22-29) mmol/L Anion Gap 9 L (12-20) BUN 9 (9-16) mg/dL Creatinine 0.75 (0.5-1.4) mg/dL Estim Creat Clear Calc TNP Estimated GFR > 60 Random Glucose 99 (60-115) mg/dL Calcium 9.5 (8.4-10.2) mg/dL Magnesium 1.8 (1.6-2.6) mg/dL Total Bilirubin 0.4 (0.0-1.0) mg/dL Direct Bilirubin 0.2 (0.0-0.5) mg/dL AST 19 (5-31) U/L ALT 14 (0-31) U/L Alkaline Phosphatase 140 H D (39-117) U/L Total Protein 8.2 H (6.5-8.0) g/dL Albumin 4.5 (3.5-5.0) g/dL Lipase 10 (8-78) U/L Urine Color YELLOW Urine Appearance HAZY Urine pH 6.0 (5.0-8.0) Ur Specific [place] 1.020 (1.005-1.025) Urine Protein NEG (NEG-TRACE) MG/DL Urine Glucose (UA) NEG (NEG) MG/DL Urine Ketones NEG (NEG) MG/DL Urine Blood TRACE (NEG) Urine Nitrite NEG (NEG) Ur Leukocyte Esterase 1+ H (NEG) Urine RBC 0-2 (0) /HPF Urine WBC 1-4 (0-4) /HPF Ur Squamous Epith Cells 3+ /LPF Urine Bacteria NONE /LPF Urine Mucus TRACE /LPF Urine Test (NEGATIVE) COVID-19 (DARA) (Negative) COVID-19 Clin Com Influenza Type A (JONY) (Negative) Influenza Type B (JONY) (Negative) Influenza A & B Note 02/16/22 02/16/22 02/16/22 Range/Units 15:20 20:41 20:41 WBC (4.8-10.8) X10*3/uL RBC (4.20-5.50) X10*6/uL Hgb (12.0-16.0) g/dl Hct (37.0-47.0) % MCV (80.0-98.0) fL MCH (27.0-33.0) pg MCHC (31.0-35.0) g/dl RDW (11.0-16.0) % Plt Count (160-400) X10*3/uL MPV (9.4-12.3) fL Immature Gran % (Auto) (0.0-0.4) % Neut % (Auto) (45-73) % Lymph % (Auto) (20-40) % [place] % (Auto) (2-11) % Eos % (Auto) (0-4) % Baso % (Auto) (0-2) % Lymph # (Auto) (1.2-4.9) X10*3/uL [place] # (Auto) (0.1-1.2) X10*3/uL Eos # (Auto) (0.0-0.4) X10*3/uL Baso # (Auto) (0.0-0.2) X10*3/uL Abs Immat Gran (auto) (0.00-0.03) X10*3/uL Absolute Neuts (auto) (2.0-8.3) x10*3/uL Absolute Nucleated RBC (0.0-0.012) X10*3/uL Nucleated RBC % (auto) (0.0-0.2) /100WBC Sodium (135-145) mmol/L Potassium (3.3-5.1) mmol/L Chloride (96-108) mmol/L Carbon Dioxide (22-29) mmol/L Anion Gap (12-20) BUN (9-16) mg/dL Creatinine (0.5-1.4) mg/dL Estim Creat Clear Calc Estimated GFR Random Glucose (60-115) mg/dL Calcium (8.4-10.2) mg/dL Magnesium (1.6-2.6) mg/dL Total Bilirubin (0.0-1.0) mg/dL Direct Bilirubin (0.0-0.5) mg/dL AST (5-31) U/L ALT (0-31) U/L Alkaline Phosphatase (39-117) U/L Total Protein (6.5-8.0) g/dL Albumin (3.5-5.0) g/dL Lipase (8-78) U/L Urine Color Urine Appearance Urine pH (5.0-8.0) Ur Specific [place] (1.005-1.025) Urine Protein (NEG-TRACE) MG/DL Urine Glucose (UA) (NEG) MG/DL Urine Ketones (NEG) MG/DL Urine Blood (NEG) Urine Nitrite (NEG) Ur Leukocyte Esterase (NEG) Urine RBC (0) /HPF Urine WBC (0-4) /HPF Ur Squamous Epith Cells /LPF Urine Bacteria /LPF Urine Mucus /LPF Urine Test NEGATIVE (NEGATIVE) COVID-19 (DARA) Negative (Negative) COVID-19 Clin Com See Note Influenza Type A (JONY) Negative (Negative) Influenza Type B (JONY) Negative (Negative) Influenza A & B Note See Note Imaging Data CT scan - abdomen: Attestation: I personally reviewed and interpreted this imaging study as follows: Radiologist's impression: FINDINGS: LUNG BASES: The visualized lung bases are unremarkable.? LIVER, GALLBLADDER, AND BILIARY TREE: The liver is normal in size, shape, and attenuation. No focal hepatic lesion on noncontrast study. No biliary ductal dilatation is present. The gallbladder is unremarkable with no evidence of radiopaque gallstones, gallbladder wall thickening, or obvious pericholecystic inflammatory changes.? PANCREAS: Unremarkable.? SPLEEN: Spleen normal size with small accessory splenule seen along the inferior margin..? ADRENAL GLANDS: Unremarkable.? KIDNEYS AND URETERS: The kidneys are normal in size and shape. Thin capsular calcifications along the right mid kidney noted. There are a few tiny bilateral nonobstructing 2 mm calculi seen in the kidneys bilaterally, similar to the previous exam. No hydronephrosis, hydroureter, or ureteral calculi seen. No perinephric stranding. ? BLADDER: Unremarkable.? GASTROINTESTINAL TRACT: The small and large bowel are unremarkable. The appendix is unremarkable.? ABDOMINAL WALL: There is a small fat-containing umbilical hernia.? LYMPH NODES: Normal. VASCULAR: Unremarkable. PELVIC VISCERA: Uterus anteverted and grossly unremarkable. Small amount of gas seen in the vagina, likely due to exogenous introduction. There is chronic mild asymmetric enlargement of the right ovary compared to the left side without suspicious ovarian mass seen. OSSEOUS STRUCTURES: Unremarkable.? CT/CT abdomen pelvis wo con IMPRESSION: 1. Bilateral nephrolithiasis with no evidence of obstructive uropathy. 2. Small fat-containing umbilical hernia. ? Discharge Plan Discharge Clinical Impression: UTI (urinary tract infection), Bilateral kidney stones, Nausea & vomiting Patient Disposition: Home, Self-Care Instructions: Kidney Stones (ED), Urinary Tract Infection in Women (ED), Acute Nausea and Vomiting (ED) Additional Instructions: You were evaluated for nausea vomiting and abdominal pain. CT scan of the abdomen and pelvis indicates a small fat containing umbilical hernia. Please follow-up with primary care physician for this finding CT scan also found bilateral kidney stones. Please take Flomax 0.4 mg daily the next 2 weeks. Take Tylenol 650 mg every 6 hours as needed and Motrin 600 mg every 6 hours as needed. Please write down what time take these medications to prevent accidental overdose. For urinary tract infection, please take cefuroxime 500 mg every 12 hours for the next 7 days. Please take Zofran 4 mg every 8 hours as for nausea. This medication dissolved under the tongue. Take this medication as directed. Thank you for choosing this emergency department for evaluation. Please follow-up with primary care physician as needed. Return to the emergency department for any new, concerning, or worsening symptoms. Prescriptions: New tamsulosin [Flomax] 0.4 mg capsule 0.4 mg PO DAILY 14 Days Qty: 14 0RF ondansetron 4 mg tablet,disintegrating 4 mg PO Q8H PRN (Reason: nausea and vomiting) Qty: 10 0RF cefuroxime axetil 500 mg tablet 500 mg PO Q12H 7 Days Qty: 14 0RF No Action polyethylene glycol 3350 [Miralax] 17 gram powder in packet 17 g PO DAILY 7 Days Qty: 7 0RF etonogestrel-ethinyl estradiol 0.12-0.015 mg/24 hr ring 0 vag ring vaginal Interventions: ED Discharge Assessment Last Done: 02/16/22 23:46 Discharge Date/Time: 02/16/22 23:49
[2022-02-16] MEDS: ondansetron HCL 4 MG/2 ML VIAL IVPUSH (20:49)
[2022-02-16] MEDS: Morphine Sulfate 4 MG/ML CARTRIDGE IVPUSH (20:49)
[2022-02-16] MEDS: 0.9 % Sodium Chloride 1,000 ML 999 ML IVCONT (20:50)
[2022-02-16 20:56] VITALS: BP 112/70; PULSE 102; RESP 14; TEMP 38.2; O2SAT 95
[2022-02-16 21:10] LABS: COVID-19 Test Negative (Negative); IDNOW Serial# 16C4AD1C; Influenza A Negative (Negative); Influenza B2 Negative (Negative)
[2022-02-16] MEDS: Acetaminophen 325 MG TABLET 650 MG PO (23:37)
== END 2022-02-16 23:49 | disposition home or self-care (01) ==
PROVIDERS: Emergency Medicine; Nurse Practitioner Family; Emergency Provider Internal Medicine; PCP Family Medicine
DX: N39.0 Urinary tract infection, site not specified (principal); N20.0 Calculus of kidney; R11.2 Nausea with vomiting, unspecified; R10.13 Epigastric pain; Z79.899 Other long term (current) drug therapy; Z20.822 Contact with and (suspected) exposure to COVID-19
CPT/HCPCS: 36415; 74176; 80048; 80076; 81001; 81025; 83690; 83735; 85025; 87086; 87502; 87635; 96374; 96375; 99284; J2270; J2405

== ENCOUNTER 2022-10-08 07:11 | Emergency (ER) | payer OTHER, SELFPAY ==
[2022-10-08 07:13] VITALS: BP 144/63; PULSE 99; RESP 16; TEMP 36.7; O2SAT 98; BMI 32.1
[2022-10-08 07:37] LABS: MANUAL DIFF FLAG NO
[2022-10-08 07:41] LABS: Basophils Absolute Auto 0.1 X10*3/uL (0.0-0.2); Basophils Percent Auto 0.6 % (0-2); Eosinophils Absolute Auto 0.1 X10*3/uL (0.0-0.4); Hemoglobin 12.2 g/dl (12.0-16.0); Imm Gran Abs Auto 0.02 X10*3/uL (0.00-0.03); Imm Gran Pct Auto 0.2 % (0.0-0.4); Lymphocytes Percent Auto 24.8 % (20-40); Mean Corpuscular HGB Conc 30.5 g/dl (31.0-35.0); Mean Corpuscular Hemoglobin 22.3 pg (27.0-33.0); Mean Corpuscular Volume 73.3 fL (80.0-98.0); Mean Platelet Volume 10.5 fL (9.4-12.3); Monocytes Absolute Auto 0.5 X10*3/uL (0.1-1.2); Monocytes Percent Auto 5.7 % (2-11); Neutrophils Absolute Auto 5.5 x10*3/uL (2.0-8.3); Neutrophils Percent Auto 67.7 % (45-73); Platelet Count 382 X10*3/uL (160-400); Red Blood Count 5.46 X10*6/uL (4.20-5.50); White Blood Count 8.1 X10*3/uL (4.8-10.8)
[2022-10-08 07:57] LABS: Alanine Aminotransferase 11 U/L (0-31); Albumin Level 4.1 g/dL (3.5-5.0); Alkaline Phosphatase 117 U/L (39-117); Anion Gap 10 (12-20); Aspartate Amino Transferase 14 U/L (5-31); Bilirubin Total 0.4 mg/dL (0.0-1.0); Blood Urea Nitrogen 10 mg/dL (9-16); Calcium 9.4 mg/dL (8.4-10.2); Carbon Dioxide 25 mmol/L (22-29); Chloride 109 mmol/L (96-108); Creatinine Clr Calc Pharmacy 115.3; Estimated Glomerular Filt Rate > 60; Glucose Fasting 105 mg/dL (60-99); Sodium 140 mmol/L (135-145); Total Protein 7.1 g/dL (6.5-8.0)
[2022-10-08 08:56] VITALS: BP 123/76; PULSE 73; RESP 18; O2SAT 97
--- NOTE | 2022-10-08 08:57 | ED_ITS ---
HPI - Abdominal Pain General Chief Complaint: Abdominal Pain Stated Complaint: chest and body pain Time Seen by Provider: 10/08/22 08:36 Source: patient and RN notes reviewed Mode of arrival: ambulatory Limitations: no limitations History of Present Illness HPI narrative: This is a 32-year-old female, with a past medical history of pyelonephritis, nephrolithiasis, and recurrent urinary tract infections, presenting to the emergency department with complaints of intermittent episodes of epigastric pain since last night. Patient reports that she has had intermittent, epigastric pain that is constant, but does not radiate. She currently is asymptomatic. Patient reports that she had a history of similar symptoms in the past, and was diagnosed with kidney stones. She denies any fevers, chills, nausea, vomiting, constipation, or diarrhea. She reports that she has not eaten any breakfast this morning, and reports that last night she had rice and stay. She does not associate her pain with eating. She states that he eats spicy or acidic often. MD elicited complaint: abdominal pain Pertinent past history: none Onset (ago): day(s) Pain Consistency: intermittent Location: epigastric Severity: moderate Radiation: none Migration to: no migration Exacerbating factors: nothing Relieving factors: nothing Associated symptoms: denies other symptoms Related Data Home Medications Medication Instructions Recorded Confirmed etonogestrel 0.12 mg-ethinyl 0 vag ring vaginal 07/03/21 estradiol 0.015 mg/24 hr vaginal ring Previous Rx's Medication Instructions Recorded polyethylene glycol 3350 17 gram 17 g PO DAILY 7 days #7 ea 07/24/21 oral powder packet (Miralax) cefuroxime axetil 500 mg tablet 500 mg PO Q12H 7 days #14 tabs 02/16/22 ondansetron 4 mg disintegrating 4 mg PO Q8H PRN nausea and 02/16/22 tablet vomiting #10 tabs tamsulosin 0.4 mg capsule (Flomax) 0.4 mg PO DAILY 14 days #14 caps 02/16/22 cyclobenzaprine 10 mg tablet 10 mg PO BID PRN muscle spasm 10 06/09/22 days #20 tabs ibuprofen 800 mg tablet 800 mg PO Q8H PRN pain 14 days #42 06/09/22 tabs omeprazole 20 mg capsule,delayed 20 mg PO DAILY #14 caps 10/08/22 release Allergies Allergy/AdvReac Type Severity Reaction Status Date / Time No Known Allergies Allergy Verified 10/08/22 07:13 Review of Systems Review of Systems Yes all other systems are reviewed and are negative [facility] Past Medical History Medical History History of COVID-19 Renal calculi Surgical History Hx of cystoscopy Hx of lithotripsy Social History Social History Household Members: Spouse and Children Housing: House Are you a primary assurance services manager health care to a significant other at home: No Do you presently have visiting nurse or other home services: No Alcohol intake: never Patient Tobacco Use Status: Never used Tobacco e-Cigarette/Vaping Use: Never Used Second Hand Smoke Exposure: No Advance Directives: No Advance Directives Information Provided: No service: No Current occupational status: employed Physical Exam ED Vital Signs: Vital Signs - 24 hr 10/08/22 07:13 10/08/22 08:56 Temperature 98.1 F Pulse Rate 99 73 Respiratory Rate 16 18 Blood Pressure 144/63 H 123/76 Pulse Oximetry 98 97 Oxygen Delivery Method Room Air Room Air BMI result Body Mass Index 32.1 Appearance: Alert. Oriented X3. No acute distress. Eyes: Pupils equal, round and reactive to light. ENT: Pharynx normal. Neck: Normal inspection. Neck supple. CVS: Normal heart rate and rhythm. Pulses normal. Respiratory: No respiratory distress. Breath sounds normal. Abdomen: Soft, mild tenderness to palpation over the epigastric region, no rebound, guarding. +BS x4. Skin: Skin warm and dry. Normal skin color. Normal skin turgor. No rashes. Extremities: No lower extremity edema. Neuro: Oriented X 3. No motor deficit. No sensory deficit. Course Course Course Narrative: This is a 32-year-old female, with a past medical history of nephrolithiasis, and pyelonephritis, who presents the emergency department with a one-day history of abdominal pain, currently asymptomatic. Patient is afebrile, and vital signs are within normal limits. Patient appears to be comfortable. Labs, UA, urine , and COVID swab ordered. Reevaluation(s) Reevaluation #1: Patient resting comfortably in stretcher, currently asymptomatic. Unremarkable workup. Patient stable for discharge. Time: 10:00 Medical Decision Making Medical Decision Making [facility] Narrative: This is a 32-year-old female, with a past medical history of pyelonephritis, nephrolithiasis, and recurrent UTIs presents to the emergency department with complaints of epigastric pain x1 day. Patient has no leukocytosis, alk-phos and lipase are within normal limits, trace hematuria found on UA, otherwise no evidence of urinary tract infection, and COVID test is negative today. Patient has had intermittent epigastric pain x1day, which is minimally tender on exam, and her vital signs remain stable. Patient has had numerous CT abdomen scans in the last year without any acute findings. Patient is hemodynamically stable. We will treat patient conservatively, with close monitoring of her symptoms to ensure that the symptoms are improving. Will discharge patient on omeprazole, advised bland diet, and to have her follow up with her primary care physician for further management. Advised to return with any new worsening symptoms. Patient understands and agrees with plan. Differential Diagnosis Differential Diagnoses: The differential diagnosis associated with the presentation includes Gastritis, urinary tract infection, , cholecystitis less likely, cholelithiasis, pyelonephritis Lab Data [facility] Lab Attestation statement: I reviewed the patient's lab results. 10/08/22 07:33 10/08/22 07:33 Labs: Lab Results 10/08/22 10/08/22 10/08/22 Range/Units 07:33 07:33 08:58 WBC 8.1 (4.8-10.8) X10*3/uL RBC 5.46 (4.20-5.50) X10*6/uL Hgb 12.2 (12.0-16.0) g/dl Hct 40.0 (37.0-47.0) % MCV 73.3 L (80.0-98.0) fL MCH 22.3 L (27.0-33.0) pg MCHC 30.5 L (31.0-35.0) g/dl RDW 17.0 H (11.0-16.0) % Plt Count 382 (160-400) X10*3/uL MPV 10.5 (9.4-12.3) fL Immature Gran % (Auto) 0.2 (0.0-0.4) % Neut % (Auto) 67.7 (45-73) % Lymph % (Auto) 24.8 (20-40) % [place] % (Auto) 5.7 (2-11) % Eos % (Auto) 1.0 (0-4) % Baso % (Auto) 0.6 (0-2) % Lymph # (Auto) 2.0 (1.2-4.9) X10*3/uL [place] # (Auto) 0.5 (0.1-1.2) X10*3/uL Eos # (Auto) 0.1 (0.0-0.4) X10*3/uL Baso # (Auto) 0.1 (0.0-0.2) X10*3/uL Abs Immat Gran (auto) 0.02 (0.00-0.03) X10*3/uL Absolute Neuts (auto) 5.5 (2.0-8.3) x10*3/uL Absolute Nucleated RBC 0.000 (0.0-0.012) X10*3/uL Nucleated RBC % (auto) 0.0 (0.0-0.2) /100WBC Sodium 140 (135-145) mmol/L Potassium 4.0 (3.3-5.1) mmol/L Chloride 109 H (96-108) mmol/L Carbon Dioxide 25 (22-29) mmol/L Anion Gap 10 L (12-20) BUN 10 (9-16) mg/dL Creatinine 0.67 (0.5-1.4) mg/dL Estim Creat Clear Calc 115.3 Estimated GFR > 60 Fasting Glucose 105 H (60-99) mg/dL Calcium 9.4 (8.4-10.2) mg/dL Total Bilirubin 0.4 (0.0-1.0) mg/dL AST 14 (5-31) U/L ALT 11 (0-31) U/L Alkaline Phosphatase 117 (39-117) U/L Total Protein 7.1 (6.5-8.0) g/dL Albumin 4.1 (3.5-5.0) g/dL Lipase 14 (8-78) U/L Urine Color Urine Appearance Urine pH (5.0-9.0) Ur Specific [place] (1.005-1.025) Urine Protein (Neg-Trace) mg/dL Urine Glucose (UA) (Negative) mg/dL Urine Ketones (Negative) mg/dL Urine Blood (Negative) Urine Nitrite (Negative) Ur Leukocyte Esterase (Negative) Urine RBC (0-2) /HPF Urine WBC (0-5) /HPF Ur Squamous Epith Cells (0-2) /HPF Urine Bacteria (None Seen) Hyaline Casts (0-2) /LPF Urine Test (NEGATIVE) COVID-19 (DARA) Negative (Negative) COVID-19 Clin Com See Note 10/08/22 10/08/22 Range/Units 08:58 08:58 WBC (4.8-10.8) X10*3/uL RBC (4.20-5.50) X10*6/uL Hgb (12.0-16.0) g/dl Hct (37.0-47.0) % MCV (80.0-98.0) fL MCH (27.0-33.0) pg MCHC (31.0-35.0) g/dl RDW (11.0-16.0) % Plt Count (160-400) X10*3/uL MPV (9.4-12.3) fL Immature Gran % (Auto) (0.0-0.4) % Neut % (Auto) (45-73) % Lymph % (Auto) (20-40) % [place] % (Auto) (2-11) % Eos % (Auto) (0-4) % Baso % (Auto) (0-2) % Lymph # (Auto) (1.2-4.9) X10*3/uL [place] # (Auto) (0.1-1.2) X10*3/uL Eos # (Auto) (0.0-0.4) X10*3/uL Baso # (Auto) (0.0-0.2) X10*3/uL Abs Immat Gran (auto) (0.00-0.03) X10*3/uL Absolute Neuts (auto) (2.0-8.3) x10*3/uL Absolute Nucleated RBC (0.0-0.012) X10*3/uL Nucleated RBC % (auto) (0.0-0.2) /100WBC Sodium (135-145) mmol/L Potassium (3.3-5.1) mmol/L Chloride (96-108) mmol/L Carbon Dioxide (22-29) mmol/L Anion Gap (12-20) BUN (9-16) mg/dL Creatinine (0.5-1.4) mg/dL Estim Creat Clear Calc Estimated GFR Fasting Glucose (60-99) mg/dL Calcium (8.4-10.2) mg/dL Total Bilirubin (0.0-1.0) mg/dL AST (5-31) U/L ALT (0-31) U/L Alkaline Phosphatase (39-117) U/L Total Protein (6.5-8.0) g/dL Albumin (3.5-5.0) g/dL Lipase (8-78) U/L Urine Color Yellow Urine Appearance Clear Urine pH 7.5 (5.0-9.0) Ur Specific [place] 1.020 (1.005-1.025) Urine Protein Negative (Neg-Trace) mg/dL Urine Glucose (UA) Negative (Negative) mg/dL Urine Ketones Negative (Negative) mg/dL Urine Blood Trace H (Negative) Urine Nitrite Negative (Negative) Ur Leukocyte Esterase Negative (Negative) Urine RBC 0-2 (0-2) /HPF Urine WBC 0-5 (0-5) /HPF Ur Squamous Epith Cells 3-5 (0-2) /HPF Urine Bacteria None Seen (None Seen) Hyaline Casts 0-2 (0-2) /LPF Urine Test NEGATIVE (NEGATIVE) COVID-19 (DARA) (Negative) COVID-19 Clin Com External Record Review External record reviewed: Outpatient record, Prior outpatient labs and Prior outpatient radiology Prescription Management I considered prescription management with: Other (PPI) Critical Care Time Critical Care Time Critical Care Time: No Discharge Plan Discharge Clinical Impression: Gastritis Patient Disposition: Home, Self-Care Instructions: Gastritis (ED) Additional Instructions: Take prescribed omeprazole as directed. Place drink plenty of fluids and get plenty of rest. Practice a bland diet over the next few days as this may help with symptoms. Avoid spicy and acidic foods. Keep a food diary. Follow up with your primary care physician. If you develop new or worsening symptoms call 911 or come back to the ER for further evaluation. Prescriptions: New omeprazole 20 mg capsule,delayed release(DR/EC) 20 mg PO DAILY Qty: 14 0RF No Action tamsulosin [Flomax] 0.4 mg capsule 0.4 mg PO DAILY 14 Days Qty: 14 0RF ondansetron 4 mg tablet,disintegrating 4 mg PO Q8H PRN (Reason: nausea and vomiting) Qty: 10 0RF cefuroxime axetil 500 mg tablet 500 mg PO Q12H 7 Days Qty: 14 0RF polyethylene glycol 3350 [Miralax] 17 gram powder in packet 17 g PO DAILY 7 Days Qty: 7 0RF ibuprofen 800 mg tablet 800 mg PO Q8H PRN (Reason: pain) 14 Days Qty: 42 0RF cyclobenzaprine 10 mg tablet 10 mg PO BID PRN (Reason: muscle spasm) 10 Days Qty: 20 0RF etonogestrel-ethinyl estradiol 0.12-0.015 mg/24 hr ring 0 vag ring vaginal Interventions: ED Discharge Assessment Last Done: 10/08/22 10:12 Discharge Date/Time: 10/08/22 10:13
[2022-10-08 08:59] LABS: Lipase 14 U/L (8-78)
[2022-10-08 09:11] LABS: UPreg QC Valid YES; Urine Pregnancy NEGATIVE (NEGATIVE)
[2022-10-08 09:13] LABS: Appearance Urine Clear; Color Urine Yellow; Glucose Urine UA Negative (Negative); Leukocyte Esterase Urine Negative (Negative); Nitrite Urine Negative (Negative); PH 7.5 (5.0-9.0); UMIC TRIGGER UACC YES; Urine Blood Trace (Negative); Urine Ketones Negative (Negative); Urine Protein Negative (Neg-Trace)
[2022-10-08 09:17] LABS: COVID-19 Test Negative (Negative); IDNOW Serial# 9DB6401D
[2022-10-08 09:18] LABS: Bacteria Urine None Seen (None Seen); Hyaline Casts Urine 0-2 /LPF (0-2); RBC Urine 0-2 /HPF (0-2); WBC Urine 0-5 /HPF (0-5)
== END 2022-10-08 10:13 | disposition home or self-care (01) ==
PROVIDERS: Physician Assistant; Emergency Provider Student in an Organized Health Care Education/Training Program; PCP Family Medicine
DX: K29.70 Gastritis, unspecified, without bleeding (principal); R07.89 Other chest pain; M79.10 Myalgia, unspecified site; Z20.822 Contact with and (suspected) exposure to COVID-19; Z20.828 Contact with and (suspected) exposure to other viral communicable diseases; Z79.899 Other long term (current) drug therapy
CPT/HCPCS: 36415; 80053; 81001; 81025; 83690; 85025; 87635; 99283; 99284

== ENCOUNTER 2023-05-05 13:53 | Emergency (ER) | payer OTHER, SELFPAY ==
--- NOTE | 2023-05-05 14:30 | ED.GENADULT ---
HPI - General Adult General Chief complaint: Back Pain/Injury Stated complaint: r side pain Related Data Home Medications Medication Instructions Recorded Confirmed etonogestrel 0.12 mg-ethinyl 0 vag ring vaginal 07/03/21 estradiol 0.015 mg/24 hr vaginal ring Previous Rx's Medication Instructions Recorded polyethylene glycol 3350 17 gram 17 g PO DAILY 7 days #7 ea 07/24/21 oral powder packet (Miralax) cefuroxime axetil 500 mg tablet 500 mg PO Q12H 7 days #14 tabs 02/16/22 ondansetron 4 mg disintegrating 4 mg PO Q8H PRN nausea and 02/16/22 tablet vomiting #10 tabs tamsulosin 0.4 mg capsule (Flomax) 0.4 mg PO DAILY 14 days #14 caps 02/16/22 cyclobenzaprine 10 mg tablet 10 mg PO BID PRN muscle spasm 10 06/09/22 days #20 tabs ibuprofen 800 mg tablet 800 mg PO Q8H PRN pain 14 days #42 06/09/22 tabs omeprazole 20 mg capsule,delayed 20 mg PO DAILY #14 caps 10/08/22 release Allergies Allergy/AdvReac Type Severity Reaction Status Date / Time No Known Allergies Allergy Verified 05/05/23 14:34 [facility] Past Medical History Medical History History of COVID-19 Renal calculi Surgical History Hx of cystoscopy Hx of lithotripsy Social History Social History Household Members: Spouse and Children Housing: House Are you a primary career placement specialist to a significant other at home: No Do you presently have visiting nurse or other home services: No Alcohol intake: never Patient Tobacco Use Status: Never used Tobacco e-Cigarette/Vaping Use: Never Used Second Hand Smoke Exposure: No Advance Directives: No service: No Current occupational status: employed Physical Exam ED Vital Signs: BMI result Body Mass Index 32.1 Course Course Course Narrative: This is a rapid medical exam: Additional HPI, ROS, PE not included below will be deferred to primary provider. Patient is a 33-year-old female with history of kidney stones presenting to the emergency department with complaint of right flank pain for two days which has slowly worsened. States pain feels similar to prior stones. Denies any dysuria, frequency, or other urinary symptoms. Denies fevers. Denies nausea or vomiting. Has takedn ibuprofen with little relief, states current pain is 3/10 but states is colicky. No CVA tenderness on exam. Plan: UA, labs Medical Decision Making Lab Data 05/05/23 14:40 05/05/23 14:40 Labs: Lab Results 05/05/23 Range/Units 14:40 WBC 8.6 (4.8-10.8) X10*3/uL RBC 5.41 (4.20-5.50) X10*6/uL Hgb 12.4 (12.0-16.0) g/dl Hct 40.7 (37.0-47.0) % MCV 75.2 L (80.0-98.0) fL MCH 22.9 L (27.0-33.0) pg MCHC 30.5 L (31.0-35.0) g/dl RDW 16.4 H (11.0-16.0) % Plt Count 364 (160-400) X10*3/uL MPV 11.2 (9.4-12.3) fL Immature Gran % (Auto) 0.3 (0.0-0.4) % Neut % (Auto) 63.9 (45-73) % Lymph % (Auto) 26.8 (20-40) % [place] % (Auto) 7.8 (2-11) % Eos % (Auto) 0.7 (0-4) % Baso % (Auto) 0.5 (0-2) % Lymph # (Auto) 2.3 (1.2-4.9) X10*3/uL [place] # (Auto) 0.7 (0.1-1.2) X10*3/uL Eos # (Auto) 0.1 (0.0-0.4) X10*3/uL Baso # (Auto) 0.0 (0.0-0.2) X10*3/uL Abs Immat Gran (auto) 0.03 (0.00-0.03) X10*3/uL Absolute Neuts (auto) 5.5 (2.0-8.3) x10*3/uL Absolute Nucleated RBC 0.000 (0.0-0.012) X10*3/uL Nucleated RBC % (auto) 0.0 (0.0-0.2) /100WBC Sodium 139 (135-145) mmol/L Potassium 3.5 (3.3-5.1) mmol/L Chloride 110 H (96-108) mmol/L Carbon Dioxide 25 (22-29) mmol/L Anion Gap 8 L (12-20) BUN 8 L (9-16) mg/dL Creatinine 0.72 (0.5-1.4) mg/dL Estim Creat Clear Calc 106.3 Estimated GFR > 60 Random Glucose 114 (60-115) mg/dL Calcium 9.5 (8.4-10.2) mg/dL Total Bilirubin 0.2 (0.0-1.0) mg/dL AST 16 (5-31) U/L ALT 12 (0-31) U/L Alkaline Phosphatase 102 (39-117) U/L Total Protein 7.6 (6.5-8.0) g/dL Albumin 4.2 (3.5-5.0) g/dL Beta HCG, Quant < 2 mIU/mL Discharge Plan Discharge Clinical Impression: Acute right flank pain Patient Disposition: Left W/O Completing Treatment Prescriptions: No Action omeprazole 20 mg capsule,delayed release(DR/EC) 20 mg PO DAILY Qty: 14 0RF tamsulosin [Flomax] 0.4 mg capsule 0.4 mg PO DAILY 14 Days Qty: 14 0RF ondansetron 4 mg tablet,disintegrating 4 mg PO Q8H PRN (Reason: nausea and vomiting) Qty: 10 0RF cefuroxime axetil 500 mg tablet 500 mg PO Q12H 7 Days Qty: 14 0RF polyethylene glycol 3350 [Miralax] 17 gram powder in packet 17 g PO DAILY 7 Days Qty: 7 0RF ibuprofen 800 mg tablet 800 mg PO Q8H PRN (Reason: pain) 14 Days Qty: 42 0RF cyclobenzaprine 10 mg tablet 10 mg PO BID PRN (Reason: muscle spasm) 10 Days Qty: 20 0RF etonogestrel-ethinyl estradiol 0.12-0.015 mg/24 hr ring 0 vag ring vaginal Discharge Date/Time: 05/05/23 22:43
[2023-05-05 14:32] VITALS: BP 117/73; PULSE 100; RESP 18; TEMP 36.1; O2SAT 100; BMI 32.1
[2023-05-05 15:00] LABS: MANUAL DIFF FLAG NO
[2023-05-05 15:05] LABS: Basophils Percent Auto 0.5 % (0-2); Eosinophils Absolute Auto 0.1 X10*3/uL (0.0-0.4); Eosinophils Percent Auto 0.7 % (0-4); Hematocrit 40.7 % (37.0-47.0); Hemoglobin 12.4 g/dl (12.0-16.0); Imm Gran Abs Auto 0.03 X10*3/uL (0.00-0.03); Imm Gran Pct Auto 0.3 % (0.0-0.4); Lymphocytes Absolute Auto 2.3 X10*3/uL (1.2-4.9); Lymphocytes Percent Auto 26.8 % (20-40); Mean Corpuscular HGB Conc 30.5 g/dl (31.0-35.0); Mean Corpuscular Hemoglobin 22.9 pg (27.0-33.0); Mean Corpuscular Volume 75.2 fL (80.0-98.0); Mean Platelet Volume 11.2 fL (9.4-12.3); Monocytes Absolute Auto 0.7 X10*3/uL (0.1-1.2); Monocytes Percent Auto 7.8 % (2-11); Neutrophils Absolute Auto 5.5 x10*3/uL (2.0-8.3); Neutrophils Percent Auto 63.9 % (45-73); Platelet Count 364 X10*3/uL (160-400); Red Blood Count 5.41 X10*6/uL (4.20-5.50); Red Cell Distribution Width 16.4 % (11.0-16.0); White Blood Count 8.6 X10*3/uL (4.8-10.8)
[2023-05-05 15:32] LABS: Alanine Aminotransferase 12 U/L (0-31); Albumin Level 4.2 g/dL (3.5-5.0); Alkaline Phosphatase 102 U/L (39-117); Anion Gap 8 (12-20); Aspartate Amino Transferase 16 U/L (5-31); Bilirubin Total 0.2 mg/dL (0.0-1.0); Blood Urea Nitrogen 8 mg/dL (9-16); Calcium 9.5 mg/dL (8.4-10.2); Carbon Dioxide 25 mmol/L (22-29); Chloride 110 mmol/L (96-108); Creatinine Clr Calc Pharmacy 106.3; Estimated Glomerular Filt Rate > 60; Glucose Random 114 mg/dL (60-115); HCG Quantitative < 2 mIU/mL; Potassium 3.5 mmol/L (3.3-5.1); Sodium 139 mmol/L (135-145); Total Protein 7.6 g/dL (6.5-8.0)
== END 2023-05-05 22:43 | disposition left against medical advice (07) ==
PROVIDERS: Registered Nurse Emergency; Emergency Provider Emergency Medicine; PCP Family Medicine
DX: R10.9 Unspecified abdominal pain (principal); Z87.442 Personal history of urinary calculi
CPT/HCPCS: 36415; 80053; 84702; 85025; 99281; 99283

== ENCOUNTER 2023-08-31 10:10 | Emergency (ER) | payer OTHER, SELFPAY ==
--- NOTE | ~2023-08-31 | CT_ITS ---
EXAMINATION: CT ABDOMEN AND PELVIS WITHOUT CONTRAST CLINICAL INFORMATION: Flank pain. COMPARISON: CT abdomen and pelvis without contrast on 522 TECHNIQUE: Multidetector volumetric imaging was performed from the superior aspect of the liver through the pubic symphysis. Sagittal and coronal reformatted images were obtained on the technologist's workstation. This CT examination was performed using dose optimization techniques as appropriate, variously including the following: *Automated exposure control *Adjustment of mA and/or kV according to patient size (this includes techniques or standardized protocols for targeted exams where dose is matched to indication/reason for exam; i.e. extremities or head) *Use of iterative reconstruction technique DLP: 594 mGy-cm FINDINGS: LUNG BASES: The visualized lung bases are unremarkable. LIVER, GALLBLADDER, AND BILIARY TREE: The liver is normal in size, shape, and attenuation. No focal hepatic lesion or biliary ductal dilatation is present. The gallbladder is unremarkable with no evidence of radiopaque gallstones, gallbladder wall thickening, or obvious pericholecystic inflammatory changes. PANCREAS: Unremarkable. SPLEEN: Unremarkable. ADRENAL GLANDS: Unremarkable. KIDNEYS AND URETERS: The kidneys are normal in size, shape, and attenuation. There are multiple bilateral cortical calcifications and renal calculi. The largest calculi measure 2 mm bilaterally. No caliectasis seen. There is a 4 mm partially obstructive radiopaque calculi left distal ureter with mild hydroureteronephrosis.. BLADDER: Unremarkable. GASTROINTESTINAL TRACT: There is scattered stool and gas seen throughout the colon without any significant distention. The small bowel loops are normal caliber. Appendix is normal caliber. No inflammatory process seen. ABDOMINAL WALL: Small medical hernia containing fat. LYMPH NODES: Normal. VASCULAR: Unremarkable. PELVIC VISCERA: Unremarkable. OSSEOUS STRUCTURES: No lytic or sclerotic process seen. CT/CT abdomen pelvis wo IV con IMPRESSION: Bilateral nephrolithiasis. 4 mm radiopaque calculi left distal ureter with obstructive hydroureteronephrosis. There is a new finding compared to previous study 02/16/2022. Small umbilical hernia containing fat. Fleischner guidelines were followed.
[2023-08-31 10:20] VITALS: BP 127/72; PULSE 87; RESP 18; TEMP 36.6; O2SAT 95; BMI 32.1
[2023-08-31 11:06] LABS: MANUAL DIFF FLAG NO
[2023-08-31 11:09] LABS: Appearance Urine Cloudy; Leukocyte Esterase Urine Trace (Negative); PH 6.5 (5.0-9.0); Specific Gravity - Urine >= 1.030 (1.005-1.025); UMIC TRIGGER UACC YES; Urine Blood Large (3+) (Negative)
[2023-08-31 11:10] LABS: UPreg QC Valid YES; Urine Pregnancy NEGATIVE (NEGATIVE)
[2023-08-31 11:11] LABS: Basophils Absolute Auto 0.1 X10*3/uL (0.0-0.2); Basophils Percent Auto 0.7 % (0-2); Eosinophils Absolute Auto 0.1 X10*3/uL (0.0-0.4); Eosinophils Percent Auto 0.7 % (0-4); Hematocrit 42.1 % (37.0-47.0); Hemoglobin 13.1 g/dl (12.0-16.0); Imm Gran Abs Auto 0.03 X10*3/uL (0.00-0.03); Imm Gran Pct Auto 0.4 % (0.0-0.4); Lymphocytes Absolute Auto 2.4 X10*3/uL (1.2-4.9); Lymphocytes Percent Auto 29.1 % (20-40); Mean Corpuscular HGB Conc 31.1 g/dl (31.0-35.0); Mean Corpuscular Hemoglobin 23.4 pg (27.0-33.0); Mean Platelet Volume 11.5 fL (9.4-12.3); Monocytes Absolute Auto 0.5 X10*3/uL (0.1-1.2); Monocytes Percent Auto 6.1 % (2-11); Neutrophils Absolute Auto 5.1 x10*3/uL (2.0-8.3); Platelet Count 372 X10*3/uL (160-400); Red Blood Count 5.61 X10*6/uL (4.20-5.50); Red Cell Distribution Width 15.7 % (11.0-16.0); White Blood Count 8.1 X10*3/uL (4.8-10.8)
[2023-08-31 11:16] LABS: Color Urine Amber
[2023-08-31 11:18] LABS: Anion Gap 9 (12-20); Blood Urea Nitrogen 12 mg/dL (9-16); Calcium 9.5 mg/dL (8.4-10.2); Carbon Dioxide 29 mmol/L (22-29); Chloride 105 mmol/L (96-108); Creatinine Clr Calc Pharmacy 98.2; Estimated Glomerular Filt Rate > 60; Glucose Random 88 mg/dL (60-115); Potassium 3.8 mmol/L (3.3-5.1); Sodium 139 mmol/L (135-145)
[2023-08-31 11:18] LABS: Bacteria Urine 1+ (None Seen); Hyaline Casts Urine 0-2 /LPF (0-2); RBC Urine >20 /HPF (0-2); UACC Culture Trigger YES
[2023-08-31 12:25] LABS: Alanine Aminotransferase 18 U/L (0-31); Albumin Level 4.2 g/dL (3.5-5.0); Alkaline Phosphatase 110 U/L (39-117); Aspartate Amino Transferase 16 U/L (5-31); Bilirubin Direct 0.1 mg/dL (0.0-0.5); Bilirubin Total 0.3 mg/dL (0.0-1.0); Total Protein 8.2 g/dL (6.5-8.0)
--- NOTE | 2023-08-31 13:01 | ED.ABDPAIN ---
HPI - Abdominal Pain General Chief Complaint: Abdominal Pain Stated Complaint: L Side Lower Abdominal Pain Time Seen by Provider: 08/31/23 12:42 Source: patient Mode of arrival: ambulatory Limitations: no limitations History of Present Illness HPI narrative: 33-year-old female history of pyelonephritis, sepsis, kidney stone who presents emergency department for evaluation of left flank and left lower quadrant pain. The patient states that 5 days prior she had an episode of left flank pain which lasted approximately 2 hours she states that last night the pain returned the pain is been a stent left flank pain and she is now also feeling pain in her left lower quadrant when she gets stone pain. She states the pain is 10/10 she took ibuprofen and Tylenol with no relief for pain. She states that her last kidney stone was 3 months prior and she sees Dr. Navarro. Patient states in the past she had a kidney stone which then caused her to have sepsis. She denied fever, chills, nausea, vomiting, diarrhea, frequency, urgency or dysuria. Related Data Home Medications Medication Instructions Recorded Confirmed etonogestrel 0.12 mg-ethinyl 0 vag ring vaginal 07/03/21 estradiol 0.015 mg/24 hr vaginal ring Previous Rx's Medication Instructions Recorded polyethylene glycol 3350 17 gram 17 g PO DAILY 7 days #7 ea 07/24/21 oral powder packet (Miralax) cefuroxime axetil 500 mg tablet 500 mg PO Q12H 7 days #14 tabs 02/16/22 ondansetron 4 mg disintegrating 4 mg PO Q8H PRN nausea and 02/16/22 tablet vomiting #10 tabs tamsulosin 0.4 mg capsule (Flomax) 0.4 mg PO DAILY 14 days #14 caps 02/16/22 cyclobenzaprine 10 mg tablet 10 mg PO BID PRN muscle spasm 10 06/09/22 days #20 tabs ibuprofen 800 mg tablet 800 mg PO Q8H PRN pain 14 days #42 06/09/22 tabs omeprazole 20 mg capsule,delayed 20 mg PO DAILY #14 caps 10/08/22 release acetaminophen 500 mg tablet 1,000 mg (2 x 500 mg) PO Q6H PRN 08/31/23 (Tylenol Extra Strength) fever or pain #20 tabs ibuprofen 400 mg tablet 400 mg PO TID PRN fever or pain 08/31/23 #30 tabs ondansetron 4 mg disintegrating 4 mg PO Q6-8H PRN nausea and 08/31/23 tablet vomiting #14 tabs oxycodone 5 mg tablet 5 mg PO Q4H PRN pain #14 tabs 08/31/23 tamsulosin 0.4 mg capsule (Flomax) 0.4 mg PO DAILY #30 caps 08/31/23 Allergies Allergy/AdvReac Type Severity Reaction Status Date / Time No Known Allergies Allergy Verified 08/31/23 10:23 Review of Systems Review of Systems Yes all other systems are reviewed and are negative PMFSH Past Medical History Onset Date is defined in the Problem List Problems that require an onset date and time if occurred within 24 hrs of arrival to the ED Aortic Dissection and Rupture; Neurologic impairment; Cardiopulmonary Arrest; Endotracheal Intubation; Insertion or Replacement of Mechanical Circulatory Assist Device Medical History History of COVID-19 Renal calculi Surgical History Hx of cystoscopy Hx of lithotripsy Social History Social History Household Members: Spouse and Children Housing: House Are you a primary respiratory care technician to a significant other at home: No Do you presently have visiting nurse or other home services: No Alcohol intake: never Patient Tobacco Use Status: Never used Tobacco e-Cigarette/Vaping Use: Never Used Second Hand Smoke Exposure: No Advance Directives: No service: No Current occupational status: employed Physical Exam ED Vital Signs: Vital Signs - 24 hr 08/31/23 10:20 Temperature 97.8 F Pulse Rate 87 Respiratory Rate 18 Blood Pressure 127/72 Pulse Oximetry 95 Oxygen Delivery Method Room Air BMI result Body Mass Index 32.1 Vital signs were normal Exam General: Awake, alert in no distress Head: Normocephalic, atraumatic EENT: PERRL, Lids normal, sclera normal, conjunctiva normal, nose normal , ears normal, throat without erythema or exudates Neck: Supple, no adenopathy, no trachea midline or C-spine tenderness Lung: breath sounds symmetric, no wheezing, rales or rhonchi Chest: symmetric movement, nontender Heart: regular rate and rhythm, normal S1, S2 no murmurs or rubs Abdomen: soft, non-tender, nondistended, normal bowel sounds Back: no vertebral tenderness, no CVAT Extremities: no deformities, moves all extremities symmetrically Neuro: Awake, alert, oriented, normal speech, cranial nerves intact, moves all extremities symmetrically Psych: Pleasant, cooperative Medical Decision Making Medical Decision Making MDM Narrative: 33-year-old female history of pyelonephritis, sepsis, kidney stone who presents emergency department for evaluation of left flank and left lower quadrant pain 5 days ago symptoms returned last night patient describes the pain is a constant pain which is 10 of time and feels similar to her kidney stone pain . She denied fever, chills, nausea, vomiting, diarrhea, frequency, urgency or dysuria. Vital signs were normal. Physical exam was unremarkable. Following evaluation was ordered: CBC, BMP, liver panel, urine test, urinalysis, CT scan of the abdomen pelvis without IV contrast Patient was treated with the following medications: Toradol 15 mg IV and normal saline x1 L 13:07 My interpretation patient's laboratory evaluation is as follows: CBC and BMP and liver panel were normal patient's urine test was negative. Urinalysis revealed 3+ blood and trace leukocyte esterase. Microscopic revealed greater than 20 RBCs, 6-10 WBCs, 1+ bacteria and 20 squamous cells-this is a non clean catch specimen but is consistent with microscopic hematuria. 15:11 CT scan did confirm the patient does have left hydronephrosis with hydroureter secondary to 4 mm distal ureteral stone The patient required g IV and Zofran 4 mg IV to help her pain. Patient is only been experiencing this pain for approximately 24 hours and she does want to try to pass the stone therefore she will be started on Flomax 0.4 mg orally (given her 1st dose here in the emergency department), Tylenol and ibuprofen for pain and pain not relieved by these medications she was prescribed oxycodone. She is also given prescription for Zofran ODT for nausea and vomiting Patient was advised to follow-up with her urologist Dr. Navarro for re-evaluation and return if her symptoms get worse. Differential Diagnosis Differential Diagnoses: The differential diagnosis associated with the presentation includes Differential diagnosis includes was not limited to gastritis, pancreatitis, urinary tract infection, pyelonephritis, renal colic, ureteral colic Admission/Observation Consideration of admission/observation: Escalation of care including admission/observation considered Lab Data [facility] Lab Attestation statement: I reviewed the patient's lab results. 08/31/23 10:54 08/31/23 10:54 Labs: Lab Results 08/31/23 08/31/23 Range/Units 10:54 10:58 WBC 8.1 (4.8-10.8) X10*3/uL RBC 5.61 H (4.20-5.50) X10*6/uL Hgb 13.1 (12.0-16.0) g/dl Hct 42.1 (37.0-47.0) % MCV 75.0 L (80.0-98.0) fL MCH 23.4 L (27.0-33.0) pg MCHC 31.1 (31.0-35.0) g/dl RDW 15.7 (11.0-16.0) % Plt Count 372 (160-400) X10*3/uL MPV 11.5 (9.4-12.3) fL Immature Gran % (Auto) 0.4 (0.0-0.4) % Neut % (Auto) 63.0 (45-73) % Lymph % (Auto) 29.1 (20-40) % Teller % (Auto) 6.1 (2-11) % Eos % (Auto) 0.7 (0-4) % Baso % (Auto) 0.7 (0-2) % Lymph # (Auto) 2.4 (1.2-4.9) X10*3/uL Teller # (Auto) 0.5 (0.1-1.2) X10*3/uL Eos # (Auto) 0.1 (0.0-0.4) X10*3/uL Baso # (Auto) 0.1 (0.0-0.2) X10*3/uL Abs Immat Gran (auto) 0.03 (0.00-0.03) X10*3/uL Absolute Neuts (auto) 5.1 (2.0-8.3) x10*3/uL Absolute Nucleated RBC 0.000 (0.0-0.012) X10*3/uL Nucleated RBC % (auto) 0.0 (0.0-0.2) /100WBC Sodium 139 (135-145) mmol/L Potassium 3.8 (3.3-5.1) mmol/L Chloride 105 (96-108) mmol/L Carbon Dioxide 29 (22-29) mmol/L Anion Gap 9 L (12-20) BUN 12 (9-16) mg/dL Creatinine 0.78 (0.5-1.4) mg/dL Estim Creat Clear Calc 98.2 Estimated GFR > 60 Random Glucose 88 (60-115) mg/dL Calcium 9.5 (8.4-10.2) mg/dL Total Bilirubin 0.3 (0.0-1.0) mg/dL Direct Bilirubin 0.1 (0.0-0.5) mg/dL AST 16 (5-31) U/L ALT 18 (0-31) U/L Alkaline Phosphatase 110 (39-117) U/L Total Protein 8.2 H (6.5-8.0) g/dL Albumin 4.2 (3.5-5.0) g/dL Urine Color Luep Urine Appearance Cloudy Urine pH 6.5 (5.0-9.0) Ur Specific [place] >= 1.030 H (1.005-1.025) Urine Protein See Note (Neg-Trace) mg/dL Urine Glucose (UA) See Note (Negative) mg/dL Urine Ketones See Note (Negative) mg/dL Urine Blood Large (3+) H (Negative) Urine Nitrite See Note (Negative) Ur Leukocyte Esterase Trace H (Negative) Urine RBC >20 H (0-2) /HPF Urine WBC 6-10 H (0-5) /HPF Ur Squamous Epith Cells 11-20 (0-2) /HPF Urine Bacteria 1+ (None Seen) Hyaline Casts 0-2 (0-2) /LPF Urine Test NEGATIVE (NEGATIVE) Independent Interpretation I performed an independent interpretation of an: CT Scan Interpretation: The my interpretation the patient's CT scan of the abdomen pelvis without IV contrast is as follows: Left hydronephrosis my 4 mm left ureteral stone above the UVJ Radiology Impression Discussion of test interpretation with radiology: I have reviewed the radiologist's reading. Radiologist Impression: CT abdomen pelvis wo IV con IMPRESSION: Bilateral nephrolithiasis. 4 mm radiopaque calculi left distal ureter with obstructive hydroureteronephrosis. There is a new finding compared to previous study 02/16/2022. Small umbilical hernia containing fat. Fleischner guidelines were followed. Dictated By: Florin Ivan MD Medications Administered Discontinued Medications Generic Name Dose Route Start Last Admin Trade Name Paul PRN Reason Stop Dose Admin Sodium Chloride 1,000 mls @ 999 mls/hr 08/31/23 12:57 08/31/23 13:12 Ns IV 08/31/23 13:57 999 mls/hr .Q1H1M STA Administration Ketorolac Tromethamine 15 mg 08/31/23 12:57 08/31/23 13:12 Ketorolac Tromethamine 15 Mg/Ml Vial IVPUSH 08/31/23 12:58 15 mg ONCE STA Administration Morphine Sulfate 4 mg 08/31/23 14:12 08/31/23 14:51 Morphine Sulfate 4 Mg/Ml Cartridge IVPUSH 08/31/23 14:13 4 mg ONCE STA Administration Protocol Ondansetron HCl 4 mg 08/31/23 14:12 08/31/23 14:51 Ondansetron Hcl 4 Mg/2 Ml Vial IVPUSH 08/31/23 14:13 4 mg ONCE ONE Administration Discharge Plan Discharge Clinical Impression: Calculus of distal left ureter, Hydroureter on left, Hydronephrosis of left kidney, Ureteral colic Clinical Impression: (Ruled Out): Hydronephrosis Patient Disposition: Home, Self-Care Instructions: How to Strain Your Urine (ED), Ureteral Stones (ED) Additional Instructions: Your blood work was unremarkable You do not have any evidence for urinary tract infection at this time based on your urine tests. Your kidney function is normal The CT scan did reveal swelling of your left kidney and left ureter (the tube that connects your kidney to your bladder). You have a 4 mm stone in the left ureter, close to the bladder. Take ibuprofen 400 mg pills, 1 pills every 6 hours as needed for pain. Take Tylenol (acetaminophen) 500 mg pills, 2 pills every 6 hours as needed for pain. For pain not relieved by ibuprofen or Tylenol take oxycodone 5 mg pills, 1 pill every 4 hours as needed for pain. Do not drive or work while taking this medication since they can cause sleepiness. Oxycodone is a narcotic medication that can be addicting. If you are concerned about addiction you can ask the pharmacist for less pills or do not get this prescription filled. Take Flomax (tamsulosin) 0.4 mg once a day for the next 2 weeks or until you pass the stone. ?This medication helps relax the ureter and may help you pass the stone sooner. Take Zofran ODT 4 mg pills, 1 pill dissolved in your mouth every 8 hours as needed for nausea and vomiting. Strain your urine and if you catch a stone, bring the stone to Dr. Navarro at your follow-up visit. Follow-up with Dr. Navarro in 1 week Please return to the emergency department if your symptoms get worse or if you develop any symptoms that are concerning to you. Prescriptions: New acetaminophen [Tylenol Extra Strength] 500 mg tablet 1,000 mg PO Q6H PRN (Reason: fever or pain) Qty: 20 0RF tamsulosin [Flomax] 0.4 mg capsule 0.4 mg PO DAILY Qty: 30 0RF ibuprofen 400 mg tablet 400 mg PO TID PRN (Reason: fever or pain) Qty: 30 0RF ondansetron 4 mg tablet,disintegrating 4 mg PO Q6-8H PRN (Reason: nausea and vomiting) Qty: 14 0RF oxycodone 5 mg tablet 5 mg PO Q4H PRN (Reason: pain) Qty: 14 0RF Rx Instructions: Patient may request partial fill; Partial Fill upon patient request. No Action omeprazole 20 mg capsule,delayed release(DR/EC) 20 mg PO DAILY Qty: 14 0RF tamsulosin [Flomax] 0.4 mg capsule 0.4 mg PO DAILY 14 Days Qty: 14 0RF ondansetron 4 mg tablet,disintegrating 4 mg PO Q8H PRN (Reason: nausea and vomiting) Qty: 10 0RF cefuroxime axetil 500 mg tablet 500 mg PO Q12H 7 Days Qty: 14 0RF polyethylene glycol 3350 [Miralax] 17 gram powder in packet 17 g PO DAILY 7 Days Qty: 7 0RF ibuprofen 800 mg tablet 800 mg PO Q8H PRN (Reason: pain) 14 Days Qty: 42 0RF cyclobenzaprine 10 mg tablet 10 mg PO BID PRN (Reason: muscle spasm) 10 Days Qty: 20 0RF etonogestrel-ethinyl estradiol 0.12-0.015 mg/24 hr ring 0 vag ring vaginal Referrals: Billy Navarro MD [Physician] - 1 week (Left, 4 mm distal ureteral calculi with hydronephrosis and hydroureter)
[2023-08-31] MEDS: Ketorolac Tromethamine 15 MG/ML VIAL IVPUSH (13:12)
[2023-08-31] MEDS: 0.9 % Sodium Chloride 1,000 ML 999 ML IV (13:12)
[2023-08-31] MEDS: Morphine Sulfate 4 MG/ML CARTRIDGE IVPUSH ×2 (14:51→15:50)
[2023-08-31] MEDS: ondansetron HCL 4 MG/2 ML VIAL IVPUSH (14:51)
[2023-08-31] MEDS: Tamsulosin HCL 0.4 MG CAPSULE PO (15:50)
== END 2023-08-31 15:57 | disposition home or self-care (01) ==
PROVIDERS: Physician Assistant Medical; Emergency Provider Emergency Medicine Emergency Medical Services; PCP Family Medicine
DX: N13.2 Hydronephrosis with renal and ureteral calculous obstruction (principal); Z87.442 Personal history of urinary calculi
CPT/HCPCS: 36415; 74176; 80048; 80076; 81001; 81025; 85025; 87086; 96374; 96375; 96376; 99283; 99284; J1885; J2270; J2405

== ENCOUNTER 2024-05-22 18:45 | Emergency (ER) | payer OTHER, SELFPAY ==
--- NOTE | ~2024-05-22 | CT_ITS ---
EXAMINATION: CT ABDOMEN AND PELVIS WITHOUT CONTRAST CLINICAL INFORMATION: Flank pain kidney stones. COMPARISON: CT abdomen and pelvis 08/31/2023. TECHNIQUE: Multidetector volumetric imaging was performed from the superior aspect of the liver through the pubic symphysis. Sagittal and coronal reformatted images were obtained on the technologist's workstation. This CT examination was performed using dose optimization techniques as appropriate, variously including the following: *Automated exposure control *Adjustment of mA and/or kV according to patient size (this includes techniques or standardized protocols for targeted exams where dose is matched to indication/reason for exam; i.e. extremities or head) *Use of iterative reconstruction technique DLP: 622 mGy-cm FINDINGS: LUNG BASES: The visualized lung bases are unremarkable. LIVER, GALLBLADDER, AND BILIARY TREE: The liver is normal in size, shape, and attenuation. No focal hepatic lesion or biliary ductal dilatation is present. The gallbladder is unremarkable with no evidence of radiopaque gallstones, gallbladder wall thickening, or obvious pericholecystic inflammatory changes. PANCREAS: Unremarkable. SPLEEN: Unremarkable. ADRENAL GLANDS: Unremarkable. KIDNEYS AND URETERS: No ureteral calculi identified. Small number of bilateral punctate calculi ranging in size up to the 2.5 mm diameter are present. No hydronephrosis or perinephric inflammatory changes. No ureterectasis. BLADDER: Unremarkable. GASTROINTESTINAL TRACT: The small and large bowel are unremarkable. The appendix is unremarkable. ABDOMINAL WALL: No significant hernia is appreciated. LYMPH NODES: Normal. VASCULAR: Unremarkable. PELVIC VISCERA: Unremarkable. OSSEOUS STRUCTURES: Unremarkable. CT/CT abdomen pelvis wo IV con IMPRESSION: *Bilateral punctate nonobstructing renal calculi measuring up to 2.5 mm diameter. No acute obstructing urolithiasis identified. No hydronephrosis. No ureterectasis. No ureteral calculi. Electronically signed by: Saleem Alba MD 05/23/2024 12:44 AM EDT
[2024-05-22 19:24] VITALS: BP 136/87; PULSE 94; RESP 18; TEMP 36.8; O2SAT 100; BMI 34.0
--- NOTE | 2024-05-22 19:27 | ED_ITS ---
HPI - General Adult General Chief complaint: Abdominal Pain Stated complaint: ? kidney stones Time Seen by Provider: 05/23/24 01:23 Source: patient Mode of arrival: ambulatory Limitations: no limitations History of Present Illness ED Provider: Dr. Ivelisse Navarro HPI narrative: Patient comes to the emergency room complaining of right-sided flank pain for couple of days. Patient was seen in urgent care 3 days ago, diagnosed with a UTI, prescribed Macrobid. Patient states that she is still has dysuria with no hematuria. Patient has history of kidney stones, does not know if she passed a kidney stone because of the pain on the right flank. No fever chills. Related Data Home Medications ?Medication ?Instructions ?Recorded ?Confirmed etonogestrel 0.12 mg-ethinyl 0 vag ring vaginal 07/03/21 estradiol 0.015 mg/24 hr vaginal ring Previous Rx's ?Medication ?Instructions ?Recorded polyethylene glycol 3350 17 gram 17 g PO DAILY 7 days #7 ea 07/24/21 oral powder packet (Miralax) cefuroxime axetil 500 mg tablet 500 mg PO Q12H 7 days #14 tabs 02/16/22 ondansetron 4 mg disintegrating 4 mg PO Q8H PRN nausea and 02/16/22 tablet vomiting #10 tabs tamsulosin 0.4 mg capsule (Flomax) 0.4 mg PO DAILY 14 days #14 caps 02/16/22 cyclobenzaprine 10 mg tablet 10 mg PO BID PRN muscle spasm 10 06/09/22 days #20 tabs ibuprofen 800 mg tablet 800 mg PO Q8H PRN pain 14 days #42 06/09/22 tabs omeprazole 20 mg capsule,delayed 20 mg PO DAILY #14 caps 10/08/22 release acetaminophen 500 mg tablet 1,000 mg (2 x 500 mg) PO Q6H PRN 08/31/23 (Tylenol Extra Strength) fever or pain #20 tabs ibuprofen 400 mg tablet 400 mg PO TID PRN fever or pain 08/31/23 #30 tabs ondansetron 4 mg disintegrating 4 mg PO Q6-8H PRN nausea and 08/31/23 tablet vomiting #14 tabs oxycodone 5 mg tablet 5 mg PO Q4H PRN pain #14 tabs 08/31/23 tamsulosin 0.4 mg capsule (Flomax) 0.4 mg PO DAILY #30 caps 08/31/23 ketorolac 10 mg tablet 10 mg PO Q8H #9 tabs 05/23/24 levofloxacin 500 mg tablet 500 mg PO DAILY #9 tabs 05/23/24 ondansetron HCl 4 mg tablet 4 mg PO Q8H PRN nausea and 05/23/24 vomiting #10 tabs phenazopyridine 100 mg tablet 100 mg PO TID 6 doses #6 tabs 05/23/24 Allergies Allergy/AdvReac Type Severity Reaction Status Date / Time No Known Allergies Allergy Verified 05/22/24 19:26 Review of Systems 2 Review of Systems: Constitutional : No Weight loss, No Fever, No Chills, No Night Sweats, No Fatigue, No Malaise ENT/Mouth : No Hearing loss, No Ear Pain, No Nasal Congestion, No Sinus Pain, No Hoarseness, No sore throat, No Rhinorrhea, No Swallowing Difficulty Eyes: No Eye Pain, No Swelling, No Redness, No Foreign Body, No Discharge, No Vision Changes Cardiovascular : No Chest Pain, No SOB, No Dyspnea on Exertion, No Orthopnea, No Edema, No Palpitations Respiratory : No Cough, No Sputum, No Wheezing, No Smoke Exposure, No Dyspnea Gastrointestinal : Complaining of Nausea, No Vomiting, No Diarrhea, No Constipation, No abdominal Pain, No Hematochezia, No Melena Genitourinary : no irregular bleeding, No Dysuria, No Urinary Frequency, No Hematuria, No Urinary Incontinence, No Urgency, complaining of right-sided Flank Pain, No Urinary Flow Changes, No Hesitancy Musculoskeletal : No joint pain, No Myalgias, No Joint Swelling Skin : No Skin Lesions, No rash Neuro : No Weakness, No Numbness, No Paresthesias, No Loss of Consciousness, No Dizziness, No Headache Psych : No Anxiety/Panic, No Depression, No SI/HI/AH/VH, No Social Issues, Heme/Lymph: No Bruising, No Bleeding,No Lymphadenopathy Endocrine : No Polyuria, No Polydipsia, No Temperature Intolerance PMFSH Past Medical History Medical History History of COVID-19 Renal calculi Surgical History Hx of cystoscopy Hx of lithotripsy Social History Social History Household Members: Spouse and Children Housing: House Are you a primary healthcare specialist to a significant other at home: No Do you presently have visiting nurse or other home services: No Alcohol intake: never Patient Tobacco Use Status: Never used Tobacco Smoked in Last 30 Days: No e-Cigarette/Vaping Use: Never Used Second Hand Smoke Exposure: No Use of substances other than those prescribed or required for medical reasons: No Advance Directives: No Advance Directives Information Provided: No Do you have a plan to hurt others: No Plan service: No Current occupational status: employed Physical Exam ED Vital Signs: Vital Signs - 24 hr 05/22/24 19:24 05/23/24 01:24 05/23/24 02:16 Temperature 98.2 F 98.2 F 98.2 F Pulse Rate 94 104 H 104 H Respiratory Rate 18 18 18 Blood Pressure 136/87 142/93 H 142/93 H Pulse Oximetry 100 99 99 Oxygen Delivery Method Room Air Room Air Room Air BMI result Body Mass Index 34.0 Const Other: Appearance: Alert. Oriented X3. No acute distress. Well-appearing Eyes: Pupils equal, round and reactive to light. ENT: Pharynx normal. Neck: Normal inspection. Neck supple. No lymph nodes noted. No crepitus CVS: Normal heart rate and rhythm. Pulses normal. Normal S1 and S2 Respiratory: No respiratory distress. Breath sounds normal. No Wheezing. No rales Abdomen: Soft and nontender. No rigidity. No distention. Mild CVA tenderness on the right. Skin: Skin warm and dry. Normal skin color. Normal skin turgor. Extremities: No lower extremity edema. No Lacerations. No Rash Neuro: Oriented X 3. No motor deficit. No sensory deficit. Moving all extremities. No slurred speech. CN 2 through 12 grossly intact Psych: calm, cooperative, normal affect Course Course Course Narrative: RME: 34-year-old female presents to the ED for right-sided flank pain history of kidney stones. Patient is presently on antibiotics for UTI. Positive for right CVA. Labs UA ordered Medications Administered Discontinued Medications Generic Name Dose Route Start Last Admin Trade Name Freq PRN Reason Stop Dose Admin Ketorolac Tromethamine 60 mg 05/23/24 01:34 05/23/24 02:05 Ketorolac Tromethamine 60 Mg/2 Ml Vial IM 05/23/24 01:35 60 mg ONCE ONE Administration Levofloxacin 750 mg 05/23/24 01:34 05/23/24 02:06 Levofloxacin 750 Mg Tablet PO 05/23/24 01:35 750 mg ONCE ONE Administration Ondansetron HCl 4 mg 05/23/24 01:34 05/23/24 02:06 Ondansetron Odt 4 Mg Tab.Rapdis TRANSLINGU 05/23/24 01:35 4 mg ONCE ONE Administration Medical Decision Making Medical Decision Making [facility] Narrative: My interpretation of labs: Patient's white blood cell count 12, normal chemistry, UTI positive. -CT scan report: Punctured kidney stones in the kidney, no ureterolithiasis. -I discussed with the patient that she may be having renal colic versus kidney stones versus pyelonephritis. Given her symptoms, we will treat as pyelonephritis and switch her antibiotics to levofloxacin which was given in the ED. Also, patient received a dose of IM ketorolac and Zofran. -patient has no fever, normal blood pressure, sepsis is not suspected. Differential Diagnosis Differential Diagnoses: The differential diagnosis associated with the presentation includes Admission/Observation Consideration of admission/observation: Escalation of care including admission/observation considered (Given patient's symptoms, observation was considered) Lab Data [facility] Lab Attestation statement: I reviewed the patient's lab results. 05/22/24 20:10 05/22/24 20:10 Labs: Lab Results 05/22/24 05/22/24 Range/Units 20:10 22:58 WBC 12.0 H (4.8-10.8) X10*3/uL RBC 5.58 H (4.20-5.50) X10*6/uL Hgb 13.4 (12.0-16.0) g/dl Hct 42.6 (37.0-47.0) % MCV 76.3 L (80.0-98.0) fL MCH 24.0 L (27.0-33.0) pg MCHC 31.5 (31.0-35.0) g/dl RDW 15.9 (11.0-16.0) % Plt Count 352 (160-400) X10*3/uL MPV 11.1 (9.4-12.3) fL Immature Gran % (Auto) 0.2 (0.0-0.4) % Neut % (Auto) 72.1 (45-73) % Lymph % (Auto) 19.7 L (20-40) % [place] % (Auto) 6.7 (2-11) % Eos % (Auto) 0.9 (0-4) % Baso % (Auto) 0.4 (0-2) % Lymph # (Auto) 2.4 (1.2-4.9) X10*3/uL [place] # (Auto) 0.8 (0.1-1.2) X10*3/uL Eos # (Auto) 0.1 (0.0-0.4) X10*3/uL Baso # (Auto) 0.1 (0.0-0.2) X10*3/uL Abs Immat Gran (auto) 0.03 (0.00-0.03) X10*3/uL Absolute Neuts (auto) 8.7 H (2.0-8.3) x10*3/uL Absolute Nucleated RBC 0.000 (0.0-0.012) X10*3/uL Nucleated RBC % (auto) 0.0 (0.0-0.2) /100WBC Sodium 140 (135-145) mmol/L Potassium 4.1 (3.3-5.1) mmol/L Chloride 108 (96-108) mmol/L Carbon Dioxide 26 (22-29) mmol/L Anion Gap 10 L (12-20) BUN 7 L (9-16) mg/dL Creatinine 0.77 (0.5-1.4) mg/dL Estim Creat Clear Calc 101.5 Estimated GFR > 60 Random Glucose 132 H (60-115) mg/dL Calcium 9.5 (8.4-10.2) mg/dL Total Bilirubin 0.2 (0.0-1.0) mg/dL AST 22 (5-31) U/L ALT 31 (0-31) U/L Alkaline Phosphatase 105 (39-117) U/L Total Protein 7.6 (6.5-8.0) g/dL Albumin 4.2 (3.5-5.0) g/dL Beta HCG, Quant < 2 mIU/mL Urine Color Yellow Urine Appearance Clear Urine pH 6.0 (5.0-9.0) Ur Specific [place] 1.025 (1.005-1.025) Urine Protein Negative (Neg-Trace) mg/dL Urine Glucose (UA) Negative (Negative) mg/dL Urine Ketones Negative (Negative) mg/dL Urine Blood Negative (Negative) Urine Nitrite Negative (Negative) Ur Leukocyte Esterase Small (1+) H (Negative) Urine RBC 0-2 (0-2) /HPF Urine WBC 6-10 H (0-5) /HPF Ur Squamous Epith Cells 11-20 (0-2) /HPF Calcium Oxalate Crystal Present Urine Bacteria Trace (None Seen) Hyaline Casts 0-2 (0-2) /LPF Independent Interpretation I performed an independent interpretation of an: CT Scan Radiology Impression Discussion of test interpretation with radiology: I have reviewed the radiologist's reading. Radiologist Impression: FINDINGS: LUNG BASES: The visualized lung bases are unremarkable. LIVER, GALLBLADDER, AND BILIARY TREE: The liver is normal in size, shape, and attenuation. No focal hepatic lesion or biliary ductal dilatation is present. The gallbladder is unremarkable with no evidence of radiopaque gallstones, gallbladder wall thickening, or obvious pericholecystic inflammatory changes. PANCREAS: Unremarkable. SPLEEN: Unremarkable. ADRENAL GLANDS: Unremarkable. KIDNEYS AND URETERS: No ureteral calculi identified. Small number of bilateral punctate calculi ranging in size up to the 2.5 mm diameter are present. No hydronephrosis or perinephric inflammatory changes. No ureterectasis. BLADDER: Unremarkable. GASTROINTESTINAL TRACT: The small and large bowel are unremarkable. The appendix is unremarkable. ABDOMINAL WALL: No significant hernia is appreciated. LYMPH NODES: Normal. VASCULAR: Unremarkable. PELVIC VISCERA: Unremarkable. OSSEOUS STRUCTURES: Unremarkable. CT/CT abdomen pelvis wo IV con IMPRESSION: *Bilateral punctate nonobstructing renal calculi measuring up to 2.5 mm diameter. No acute obstructing urolithiasis identified. No hydronephrosis. No ureterectasis. No ureteral calculi. Critical Care Time Critical Care Time Critical Care Time: Yes Total Critical Care Time: 35 Attestation: I have personally provided critical care time. Time includes review of lab data, radiology results, discussion with consultants, and monitoring for potential decompensation. Intervention performed as documented. Discharge Plan Discharge Clinical Impression: Pyelonephritis Patient Disposition: Home, Self-Care Instructions: Kidney Infection (ED) Additional Instructions: Please follow-up with your primary care physician tomorrow. If you have any worsening or new symptoms, please return to the emergency room or call 911 Prescriptions: New levofloxacin 500 mg tablet 500 mg PO DAILY Qty: 9 0RF phenazopyridine 100 mg tablet 100 mg PO TID Qty: 6 0RF ketorolac 10 mg tablet 10 mg PO Q8H Qty: 9 0RF Rx Instructions: maximum total duration of 5 days from all oral, intranasal, or parenteral formulations. Do not take this medication with ibuprofen or NSAIDs ondansetron HCl 4 mg tablet 4 mg PO Q8H PRN (Reason: nausea and vomiting) Qty: 10 0RF No Action omeprazole 20 mg capsule,delayed release(DR/EC) 20 mg PO DAILY Qty: 14 0RF tamsulosin [Flomax] 0.4 mg capsule 0.4 mg PO DAILY 14 Days Qty: 14 0RF ondansetron 4 mg tablet,disintegrating 4 mg PO Q8H PRN (Reason: nausea and vomiting) Qty: 10 0RF cefuroxime axetil 500 mg tablet 500 mg PO Q12H 7 Days Qty: 14 0RF acetaminophen [Tylenol Extra Strength] 500 mg tablet 1,000 mg PO Q6H PRN (Reason: fever or pain) Qty: 20 0RF tamsulosin [Flomax] 0.4 mg capsule 0.4 mg PO DAILY Qty: 30 0RF ibuprofen 400 mg tablet 400 mg PO TID PRN (Reason: fever or pain) Qty: 30 0RF ondansetron 4 mg tablet,disintegrating 4 mg PO Q6-8H PRN (Reason: nausea and vomiting) Qty: 14 0RF oxycodone 5 mg tablet 5 mg PO Q4H PRN (Reason: pain) Qty: 14 0RF Rx Instructions: Patient may request partial fill; Partial Fill upon patient request. polyethylene glycol 3350 [Miralax] 17 gram powder in packet 17 g PO DAILY 7 Days Qty: 7 0RF ibuprofen 800 mg tablet 800 mg PO Q8H PRN (Reason: pain) 14 Days Qty: 42 0RF cyclobenzaprine 10 mg tablet 10 mg PO BID PRN (Reason: muscle spasm) 10 Days Qty: 20 0RF etonogestrel-ethinyl estradiol 0.12-0.015 mg/24 hr ring 0 vag ring vaginal Interventions: ED Discharge Assessment Last Done: 05/23/24 02:16 Discharge Date/Time: 05/23/24 02:17 Print Language: Japanese
[2024-05-22 20:14] LABS: MANUAL DIFF FLAG NO
[2024-05-22 20:16] LABS: Basophils Absolute Auto 0.1 X10*3/uL (0.0-0.2); Basophils Percent Auto 0.4 % (0-2); Eosinophils Absolute Auto 0.1 X10*3/uL (0.0-0.4); Eosinophils Percent Auto 0.9 % (0-4); Hematocrit 42.6 % (37.0-47.0); Hemoglobin 13.4 g/dl (12.0-16.0); Imm Gran Abs Auto 0.03 X10*3/uL (0.00-0.03); Imm Gran Pct Auto 0.2 % (0.0-0.4); Lymphocytes Absolute Auto 2.4 X10*3/uL (1.2-4.9); Lymphocytes Percent Auto 19.7 % (20-40); Mean Corpuscular HGB Conc 31.5 g/dl (31.0-35.0); Mean Corpuscular Volume 76.3 fL (80.0-98.0); Mean Platelet Volume 11.1 fL (9.4-12.3); Monocytes Absolute Auto 0.8 X10*3/uL (0.1-1.2); Monocytes Percent Auto 6.7 % (2-11); Neutrophils Absolute Auto 8.7 x10*3/uL (2.0-8.3); Neutrophils Percent Auto 72.1 % (45-73); Platelet Count 352 X10*3/uL (160-400); Red Blood Count 5.58 X10*6/uL (4.20-5.50); Red Cell Distribution Width 15.9 % (11.0-16.0)
[2024-05-22 20:41] LABS: Alanine Aminotransferase 31 U/L (0-31); Albumin Level 4.2 g/dL (3.5-5.0); Alkaline Phosphatase 105 U/L (39-117); Anion Gap 10 (12-20); Aspartate Amino Transferase 22 U/L (5-31); Bilirubin Total 0.2 mg/dL (0.0-1.0); Blood Urea Nitrogen 7 mg/dL (9-16); Calcium 9.5 mg/dL (8.4-10.2); Carbon Dioxide 26 mmol/L (22-29); Chloride 108 mmol/L (96-108); Creatinine Clr Calc Pharmacy 101.5; Estimated Glomerular Filt Rate > 60; Glucose Random 132 mg/dL (60-115); Potassium 4.1 mmol/L (3.3-5.1); Sodium 140 mmol/L (135-145); Total Protein 7.6 g/dL (6.5-8.0)
[2024-05-22 20:42] LABS: HCG Quantitative < 2 mIU/mL
[2024-05-22 23:08] LABS: Appearance Urine Clear; Color Urine Yellow; Glucose Urine UA Negative (Negative); Leukocyte Esterase Urine Small (1+) (Negative); Nitrite Urine Negative (Negative); Specific Gravity - Urine 1.025 (1.005-1.025); UMIC TRIGGER UACC YES; Urine Blood Negative (Negative); Urine Ketones Negative (Negative); Urine Protein Negative (Neg-Trace)
[2024-05-22 23:17] LABS: Bacteria Urine Trace (None Seen); Calcium Oxalate Crystals Urine Present; Hyaline Casts Urine 0-2 /LPF (0-2); RBC Urine 0-2 /HPF (0-2); UACC Culture Trigger YES
[2024-05-23 01:24] VITALS: BP 142/93; PULSE 104; RESP 18; TEMP 36.8; O2SAT 99
[2024-05-23] MEDS: Ketorolac Tromethamine 60 MG/2 ML VIAL IM (02:05)
[2024-05-23] MEDS: levoFLOXacin 750 MG TABLET PO (02:06)
[2024-05-23] MEDS: Ondansetron ODT 4 MG TAB.RAPDIS TRANSLINGU (02:06)
[2024-05-23 02:16] VITALS: BP 142/93; PULSE 104; RESP 18; TEMP 36.8; O2SAT 99
== END 2024-05-23 02:17 | disposition home or self-care (01) ==
PROVIDERS: Physician Assistant; Emergency Provider Emergency Medicine; PCP Nurse Practitioner Family
DX: N12 Tubulo-interstitial nephritis, not specified as acute or chronic (principal); R10.9 Unspecified abdominal pain; N39.0 Urinary tract infection, site not specified; R30.0 Dysuria; Z79.899 Other long term (current) drug therapy
CPT/HCPCS: 36415; 74176; 80053; 81001; 84702; 85025; 87086; 96372; 99284; J1885

== ENCOUNTER 2024-06-18 10:58 | Outpatient (AMB) | payer OTHER, SELFPAY ==
--- NOTE | 2024-06-18 11:08 | MHC.PC.OV ---
Vital Signs 06/18/24 11:14 Height 5 ft 1 in Weight 180 lb 4 oz BMI 34.1 BP 102/72 Blood Pressure Location Rt brachial Position Sitting Respiration 12 Pulse 81 Pulse Source Pulse Oximeter Pulse Oximetry (%) 99 Oxygen Delivery Method Room Air Intake Visit Reasons: Re est care- nauseas, LT arm numbness Intake Note: New patient visit Car Shunter Required: No Allergies No Known Allergies Allergy (Verified 06/18/24 11:08) Tobacco use date assessed: 06/18/24 Dental Screening Dental Screen Date: 06/18/24 Did you have a dental visit in the last 12 months?: Yes Did you have a dental problem in the last 6 months where you did not have access to dental care?: No Was dental information given to patient?: Patient declined HPI HPI Comments History of Present Illness Details This is a 34-year-old female with a past medical history of pyelonephritis, nephrolithiasis, elevated hemoglobin A1c and lower back pain presenting [facility]. She scheduled the appointment because 1-1/2 months ago when she was leaving work her left arm felt heavy and she developed tightness in the center of her chest and nausea. It started while she was driving home. 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 She had not done anything particularly physical that morning or been anxious or stressed. She went home. She felt like she had to throw up, but she did not. She felt like this for the rest of the day. She tried taking 1 of her 's anxiety pills, but it did not help. She says it was severe. She did not go to the ER. When she woke up the next day her symptoms were better, but she still felt ?off. ? Since that time she has had a few episodes where she has had mild heaviness in the left arm and chest tightness that are brief. No syncope. She recalls having 2 dizzy episodes in the week prior to these events. She has not had any dizziness since then. No further nausea and no abdominal pain. She took a home test which was negative. She denies palpitations, shortness of breath and leg swelling. She denies exertional chest pain or shortness of breath. Her father had an DE in his late 50s. He smokes. Patient does not smoke, and she drinks alcohol socially. Upon further questioning patient says she only gets infrequent episodes of acid reflux. She also has skin tags on her neck that she would like removed because they catch on things and are painful. Patient referred to [facility]. The patient went to the emergency department on 05/22/2024 for unrelated flank pain. She thought she had another kidney stone. Patient is followed by Dr. Britt. CT of the abdomen and pelvis without contrast was unremarkable aside from bilateral punctuate nonobstructing renal calculi measuring up to 2.5 mm in diameter. Patient says she was treated for UTI. ROS: Constitutional: No unexplained weight loss, fever, chills, fatigue or night sweats. Eyes: No vision changes, blurry vision, double vision Respiratory: No wheezing, cough or shortness of breath. Denies history of asthma. Cardiovascular: See HPI Gastrointestinal: No anorexia, vomiting, diarrhea, constipation, abdominal pain or blood in stools. Genitourinary: No dysuria, hematuria, urinary frequency. Neurologic: No headache, syncope, weakness, numbness or tingling in the extremities. Musculoskeletal: No joint pain or neck pain Skin: No rash Psychiatric: No depression or anxiety. Physical exam: Constitutional: Alert, in no distress. Neck: Supple, Full range of motion. No lymphadenopathy. No palpable thyroid masses. Respiratory: Clear to auscultation. Cardiovascular: S1 S2 regular. No murmurs Gastrointestinal: Abdomen soft, non-tender, non-distended. Normal bowel sounds. No palpable masses. Neurologic: No focal neurological deficits. Musculoskeletal: No gross deformities. Normal range of motion. Extremities: Warm and well perfused. No clubbing, cyanosis or edema. 3+ peripheral pulses bilaterally. Psychiatric: Normal mood and affect [facility] Medical History History of COVID-19 Renal calculi Surgical History Hx of cystoscopy Hx of lithotripsy Family History (Updated 06/18/24 @ 11:13 by Talya Davis CMA) Father Diabetes Mother Diabetes Social History Household Members: Spouse and Children Housing: House Are you a primary caretaker resort to a significant other at home: No Do you presently have visiting nurse or other home services: No Alcohol intake: never Patient Tobacco Use Status: Never used Tobacco e-Cigarette/Vaping Use: Never Used Second Hand Smoke Exposure: No service: No Current occupational status: employed 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 1. Little interest or pleasure in doing things: not at all 2. Feeling down, depressed, or hopeless: not at all 3. Trouble falling or staying asleep, or sleeping too much: not at all 4. Feeling tired or having little energy: not at all 5. Poor appetite or overeating: not at all 6. Feeling bad about yourself - or that you are a failure or have let yourself or your family down: not at all 7. Trouble concentrating on things, such as reading the newspaper or watching television: not at all 8. Moving or speaking so slowly that other people could have noticed. Or the opposite - being so fidgety or restless that you have been moving around a lot more than usual: not at all 9. Thoughts that you would be better off or of hurting yourself in some way: not at all Total score: 0 Depression Screening Interpretation: Negative Depression Screening Done: Yes 83663 - PHQ-9 Billing: Yes Source: Developed by Drs. Blaine Mccarty, Mirna Ramos, Dionte Khanna and colleagues, with an educational bang from [employer]. Thrive Questionnaire Date Thrive assessed: 06/18/24 I am a: Patient What is your living situation today?: I have a steady place to live Within the past 12 months, did the food you bought not last and you didn't have the money to get more?: Sometimes True Within the past 12 months, did you worry whether your food would run out before you got money to buy more?: Sometimes True Do you have trouble paying for medicines?: No Do you have trouble getting transportation to medical appointments?: No Do you have trouble paying your heating and electricity bill?: No Do you have trouble taking care of your child, family member or friend?: No Do you have trouble with day-to-day activities such as bathing, preparing meals, shopping, managing finances, etc.?: No Are you currently unemployed and looking for a job?: No Are you interested in more education?: No Please select the resources that you would like help with: Food Currently or been in a relationship where the following occur: No concerns reported THRIVE Score: 2 AUDIT C Alcohol Use Questionnaire (AUDIT-C) 1. How often do you have a drink containing alcohol?: Never 2. How many drinks containing alcohol do you have on a typical day when you are drinking?: 1 or 2 3. How often do you have six or more drinks on one occasion?: Never Total Score: 0 BETSY-7 AMB Questionnaire BETSY-7 Date BETSY - 7 assessed: 06/22/21 Feeling nervous, anxious, or on edge: 0 = Not at all Not being able to stop or control worryin = Not at all Worrying too much about different things: 0 = Not at all Trouble relaxin = Not at all Being so restless that it is hard to sit still: 0 = Not at all Becoming easily annoyed or irritable: 0 = Not at all Feeling afraid as if something awful might happen: 0 = Not at all Total BETSY-7 score (0-4 normal; 5-9 mild; 10-14 moderate; 15-21 severe): 0 Source: Developed by Drs. Blaine Mccarty, Mirna Ramos, Dionte Khanna and colleagues, with an educational bang from [employer]. BETSY-7 Assessment Billing BETSY-7 Assessment Tool: BETSY-7 Assessment 09396 Physical exam (Primary Care) Vital Signs: Last Vital Signs Pulse 81 06/18/24 11:14 Resp 12 06/18/24 11:14 BP 102/72 06/18/24 11:14 Pulse Ox 99 06/18/24 11:14 Oxygen Delivery Method Room Air 06/18/24 11:14 BMI result Body Mass Index 34.1 Tobacco/Smoking Status: Tobacco use Status Tobacco use date assessed 06/18/24 06/18/24 11:15 Patient Tobacco Use Status Never used Tobacco 06/18/24 11:15 e-Cigarette/Vaping Use Never Used 06/18/24 11:15 PHQ-9: PHQ-9 Score PHQ-9: Total score 0 06/18/24 11:15 Depression Screening Interpretation: Negative Thrive Assessment: Date of Thrive Assessment Date Thrive assessed 06/18/24 06/18/24 11:15 Currently or been in a relationship where the following occur: No concerns reported Office Procedures EKG Details: EKG demonstrated normal sinus rhythm, no ischemic changes or evidence of arrhythmia and heart rate of 66 beats per minute [id number], Complete Results Reviewed Results Reviewed: Laboratory Tests 05/22/24 20:10 WBC 12.0 H RBC 5.58 H Hgb 13.4 Hct 42.6 MCV 76.3 L MCH 24.0 L MCHC 31.5 RDW 15.9 Plt Count 352 Sodium 140 Potassium 4.1 Creatinine 0.77 Estim Creat Clear Calc 101.5 Estimated GFR > 60 Random Glucose 132 H AST 22 ALT 31 Alkaline Phosphatase 105 Total Protein 7.6 Albumin 4.2 Beta HCG, Quant < 2 Coding Level of Care Code Est Pt Level 5 (04601) Complex EM visit Add On G2211 Diagnoses Chest tightness R07.89 Arm heaviness R29.898 Nausea R11.0 CPT Codes EKG - CPT: 52726-[id number], Complete ([id number]) Additional Codes BETSY-7 Assessment Billing - BETSY-7 Assessment Tool: BETSY-7 Assessment 57772 ([id number]) Time Spent (min) 45 Comment Chart review, direct patient care, completing documentation Assessment & Plan Assessment & Plan (1) Chest tightness: Code(s): R07.89 - Other chest pain Category: Medical (2) Arm heaviness: Code(s): R29.898 - Other symptoms and signs involving the musculoskeletal system (3) Nausea: Code(s): R11.0 - Nausea Plan Patient well-appearing and asymptomatic today. EKG normal sinus rhythm, 66 beats per minute today. Reviewed recent labs see above. Recent CT abdomen and pelvis negative. See HPI. Check BNP, repeat serum HCG, check TSH. Warning signs warranting ER evaluation reviewed. I told her that she should have gone to the ED a month and a half ago when she had this episode. She understands. Check chest x-ray, echo and stress test. Follow up in 6 weeks. Orders: Orders CA stress test Today R07.89 - Other chest pain HCG Quantitative Today R11.0 - Nausea AMB EKG-In Office Today R07.89 - Other chest pain TSH reflex Free T4 Today R07.89 - Other chest pain Hemoglobin A1c Today E11.9 - Type 2 diabetes mellitus without complications, R07.89 - Other chest pain B Type Natriuretic Peptide Today E11.9 - Type 2 diabetes mellitus without complications, R07.89 - Other chest pain XR chest 2V Today R07.89 - Other chest pain CA echo transthoracic complete Today R07.89 - Other chest pain Referrals Dermatology Referral L91.8 - Other hypertrophic disorders of the skin Medications: Discontinued omeprazole Discontinued Reason: Doctor's Order 20 mg PO DAILY 14 caps 0RF ondansetron Discontinued Reason: Doctor's Order 4 mg PO Q8H PRN 10 tabs 0RF nausea and vomiting tamsulosin (Flomax) Discontinued Reason: Doctor's Order 0.4 mg PO DAILY 14 days 14 caps 0RF acetaminophen (Tylenol Extra Strength) Discontinued Reason: Doctor's Order 1,000 mg (2 x 500 mg) PO Q6H PRN 20 tabs 0RF fever or pain tamsulosin (Flomax) Discontinued Reason: Change Referral Type 0.4 mg PO DAILY 30 caps 0RF ketorolac maximum total duration of 5 days from all oral, intranasal, or parenteral formulations. Do not take this medication with ibuprofen or NSAIDs Discontinued Reason: Doctor's Order 10 mg PO Q8H 9 tabs 0RF ibuprofen Discontinued Reason: Doctor's Order 400 mg PO TID PRN 30 tabs 0RF fever or pain ondansetron Discontinued Reason: Doctor's Order 4 mg PO Q6-8H PRN 14 tabs 0RF nausea and vomiting oxycodone Patient may request partial fill; Partial Fill upon patient request. Discontinued Reason: Doctor's Order 5 mg PO Q4H PRN 14 tabs 0RF pain levofloxacin Discontinued Reason: Doctor's Order 500 mg PO DAILY 9 tabs 0RF ondansetron HCl Discontinued Reason: Doctor's Order 4 mg PO Q8H PRN 10 tabs 0RF nausea and vomiting phenazopyridine Discontinued Reason: Doctor's Order 100 mg PO TID 6 tabs 0RF ibuprofen Discontinued Reason: Doctor's Order 800 mg PO Q8H 14 days PRN 42 tabs 0RF pain polyethylene glycol 3350 (Miralax) Discontinued Reason: Doctor's Order 17 grams PO DAILY 7 days 7 ea 0RF
[2024-06-18 11:14] VITALS: BP 102/72; PULSE 81; RESP 12; O2SAT 99; BMI 34.1
== END 2024-06-18 11:53 | disposition home or self-care (01) ==
LOC: HO.HMCFM 10:59
PROVIDERS: PCP Nurse Practitioner Family; Visit Provider Physician Assistant Medical
DX: R07.89 Other chest pain (principal); R29.898 Other symptoms and signs involving the musculoskeletal system; R11.0 Nausea

== ENCOUNTER → 2024-06-18 10:58 | Outpatient (BNVA) | payer OTHER, SELFPAY | PROVIDERS: PCP Nurse Practitioner Family; Visit Provider Physician Assistant Medical | DX: R07.89 Other chest pain (principal); R29.898 Other symptoms and signs involving the musculoskeletal system; R11.0 Nausea; L91.8 Other hypertrophic disorders of the skin; N20.0 Calculus of kidney; E11.9 Type 2 diabetes mellitus without complications | CPT/HCPCS: 93005; 96127; 99212 ==

== ENCOUNTER 2024-06-18 12:05 | Outpatient (REF) | payer OTHER, SELFPAY ==
[2024-06-18 15:04] LABS: Estimated Average Glucose 117 mg/dL; Hemoglobin A1c % 5.7 % (<6.0); Total Hemoglobin (HGBA1C) 3496.2879 umol/L
[2024-06-18 15:36] LABS: B Type Natriuretic Peptide < 10 pg/mL (<100)
[2024-06-18 16:09] LABS: HCG Quantitative < 2 mIU/mL; TSH reflex Free T4 0.99 uIU/mL (0.32-4.0)
== END 2024-06-18 12:06 | disposition home or self-care (01) ==
LOC: HO.WFDLDS 12:05
PROVIDERS: Visit Provider Physician Assistant Medical
DX: R11.0 Nausea (principal); R07.89 Other chest pain; E11.9 Type 2 diabetes mellitus without complications
CPT/HCPCS: 36415; 83036; 83880; 84443; 84702

== ENCOUNTER 2025-06-06 15:29 | Emergency (ER) | payer OTHER, SELFPAY ==
[2025-06-06] VITALS (13 sets, daily range): BP systolic 107–150; BP diastolic 56–96; PULSE 96–127; RESP 16–28; TEMP 36.9–38; O2SAT 96–98; BMI 33.2
--- NOTE | ~2025-06-06 | XR_ITS ---
CLINICAL HISTORY: neck swelling sore throat Exam: AP and lateral soft tissue neck radiographs. Comparison: None provided. Findings: No prevertebral soft tissue swelling. Upper airway is patent. The epiglottis is unremarkable. No acute bony fractures. Impression: No acute finding. This document has been electronically signed by: Srini Vaughn MD on 06/06/2025 22:41:56
--- NOTE | ~2025-06-06 | CT_ITS ---
CLINICAL HISTORY: L flank and LLQ pain hx stones CT abdomen and pelvis without IV contrast. COMPARISON: CT abdomen and pelvis dated 05/22/24 at 20:55 EDT FINDINGS: Partially visualized lung bases are unremarkable. Hepatic steatosis. Noncontrast appearance of the spleen, pancreas and adrenal glands are unremarkable. Small splenule present. Multiple bilateral renal calculi measuring up to 3 mm. No hydronephrosis or hydroureter. No ureteral calculus bilaterally. Normal appendix. Mild colonic stool burden. No bowel obstruction. No mesenteric or retroperitoneal lymphadenopathy. Normal abdominal aorta. Urinary bladder is contracted. No adnexal mass. Small fat containing umbilical hernia. No acute fracture or suspicious bone lesion. IMPRESSION: 1. No evidence of renal obstruction. No ureteral calculus bilaterally. 2. Multiple nonobstructing renal calculi present bilaterally measuring up to 3 mm. 3. Mild colonic stool burden. No bowel obstruction. 4. Hepatic steatosis. This document has been electronically signed by: Nader Givens MD on 06/06/2025 18:39:22
--- NOTE | ~2025-06-06 | US_ITS ---
CLINICAL HISTORY: LLQ pelvic pain r o torsion Ultrasound pelvis transabdominal and transvaginal. COMPARISON: CT abdomen and pelvis dated 06/06/25 at 16:53 EDT Technique: Real time sonographic imaging, including color-flow imaging, was performed by the exhibition organiser. Multiple patient relations representative static images were saved for review. FINDINGS: Anteverted uterus appears normal and measures 7.1 x 3.4 x 4.7 cm. No uterine fibroids identified. Endometrium: 6 mm, normal. Right ovary appears normal and measures 2.7 x 2.5 x 2.9 cm. Normal color and arterial and venous waveform Doppler. No right adnexal mass identified. Likely left ovary appears normal and measures 1.4 x 0.9 x 1.1 cm. Normal color and spectral Doppler. No left adnexal mass identified. No free fluid identified in the pelvic cul-de-sac. IMPRESSION: 1. Left ovary is poorly visualized. Structure most likely representing the left ovary is without evidence of torsion. No left adnexal mass. 2. No evidence of right ovarian torsion. This document has been electronically signed by: Nader Givens MD on 06/06/2025 20:46:56
--- NOTE | ~2025-06-06 | US_ITS ---
CLINICAL HISTORY: LLQ pelvic pain r o torsion Ultrasound pelvis transabdominal and transvaginal. COMPARISON: CT abdomen and pelvis dated 06/06/25 at 16:53 EDT Technique: Real time sonographic imaging, including color-flow imaging, was performed by the supervisor. Multiple labor union business representative static images were saved for review. FINDINGS: Anteverted uterus appears normal and measures 7.1 x 3.4 x 4.7 cm. No uterine fibroids identified. Endometrium: 6 mm, normal. Right ovary appears normal and measures 2.7 x 2.5 x 2.9 cm. Normal color and arterial and venous waveform Doppler. No right adnexal mass identified. Likely left ovary appears normal and measures 1.4 x 0.9 x 1.1 cm. Normal color and spectral Doppler. No left adnexal mass identified. No free fluid identified in the pelvic cul-de-sac. IMPRESSION: 1. Left ovary is poorly visualized. Structure most likely representing the left ovary is without evidence of torsion. No left adnexal mass. 2. No evidence of right ovarian torsion. This document has been electronically signed by: Nader Givens MD on 06/06/2025 20:46:56
--- NOTE | 2025-06-06 15:33 | ED_ITS ---
HPI - General Adult General Chief complaint: General Medical Stated complaint: Sore throat, kidney stone Time Seen by Provider: 06/06/25 16:08 Source: patient Mode of arrival: ambulatory Limitations: no limitations History of Present Illness ED Provider: FÁTIMA FARRELL PA-C HPI narrative: 35 year old female presents to the ED today for evaluation of abdominal pain x3 days. Pain originally began in her left flank, has gradually moved to her left lower abdomen. Endorses increased urinary frequency and sensation of incomplete voiding. Denies hematuria. Admits to subjective fever last night. Endorses nausea without vomiting. Taking Tylenol and Motrin at home, her last dose was early this morning. Reports history of renal/ ureteral stones. Has required stent placement in the past with Dr. Shane. States this feels like her previous stones. Also endorses sore throat, neck pain and muffled voice since yesterday. Denies dysphagia. Related Data Previous Rx's ?Medication ?Instructions ?Recorded amoxicillin 875 mg-potassium 1 tab PO BID #16 tabs clavulanate 125 mg tablet benzocaine 15 mg-menthol 3.6 mg 1 melina mucous membrane Q4H PRN sore 06/06/25 lozenges (Cepacol Sore Throat throat #16 ea (benzocaine-menthol)) ketorolac 10 mg tablet 10 mg PO Q8H PRN pain (scale score 06/06/25 4-6) 5 days #15 tabs ondansetron 4 mg disintegrating 4 mg PO Q8H PRN nausea and 06/06/25 tablet vomiting #10 tabs Allergies Allergy/AdvReac Type Severity Reaction Status Date / Time No Known Allergies Allergy Verified 06/06/25 15:38 Review of Systems 2 Review of Systems: Yes all other systems are reviewed and are negative PMFSH Past Medical History Attestation statement: The following information was validated with the patient. Source: old records reviewed and nursing notes reviewed Medical History Elevated hemoglobin A1c Prediabetes Chest tightness History of COVID-19 Renal calculi Surgical History Hx of cystoscopy Hx of lithotripsy Family History Family History Father Diabetes Mother Diabetes Social History Social History Household Members: Spouse and Children Housing: House Are you a primary care advocate to a significant other at home: No Do you presently have visiting nurse or other home services: No Alcohol intake: never Patient Tobacco Use Status: Never used Tobacco e-Cigarette/Vaping Use: Never Used Second Hand Smoke Exposure: No service: No Current occupational status: employed 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 Current occupational exposures/hazards: No Cognitive needs: No Hearing needs: No Vision needs: No Physical Exam ED Vital Signs: Vital Signs - 24 hr 06/06/25 18:48 06/06/25 19:16 06/06/25 20:20 Temperature 98.7 F 98.4 F 98.5 F Pulse Rate 114 H 107 H Respiratory Rate 20 Blood Pressure 129/83 107/65 Pulse Oximetry 98 96 Oxygen Delivery Method Room Air Room Air 06/06/25 22:36 06/06/25 23:45 Temperature 98.4 F 98.4 F Pulse Rate 104 H 96 Respiratory Rate 16 Blood Pressure 116/68 118/68 Pulse Oximetry 96 96 Oxygen Delivery Method Room Air Room Air BMI result Body Mass Index 33.2 Hypertensive, febrile, tachycardic, tachypneic General: pale appearing, in NAD. Skin: Warm, dry, intact. No rashes or lesions. Head: Normocephalic, atraumatic. EENT: Hearing is intact b/l. Conjunctiva clear. PERRLA. EOM intact. Moist mucous membranes.? Posterior oropharynx erythematous, 2+ tonsillar edema bilaterally, bilateral tonsillar exudates, controlling secretions, speaking complete sentences, uvula midline. hot potato voice. Neck: Anterior cervical lymphadenopathy Cardiac: Chest wall symmetric. RRR Lungs: Normal respiratory effort without accessory muscle use. CTA bilaterally? Abdomen: Soft, non-tender, non-distended. No rebound tenderness or guarding. Positive BS x4. no cvat. Back: No midline spinous or paraspinal tenderness. No step off deformity. Ext: Upper and lower extremities atraumatic, without tenderness, deformity, swelling or erythema Neuro: AOx3. Normal speech. Ambulating with steady gait. Course Course Course Narrative: This is an RME: Additional HPI, ROS, PE not included below will be deferred to primary provider. RME assessment and note performed by: Sharee Izaguirre PA-C This is a 21-wqqs-neh-female, with a hx of kidney stones, who presents to the ER with complaints of left lower abdominal pain. Reports that she developed left lower quadrant pain x 3 days, no hematuria. Last took tylenol 12:30PM, last dose of ibuprofen 6 hours prior to arrival. BL tonsillar erythema and exudates, 2+ tonsils. Reporting that she has a muffled voice as well. Pt brought back immediately to room for further evaluation. Plan: Labs, EKG, strep swab Reevaluation(s) Reevaluation #1: 1625 -- infection suspected. sepsis alert called. IV ceftriaxone + IVF ordered. 2300 -- CBC showing leukocytosis to 17.1 with left shift. Chemistry without acute electrolyte abnormality requiring intervention. No KENDRICK. Random glucose 123, no gap. Liver function WNL. CRP elevated to 8.72. Lactic WNL at 1.5. Blood cultures pending. Urine without infection. Negative mono. Negative COVID, flu, strep. Regarding abdominal pain: > CT abdomen/pelvis without evidence of renal or ureteral obstruction. Multiple bilateral renal calculi measuring up to 3 mm. Normal appendix. Woodruff colonic stool burden without bowel obstruction. Urinary bladder contracted, no adnexal masses. > pelvic US showing poorly visualized left ovary however structure resembling left ovary with evidence of torsion. > at this time, etiology of patient's left lower quadrant pain is unknown. She may be passing small renal stones unable to visualize on CT scan. Her workup is unremarkable. Regarding her sore throat: > patient has been treated with ceftriaxone and Decadron > labs reassuring, other than white count. Negative viral/strep testing. I did have my attending dr. maier evaluate patient at bedside. He recommended soft tissue neck x-ray which is unremarkable. There is no prevertebral soft tissue swelling, epiglottis unremarkable. After discussing with my attending, we feel it is reasonable to discharge patient home with antibiotics. patient is agreeable with this as well. tolerating PO in ED. pain well controlled. I have also advised her to follow up with her urologist, dr. shane. Patient has remained stable throughout ED visit today. Discussed worrisome signs and symptoms and when to return to the ED. All questions answered at this time. Patient is agreeable with disposition and stable for discharge. Medications Administered Discontinued Medications Generic Name Dose Route Start Last Admin Trade Name Paul PRN Reason Stop Dose Admin Dexamethasone Sodium Phosphate 10 mg 06/06/25 16:25 06/06/25 16:40 Dexamethasone Sod Phosphate 10 Mg/Ml Vial IVPUSH 06/06/25 16:26 10 mg ONCE ONE Administration Acetaminophen 1,000 mg in 100 mls @ 400 mls/hr 06/06/25 16:22 06/06/25 17:29 Ofirmev IV 06/06/25 16:36 Infused ONCE ONE Infusion Ceftriaxone Sodium 1 gm/ 50 mls @ 100 mls/hr 06/06/25 16:22 06/06/25 17:01 Sodium Chloride IV 06/06/25 16:51 Infused ONCE ONE Infusion Sodium Chloride 1,000 mls @ 999 mls/hr 06/06/25 16:30 06/06/25 17:29 Ns IV 06/06/25 17:30 Infused .Q1H1M YUE Infusion Ketorolac Tromethamine 15 mg 06/06/25 16:22 06/06/25 16:31 Ketorolac Tromethamine 15 Mg/Ml Vial IVPUSH 06/06/25 16:23 15 mg ONCE ONE Administration Morphine Sulfate 5 mg 06/06/25 18:53 06/06/25 19:26 Morphine Sulfate 10 Mg/Ml Cartridge IVPUSH 06/06/25 18:54 5 mg ONCE ONE Administration Protocol Ondansetron HCl 4 mg 06/06/25 16:41 06/06/25 16:45 Ondansetron Hcl 4 Mg/2 Ml Vial IVPUSH 06/06/25 16:42 4 mg ONCE ONE Administration Medical Decision Making Medical Decision Making MDM Narrative: 35 year old female presents to the ED today for evaluation of abdominal pain x3 days and sore throat x1 day. patient is tachycardic, low grade temp 100.4F, hypertensive, tachypneic. she is pale appearing, in NAD. on exam, abdomen is soft, nondistended, nontender to palpation, no rebound or guarding. No CVAT bilaterally. Posterior oropharynx erythematous, 2+ tonsillar edema bilaterally, bilateral tonsillar exudates, controlling secretions, speaking complete sentences, uvula midline. hot potato voice. Differential diagnosis includes anemia, electrolyte abnormality, dehydration, strep throat, viral syndrome, pharyngitis, renal stone, ureteral obstructive uropathy, UTI, pyelonephritis, diverticulosis, diverticulitis, , IUP, ectopic , colitis. Unlikely PARTNER MANAGEMENT CONSULTANT, retropharyngeal abscess, epiglottitis. Plan for labs, lactic, blood cultures, viral/strep swabs, CT abdomen, UA, IVF, pain control, re-evaluation. Differential Diagnosis Differential Diagnoses: The differential diagnosis associated with the presentation includes As above Admission/Observation Consideration of admission/observation: Escalation of care including admission/observation considered Not indicated Lab Data MDM Lab Attestation statement: I reviewed the patient's lab results. As above 06/06/25 16:00 06/06/25 16:00 Labs: Lab Results 06/06/25 06/06/25 06/06/25 Range/Units 16:00 18:48 21:41 WBC 17.1 H (4.8-10.8) X10*3/uL RBC 5.61 H (4.20-5.50) X10*6/uL Hgb 13.4 (12.0-16.0) g/dl Hct 43.2 (37.0-47.0) % MCV 77.0 L (80.0-98.0) fL MCH 23.9 L (27.0-33.0) pg MCHC 31.0 (31.0-35.0) g/dl RDW 14.9 (11.0-16.0) % Plt Count 319 (160-400) X10*3/uL MPV 10.4 (9.4-12.3) fL Immature Gran % (Auto) 0.4 (0.0-0.4) % Neut % (Auto) 89.1 H (45-73) % Lymph % (Auto) 5.4 L (20-40) % Woodruff % (Auto) 4.6 (2-11) % Eos % (Auto) 0.1 (0-4) % Baso % (Auto) 0.4 (0-2) % Lymph # (Auto) 0.9 L (1.2-4.9) X10*3/uL Woodruff # (Auto) 0.8 (0.1-1.2) X10*3/uL Eos # (Auto) 0.0 (0.0-0.4) X10*3/uL Baso # (Auto) 0.1 (0.0-0.2) X10*3/uL Abs Immat Gran (auto) 0.06 H (0.00-0.03) X10*3/uL Absolute Neuts (auto) 15.2 H (2.0-8.3) x10*3/uL Absolute Nucleated RBC 0.000 (0.0-0.012) X10*3/uL Nucleated RBC % (auto) 0.0 (0.0-0.2) /100WBC Sodium 140 (135-145) mmol/L Potassium 3.5 (3.3-5.1) mmol/L Chloride 106 (96-108) mmol/L Carbon Dioxide 27 (22-29) mmol/L Anion Gap 11 L (12-20) BUN 11 (9-16) mg/dL Creatinine 0.72 (0.5-1.4) mg/dL Estim Creat Clear Calc 106.2 Estimated GFR > 60 Random Glucose 123 H (60-115) mg/dL Lactic Acid 1.5 (0.5-2.0) mmol/L Calcium 9.0 (8.4-10.2) mg/dL Magnesium 1.9 (1.6-2.6) mg/dL Total Bilirubin 0.3 (0.0-1.0) mg/dL Direct Bilirubin 0.1 (0.0-0.5) mg/dL AST 29 (5-31) U/L ALT 29 (0-31) U/L Alkaline Phosphatase 110 (39-117) U/L C-Reactive Protein 8.72 H (< or = 0.50) mg/dL Total Protein 8.2 H (6.5-8.0) g/dL Albumin 4.6 (3.5-5.0) g/dL Lipase 14 (8-78) U/L Beta HCG, Quant < 2 mIU/mL Urine Color Yellow Urine Appearance Clear Urine pH 7.5 (5.0-9.0) Ur Specific Davenport 1.015 (1.005-1.025) Urine Protein Negative (Neg-Trace) mg/dL Urine Glucose (UA) Negative (Negative) mg/dL Urine Ketones Negative (Negative) mg/dL Urine Blood Negative (Negative) Urine Nitrite Negative (Negative) Ur Leukocyte Esterase Negative (Negative) COVID-19 (DARA) Negative (Negative) COVID-19 Clin Com See Note Monoscreen Negative (Negative) Influenza Type A (JONY) Negative (Negative) Influenza Type B (JONY) Negative (Negative) Influenza A & B Note See Note S. pyogenes GrpA JONY Negative (Negative) Independent Interpretation I performed an independent interpretation of an: Plain X-Ray, Ultrasound and CT Scan Interpretation: xr soft tissue neck without epiglottic thumb printing sign ct a/p showing renal stone sto L kidney, no obstructing ureteral stones pelvic US without adenexal masses Radiology Impression Discussion of test interpretation with radiology: I have reviewed the radiologist's reading. Radiologist Impression: Procedure(s): US pelvic ovarian doppler Accession Number(s): [id number] cc: Celina Huertas; Fátima Farrell~ Reason for Exam: LLQ pelvic pain r/o torsion CLINICAL HISTORY: LLQ pelvic pain r o torsion Ultrasound pelvis transabdominal and transvaginal. COMPARISON: CT abdomen and pelvis dated 06/06/25 at 16:53 EDT Technique: Real time sonographic imaging, including color-flow imaging, was performed by the unarmed security officer. Multiple commissary representative static images were saved for review. FINDINGS: Anteverted uterus appears normal and measures 7.1 x 3.4 x 4.7 cm. No uterine fibroids identified. Endometrium: 6 mm, normal. Right ovary appears normal and measures 2.7 x 2.5 x 2.9 cm. Normal color and arterial and venous waveform Doppler. No right adnexal mass identified. Likely left ovary appears normal and measures 1.4 x 0.9 x 1.1 cm. Normal color and spectral Doppler. No left adnexal mass identified. No free fluid identified in the pelvic cul-de-sac. IMPRESSION: 1. Left ovary is poorly visualized. Structure most likely representing the left ovary is without evidence of torsion. No left adnexal mass. 2. No evidence of right ovarian torsion. This document has been electronically signed by: Nader Givens MD on 06/06/2025 20:46:56 Procedure(s): XR soft tissue neck Accession Number(s): [id number] cc: Celina Huertas; Fátima Farrell~ Reason for Exam: neck swelling sore throat CLINICAL HISTORY: neck swelling sore throat Exam: AP and lateral soft tissue neck radiographs. Comparison: None provided. Findings: No prevertebral soft tissue swelling. Upper airway is patent. The epiglottis is unremarkable. No acute bony fractures. Impression: No acute finding. This document has been electronically signed by: Srini Vaughn MD on 06/06/2025 22:41:56 Procedure(s): CT abdomen pelvis wo IV con Accession Number(s): [id number] cc: Celina Huertas; Fátima Farrell~ Report Number: [id number]: Total DLP = 0.00 mGy-cm Reason for Exam: L flank and LLQ pain hx stones CLINICAL HISTORY: L flank and LLQ pain hx stones CT abdomen and pelvis without IV contrast. COMPARISON: CT abdomen and pelvis dated 05/22/24 at 20:55 EDT FINDINGS: Partially visualized lung bases are unremarkable. Hepatic steatosis. Noncontrast appearance of the spleen, pancreas and adrenal glands are unremarkable. Small splenule present. Multiple bilateral renal calculi measuring up to 3 mm. No hydronephrosis or hydroureter. No ureteral calculus bilaterally. Normal appendix. Mild colonic stool burden. No bowel obstruction. No mesenteric or retroperitoneal lymphadenopathy. Normal abdominal aorta. Urinary bladder is contracted. No adnexal mass. Small fat containing umbilical hernia. No acute fracture or suspicious bone lesion. IMPRESSION: 1. No evidence of renal obstruction. No ureteral calculus bilaterally. 2. Multiple nonobstructing renal calculi present bilaterally measuring up to 3 mm. 3. Mild colonic stool burden. No bowel obstruction. 4. Hepatic steatosis. This document has been electronically signed by: Nader Givens MD on 06/06/2025 18:39:22 Independent Historian Clinical information obtained from an independent historian. History obtained from or confirmed by: Spouse External Record Review External record reviewed: Inpatient record Prescription Management I considered prescription management with: Pain Medication and Antibiotic Social Determinants Patient?s care significantly limited by Social Determinants of Health including: Other Social Determinant of Health Critical Care Time Critical Care Time Critical Care Time: Yes Total Critical Care Time: 35 Attestation: Critical care time in the amount of 35 minutes has been provided to the patient in terms of direct patient care, frequent reevaluation, review and interpretation of medical data and results, and management of potentially life- threatening conditions. This is all outside of any medical procedures. Discharge Plan Discharge Clinical Impression: Acute bacterial tonsillitis, Abdominal pain Patient Disposition: Home, Self-Care Instructions: Tonsillitis (ED), Abdominal Pain (ED) Additional Instructions: You were seen in the ED today for evaluation of sore throat and abdominal pain. Your blood work shows an elevated white count and inflammatory markers. Your blood work is otherwise reassuring. You tested negative for covid, flu, strep throat, and mono. Your urine is not infected. The CT scan of your abdomen shows small kidney stones no obstructing stones. It also shows that you are mildly constipated. The ultrasound of your pelvis did not show any ovarian cyst or twisting of your ovary. Amoxicillin/clavulanate (also called Augmentin) is an antibiotic that has been sent to your pharmacy. Take this twice daily for the next 8 days to treat your tonsillitis. Do not stop taking these antibiotics early or miss any doses as this may cause infection to return or worsen. Cepacol throat lozenges have been sent to your pharmacy to help with throat pain. You may also purchase [id number]-[id number] chloraseptic spray to numb your throat. I am sending Toradol to your pharmacy for your abdominal pain. Do not take this with other NSAIDs such as Motrin/ibuprofen/Aleve as this can cause increased risk of GI bleeding. You may also take this with Tylenol. Follow up with your primary care provider this week. I also encourage you to follow up with your urologist. Return to the Emergency Department if you experience worsening or uncontrolled pain, tongue swelling, difficulty swallowing, change in your voice, difficulty breathing, fevers 100.4?F or greater, recurrent vomiting, development of a rash, or any other concerning symptoms. In the case of emergency, call 911.? Prescriptions: New ketorolac 10 mg tablet 10 mg PO Q8H PRN (Reason: pain (scale score 4-6)) 5 Days Qty: 15 0RF Rx Instructions: maximum total duration of 5 days from all oral, intranasal, or parenteral formulations ondansetron 4 mg tablet,disintegrating 4 mg PO Q8H PRN (Reason: nausea and vomiting) Qty: 10 0RF Cepacol Sore Throat (kemal-men) 15-3.6 mg lozenge 1 melina mucous membrane Q4H PRN (Reason: sore throat) Qty: 16 0RF amoxicillin-pot clavulanate 875-125 mg tablet 1 tab PO BID Qty: 16 0RF Referrals: Celina Huertas PA [Primary Care Provider, Endocrinology] Stand Alone Forms: Work/School Release Interventions: ED Discharge Assessment Last Done: 06/06/25 23:45 Discharge Date/Time: 06/06/25 23:49 Print Language: Croatian
--- NOTE | 2025-06-06 15:37 | ECG_ITS ---
Test Reason : tachy Blood Pressure : */* mmHG Vent. Rate : 123 BPM Atrial Rate : 123 BPM P-R Int : 146 ms QRS Dur : 70 ms QT Int : 300 ms P-R-T Axes : 27 42 18 degrees QTcB Int : 429 ms Sinus tachycardia Nonspecific T wave abnormality Abnormal ECG When compared with ECG of 17-Jul-2020 11:13, No significant change was found Referred By: Sharee Izaguirre Electronically Signed By: ALMAZ COFFEY MD
[2025-06-06 16:09] LABS: MANUAL DIFF FLAG NO
[2025-06-06 16:13] LABS: Hematocrit 43.2 % (37.0-47.0); Hemoglobin 13.4 g/dl (12.0-16.0); Imm Gran Abs Auto 0.06 X10*3/uL (0.00-0.03); Imm Gran Pct Auto 0.4 % (0.0-0.4); Lymphocytes Absolute Auto 0.9 X10*3/uL (1.2-4.9); Mean Corpuscular HGB Conc 31.0 g/dl (31.0-35.0); Mean Corpuscular Hemoglobin 23.9 pg (27.0-33.0); Mean Corpuscular Volume 77.0 fL (80.0-98.0); NRBC Abs Auto 0.000 X10*3/uL (0.0-0.012); NRBC Pct Auto 0.0 /100WBC (0.0-0.2); Platelet Count 319 X10*3/uL (160-400); Red Blood Count 5.61 X10*6/uL (4.20-5.50); White Blood Count 17.1 X10*3/uL (4.8-10.8)
--- NOTE | 2025-06-06 16:16 | PC.NURSE ---
35 F presents to ED with 8/10 sore throat and fever since last night, lower abdominal pain x 3 days with concerns for kidney stones. RR even and unlabored, denies CP or SOB. Pt is A+OX4, calm, cooperative. Pt ambulates without devices.
[2025-06-06 16:31] LABS: IDNOW Serial# 08D9AD1C; Strep A Nucleic Acid Negative (Negative)
[2025-06-06 16:34] LABS: Alanine Aminotransferase 29 U/L (0-31); Albumin Level 4.6 g/dL (3.5-5.0); Alkaline Phosphatase 110 U/L (39-117); Anion Gap 11 (12-20); Aspartate Amino Transferase 29 U/L (5-31); Blood Urea Nitrogen 11 mg/dL (9-16); COVID-19 Test Negative (Negative); Calcium 9.0 mg/dL (8.4-10.2); Carbon Dioxide 27 mmol/L (22-29); Chloride 106 mmol/L (96-108); Creatinine Clr Calc Pharmacy 106.2; Estimated Glomerular Filt Rate > 60; IDNOW Serial# 55D5AD1C; Lipase 14 U/L (8-78); Magnesium 1.9 mg/dL (1.6-2.6); Potassium 3.5 mmol/L (3.3-5.1); Sodium 140 mmol/L (135-145); Total Protein 8.2 g/dL (6.5-8.0)
[2025-06-06 16:54] LABS: IDNOW Serial# 58CA691E; Influenza B2 Negative (Negative)
[2025-06-06 18:57] LABS: Appearance Urine Clear; Glucose Urine UA Negative (Negative); PH 7.5 (5.0-9.0); Specific Gravity - Urine 1.015 (1.005-1.025)
--- OUTSIDE RECORDS SUMMARY | 2025-06-06 19:29 | XMS_ITS | Clinical Summary ---
Author Organization [facility] ity Address [address] [place] [address] Care Team Providers Care Physician Obstetrician Name Role Phone Alfred Garcia MD Primary Care Provider [phone] Surgical History Surgery Date Site/Laterality Comments OTHER SURGICAL HISTORY PROCEDURE: DENIES PREVIOUS SURGERY Medical History Medical History Date Comments Patient denies medical problems DX:Patient denies medical problems Family History Medical History Relation Name Comments No Known Problems Brother 1 maternal h [facility] brother No Known Problems Brother 2 maternal h [facility] brother No Known Problems Brother 3 Other: heart disease Father Diabetes Maternal Grandmother Hypertension Maternal Grandmother No Known Problems Mother No Known Problems Sister Breast cancer Neg Hx Cervical cancer Neg Hx Colon cancer Neg Hx Ovarian cancer Neg Hx Prostate cancer Neg Hx Uterine cancer Neg Hx Relation Name Status Comments Brother 1 Alive Brother 2 Alive Brother 3 Alive Father Alive Maternal Grandfather Maternal Grandmother Mother Alive Paternal Grandfather Paternal Grandmother Sister Alive Social History Tobacco Use Types Packs/Day Years Used Date Smoking Tobacco: Never Smokeless Tobacco: Never Alcohol Use Standard Drinks/Week Comments Yes 0 (1 standard drink = 0.6 oz pur e alcohol) Comments Unknown Sex and Gender Information Value Date Recorded Sex Assigned at Not on file Legal Sex Female 3:50 AM EST Gender Identity Not on file Sexual Orientation Not on file Obstetrics History Plan of Treatment Health Maintenance Due Date Last Done Comments DTaP,Tdap,and Td Vaccines (1 - Tdap) 02/24/2011 Hepatitis B Vaccines (1 of 3 - 19+ 3-dose series) 02/24/2011 HPV Vaccines (1 - 3-dose SCD M series) 02/24/2019 Cervical Cancer Screening: P ap Smear 06/04/2022 06/04/2019 Depression Screening 08/15/2024 COVID-19 Vaccine (2023-2 5 season) 2025 Influenza Vaccine (#1) 2025 RSV Immunization Adult Patie nts (1 - 1-dose 75+ series) 02/24/2067 HIB Vaccines Aged Out No longer eligi ble based on patient's age to complete this topic Hepatitis A Vaccines Aged Out No long er eligible based on patient's age to complete this topic IPV Vaccines Aged Out No longer eligi ble based on patient's age to complete this topic MMR Vaccines Aged Out No longer eligi ble based on patient's age to complete this topic Meningococcal ACWY Vaccine Aged Out N o longer eligible based on patient's age to complete this topic Meningococcal B Vaccine Aged Out No l onger eligible based on patient's age to complete this topic Pneumococcal Vaccine: Pediat rics (0 to 5 Years) and At-Risk Patients (6 to 49 Years) Aged Out No longer eligi ble based on patient's age to complete this topic RSV Immunization Patients Un radha 20 months Aged Out No longer eligible b ased on patient's age to complete this topic Varicella Vaccines Aged Out No longer eligible based on patient's age to complete this topic Procedures Procedure Name Priority Date/Time Associated Diagnosis Comments PAP SMEAR Routine 06/04/2019 from Last 3 Months or Most Recently Relevant to Health Maintenance Results * Pap smear (06/04/2019) 06/04/2019 Narrative HISTORICAL TESTING LAB RESULTING AGENCY - 06/07/2019 4:31 PM EDT [id number] THINPREP PAP, IMAGED: NEGATIVE FOR SQUAMOUS INTRAEPITHELIAL LESION AND MALIGNANCY . TAWANA TOLLIVER(ASCP) (CASE ELECTRONICALLY SIGNED 06 07 2019) ADEQUACY: SATISFACTORY ENDOCERVICAL/TRANSFORMATION ZONE COMPONENT PRESENT. SOURCE: THINPREP PAP HPV IF ASCUS, CERVICAL, IMAGED CLINICAL INFORMATION: HPV IF DIAGNOSIS OF ASCUS. HORMONES, PAP HX NEG, LP-2015. Z01.419 Debbie QUIGLEY LAB CYTOLOGY ORDERABLES Final Result HISTORICAL TESTING LAB RESULTING AGENCY from Last 3 Months or Most Recently Relevant to Health Maintenance Care Teams Physician Obstetrician Relationship Specialty Start Date End Date Alfred Garcia MD [address] [place] [address] [address] CAROLYNE Kemp PCP - General Internal Medicine 03/03/20
== END 2025-06-06 23:49 | disposition home or self-care (01) ==
PROVIDERS: Physician Assistant Medical; Emergency Provider Emergency Medicine; PCP Physician Assistant Medical
DX: J03.90 Acute tonsillitis, unspecified (principal); R35.0 Frequency of micturition; M54.2 Cervicalgia; R10.9 Unspecified abdominal pain; R11.0 Nausea; Z11.52 Encounter for screening for COVID-19; Z79.899 Other long term (current) drug therapy
CPT/HCPCS: 36415; 70360; 74176; 76830; 76856; 80048; 80076; 81003; 83605; 83690; 83735; 84702; 85025; 86140; 86308; 87040; 87502; 87635; 87651; 93005; 93975; 96361; 96374; 96375; 99285; J0131; J0696; J1100; J1885; J2270; J2405

== ENCOUNTER → 2025-06-06 15:37 | Outpatient (BNV) | payer OTHER, SELFPAY | PROVIDERS: Emergency Provider Emergency Medicine; PCP Physician Assistant Medical; Visit Provider Internal Medicine Cardiovascular Disease | DX: R00.0 Tachycardia, unspecified (principal) | CPT/HCPCS: 93010 ==

== ENCOUNTER → 2025-06-06 16:38 | Outpatient (BNV) | payer OTHER, SELFPAY | PROVIDERS: Emergency Provider Emergency Medicine; PCP Physician Assistant Medical; Visit Provider Radiology Diagnostic Radiology | DX: N20.0 Calculus of kidney (principal); K76.0 Fatty (change of) liver, not elsewhere classified; R10.20 Pelvic and perineal pain unspecified side; J02.9 Acute pharyngitis, unspecified; R22.1 Localized swelling, mass and lump, neck | CPT/HCPCS: 70360; 74176; 93975 ==